=== PATIENT | male | born 1940 | race Caucasian/White ===

== ENCOUNTER 2017-04-12 18:39 | Inpatient (IN) | payer OTHER, MEDICARE ==
[~2017-04-12] VITALS: Ht 167.6 cm; Wt 117.0 kg
[~2017-04-12 18:39] MED LIST: ACETAMINOPHEN-H1 TA2 PO; ALBUTEROL 3 ML3 ML INH; ALDACTONE25 MG PO; ASPIRIN EC81 M1 PO; BACTRIM DS TAB1 EACH PO; BUPROPION HCL300 MG PO; CENTRUM SILVER1 EACH PO; COREG 25 MG TAB25 MG PO; COREG25 M1 PO; DIPHENHYDRAMINE25 M4 PO; ESCITALOPRAM OXA5 MG PO; FINASTERIDE5 M1 PO; FLOMAX(MONOGRA0.4 MG PO; FUROSEMIDE40 M1 PO; FUROSEMIDE40 MG PO; GABAPENTIN300 MG PO; GABAPENTIN400 M2 PO; HYDROCODON-ACE1 EAC2 PO; HYDROCODON-ACE1 EAC3 PO; IMDUR 60MG TAB60 MG PO; LEVEMIR 10100 UNITS/ SC; LEXAPRO5 M1 PO; LYRICA50 M1 PO; MYRBETRIQ50 M1 PO; NIACIN500 M6 PO; NOVOLOG100 U/ML SC; PLAVIX 75MG TAB75 MG PO; PRINIVIL 5MG5 MG PO; SACCHAROMYCES BOULARDII PO; SIMVASTATIN20 M2 PO; TRAZODONE HCL50 M1 PO; VICODIN 5-3001 EACH PO; VITAMIN D32000 UNI1 PO; WELLBUTRIN XL150 M2 PO; ZITHROMAX250 M2 PO; ZYLOPRIM 300MG300 MG PO; [UNRECOGNIZED DRUG - OTHER] PO
--- NOTE | 2017-04-12 19:28 | ED UPPER/LOWER EXTREMITY COMPL ---
History of Present Illness General Chief Complaint: Foot or Ankle Injury Stated Complaint: PT RT FOOT AND THE PINKIETOE IS SWOLLEN & red Source: patient, family Exam Limitations: no limitations Allergies Coded Allergies: Penicillins (Severe, HIVES 12/10/15) Reconcile Medications Allopurinol 300 MG TABLET 1 TAB PO QAM GOUT (Reported) Aspirin (Ecotrin*) 81 MG TABLET.DR 1 TAB PO QAM HEART/BLOOD (Reported) Atorvastatin Calcium 20 MG TABLET 1 TAB PO QAM CHOLESTEROL (Reported) Bupropion HCl (Wellbutrin XL) 150 MG TAB.ER.24H 1 TAB PO QAM DEPRESSION ( Reported) Carvedilol (Coreg) 25 MG TABLET 1 TAB PO QAM BP (Reported) Clopidogrel Bisulfate (Clopidogrel) 75 MG TABLET 1 TAB PO QAM BLOOD THINNER ( Reported) Diphenhydramine HCl 25 MG CAPSULE 2 CAP PO QPM SLEEP (Reported) Escitalopram Oxalate (Lexapro) 5 MG TABLET 1 TAB PO QPM MENTAL HEALTH ( Reported) Finasteride 5 MG TABLET 1 TAB PO QPM URINATION (Reported) Furosemide 40 MG TABLET 1 TAB PO QAM FLUID RETENTION (Reported) Hydrocodone/Acetaminophen (Hydrocodon-Acetaminoph 7.5-325) 7.5 MG-325 MG TABLET 1 TAB PO Q6-8H PAIN (Reported) Hydroxyzine HCl (Unknown Strength) TABLET (Unknown Dose) PO PRN ITCHING ( Reported) Insulin Lispro (Humalog) 100 UNIT/ML VIAL INSULIN PUMP (Reported) Isosorbide Mononitrate (Isosorbide Mononitrate ER) 60 MG TAB.ER.24H 2 TAB PO QAM HEART (Reported) Lisinopril (Prinivil) 5 MG TABLET 1 TAB PO QAM BP (Reported) Mirabegron (Myrbetriq) 50 MG TAB.ER.24H 1 TAB PO QPM BLADDER (Reported) Multivit-Min/Iron/Folic/Lutein (Centrum Silver Women Tablet) 8 MG IRON-400 MCG- 300 MCG TABLET 1 TAB PO DAILY SUPPLEMENT (Reported) Niacin (Niaspan) 500 MG TAB.ER.24H 1 TAB PO QPM CHOLESTEROL (Reported) Pregabalin (Lyrica) 50 MG CAPSULE 2 CAP PO QAM NEUROPATHY (Reported) Pregabalin (Lyrica) 50 MG CAPSULE 3 CAP PO QPM NEUROPATHY (Reported) Tamsulosin HCl (Flomax) 0.4 MG CAP.ER.24H 1 CAP PO DAILY (Reported) Trazodone HCl 50 MG TABLET 0.5 TAB PO QPM SLEEP HELP (Reported) Triage Note: PT WENT TO SEE DR. MATAMOROS ASSOCIATE LAST WEEK AND WAS TOLD HE NEEDS RIGHT FOOT PINKY TOE REMOVED. PT STATES HE DIDN'T FEEL IT DIDN'T NEED TO COME OFF. PT STATES TODAY HIS TOE TURNED RED AND HE CALLED DR. MATAMOROS AND WAS TOLD TO COME TO THE ED FOR X-RAYS. Triage Nurses Notes Reviewed? yes Onset: Gradual Duration: day(s): Timing: recent history Severity: moderate Pain/Injury Location: Right: 1st toe. Modifying Factors: Worsens With: movement. HPI: 76-year-old male presents to emergency department complaining of swelling and pain in his right pinky toe. He notes increased redness and swelling x one day. Patient has history of 2ND, 3RD, 4TH toe amputations by Dr. Matamoros on his right foot due to diabetes. 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 He notes a growing ulcer on his lateral fifth toe with pain and redness and swelling of his distal foot. Pain is worse with ambulation. He called Dr. Matamoros office who told him to report to the ER for x-rays and blood work. He states his blood sugars have been high in the 200s this past week. He states he has chronic lower extremity swelling. He denies fevers, chills, abdominal pain, change in bowel movements, abdominal swelling, increase in lower extremity swelling. (CARLOS WESTON,CROW) Vital Signs & Intake/Output Vital Signs & Intake/Output Vital Signs Date Time Temp Pulse Resp B/P B/P Pulse O2 O2 Flow FiO2 Mean Ox Delivery Rate 04/14 942 72 120/64 04/14 0942 72 120/64 04/14 0942 72 120/64 04/14 0942 72 120/64 04/14 0657 97.8 68 18 130/70 96 CPAP 04/13 2239 97.8 77 20 138/80 94 Room Air 04/13 1441 97.7 82 20 136/74 93 ED Intake and Output 04/14 0000 04/13 1200 Intake Total 1650 280 Output Total 640 350 Balance 1010 -70 Intake, IV 150 100 Intake, Oral 1500 180 Output, Urine 640 350 Patient 259 lb Weight Past History Travel History Traveled to [place] past 21 day No Medical History Any Pertinent Medical History? see below for history Neurological: NEUROPATHY EENT: allergies, cataracts, hearing loss Cardiovascular: CAD Respiratory: NONE Gastrointestinal: diverticulitis, GERD Hepatic: NONE Renal: CHRONIC KIDNEY DISEASE Musculoskeletal: gout Psychiatric: depression Endocrine: diabetes Blood Disorders: NONE Cancer(s): NONE NEEDLEWORKER/Reproductive: NONE History of MRSA: No History of VRE: No History of CDIFF: No Pneumonia Vaccine: 05/15/15 Influenza Vaccine: 07/15/16 Surgical History Surgical History: CABG (lower extremity angioplasty), colon resection, left leg angioplasty partial fifth ray resection, rt. 2nd toe anputation Psychosocial History Who do you live with Patient/Self Services at Home None What is your primary language [place] Tobacco Use: Quit >30 days ago ETOH Use: denies use Illicit Drug Use: denies illicit drug use Family History Family History, If Any: Relation not specified for: FH: diabetes mellitus Hx Contributory? No (CROW GONZALEZ PA-C) Review of Systems Review of Systems Constitutional: Reports: no symptoms. EENTM: Reports: no symptoms. Respiratory: Reports: no symptoms. Cardiovascular: Reports: no symptoms. Gastrointestinal/Abdominal: Reports: no symptoms. Genitourinary: Reports: no symptoms. Musculoskeletal: Reports: see HPI. Skin: Reports: see HPI. Neurological/Psychological: Reports: no symptoms. Hematologic/Endocrine: Reports: see HPI. Immunological: Reports: no symptoms. All Other Systems: Reviewed and Negative (CROW GONZALEZ PA-C) Physical Exam Physical Exam General Appearance: well developed/nourished, no apparent distress, alert, awake Head: atraumatic, normal appearance Eyes: Bilateral: normal appearance. Ears, Nose, Throat: hearing grossly normal Neck: normal inspection, supple, full range of motion Cardiovascular/Respiratory: normal breath sounds, regular rate/rhythm, no respiratory distress Gastrointestinal: tenderness and bruising over RLQ and LLQ at insulin pump sites Back: normal range of motion Foot Right: erythema, swelling, and tenderness over right 5th digit and right distal half of foot, 05.x0.5cm ulcer with tenderness over lateral 5th digit Neurologic/Tendon: normal sensation, normal motor functions, normal tendon functions Skin: erythema, warmth, swelling, and tenderness over right 5th digit and distal half of foot with 0.5cm ulcer on lateral fifth digit (CARLOS WESTON,CROW) Progress Differential Diagnosis: cellulitis, gout, septic arthritis, osteomyelitis Diagnostic Imaging: Viewed by Me: Radiology Read. Discussed w/RAD: Radiology Read. Radiology Impression: PATIENT: KELLY QUILES PRESENT AGE: 76 PATIENT ACCOUNT NO: [id number] : 39 LOCATION: [facility] ORDERING PHYSICIAN: CROW GONZALEZ PA-C SERVICE DATE: 04/12/17 EXAM TYPE: RAD - XRY-FOOT COMPLETE, R; XRY-TOES, RIGHT EXAMINATION: XR TOES AND FOOT RIGHT CLINICAL INFORMATION: Diabetic foot ulcer. COMPARISON: None. TECHNIQUE: 3 views of the foot, 2 views of the toes. FINDINGS: There is diffuse soft tissue prominence with previous amputations at the PIP joints in the second through fourth digits. The fifth toe remains in place. No cortical destruction is identified involving the proximal phalanx, however the distal phalanx is not well seen on the images provided however the visualized portions demonstrate no evidence of definitive cortical destruction. There are degenerative changes in the first toe and midfoot. There is a prominent plantar calcaneal spur. IMPRESSION: Soft tissue prominence, no definitive evidence of osteomyelitis. Distal fifth phalanx is not completely well seen. DICTATED BY: PAOLA BOLAÑOS MD DATE/TIME DICTATED:04/12/172037 BROADCAST MAINTENANCE TECHNICIAN:MANPREET DATE/TIME TRANSCRIBED:04/12/172037 CONFIDENTIAL, DO NOT COPY WITHOUT APPROPRIATE AUTHORIZATION. <Electronically signed in Other Vendor System> SIGNED BY: PAOLA BOLAÑOS MD 04/12/172134, PATIENT: KELLY QUILES PRESENT AGE: 76 PATIENT ACCOUNT NO: [id number] : 39 LOCATION: [facility] ORDERING PHYSICIAN: CROW GONZALEZ PA-C SERVICE DATE: 04/12/17 EXAM TYPE: RAD - XRY-FOOT COMPLETE, R; XRY-TOES, RIGHT EXAMINATION: XR TOES AND FOOT RIGHT CLINICAL INFORMATION: Diabetic foot ulcer. COMPARISON: None. TECHNIQUE: 3 views of the foot, 2 views of the toes. FINDINGS: There is diffuse soft tissue prominence with previous amputations at the PIP joints in the second through fourth digits. The fifth toe remains in place. No cortical destruction is identified involving the proximal phalanx, however the distal phalanx is not well seen on the images provided however the visualized portions demonstrate no evidence of definitive cortical destruction. There are degenerative changes in the first toe and midfoot. There is a prominent plantar calcaneal spur. IMPRESSION: Soft tissue prominence, no definitive evidence of osteomyelitis. Distal fifth phalanx is not completely well seen. DICTATED BY: PAOLA BOLAÑOS MD DATE/TIME DICTATED:04/12/172037 BROADCAST MAINTENANCE TECHNICIAN:MANPREET DATE/TIME TRANSCRIBED:04/12/172037 CONFIDENTIAL, DO NOT COPY WITHOUT APPROPRIATE AUTHORIZATION. <Electronically signed in Other Vendor System> SIGNED BY: PAOLA BOLAÑOS MD 04/12/17 2723 (CROW GONZALEZ PA-C) Plan of Care: Orders Procedure Date/time Status Lab Add-on Test 04/14 1311 Active Change service to 04/14 0823 Active PHOSPHORUS 04/14 0710 Active MAGNESIUM 04/14 07 Active Change service to 04/14 0633 Active CBC WITHOUT DIFFERENTIAL 04/14 06 Complete BASIC ELECTROLYTES PLUS BUN&CR 04/14 06 Active House Staff 04/14 UNK Active Nursing Misc 04/13 UNK Active Current Medications Sig/Chacha Start time Last Medication Dose Stop Time Status Admin Baclofen 10 MG ONCE ONE 04/14 1315 UNVr (Lioresal 10MG 04/14 131 Tablet) Melatonin 10 MG AT BEDTIME 04/13 2215 AC 04/14 (Melatonin) 0025 Escitalopram Oxalate 5 MG QPM 04/13 2200 AC 04/13 (Lexapro) 2159 Finasteride 5 MG QPM 04/13 2200 AC 04/13 (Proscar) 2159 Insulin Aspart 0 AT BEDTIME 04/13 2200 AC 04/13 (NovoLOG) 2200 Insulin Detemir 20 UNITS BID 04/13 2200 AC 04/14 (Levemir) 0938 Niacin 500 MG 2200 04/13 2200 AC 04/13 (Niacin 500 MG TR) 2159 Pregabalin 150 MG QPM 04/13 2200 AC 04/13 (Lyrica) 2207 Clindamycin 600 MG Q8H 04/13 1145 AC 04/14 (Cleocin) 1212 Dextrose/Water 50 ML (D5W) Allopurinol 300 MG QAM 04/13 1000 AC 04/14 (Zyloprim) 0939 Aspirin Buffered 81 MG QAM 04/13 1000 AC 04/14 (Ecotrin) 0939 Atorvastatin Calcium 20 MG QAM 04/13 1000 AC 04/14 (Lipitor) 0939 Bupropion HCl 150 MG DAILY 04/13 1000 AC 04/14 (Wellbutrin XL) 0939 Carvedilol 25 MG QAM 04/13 1000 AC 04/14 (Coreg) 0942 Clopidogrel Bisulfate 75 MG QAM 04/13 1000 AC 04/14 (Plavix) 0939 Furosemide 40 MG QAM 04/13 1000 AC 04/14 (Lasix) 0939 Isosorbide 120 MG QAM 04/13 1000 AC 04/14 Mononitrate 0942 (Imdur) Lisinopril 5 MG QAM 04/13 1000 AC 04/14 (Prinivil) 0942 Pregabalin 100 MG QAM 04/13 1000 AC 04/14 (Lyrica) 0939 Tamsulosin HCl 0.4 MG DAILY 04/13 1000 AC 04/14 (Flomax) 0942 Insulin Aspart 0 TIDAC 04/13 0800 AC 04/14 (NovoLOG) 1212 Heparin Sodium 5,000 UNIT Q8 04/13 0600 AC 04/14 (Porcine) 0629 Acetaminophen 650 MG Q6P PRN 04/12 2330 AC (Tylenol) Tramadol HCl 50 MG Q6P PRN 04/12 2330 AC 04/13 (Ultram) 0448 Oxycodone/ 2 TAB Q6P PRN 04/12 2315 AC 04/14 Acetaminophen 1259 (Percocet) Laboratory Tests 04/14/17 0710: Anion Gap 11, Estimated GFR 49 L, BUN/Creatinine Ratio 20.7, Phosphorus Pending , Magnesium Pending, CBC w Diff NO MAN DIFF REQ, RBC 4.39 L, MCV 95.1 H, MCH 31.2 H, RDW 14.8 H, MPV 7.9, Gran % 65.5, Lymphocytes % 19.5 L, Monocytes % 8.4, Eosinophils % 6.0 H, Basophils % 0.6, Absolute Granulocytes 6.0, Absolute Lymphocytes 1.8, Absolute Monocytes 0.8 H, Absolute Eosinophils 0.5, Absolute Basophils 0.1, PUBS MCHC 32.8 L 2200 - Dr. Cote evaluated patient at bedside. X-rays do not show definitive osteomyelitis. Given rapid changes in skin with likely cellulitis patient will be admitted for IV antibiotics. Also has history of poorly controlled diabetes with prior toe amputations this year. Blood cultures drawn and IV antibiotics initiated in the emergency department. Dr. Cote spoke with Dr. Prince regarding admitting patient on the phone. Premature discharge would be medically harmful. (CROW GONZALEZ PA-C) Departure Departure Time of Disposition: 2157 Disposition: STILL A PATIENT Condition: Stable Clinical Impression Primary Impression: Diabetic foot Secondary Impressions: Cellulitis of foot, right Referrals: ANGEL BAILEY,NILTON Staton (PCP/Family) Departure Forms: Customer Survey General Discharge Information Admission Note Spoke With: CRHISTIANA PRINCE MD Documentation of Exam: Documentation of any treatments & extenuating circumstances including Concerns Regarding Discharge (functional status, medication knowledge or non-compliance, living conditions, etc.) that warrant an admission rather than observation: [ cellulitis with rapid progression, poorly controlled DM, hx of previous toe amputations, diabetic foot ulcer, requiring IV abx, glucose monitoring, ortho consult for possible amputation, PT evaluation if gait instability given foot pain, premature discharge would be medically harmful] (CROW GONZALEZ PA-C) PA/CLINICAL CYTOPATHOLOGIST Co-Sign Statement Statement: ED Attending supervision documentation- x I saw and evaluated the patient. I have also reviewed all the pertinent lab results and diagnostic results. I agree with the findings and the plan of care as documented in the PA's/CLINICAL CYTOPATHOLOGIST's documentation. [] I have reviewed the ED Record and agree with the PA's/CLINICAL CYTOPATHOLOGIST's documentation. [] Additions or exceptions (if any) to the PAs/CLINICAL CYTOPATHOLOGIST's note and plan are summarized below: [] (WING BAILEY,DANY)
[2017-04-12 19:51] LABS: ABSOLUTE BASOPHIL COUNT 0 /CUMM (0.0-0.2); ABSOLUTE EOSINOPHIL COUNT 0.3 /CUMM (0.0-0.7); ABSOLUTE GRANULOCYTE CT 11.4 /CUMM (1.4-6.5); ABSOLUTE LYMPH COUNT 1.4 /CUMM (1.2-3.4); BASOPHIL % 0.3 % (0.0-2.0); EOSINOPHIL % 1.9 % (0-5); GRANULOCYTE % 80.9 % (42.2-75.2); HEMATOCRIT 41.5 % (42-52); MEAN CORPUSCULAR HGB 31.2 PG (27.0-31.0); MEAN CORPUSCULAR HGB CONC 32.8 G/DL (33.0-37.0); MEAN CORPUSCULAR VOLUME 95.1 FL (80.0-94.0); MEAN PLATELET VOLUME 8.1 FL (7.4-10.4); PLATELET COUNT 207 /CUMM (130-400); RBC DISTRIBUTION WIDTH 14.7 % (11.5-14.5); RED BLOOD CELL CT 4.36 /CUMM (4.70-6.10)
[2017-04-12 20:02] LABS: PT 12.4 SEC (9.4-12.5); PTT 35 SEC (25-37)
[2017-04-12] MEDS ORDERED: ALLOPURINOL300 M1 PO (20:03)
[2017-04-12] MEDS ORDERED: ATORVASTATIN CA20 M1 PO (20:03)
[2017-04-12] MEDS ORDERED: CLOPIDOGREL75 M1 PO (20:04)
[2017-04-12] MEDS ORDERED: ISOSORBIDE MONO60 M1 PO (20:07)
[2017-04-12] MEDS ORDERED: PRINIVIL5 M1 PO (20:08)
[2017-04-12] MEDS ORDERED: NIASPAN500 M1 PO (20:08)
[2017-04-12] MEDS ORDERED: FLOMAX0.4 M1 PO (20:09)
[2017-04-12] MEDS ORDERED: HUMALOG100 UNIT/2 (20:11)
[2017-04-12] MEDS ORDERED: HYDROXYZINE HCL25 M2 PO (20:12)
--- NOTE | 2017-04-12 21:35 | RADIOLOGY REPORT ---
EXAMINATION: XR TOES AND FOOT RIGHT CLINICAL INFORMATION: Diabetic foot ulcer. COMPARISON: None. TECHNIQUE: 3 views of the foot, 2 views of the toes. FINDINGS: There is diffuse soft tissue prominence with previous amputations at the PIP joints in the second through fourth digits. The fifth toe remains in place. No cortical destruction is identified involving the proximal phalanx, however the distal phalanx is not well seen on the images provided however the visualized portions demonstrate no evidence of definitive cortical destruction. There are degenerative changes in the first toe and midfoot. There is a prominent plantar calcaneal spur. IMPRESSION: Soft tissue prominence, no definitive evidence of osteomyelitis. Distal fifth phalanx is not completely well seen.
--- NOTE | 2017-04-12 22:55 | History & Physical ---
LAYA BAILEY,[facility] 04/12/17 9664: General Information and HPI MD Statement: I have seen and personally examined KELLY GUERRA and documented this H&P. The patient is a 76 year old M who presented with a patient stated chief complaint of [right fifth toe redness, warmness and swelling]. Source of Information: patient, old records Exam Limitations: no limitations History of Present Illness: Mr. Guerra 76 year old male with chief complaint of right fifth toe erythema, swelling for 1 day. Patient has past medical history significant for diabetes mellitus on insulin pump, neuropathy status post right 2nd, 3rd and 4th toe amputation, severe peripheral vascular disease, coronary artery disease status post 2 AR 1998 status post CABG and 8 stent on Plavix and aspirin, left leg angioplasty, hypertension, gout, arthritis, BPH, diverticulitis status post colon dissection, GERD, depression. Patient was discharged in September 2016 after had right third toe amputation for cellulitis with suspicion of osteomyelitis however bone biopsy was negative for osteomyelitis and patient was discharged home after 2 doses of vancomycin of antibiotics. On culture positive for enterococcus sensitive to ampicillin but as patient is allergic to penicillin was treated with vancomycin. Patient reported being in regular state of health until this noon when he noticed redness, swelling of right fifth toe, patient contact Dr. Samaniego who directed him to come to ED for evaluation. Patient denied any fever, chills, history of trauma right foot, falls except for fall one month ago without significant injury. Patient reported new onset of ulcer on the lateral surface of right fifth toe 2 weeks ago, no discharge or bleeding, dry crust on top of the wound. Patient reported chronic dry cough, chronic watery diarrhea after colonic resection for diverticulitis, joint pain. Patient is an ex-smoker, quit 40 years ago, occasional alcohol use 1 bear per month, no illicit drugs. He used to have oxycodone at bedtime for the past 1 1/ 2 year for arthritis. Patient uses cane for ambulation, independent for ADLs, dependent for IADL. 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 2nd toe anputation Past Family/Social History Family History Relations & Conditions if any Relation not specified for: FH: diabetes mellitus Psychosocial History Services at Home: None Primary Language: Estonian ETOH Use: denies use Illicit Drug Use: denies illicit drug use Living Will? yes Functional Ability ADLs Independent: dressing, eating, toileting, bathing. Ambulation: walker IADLs Independent: shopping, housework, finances, food prep, telephone, transportation , medication admin. Review of Systems Review of Systems Constitutional: Denies: chills, fever, weakness. EENTM: Denies: blurred vision, visual changes, hearing changes, nasal pain. Cardiovascular: Denies: chest pain, orthopena, palpitations, peripheral edema, syncope. Respiratory: Denies: hemoptysis, orthopnea, short of breath. GI: Reports: diarrhea. Denies: abdominal pain, melena, nausea, bloody stool, changes in stool, vomiting. Genitourinary: Denies: discharge, dysuria, frequency, hesitation, nocturia. Musculoskeletal: Reports: gout, joint pain. Denies: joint swelling, muscle pain. Skin: Denies: change in skin color, change in hair/nails, dryness, erythema, jaundice, lesions. Neurological/Psychological: Denies: anxiety, confusion, depressed, dementia, tingling, tremors. Hematologic/Endocrine: Denies: bleeding, polyuria. Exam & Diagnostic Data Last 24 Hrs of Vital Signs/I&O Vital Signs Date Time Temp Pulse Resp B/P B/P Pulse O2 O2 Flow FiO2 Mean Ox Delivery Rate 04/13 0102 98.3 68 20 126/74 95 Room Air 04/13 0035 94 Room Air 04/13 0034 98.7 68 16 145/66 92 Room Air 04/12 2311 98.9 75 18 126/60 94 Room Air 04/12 1851 98.1 85 16 143/74 94 Room Air Intake & Output 04/13 0800 04/13 0000 04/12 1600 Intake Total 0 Output Total Balance 0 Intake, Oral 0 Patient 117.48 kg 111.13 kg Weight Weight Reported by Patient Measurement Method Physical Exam General Appearance Alert, Oriented X3, Cooperative, No Acute Distress Skin No Rashes Skin Temp/Moisture Exam: Warm/Dry HEENT Atraumatic, PERRLA, EOMI, Mucous Membr. moist/pink Neck Supple Lymphatic no cervical lymphadenopathy Cardiovascular Regular Rate, Normal S1, Normal S2, No Murmurs Lungs Clear to Auscultation, Normal Air Movement Abdomen Normal Bowel Sounds, Soft, No Tenderness, No Hepatospenomegaly, No Masses, distended, bruses from trauma Neurological Normal Speech, Strength at 5/5 X4 Ext, Normal Tone, Sensation Intact, Cranial Nerves 3-12 NL, Reflexes 2+ Extremities No Clubbing, No Cyanosis, No Tenderness/Swelling, Left pedal edema + 2 Right pedal edema +1 Right foor erythema, warm, 0.5x0.5 crasted wound on the lateral surface of 5th right toe, no bleeding or discharge, no flactuation or crepitation Bilateral thready pulses Assessment/Plan Assessment: Mr. Guerra 76 year old male with PMH significant for diabetes mellitus on insulin pump, neuropathy status post right 2nd, 3rd and 4th toe amputation, severe peripheral vascular disease, coronary artery disease status post 2 AR 1998 status post CABG and 8 stent on Plavix and aspirin, left leg angioplasty, hypertension, gout, arthritis, BPH, diverticulitis status post colon dissection, GERD, depression who presented to ED with chief complaint of chief complaint of right fifth toe erythema, swelling for 1 day. Patient had prior same right foot 2nd, 3rd and 4th toe amputation due to cellulitis, osteomyelitis was never detected. Previous tissue/bone culture from September 2016 positive for enterococcus sensitive to penicillin, patient was treated with vancomycin previously due to penicillin allergy. On examination, lateral aspect of right fifth toe has 2 weeks old wound covered with dry crust, no discharge or blood, crepitation or fluctuation. X-ray didn't reveal any gases, and no signs of osteomyelitis as well. Borderline leukocytosis of 14, H&H 13.6/41.5, BUN and creatinine 27/1.3 with GFR 54 at baseline, lactic acid 0.9<1.2. Patient received 1 dose of clindamycin IV in the ED. Patient will be admitted to general medical floor for wound care and close monitoring, podiatry evaluation in a.m. for possible debridement. Problem list #Right foot cellulitis #Diabetes on insulin pump #PVD #CAD status post CABG and stent placement #CKD Plan -Admit to general medical floor -Vitals every shift -Accu-Chek 3 times a day before meals and HC -Levemir 24 units twice a day -NovoLog sliding scale 3 times a day and HC -Switch off insulin pump -Follow off antibiotics for wound culture -Obtain MRI right foot/clarify with Dr. Raymundo if he wants to proceed with surgical intervention or to obtain MRI first -ID consultation to guide further antibiotic -Wound consultation -Leg elevation -Continue all home medication -Code DNR/DNI -Diet nothing by mouth for possible surgical procedure in a.m. -DVT prophylaxis heparin subcutaneous As Ranked By This Provider Problem List: 1. Cellulitis of foot, right Core Measures/Miscellaneous Acute Coronary Syndrome ACS Diagnosis: No Cerebrovascular Accident CVA/TIA Diagnosis: No Congestive Heart Failure CHF Diagnosis: No VTE (View Protocol) VTE Risk Factors: Age > 40 [address] [facility] VTE prophylaxis d/t: No contraindications No VTE Pharm Prophylaxis d/t: No contraindications VTE Diagnosis: No VTE Type: NONE VTE Confirmed by (Test): NONE Sepsis (View Protocol) Severe Sepsis Present: No Septic Shock Septic Shock Present: No Miscellaneous Documentation Attending Case Discussed With: CHRISTIANA IZAGUIRRE MD Primary Care Physician: NILTON ORTIZ MD Patient sees these Specialists cardi, rheumo, endo, GI, podiatery, nephro Level of Patient Care: General Medicine KIRA PERAZA MD 04/13/17 0014: General Information and HPI Allergies/Medications Home Med list Allopurinol 300 MG TABLET 1 TAB PO QAM GOUT (Reported) Aspirin (Ecotrin*) 81 MG TABLET.DR 1 TAB PO QAM HEART/BLOOD (Reported) Atorvastatin Calcium 20 MG TABLET 1 TAB PO QAM CHOLESTEROL (Reported) Bupropion HCl (Wellbutrin XL) 150 MG TAB.ER.24H 1 TAB PO QAM DEPRESSION ( Reported) Carvedilol (Coreg) 25 MG TABLET 1 TAB PO QAM BP (Reported) Clopidogrel Bisulfate (Clopidogrel) 75 MG TABLET 1 TAB PO QAM BLOOD THINNER ( Reported) Diphenhydramine HCl 25 MG CAPSULE 2 CAP PO QPM SLEEP (Reported) Escitalopram Oxalate (Lexapro) 5 MG TABLET 1 TAB PO QPM MENTAL HEALTH ( Reported) Finasteride 5 MG TABLET 1 TAB PO QPM URINATION (Reported) Furosemide 40 MG TABLET 1 TAB PO QAM FLUID RETENTION (Reported) Hydrocodone/Acetaminophen (Hydrocodon-Acetaminoph 7.5-325) 7.5 MG-325 MG TABLET 1 TAB PO Q6-8H PAIN (Reported) Hydroxyzine HCl (Unknown Strength) TABLET (Unknown Dose) PO PRN ITCHING ( Reported) Insulin Lispro (Humalog) 100 UNIT/ML VIAL INSULIN PUMP (Reported) Isosorbide Mononitrate (Isosorbide Mononitrate ER) 60 MG TAB.ER.24H 2 TAB PO QAM HEART (Reported) Lisinopril (Prinivil) 5 MG TABLET 1 TAB PO QAM BP (Reported) Mirabegron (Myrbetriq) 50 MG TAB.ER.24H 1 TAB PO QPM BLADDER (Reported) Multivit-Min/Iron/Folic/Lutein (Centrum Silver Women Tablet) 8 MG IRON-400 MCG- 300 MCG TABLET 1 TAB PO DAILY SUPPLEMENT (Reported) Niacin (Niaspan) 500 MG TAB.ER.24H 1 TAB PO QPM CHOLESTEROL (Reported) Pregabalin (Lyrica) 50 MG CAPSULE 2 CAP PO QAM NEUROPATHY (Reported) Pregabalin (Lyrica) 50 MG CAPSULE 3 CAP PO QPM NEUROPATHY (Reported) Tamsulosin HCl (Flomax) 0.4 MG CAP.ER.24H 1 CAP PO DAILY (Reported) Trazodone HCl 50 MG TABLET 0.5 TAB PO QPM SLEEP HELP (Reported) Resident Review Statement Resident Statement: examined this patient, discussed with digital marketing intern, agreed with digital marketing intern Other Findings: 76 yo M with pmh of diabetes mellitus with neuropathy on insulin pump, s/p resection of his middle 3 toes, severe peripheral vascular disease, coronary artery disease status post CABG with 8 stents, left leg angioplasty, hypertension, CKD, gout, and BPH, diverticulitis s/p bowel resection, GERD, depression, was referred to the emergency department by Dr. Samaniego from Podiatry for right fifth toe and Rt foot infection. Patient has an ulcer on the Rt 5th toe that has been present for 2 weeks but he only developed pain in that toe earlier today with assocaiated swelling, soreness and redness that has been moving up his Rt foot. He saw his technical instructor course developer Dr. Jeter a few days ago who told him he needed to get that toe removed but he did not know why at the time because he was pain free. He was told to contact Dr. Paredes which he did not do at the time, however, after the pain started today, he called Dr. Paredes who told him to present to the ER for evaluation. His last admission was in Sep 2016 when he had his right fourth toe resected due to an infection. OR cultures were found to be positive for Enterococcus sensitive to Vancomycin and ampicillin and coag-negative Staph but pathology came back negative for acute and chronic osteomyelitis. He has 3-4 episodes of watery diarrhea daily due to a short bowel syndrome that started after his bowel was resected following an episode of severe diverticulitis. He uses an insulin pump and reports that his blood sugars have been well controlled and he had a BG of 147 this AM. He uses a 4 legged-cane for ambulation and is mostly independent of his ADLs. Exam and imaging as above Assessment 1. Right 5th toe ulcer and cellulitis of the Right foot 2. Diabetes with neuropathy 3. CKD Stage 2 4. HTN, CAD 5. Gout 6. BPH 7. Anxiety/depression Plan Podiatry consult Watch off antibiotics Obtain MRI in a.m. to rule out osteomyelitis ID consult Wound care consult Blood culture x 2 Keep legs elevated as much as possible Discontinue insulin pump for now Subcutaneous Levemir 25 mg twice a day Continue home dose of his important medications NovoLog sliding scale Fingerstick glucose 3 times a day before meals and at bedtime Check hemoglobin A1c Diabetic diet Pain pathway SC heparin DNR/DNI
[2017-04-13 01:02] VITALS: BP 126/74
--- NOTE | 2017-04-13 02:49 | PN- Att Addend ---
Attending Addendum Attending Brief Note CC: right 5th toe pain PMHx: DM on insulin pump, CAD s/p CABG, PVD s/p angioplasty, CRISTINE, obesity, GERD, CKD, depression, gout, amputation of 3 toes right side Patient visited his scruff worker yesterday who looked at his right little toe performed and suggested that it might need amputation and patient was suggested to call Dr. Samaniego for surgery planning. As patient was not having any pain, fever, redness, discharge he postponed the call. He has small ulcer on the lateral aspect of little toe since 2 weeks, But this morning patient noticed worsening pain swelling, redness around the that toe, foot ankle, he was worried about the infection so he called Dr. Samaniego office suggested him to come to ER. Patient denies fever, chills, night sweats, loss of appetite, trauma, bites to that area. Patient had been ambulating with a wheelchair mostly. Vitals: T max 98.9, pulse 80s, RR 16, blood pressure 143/74, saturating well on room air On exam: A O 3, cooperative, no acute distress, neck supple, JVD normal, no lymphadenopathy, mucosa moist, no focal neurological deficit, bilateral lower extremity edema left more than right, CVS: S1-S2, RRR. RS: Clear to auscultate bilaterally. Abdomen: Soft, NT, obese ND, bowel sounds present. Right foot mildly swollen, red, inflamed, tender to touch with dry necrotic looking scab on the lateral aspect of fifth toe on right side., No discharge, crepitus, fluctuation. Decreased sensations. Labs: WBC 14.0, hemoglobin 13.6, hematocrit 41.5, platelets 207, BMP and LFT unremarkable except CKD, creatinine baseline X-ray foot and 2 right-sided: Soft tissue prominence, no definitive evidence of osteomyelitis. Distal fifth phalanx is not completely well seen. Assessment and plan 76-year-old male with multiple comorbidities presented in ER with 2 week history of small non-healing ulcer on lateral aspect of little toe and acute worsening of pain, redness, swelling around toe and foot. Mild leukocytosis, no fever, x- ray does not show any evidence of osteomyelitis but still Suspected osteomyelitis, would need MRI and podiatry consult. Will hold off antibiotics for now, for expected cultures, resume antibiotics according to ID recommendations, according to plan of surgery. #1 Diabetic foot infection: right lower extremity cellulitis with suspected osteomyelitis of right little toe: Patient already received clindamycin in ER #2 DM on insulin pump #3 CKD stage III: Creatinine at baseline #4 CAD s/p CABG, PVD s/p angioplasty, CRISTINE, obesity, GERD, CKD, depression, gout, amputation of 3 toes right side - Admit to general medicine - hold antibiotics, - MRI right foot if okay with Dr. Samaniego - Consult Dr. Samaniego in morning - Nothing by mouth after midnight for possible surgery - ID consult - Wound consult - Adequate pain control - DC pump while in hospital, continue basal and sliding scale short-acting insulin, and previous hospitalization patient was Levemir 20 units twice a day, continue the same dose - Consult endocrinology - continue rest of his home medications for chronic stable conditions - RCR try risk is moderate to severe given his history of DM, CAD, cardiomyopathy. - DVT prophylaxis with heparin
--- NOTE | 2017-04-13 02:52 | Admission Certification ---
Admission Certification Certification Statement - As attending physician, I certify that at the time of - admission, based on clinical presentation, severity of - symptoms, need for further diagnostic testing and - therapeutic interventions, and risk of adverse outcomes - without in-hospital treatment, in my clinical assessment, - this patient requires an acute hospital stay for a minimum - of two nights or longer. I have also considered psychsocial - factors such as support system, advanced age, financial - issues, cognitive issues, and failed out-patient treatments, - past re-admission history, safety of patient, and lack of - compliance as applicable. Specific rationale supporting this admission is: Cellulitis with suspected osteomyelitis right little toe
[2017-04-13 07:07] VITALS: BP 112/56
--- NOTE | 2017-04-13 07:42 | PN- Housestaff ---
COLIN BAILEY,[facility] 04/13/17 0737: Subjective Follow-up For: Cellulitis vs Osteomylitis Diabetes Subjective: Mr. Guerra was seen and examined this morning. He is resting comfortably in bed. He reports no issues overnight except that he was unable to get much rest. He attributes this to coming upstairs very late. At the moment he seems to be responding well to pain medications. He still continues to endorse right sided toe pain. Pain is rated at a 5-6 out of 10. Described as sharp. He denies any fever, chills, nausea, vomiting. Review of Systems Constitutional: Denies: chills, diaphoresis, fever, malaise, weakness. Cardiovascular: Denies: chest pain, edema, orthopena, palpitations. Respiratory: Denies: cough, hemoptysis, orthopnea, short of breath. Gastrointestinal: Denies: abdominal pain, bloating, constipation, diarrhea, distention, bowel incontinence. Genitourinary: Denies: discharge, dysuria, frequency, hematuria, hesitation. Musculoskeletal: Reports: joint pain. Denies: back pain, muscle pain, muscle stiffness. Skin: Reports: change in hair/nails, erythema (Toe ). Objective Last 24 Hrs of Vital Signs/I&O Vital Signs Date Time Temp Pulse Resp B/P B/P Pulse O2 O2 Flow FiO2 Mean Ox Delivery Rate 04/13 0707 97.6 74 20 112/56 95 Room Air 04/13 0102 98.3 68 20 126/74 95 Room Air 04/13 0035 94 Room Air 04/13 0034 98.7 68 16 145/66 92 Room Air 04/12 2311 98.9 75 18 126/60 94 Room Air 04/12 1851 98.1 85 16 143/74 94 Room Air Intake & Output 04/13 0800 04/13 0000 04/12 1600 Intake Total 280 0 Output Total 350 Balance -70 0 Intake, IV 100 Intake, Oral 180 0 Output, Urine 350 Patient 117.48 kg 111.13 kg Weight Weight Reported by Patient Measurement Method Physical Exam General Appearance: Alert, Oriented X3, Cooperative Cardiovascular: Normal S1, Normal S2 Lungs: Clear to Auscultation, Increased Breath Sounds Abdomen: Normal Bowel Sounds, Soft, No Tenderness Neurological: Normal Speech, Strength at 5/5 X4 Ext Extremities: No Cyanosis, No Edema Vascular: Right lower extemity tenderness, at 5 toe. Decreased sensation. No Motor weakness. Ulcer present, .5 mm x .4mm. Weeping. Current Medications: Current Medications Sig/Chacha Start time Last Medication Dose Route Stop Time Status Admin Acetaminophen 650 MG Q6P PRN 04/12 2330 AC PO Acetaminophen 0 .STK-MED ONE 04/12 2245 DC IV Acetaminophen 1,000 MG ONCE ONE 04/12 2215 DC 04/12 N/A 1 UNIT IV 04/129 2249 Allopurinol 300 MG QAM 04/13 1000 AC PO Aspirin Buffered 81 MG QAM 04/13 1000 AC PO Atorvastatin Calcium 20 MG QAM 04/13 1000 AC PO Bupropion HCl 150 MG DAILY 04/13 1000 AC PO Carvedilol 25 MG QAM 04/13 1000 AC PO Clindamycin 600 MG ONCE ONE 04/125 DC 04/12 Dextrose/Water 50 ML IV 04/124 2311 Clopidogrel Bisulfate 75 MG QAM 04/13 1000 AC PO Dextrose/Sodium 1,000 ML Q20H 04/13 0430 AC 04/13 Chloride IV 04/14 0029 0449 Escitalopram Oxalate 5 MG QPM 04/13 2200 AC PO Finasteride 5 MG QPM 04/13 2200 AC PO Furosemide 40 MG QAM 04/13 1000 AC PO Heparin Sodium 5,000 UNIT Q8 04/13 0600 AC 04/13 (Porcine) SC 0607 Insulin Aspart 0 TIDAC 04/13 0800 AC SC Insulin Detemir 25 UNITS BID 04/12 2326 AC 04/13 SC 0155 Isosorbide 120 MG QAM 04/13 1000 AC Mononitrate PO Lisinopril 5 MG QAM 04/13 1000 AC PO Niacin 500 MG 2200 04/13 2200 AC PO Oxycodone/ 0 .STK-MED ONE 04/12 2346 DC Acetaminophen PO Oxycodone/ 2 TAB Q6P PRN 04/12 2315 AC 04/13 Acetaminophen PO 0610 Polyethylene Glycol 17 GM AT BEDTIME 04/13 2200 DC PO Pregabalin 150 MG QPM 04/13 2200 AC PO Pregabalin 100 MG QAM 04/13 1000 AC PO Senna/Docusate Sodium 2 TAB AT BEDTIME 04/13 2200 CAN PO Tamsulosin HCl 0.4 MG DAILY 04/13 1000 AC PO Tramadol HCl 50 MG Q6P PRN 04/12 2330 AC 04/13 PO 0448 Last 24 Hrs of Lab/Ryan Results Last 24 Hrs of Labs/Mics: Laboratory Tests 04/13/17627: CBC w Diff Pending, WBC Pending, RBC Pending, Hgb Pending, Hct Pending, MCV Pending, MCH Pending, RDW Pending, Plt Count Pending, MPV Pending, PUBS MCHC Pending 04/13/17 0122: Lactic Acid 0.9 04/12/172236: Lactic Acid 1.2 04/12/17 1934: Anion Gap 8, Estimated GFR 54 L, BUN/Creatinine Ratio 20.8, Glucose 204 H, Hemoglobin A1c Pending, Calcium 8.7, Total Bilirubin 0.5, AST 15 L, ALT 31, Alkaline Phosphatase 52, Total Protein 5.9 L, Albumin 3.6, Globulin 2.3, Albumin/Globulin Ratio 1.6, PT 12.4, INR 1.18 H, APTT 35, CBC w Diff NO MAN DIFF REQ, RBC 4.36 L, MCV 95.1 H, MCH 31.2 H, RDW 14.7 H, MPV 8.1, Gran % 80.9 H, Lymphocytes % 10.0 L, Monocytes % 6.9, Eosinophils % 1.9, Basophils % 0.3, Absolute Granulocytes 11.4 H, Absolute Lymphocytes 1.4, Absolute Monocytes 1.0 H, Absolute Eosinophils 0.3, Absolute Basophils 0, PUBS MCHC 32.8 L, ESR Westergren 40 H Microbiology 04/12 2242 BLOOD: Blood Culture - RECD 04/12 2237 BLOOD: Blood Culture - RECD Assessment/Plan Assessment: Mr. Guerra 76 year old male with PMH significant for diabetes mellitus on insulin pump, neuropathy status post right 2nd, 3rd and 4th toe amputation, severe peripheral vascular disease, coronary artery disease status post 2 CT 1998 status post CABG and 8 stent on Plavix and aspirin, left leg angioplasty, hypertension, gout, arthritis, BPH, diverticulitis status post colon dissection, GERD, depression who presented to ED with chief complaint of chief complaint of right fifth toe erythema, swelling for 1 day. Patient had prior same right foot 2nd, 3rd and 4th toe amputation due to cellulitis, osteomyelitis was never detected. Previous tissue/bone culture from September 2016 positive for enterococcus sensitive to penicillin, patient was treated with vancomycin previously due to penicillin allergy. At the time of admission: X-ray: and no signs of osteomyelitis as well. Labs: Borderline leukocytosis of 14, H&H 13.6/41.5, BUN and creatinine 27/1.3 with GFR 54 at baseline, lactic acid 0.9<1.2. Patient received 1 dose of clindamycin IV in the ED. Patient Currently Admitted on the general medical Service. #Right foot cellulitis Osteomylitis ruled out this am. No evidence of any abnormalities on MRI. No surgical intervention warranted at the moment. Will continued will continue IV clindamycin and should the patient remain afebrile over the next 24 hours and white blood cell trend lower may consider discharge. Infectious diseases consultation was held for now. Continue to elevate leg. #Diabetes on insulin pump as an outpatient. Received an endocrinology consultation this am. Patient has been started on Levemir 20 units. Sliding scale has been adjusted as per recommendations from endocrinology. Hemoglobin A1c was elevated at 8.6. Patient will likely need to have insulin pump dosing adjustment tailored as outpatient. To maintain hemoglobin A1c below 7.0. Maintain strict glycemic control while patient is admitted. FS, 186 #PVD Continue home medications. #CAD status post CABG and stent placement Continue home medications. #CKD Encourage by mouth hydration. Patient does generally have a high creatinine, At baseline. Monitor BEP in a.m. #Diet consistent carbohydrate. #DVT prophylaxis Heparin subcutaneous. #Code DNR/DNI. Problem List: 1. Cellulitis of foot, right 2. Diabetic foot 3. Cellulitis 4. HTN (hypertension) 5. LEHA (acute kidney injury) Pain Ratin Pain Location: Left Lower Extremity Pain Goal: Remain pain free Pain Plan: Percocet Tomorrow's Labs & Rationales: CBC: Monitor H/H, may warrant monitoring off ABx. BEP: Monitro Renal Function BILLY OSORIO MD 04/13/17 1051: Attending MD Review Statement Attending Statement Attending MD Statement: examined this patient, discuss w/resident/PA/CABLE ASSEMBLER, agreed w/resident/PA/CABLE ASSEMBLER, reviewed EMR data (avail) Attending Assessment/Plan: 76M PMH diabetes mellitus on insulin pump, neuropathy status post right 2nd, 3rd and 4th toe amputation, severe peripheral vascular disease, coronary artery disease status post 2 CT 1998 status post CABG and 8 stent on Plavix and aspirin , left leg angioplasty, hypertension, gout, arthritis, BPH, diverticulitis status post colon dissection, GERD, depression presenting with right fifth toe redness and pain for 1 day suspicious for acute osteomyelitis of the toe. No fever or chills, feels well, pain controlled. ESR 40. WBC 14 down to 11 today. 1. Right fifth toe cellulitis 2. Severe PVD 3. T2DM with diabetic polyneuropathy Plan - Continue on general medicine - Continue Clindamycin - Follow cultures - Follow up MRI results - Follow podiatry recommendations - Continue home medications - Endocrine consult for insulin pump management while inpatient - Current pain regimen is controlling pain well (patient is happy with pain score 4-5) - DVT PPx
[2017-04-13 08:38] LABS: ABSOLUTE BASOPHIL COUNT 0 /CUMM (0.0-0.2); ABSOLUTE EOSINOPHIL COUNT 0.3 /CUMM (0.0-0.7); ABSOLUTE GRANULOCYTE CT 8.5 /CUMM (1.4-6.5); ABSOLUTE LYMPH COUNT 1.8 /CUMM (1.2-3.4); ABSOLUTE MONOCYTE COUNT 0.9 /CUMM (0.10-0.60); BASOPHIL % 0.3 % (0.0-2.0); HEMATOCRIT 39.3 % (42-52); MEAN CORPUSCULAR HGB 31.3 PG (27.0-31.0); MEAN CORPUSCULAR VOLUME 94.7 FL (80.0-94.0); MEAN PLATELET VOLUME 8.3 FL (7.4-10.4); PLATELET COUNT 182 /CUMM (130-400); RBC DISTRIBUTION WIDTH 14.6 % (11.5-14.5); RED BLOOD CELL CT 4.15 /CUMM (4.70-6.10); WHITE BLOOD CELL COUNT 11.7 /CUMM (4.8-10.8)
--- NOTE | 2017-04-13 09:17 | Cons- Endocrinology ---
General Information and HPI Consulting Request Date of Consult: 04/13/17 Requested By: medical team Reason for Consult: uncontrolled diabetes Source of Information: patient, old records Exam Limitations: no limitations History of Present Illness: 76-year-old white male has a known history of type 2 diabetes associated with obesity. He came in because of a problem with his right foot. He noticed swelling and redness all in the right fifth toe the dorsum of his foot. He is already had her second third and fourth toe amputation. He has known coronary artery disease and peripheral vascular disease. The patient is on an insulin pump. He is on one unit per 10 g of carbohydrate and 1 unit per 50 points of glucose above 100 as his pre-meal bolus. His basal rates vary from 1.5-2.5 and 2.3. He states he used to be on U5 100 insulin but went to the pump and got better control of his blood sugar. Patient has known chronic kidney disease and peripheral neuropathy. Allergies/Medications Allergies: Coded Allergies: Penicillins (Severe, HIVES 12/10/15) Home Med List: Allopurinol 300 MG TABLET 1 TAB PO QAM GOUT (Reported) Aspirin (Ecotrin*) 81 MG TABLET.DR 1 TAB PO QAM HEART/BLOOD (Reported) Atorvastatin Calcium 20 MG TABLET 1 TAB PO QAM CHOLESTEROL (Reported) Bupropion HCl (Wellbutrin XL) 150 MG TAB.ER.24H 1 TAB PO QAM DEPRESSION ( Reported) Carvedilol (Coreg) 25 MG TABLET 1 TAB PO QAM BP (Reported) Clindamycin HCl 300 MG CAPSULE 2 CAP PO TID infection Clopidogrel Bisulfate (Clopidogrel) 75 MG TABLET 1 TAB PO QAM BLOOD THINNER ( Reported) Diphenhydramine HCl 25 MG CAPSULE 2 CAP PO QPM SLEEP (Reported) Escitalopram Oxalate (Lexapro) 5 MG TABLET 1 TAB PO QPM MENTAL HEALTH ( Reported) Finasteride 5 MG TABLET 1 TAB PO QPM URINATION (Reported) Furosemide 40 MG TABLET 1 TAB PO QAM FLUID RETENTION (Reported) Hydrocodone/Acetaminophen (Hydrocodon-Acetaminoph 7.5-325) 7.5 MG-325 MG TABLET 1 TAB PO Q6-8H PAIN (Reported) Hydroxyzine HCl (Unknown Strength) TABLET (Unknown Dose) PO PRN ITCHING ( Reported) Insulin Lispro (Humalog) 100 UNIT/ML VIAL INSULIN PUMP (Reported) Isosorbide Mononitrate (Isosorbide Mononitrate ER) 60 MG TAB.ER.24H 2 TAB PO QAM HEART (Reported) Lisinopril (Prinivil) 5 MG TABLET 1 TAB PO QAM BP (Reported) Mirabegron (Myrbetriq) 50 MG TAB.ER.24H 1 TAB PO QPM BLADDER (Reported) Multivit-Min/Iron/Folic/Lutein (Centrum Silver Women Tablet) 8 MG IRON-400 MCG- 300 MCG TABLET 1 TAB PO DAILY SUPPLEMENT (Reported) Niacin (Niaspan) 500 MG TAB.ER.24H 1 TAB PO QPM CHOLESTEROL (Reported) Pregabalin (Lyrica) 50 MG CAPSULE 2 CAP PO QAM NEUROPATHY (Reported) Pregabalin (Lyrica) 50 MG CAPSULE 3 CAP PO QPM NEUROPATHY (Reported) Tamsulosin HCl (Flomax) 0.4 MG CAP.ER.24H 1 CAP PO DAILY (Reported) Trazodone HCl 50 MG TABLET 0.5 TAB PO QPM SLEEP HELP (Reported) Review of Systems Review of Systems Constitutional: Denies: chills, fever. Cardiovascular: Denies: chest pain. Respiratory: Denies: short of breath. GI: Reports: diarrhea. Skin: Reports: rash (numbness and swelling of foot). 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 2nd toe anputation Family History Relations & Conditions If Any: Relation not specified for: FH: diabetes mellitus Psychosocial History Where Do You Live? Home Services at Home: None Primary Language: Yakut Smoking Status: Never Smoked ETOH Use: denies use Illicit Drug Use: denies illicit drug use Living Will? yes Functional Ability ADLs Independent: dressing, eating, toileting, bathing. Ambulation: walker IADLs Independent: shopping, housework, finances, food prep, telephone, transportation , medication admin. Exam & Diagnostic Data Last 24 Hrs of Vital Signs/I&O Vital Signs Date Time Temp Pulse Resp B/P B/P Pulse O2 O2 Flow FiO2 Mean Ox Delivery Rate 04/13 0907 140/82 04/13 0907 140/82 04/13 0906 140/82 04/13 0906 140/82 04/13 0707 97.6 74 20 112/56 95 Room Air 06 0102 98.3 68 20 126/74 95 Room Air 04/13 0035 94 Room Air 04/13 0034 98.7 68 16 145/66 92 Room Air 04/12 2311 98.9 75 18 126/60 94 Room Air 04/12 1851 98.1 85 16 143/74 94 Room Air Intake & Output 04/13 1600 04/13 0800 04/13 0000 Intake Total 280 0 Output Total 350 Balance -70 0 Intake, IV 100 Intake, Oral 180 0 Output, Urine 350 Patient 259 lb 245 lb Weight Weight Reported by Patient Measurement Method Vital Signs Date Time Temp Pulse Resp B/P B/P Pulse O2 O2 Flow FiO2 Mean Ox Delivery Rate 04/13 0907 140/82 04/13 0907 140/82 04/13 0906 140/82 04/13 0906 140/82 04/13 0707 97.6 74 20 112/56 95 Room Air 04/13 0102 98.3 68 20 126/74 95 Room Air 04/13 0035 94 Room Air 04/13 0034 98.7 68 16 145/66 92 Room Air 04/12 2311 98.9 75 18 126/60 94 Room Air 04/12 1851 98.1 85 16 143/74 94 Room Air Intake & Output 04/13 1600 04/13 0800 04/13 0000 Intake Total 280 0 Output Total 350 Balance -70 0 Intake, IV 100 Intake, Oral 180 0 Output, Urine 350 Patient 259 lb 245 lb Weight Weight Reported by Patient Measurement Method Physical Exam General Appearance: alert, awake, anxious Head: normal appearance Eyes: Bilateral: normal appearance. Neck: normal inspection Respiratory: normal breath sounds Cardiovascular: regular rate/rhythm Gastrointestinal: normal bowel sounds, soft Extremities: right foot bandaged Labs/Ryan Results: Laboratory Tests 04/13 04/13 04/12 0628 0122 2237 Chemistry Lactic Acid (0.7 - 2.1 mmol/L) 0.9 1.2 Hematology CBC w Diff NO MAN DIFF REQ WBC (4.8 - 10.8 /CUMM) 11.7 H RBC (4.70 - 6.10 /CUMM) 4.15 L Hgb (14.0 - 18.0 G/DL) 13.0 L Hct (42 - 52 %) 39.3 L MCV (80.0 - 94.0 FL) 94.7 H MCH (27.0 - 31.0 PG) 31.3 H RDW (11.5 - 14.5 %) 14.6 H Plt Count (130 - 400 /CUMM) 182 MPV (7.4 - 10.4 FL) 8.3 Gran % (42.2 - 75.2 %) 73.0 Lymphocytes % (20.5 - 51.1 %) 15.8 L Monocytes % (1.7 - 9.3 %) 7.9 Eosinophils % (0 - 5 %) 3.0 Basophils % (0.0 - 2.0 %) 0.3 Absolute Granulocytes (1.4 - 6.5 /CUMM) 8.5 H Absolute Lymphocytes (1.2 - 3.4 /CUMM) 1.8 Absolute Monocytes (0.10 - 0.60 /CUMM) 0.9 H Absolute Eosinophils (0.0 - 0.7 /CUMM) 0.3 Absolute Basophils (0.0 - 0.2 /CUMM) 0 PUBS MCHC (33.0 - 37.0 G/DL) 33.0 04/12 1934 Chemistry Sodium (137 - 145 mmol/L) 136 L Potassium (3.5 - 5.1 mmol/L) 4.5 Chloride (98 - 107 mmol/L) 101 Carbon Dioxide (22 - 30 mmol/L) 28 Anion Gap (5 - 16) 8 BUN (9 - 20 mg/dL) 27 H Creatinine (0.7 - 1.2 mg/dL) 1.3 H Estimated GFR (>60 ml/min) 54 L BUN/Creatinine Ratio (7 - 25 %) 20.8 Glucose (65 - 99 mg/dL) 204 H Hemoglobin A1c (4.2 - 5.8 %) 8.6 H Calcium (8.4 - 10.2 mg/dL) 8.7 Total Bilirubin (0.2 - 1.3 mg/dL) 0.5 AST (17 - 59 U/L) 15 L ALT (21 - 72 U/L) 31 Alkaline Phosphatase (< 127 U/L) 52 Total Protein (6.3 - 8.2 g/dL) 5.9 L Albumin (3.5 - 5.0 g/dL) 3.6 Globulin (1.9 - 4.2 gm/dL) 2.3 Albumin/Globulin Ratio (1.1 - 2.2 %) 1.6 Coagulation PT (9.4 - 12.5 SEC) 12.4 INR (0.90 - 1.17) 1.18 H APTT (25 - 37 SEC) 35 Hematology CBC w Diff NO MAN DIFF REQ WBC (4.8 - 10.8 /CUMM) 14.0 H RBC (4.70 - 6.10 /CUMM) 4.36 L Hgb (14.0 - 18.0 G/DL) 13.6 L Hct (42 - 52 %) 41.5 L MCV (80.0 - 94.0 FL) 95.1 H MCH (27.0 - 31.0 PG) 31.2 H RDW (11.5 - 14.5 %) 14.7 H Plt Count (130 - 400 /CUMM) 207 MPV (7.4 - 10.4 FL) 8.1 Gran % (42.2 - 75.2 %) 80.9 H Lymphocytes % (20.5 - 51.1 %) 10.0 L Monocytes % (1.7 - 9.3 %) 6.9 Eosinophils % (0 - 5 %) 1.9 Basophils % (0.0 - 2.0 %) 0.3 Absolute Granulocytes (1.4 - 6.5 /CUMM) 11.4 H Absolute Lymphocytes (1.2 - 3.4 /CUMM) 1.4 Absolute Monocytes (0.10 - 0.60 /CUMM) 1.0 H Absolute Eosinophils (0.0 - 0.7 /CUMM) 0.3 Absolute Basophils (0.0 - 0.2 /CUMM) 0 PUBS MCHC (33.0 - 37.0 G/DL) 32.8 L ESR Westergren (0 - 10 MM) 40 H Assessment/Plan Assessment/Plan This patient has type 2 diabetes associated with obesity. Now presents with a cellulitis involving the fifth toe of his right foot. As a known history of peripheral vascular disease and coronary artery disease as well as diabetic neuropathy. He used to be on U500 insulin. He is now on an insulin pump. His basal rates vary from 1.5-2.5 and 2.3. His insulin sensitivity is 1 unit per the points of glucose and 1 unit per 10 g of carbohydrate. Since the patient has to discontinue the insulin pump as per [facility] policy I suggest that we give Levemir 20 units twice a day. In addition we should place on sliding scale NovoLog. Sliding-scale NovoLog before meals should be 80-150 give 4 units NovoLog, 151-200 give 6 units NovoLog, 201-250 give 8 units NovoLog, 251-300 give 10 units NovoLog, 301-350 give 12 units NovoLog, 351-400 give 14 units NovoLog. A separate bedtime sliding-scale NovoLog should be written. Sliding-scale NovoLog at bedtime should be less than 250 give no insulin, 251-300 give 2 units NovoLog, 301-350 give 3 units NovoLog, 351-400 give 4 units NovoLog. Consult Acknowledgment - Thank you for your consult request.
--- NOTE | 2017-04-13 09:35 | Cons- Podiatry ---
General Information and HPI Consulting Request Date of Consult: 04/13/17 Requested By: CHRISTIANA IZAGUIRRE MD History of Present Illness: 76 y/o male with recent onset (one day) complaint of redness and swelling to right 5th toe. Denies systemic signs of infection. Denies nausea, vomiting, fever or chills. Allergies/Medications Allergies: Coded Allergies: Penicillins (Severe, HIVES 12/10/15) Home Med List: Allopurinol 300 MG TABLET 1 TAB PO QAM GOUT (Reported) Aspirin (Ecotrin*) 81 MG TABLET.DR 1 TAB PO QAM HEART/BLOOD (Reported) Atorvastatin Calcium 20 MG TABLET 1 TAB PO QAM CHOLESTEROL (Reported) Bupropion HCl (Wellbutrin XL) 150 MG TAB.ER.24H 1 TAB PO QAM DEPRESSION ( Reported) Carvedilol (Coreg) 25 MG TABLET 1 TAB PO QAM BP (Reported) Clopidogrel Bisulfate (Clopidogrel) 75 MG TABLET 1 TAB PO QAM BLOOD THINNER ( Reported) Diphenhydramine HCl 25 MG CAPSULE 2 CAP PO QPM SLEEP (Reported) Escitalopram Oxalate (Lexapro) 5 MG TABLET 1 TAB PO QPM MENTAL HEALTH ( Reported) Finasteride 5 MG TABLET 1 TAB PO QPM URINATION (Reported) Furosemide 40 MG TABLET 1 TAB PO QAM FLUID RETENTION (Reported) Hydrocodone/Acetaminophen (Hydrocodon-Acetaminoph 7.5-325) 7.5 MG-325 MG TABLET 1 TAB PO Q6-8H PAIN (Reported) Hydroxyzine HCl (Unknown Strength) TABLET (Unknown Dose) PO PRN ITCHING ( Reported) Insulin Lispro (Humalog) 100 UNIT/ML VIAL INSULIN PUMP (Reported) Isosorbide Mononitrate (Isosorbide Mononitrate ER) 60 MG TAB.ER.24H 2 TAB PO QAM HEART (Reported) Lisinopril (Prinivil) 5 MG TABLET 1 TAB PO QAM BP (Reported) Mirabegron (Myrbetriq) 50 MG TAB.ER.24H 1 TAB PO QPM BLADDER (Reported) Multivit-Min/Iron/Folic/Lutein (Centrum Silver Women Tablet) 8 MG IRON-400 MCG- 300 MCG TABLET 1 TAB PO DAILY SUPPLEMENT (Reported) Niacin (Niaspan) 500 MG TAB.ER.24H 1 TAB PO QPM CHOLESTEROL (Reported) Pregabalin (Lyrica) 50 MG CAPSULE 2 CAP PO QAM NEUROPATHY (Reported) Pregabalin (Lyrica) 50 MG CAPSULE 3 CAP PO QPM NEUROPATHY (Reported) Tamsulosin HCl (Flomax) 0.4 MG CAP.ER.24H 1 CAP PO DAILY (Reported) Trazodone HCl 50 MG TABLET 0.5 TAB PO QPM SLEEP HELP (Reported) Past History Medical History Blood Transfusion Hx: Yes Neurological: NEUROPATHY EENT: allergies, cataracts, hearing loss Cardiovascular: CAD Respiratory: NONE Gastrointestinal: diverticulitis, GERD Hepatic: NONE Renal: CHRONIC KIDNEY DISEASE Musculoskeletal: gout Psychiatric: depression Endocrine: diabetes Blood Disorders: NONE Cancer(s): NONE 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 2nd toe anputation Family History Relations & Conditions If Any: Relation not specified for: FH: diabetes mellitus Psychosocial History Where Do You Live? Home Services at Home: None Primary Language: Irish Smoking Status: Never Smoked ETOH Use: denies use Illicit Drug Use: denies illicit drug use Living Will? yes Functional Ability ADLs Independent: dressing, eating, toileting, bathing. Ambulation: walker IADLs Independent: shopping, housework, finances, food prep, telephone, transportation , medication admin. Review of Systems Review of Systems: Unremarkable Exam & Diagnostic Data Vital Signs and I&O Vital Signs Date Time Temp Pulse Resp B/P B/P Pulse O2 O2 Flow FiO2 Mean Ox Delivery Rate 04/13 0907 140/82 04/13 0907 140/82 04/13 0906 140/82 04/13 0906 140/82 04/13 0707 97.6 74 20 112/56 95 Room Air 04/13 0102 98.3 68 20 126/74 95 Room Air 04/13 0035 94 Room Air 04/13 0034 98.7 68 16 145/66 92 Room Air 04/12 2311 98.9 75 18 126/60 94 Room Air 04/12 1851 98.1 85 16 143/74 94 Room Air Intake & Output 04/13 1600 04/13 0800 04/13 0000 04/12 1600 04/12 0800 04/12 0000 Intake Total 280 0 Output Total 350 Balance -70 0 Intake, IV 100 Intake, Oral 180 0 Output, Urine 350 Patient 259 lb 245 lb Weight Weight Reported by Patient Measurement Method Physical Exam: Ulcer note to dorsal aspect of pipj of right 5th toe. Edema and cellulitis noted extending to dorsal foot. Slough overlying mixed wound bed. No probing. No undermining. Minimal serous drainage noted. No fluctuance or crepitus noted. Assessment/Plan Assessment/Plan Non-healing ulcer with associated cellulitis. Would start broad-spectrum antibiotic coverage. Follow up MRI. If osteo, will book patient for toe amp. No need to keep over the weekend, if WBC improves with abx. Consult Acknowledgment - Thank you for your consult request. Attending MD Review Statement Attending Statement Attending MD Statement: examined this patient
--- NOTE | 2017-04-13 10:10 | MRI REPORT ---
EXAMINATION: MR FOOT WITHOUT CONTRAST, RIGHT CLINICAL INFORMATION: Right 5th toe cellulitis. Evaluate for osteomyelitis. COMPARISON: X-rays of the right foot/toes 04/12/2017. TECHNIQUE: MRI of the foot without contrast was obtained using routine sequences. There is motion artifact on multiple sequences, including repeat sequences. FINDINGS: MUSCLES/TENDONS: There is diffuse fatty atrophy and edema of the foot muscles, often seen in diabetic patients (correlate clinically). The tendons appear intact. LIGAMENTS: Intact. ARTICULAR CARTILAGE/BONE: There has been amputation of the 2nd, 3rd and 4th toes. Motion artifact allows for somewhat difficult evaluation of the 5th toe, particularly on the STIR sequences. On the sagittal T1 sequence, the 5th toe is fairly well evaluated and there is no evidence of bony destruction or bone marrow edema. There are mild degenerative changes of the first MTP joint. JOINT FLUID/BURSA/SOFT TISSUES: There is moderate diffuse subcutaneous edema, particularly along the dorsum of the foot. There are no localized fluid collections. IMPRESSION: 1. Diffuse moderate subcutaneous edema, particularly along the dorsum of the foot. No evidence of local abscess. 2. Suboptimal imaging of the 5th toe on the STIR sequences. No evidence of bone marrow edema on the sagittal T1 sequence and, therefore, no definite evidence of osteomyelitis.
[2017-04-13] MEDS ORDERED: CLINDAMYCIN HC300 M1 PO (12:27)
[2017-04-13] MEDS ORDERED: DAILY MULTIPLE1 EACH PO (12:31)
--- NOTE | 2017-04-13 12:45 | Patient Discharge Instructions ---
Discharge Instructions General Discharge Information You were seen/treated for: Skin Infection (Cellulitis) Watch for these problems: If you feel weak, experience chest pain, shortness breath, worsening cough or increased weakness please come back to the emergency department. Other signs to watch out for include: fever, chills, nausea, vomiting and diarrhea. Should your pain continued to worsen in your right lower extremity discomfort to the emergency department. Special Instructions: Please follow-up with your primary care physician within 7 days of discharge. Please inform your primary care physician of this admission to the hospital. Take your Antbiotic as directed, do not miss a dose. Be sure to finish this medication. Call 911 or return to the ED should your condition worsen. Please contact Dr. Samaniego for further outpatient follow-up. Please take medication as prescribed. Continue to elevate leg. Diet Recommended Diet: Diabetic Activity Activity Self Limited: Yes Acute Coronary Syndrome Inclusion Criteria At DC or during hospital stay patient has or had the following: ACS DIAGNOSIS No Discharge Core Measures Meds if any: Prescribed or Continued at Discharge Meds if any: NOT Prescribed or Continued at Discharge Congestive Heart Failure Inclusion Criteria At DC or during hospital stay patient has or had the following: CHF DIAGNOSIS No Discharge Core Measures Meds if any: Prescribed or Continued at Discharge Meds if any: NOT Prescribed or Continued at Discharge Cerebrovascular accident Inclusion Criteria At DC or during hospital stay patient has or had the following: CVA/TIA Diagnosis No Discharge Core Measures Meds if any: Prescribed or Continued at Discharge Meds if any: NOT Prescribed or Continued at Discharge Venous thromboembolism Inclusion Criteria VTE Diagnosis No VTE Type NONE VTE Confirmed by (Test) NONE Discharge Core Measures - Per Current guidelines, there needs to be overlap - treatment for the first 5 days of Warfarin therapy. - If discharged on Warfarin prior to 5 days of - overlap therapy, the patient will need to be - assessed for post discharge needs including - *Post discharge parental anticoagulation - *Warfarin and/or parental anticoagulation education - *Follow up date to check INR post discharge At least 5 days overlap therapy as Inpatient No Meds if any: Prescribed or Continued at Discharge Note: Overlap Therapy is Warfarin and Anticoagulant Meds if any: NOT Prescribed or Continued at Discharge
[2017-04-13 14:41] VITALS: BP 136/74
[2017-04-13 22:39] VITALS: BP 138/80
[2017-04-14 06:57] VITALS: BP 130/70
[2017-04-14 08:36] LABS: ABSOLUTE BASOPHIL COUNT 0.1 /CUMM (0.0-0.2); ABSOLUTE EOSINOPHIL COUNT 0.5 /CUMM (0.0-0.7); ABSOLUTE LYMPH COUNT 1.8 /CUMM (1.2-3.4); ABSOLUTE MONOCYTE COUNT 0.8 /CUMM (0.10-0.60); BASOPHIL % 0.6 % (0.0-2.0); GRANULOCYTE % 65.5 % (42.2-75.2); HEMATOCRIT 41.8 % (42-52); MEAN CORPUSCULAR HGB 31.2 PG (27.0-31.0); MEAN CORPUSCULAR HGB CONC 32.8 G/DL (33.0-37.0); MEAN CORPUSCULAR VOLUME 95.1 FL (80.0-94.0); MEAN PLATELET VOLUME 7.9 FL (7.4-10.4); PLATELET COUNT 215 /CUMM (130-400); RBC DISTRIBUTION WIDTH 14.8 % (11.5-14.5); RED BLOOD CELL CT 4.39 /CUMM (4.70-6.10); WHITE BLOOD CELL COUNT 9.2 /CUMM (4.8-10.8)
--- NOTE | 2017-04-14 09:48 | PN- Att Addend ---
Attending Addendum Attending Brief Note Patient seen and examined. He feels okay and comfortable with the current pain regimen. On exam he is afebrile, pressure is 130/70, breathing at 16-18 and sat is 96% on 2 L. He is awake alert oriented, lungs are clear to auscultation, heart is S1-S2 regular, abdomen is soft nontender and his right lower extremity is dressed. This is a 76-year-old male with a past medical history of insulin-requiring diabetes, he manages with an insulin pump on the outside but right now as per [facility] policy he is on Levemir and NovoLog with endocrinology's recommendations. He also has microvascular disease with CKD, neuropathy and has significant vascular disease. He has coronary artery disease and suspected peripheral arterial disease and is on aspirin and Plavix. He status post amputation of his right second third and fourth toe and he is here with redness and swelling and an ulcer on the right fifth toe. He is allergic to penicillin and he is on IV clindamycin empirically. There was significant cellulitis around the site with an initial white count of 14,000 and he appears to be responding to IV clindamycin in terms of the white count having come down nicely to 9000. The MRI done yesterday is a suboptimal study with motion artifact but doesn't show any evidence of osteo-in the right fifth toe. Will confer with podiatry just to make sure that the images were of good quality. Will continue his IV clindamycin his insulin coverage his other medications and follow closely.
--- NOTE | 2017-04-14 09:57 | PN- Housestaff ---
See Addendum Subjective Follow-up For: Right 5th toe cellulitis Subjective: Mr. Guerra is feeling well this morning. He slept well. He is complaining of left elbow nerve pain, described as itchiness more than pain. This started 2 weeks ago. Otherwise, his toe is feeling slightly better, pain 4/10 this morning which is well-controlled for him. No CP, SOB, abdominal pain, headache. Review of Systems Constitutional: Denies: chills, diaphoresis, fever. Cardiovascular: Denies: chest pain, orthopena. Respiratory: Denies: cough, hemoptysis, short of breath. Gastrointestinal: Denies: abdominal pain, diarrhea. Musculoskeletal: Reports: joint pain (Left elbow pain/itchiness). Objective Last 24 Hrs of Vital Signs/I&O Vital Signs Date Time Temp Pulse Resp B/P B/P Pulse O2 O2 Flow FiO2 Mean Ox Delivery Rate 04/14 0657 97.8 68 18 130/70 96 CPAP 04/13 2239 97.8 77 20 138/80 94 Room Air 04/13 1441 97.7 82 20 136/74 93 Intake & Output 04/14 1600 04/14 0800 04/14 0000 Intake Total 150 150 Output Total Balance 150 150 Intake, IV 150 150 Physical Exam General Appearance: Alert, Oriented X3, Cooperative, No Acute Distress Cardiovascular: Regular Rate, Normal S1, Normal S2 Lungs: Clear to Auscultation Abdomen: Normal Bowel Sounds, Soft, No Tenderness Neurological: Normal Speech Extremities: Left 5th toe has 3-4mm ulcer with some yellow discharge and surrounding erythema. It is warm., Left elbow has good range of motion. Some tenderness to palpation over medial aspect. Current Medications: Current Medications Sig/Chacha Start time Last Medication Dose Route Stop Time Status Admin Acetaminophen 650 MG Q6P PRN 04/12 2330 AC PO Allopurinol 300 MG QAM 04/13 1000 AC 04/13 PO 09 Aspirin Buffered 81 MG QAM 04/13 1000 AC 04/13 PO 09 Atorvastatin Calcium 20 MG QAM 04/13 1000 AC 04/13 PO 0907 Bupropion HCl 150 MG DAILY 04/13 1000 AC 04/13 PO 09 Carvedilol 25 MG QAM 04/13 1000 AC 04/13 PO 09 Cefazolin Sodium 2 GM IQ8 04/13 1600 CAN N/A 1 UNIT IV Clindamycin 600 MG IQ8 04/13 1600 DC Dextrose/Water 50 ML IV Clindamycin 600 MG Q8H 04/13 1145 AC 04/14 Dextrose/Water 50 ML IV 0408 Clopidogrel Bisulfate 75 MG QAM 04/13 1000 AC 04/13 PO 0907 Dextrose/Sodium 1,000 ML Q20H 04/13 0430 DC 04/13 Chloride IV 04/14 0029 0449 Escitalopram Oxalate 5 MG QPM 04/13 2200 AC 04/13 PO 2159 Finasteride 5 MG QPM 04/13 2200 AC 04/13 PO 2159 Furosemide 40 MG QAM 04/13 1000 AC 04/13 PO 0905 Heparin Sodium 5,000 UNIT Q8 04/13 0600 AC 04/14 (Porcine) SC 0629 Insulin Aspart 0 AT BEDTIME 04/13 2200 AC 04/13 SC 2200 Insulin Aspart 0 TIDAC 04/13 0800 AC 04/14 SC 0813 Insulin Detemir 20 UNITS BID 04/13 2200 AC 04/13 SC 215 Insulin Detemir 25 UNITS BID 04/12 2326 DC 04/13 SC 0904 Isosorbide 120 MG QAM 04/13 1000 AC 04/13 Mononitrate PO 0906 Lisinopril 5 MG QAM 04/13 1000 AC 04/13 PO 0907 Melatonin 10 MG AT BEDTIME 04/13 2215 AC 04/14 PO 0025 Niacin 500 MG 2200 04/13 2200 AC 04/13 PO 2159 Oxycodone/ 2 TAB Q6P PRN 04/12 2315 AC 04/14 Acetaminophen PO 0025 Patient Medication 1 ED .STK-MED ONE 04/13 1413 MO Teaching ED 04/13 1414 Polyethylene Glycol 17 GM AT BEDTIME 04/13 2200 DC PO Pregabalin 150 MG QPM 04/13 2200 AC 04/13 PO 2207 Pregabalin 100 MG QAM 04/13 1000 AC 04/13 PO 0909 Tamsulosin HCl 0.4 MG DAILY 04/13 1000 AC 04/13 PO 0907 Tramadol HCl 50 MG Q6P PRN 04/12 2330 AC 04/13 PO 0448 Last 24 Hrs of Lab/Ryan Results Last 24 Hrs of Labs/Mics: Laboratory Tests 04/14/17 0710: Anion Gap 11, Estimated GFR 49 L, BUN/Creatinine Ratio 20.7, CBC w Diff NO MAN DIFF REQ, RBC 4.39 L, MCV 95.1 H, MCH 31.2 H, RDW 14.8 H, MPV 7.9, Gran % 65.5, Lymphocytes % 19.5 L, Monocytes % 8.4, Eosinophils % 6.0 H, Basophils % 0.6, Absolute Granulocytes 6.0, Absolute Lymphocytes 1.8, Absolute Monocytes 0.8 H, Absolute Eosinophils 0.5, Absolute Basophils 0.1, PUBS MCHC 32.8 L Assessment/Plan Assessment: Mr. Guerra 76 year old male with PMH significant for diabetes mellitus on insulin pump, neuropathy status post right 2nd, 3rd and 4th toe amputation, severe peripheral vascular disease, coronary artery disease status post 2 [place] 1998 status post CABG and 8 stent on Plavix and aspirin, left leg angioplasty, hypertension, gout, arthritis, BPH, diverticulitis status post colon dissection, GERD, depression who presented to ED with chief complaint of chief complaint of right fifth toe erythema, swelling for 1 day. Patient had prior same right foot 2nd, 3rd and 4th toe amputation due to cellulitis, osteomyelitis was never detected. Previous tissue/bone culture from September 2016 positive for enterococcus sensitive to penicillin, patient was treated with vancomycin previously due to penicillin allergy. At the time of admission: X-ray: and no signs of osteomyelitis as well. Labs: Borderline leukocytosis of 14, H&H 13.6/41.5, BUN and creatinine 27/1.3 with GFR 54 at baseline, lactic acid 0.9<1.2. Patient received 1 dose of clindamycin IV in the ED. Patient Currently Admitted on the general medical Service. #Right foot cellulitis No evidence of any abnormalities on MRI besides some edema. No surgical intervention warranted at the moment. Will contact Dr. Paredes and see if MRI quality is good enough to rule out oseteomyelitis. If so, we can discharge tomorrow on PO clindamycin. -Continue clindamycin #Diabetes on insulin pump as an outpatient. Received an endocrinology consultation. Patient has been started on Levemir 20 units. Sliding scale has been adjusted as per recommendations from endocrinology. Hemoglobin A1c was elevated at 8.6. Patient will likely need to have insulin pump dosing adjustment tailored as outpatient. To maintain hemoglobin A1c below 7.0. Maintain strict glycemic control while patient is admitted. #PVD Continue home medications. #CAD status post CABG and stent placement Continue home medications. #CKD Encourage by mouth hydration. Patient does generally have a high creatinine, At baseline. Monitor BEP. #Diet consistent carbohydrate. #DVT prophylaxis Heparin subcutaneous. #Code DNR/DNI. Problem List: 1. Cellulitis of left lower extremity 2. Diabetes Pain Ratin Pain Location: Right 5th toe Pain Goal: Remain pain free Pain Plan: Percoset. Tomorrow's Labs & Rationales: BMP, CBC DVT/Prophylaxis: pharmacological (heparin) Discharge Plan Anticipated Discharge (Day): tomorrow
[2017-04-14 14:21] VITALS: BP 132/64
--- NOTE | 2017-04-14 14:44 | PN- Diabetes ---
Assessment/Plan Assessment: 76-year-old white male has a known history of type 2 diabetes associated with obesity. He came in because of a problem with his right foot. He noticed swelling and redness all in the right fifth toe and the dorsum of his foot. He has already had second third and fourth toe amputation done in the past. He was on a medtronic insulin pump at home. His insulin pump settings: Basal insulin ---47.05/24 hours midnight 1.5 units per hour 3 am 1.8 units per hour 7 am 2.35 units per hour 9 am 2.3 units per hour 1 pm 1.45 units per hour IC ratio midnight 10 grams 8 am 8 grams 11 am 10 grams Insulin sensitivity 50 mg/dl active insulin time 4 hours glucose target 120-150 mg/dl He was put on Levemir 20 units twice a day, Novolog coverage before meals and Novolog coverage at bedtime. His FSGs were 236, 186, 278, 294, 169 and 258. Plan: 1. increase Levemir to 22 units twice a day; 2. adjuast Novolog coverage before meals-- detail see the inpatient DM order; 3. if patient will be discharged to home tomorrow, I will recommend that levemir in the morning should be held so that patient can be reconnected to his pump right before he leaves hospital. I have asked patient to let his family bring in his insulin pump supplies today. 4. monitor his FSGs. will follow. Inpatient Diabetes Orders Before Each Meal: Bolus Insulin: Novolog < 80 mg/dl: No coverage 80-100 mg/dl: 7 units 101-120 mg/dl: 7 units 121-150 mg/dl: 7 units 151-200 mg/dl: 9 units 201-250 mg/dl: 11 units 251-300 mg/dl: 13 units 301-350 mg/dl: 15 units 351-400 mg/dl: 17 units > 400 mg/dl: 18 units Subjective Subjective: He feels okay at this point. Objective Last 24 Hrs of Vital Signs/I&O Vital Signs Date Time Temp Pulse Resp B/P B/P Pulse O2 O2 Flow FiO2 Mean Ox Delivery Rate 04/14 1421 97.9 69 20 132/64 94 04/14 0942 72 120/64 04/14 0942 72 120/64 04/14 0942 72 120/64 07/01 0942 72 120/64 04/14 0657 97.8 68 18 130/70 96 CPAP 04/13 2239 97.8 77 20 138/80 94 Room Air 04/13 1441 97.7 82 20 136/74 93 Intake & Output 04/14 1600 04/14 0800 04/14 0000 Intake Total 150 150 Output Total Balance 150 150 Intake, IV 150 150 Patient 258 lb Weight Findings Pertinent Lab/Ryan Results: Laboratory Tests 04/14 0710 Chemistry Sodium (137 - 145 mmol/L) 139 Potassium (3.5 - 5.1 mmol/L) 4.3 Chloride (98 - 107 mmol/L) 104 Carbon Dioxide (22 - 30 mmol/L) 25 Anion Gap (5 - 16) 11 BUN (9 - 20 mg/dL) 29 H Creatinine (0.7 - 1.2 mg/dL) 1.4 H Estimated GFR (>60 ml/min) 49 L BUN/Creatinine Ratio (7 - 25 %) 20.7 Phosphorus (2.5 - 4.5 mg/dL) 4.0 Magnesium (1.6 - 2.3 mg/dL) 2.2 Hematology CBC w Diff NO MAN DIFF REQ WBC (4.8 - 10.8 /CUMM) 9.2 RBC (4.70 - 6.10 /CUMM) 4.39 L Hgb (14.0 - 18.0 G/DL) 13.7 L Hct (42 - 52 %) 41.8 L MCV (80.0 - 94.0 FL) 95.1 H MCH (27.0 - 31.0 PG) 31.2 H RDW (11.5 - 14.5 %) 14.8 H Plt Count (130 - 400 /CUMM) 215 MPV (7.4 - 10.4 FL) 7.9 Gran % (42.2 - 75.2 %) 65.5 Lymphocytes % (20.5 - 51.1 %) 19.5 L Monocytes % (1.7 - 9.3 %) 8.4 Eosinophils % (0 - 5 %) 6.0 H Basophils % (0.0 - 2.0 %) 0.6 Absolute Granulocytes (1.4 - 6.5 /CUMM) 6.0 Absolute Lymphocytes (1.2 - 3.4 /CUMM) 1.8 Absolute Monocytes (0.10 - 0.60 /CUMM) 0.8 H Absolute Eosinophils (0.0 - 0.7 /CUMM) 0.5 Absolute Basophils (0.0 - 0.2 /CUMM) 0.1 PUBS MCHC (33.0 - 37.0 G/DL) 32.8 L
[2017-04-14 22:00] VITALS: BP 128/60
[2017-04-15 06:57] VITALS: BP 134/72
--- NOTE | 2017-04-15 09:07 | PN- Att Addend ---
Attending Addendum Attending Brief Note Overall patient feels better today. He did have this episode yesterday where he had some left elbow tingling going down to his fingers. He's had says that these episodes to come on and off and have this electric shock sensation kind of feeling but the warm compresses help a lot. On exam he is afebrile, blood pressures 134/72, pulse is 70. RR16-18 Awake alert oriented, lungs are clear to auscultation, heart is S1-S2 regular, abdomen is obese nontender and his right foot is dressed. He is a 76-year-old with insulin-requiring diabetes on an insulin pump as an outpatient, microvascular complications of diabetes including neuropathy and CKD , coronary artery disease, peripheral arterial disease on aspirin and Plavix and previous amputations of his right second third and fourth toe was here with a cellulitis of the right fifth toe and base of the fifth toe. He is pen allergic treated with Clinda with good response in terms of redness swelling and white count. MRI was reviewed with Dr. Samaniego by the resident and even though there is motion artifact there is no evidence of osteomyelitis. The patient really wants his to see his foot before discharge. He says his takes very good care of him has been taking pictures of the foot so he wants to confirm that the foot is actually better and then if she feels the same than the plan will be discharge on by mouth clindamycin with outpatient follow- up with Dr. Samaniego and his other providers.
--- NOTE | 2017-04-15 09:27 | PN- Housestaff ---
See Addendum Subjective Follow-up For: R 5th toe cellulitis Subjective: Mr. Guerra is feeling well this morning. He slept well. His pain is 6/10, but he didn't receive his percoset yet today. His elbow pain is much improved. He has no other complaints. He feels ready for discharge as long as his toe is improving. Review of Systems Constitutional: Denies: chills, diaphoresis, fever, malaise. Cardiovascular: Denies: chest pain, palpitations. Respiratory: Denies: cough, hemoptysis, short of breath. Gastrointestinal: Denies: abdominal pain, constipation, diarrhea, nausea. Genitourinary: Denies: dysuria. Musculoskeletal: Denies: joint pain, muscle pain. Skin: Reports: see HPI, erythema. Objective Last 24 Hrs of Vital Signs/I&O Vital Signs Date Time Temp Pulse Resp B/P B/P Pulse O2 O2 Flow FiO2 Mean Ox Delivery Rate 04/15 0909 162/84 04/15 0909 162/84 04/15 0909 162/84 04/15 0909 162/84 04/15 0657 97.9 68 18 134/72 94 CPAP 04/14 2200 98.9 69 20 128/60 96 CPAP 07/ 1421 97.9 69 20 132/64 94 07/01 0942 72 120/64 07/01 0942 72 120/64 07/ 0942 72 120/64 07/01 0942 72 120/64 Intake & Output 04/15 1600 / 0800 04/15 0000 Intake Total 240 580 Output Total Balance 240 580 Intake, IV 100 Intake, Oral 240 480 Physical Exam General Appearance: Alert, Oriented X3, Cooperative, No Acute Distress HEENT: Atraumatic Cardiovascular: Regular Rate, Normal S1, Normal S2, No Murmurs Lungs: Clear to Auscultation Abdomen: Normal Bowel Sounds, No Tenderness, No Masses Neurological: Normal Speech Extremities: 5th toe has 3-4mm ulcer with yellow discharge and surrounding erythema. It is not warm. Seems like it is improving from yesterday. Current Medications: Current Medications Sig/Chacha Start time Last Medication Dose Route Stop Time Status Admin Acetaminophen 650 MG Q6P PRN 04/12 2330 AC PO Allopurinol 300 MG QAM 04/13 1000 AC 04/15 PO 0909 Aspirin Buffered 81 MG QAM 04/13 1000 AC 04/15 PO 0909 Atorvastatin Calcium 20 MG QAM 04/13 1000 AC 04/15 PO 0909 Baclofen 10 MG ONCE ONE 04/14 1315 DC 04/14 PO 04/14 1316 1334 Bupropion HCl 150 MG DAILY 04/13 1000 AC 04/15 PO 0908 Carvedilol 25 MG QAM 04/13 1000 AC 04/15 PO 0909 Clindamycin 600 MG Q8H 04/13 1145 AC 04/15 Dextrose/Water 50 ML IV 0402 Clopidogrel Bisulfate 75 MG QAM 04/13 1000 AC 04/15 PO 0909 Escitalopram Oxalate 5 MG QPM 04/13 2200 AC 04/14 PO 2127 Finasteride 5 MG QPM 04/13 2200 AC 04/14 PO 2127 Furosemide 40 MG QAM 04/13 1000 AC 04/15 PO 0909 Heparin Sodium 5,000 UNIT Q8 04/13 0600 AC 04/15 (Porcine) SC 0647 Insulin Aspart 0 AT BEDTIME 04/13 2200 AC 04/14 SC 2128 Insulin Aspart 0 TIDAC 04/13 0800 AC 04/15 SC 0903 Insulin Detemir 22 UNITS BID 04/14 2200 DC 04/14 SC 2128 Insulin Detemir 20 UNITS BID 04/13 2200 DC 04/14 SC 0938 Isosorbide 120 MG QAM 04/13 1000 AC 04/15 Mononitrate PO 0909 Lisinopril 5 MG QAM 04/13 1000 AC 04/15 PO 0909 Melatonin 10 MG AT BEDTIME 04/13 2215 AC 04/15 PO 0053 Niacin 500 MG 22004/13 2200 AC 04/14 PO 2127 Oxycodone/ 2 TAB Q6P PRN 04/12 2315 AC 04/15 Acetaminophen PO 0054 Pregabalin 150 MG QPM 04/13 2200 AC 04/14 PO 2127 Pregabalin 100 MG QAM 04/13 1000 AC 04/15 PO 0905 Tamsulosin HCl 0.4 MG DAILY 04/13 1000 AC 04/15 PO 0909 Tramadol HCl 50 MG Q6P PRN 04/12 2330 AC 04/13 PO 0448 Last 24 Hrs of Lab/Ryan Results Last 24 Hrs of Labs/Mics: Laboratory Tests 04/15/17 0815: Sodium Pending, Potassium Pending, Chloride Pending, Carbon Dioxide Pending, Anion Gap Pending, BUN Pending, Creatinine Pending, BUN/Creatinine Ratio Pending Assessment/Plan Assessment: Mr. Guerra 76 year old male with PMH significant for diabetes mellitus on insulin pump, neuropathy status post right 2nd, 3rd and 4th toe amputation, severe peripheral vascular disease, coronary artery disease status post 2 [place] 1998 status post CABG and 8 stent on Plavix and aspirin, left leg angioplasty, hypertension, gout, arthritis, BPH, diverticulitis status post colon dissection, GERD, depression who presented to ED with chief complaint of chief complaint of right fifth toe erythema, swelling for 1 day. Patient had prior same right foot 2nd, 3rd and 4th toe amputation due to cellulitis, osteomyelitis was never detected. Previous tissue/bone culture from September 2016 positive for enterococcus sensitive to penicillin, patient was treated with vancomycin previously due to penicillin allergy. At the time of admission: X-ray: and no signs of osteomyelitis as well. Labs: Borderline leukocytosis of 14, H&H 13.6/41.5, BUN and creatinine 27/1.3 with GFR 54 at baseline, lactic acid 0.9<1.2. Patient received 1 dose of clindamycin IV in the ED. Patient's expresses some concerns about Mr. Guerra being discharged today. She wants to make sure he is improving, and she does not feel like she can take care of him at home because she is working tomorrow. She would prefer he is discharged tomorrow, so we will plan for that. #Right foot cellulitis No evidence of any abnormalities on MRI besides some edema. No surgical intervention warranted at the moment. Dr. Paredes said the MRI quality is good enough to rule out oseteomyelitis. Therefore, we anticipate discharge tomorrow. Talked to pharmacy: dosing for clindamycin for cellulitis should be 300mg 4x/day for 7-14 days. -Continue clindamycin #Diabetes on insulin pump as an outpatient. Received an endocrinology consultation. Patient has been started on Levemir 20 units. Sliding scale has been adjusted as per recommendations from endocrinology. Hemoglobin A1c was elevated at 8.6. We held insulin this morning in anticipation of discharge and reattached the home insulin pump. He can continue to use this. #PVD Continue home medications. #CAD status post CABG and stent placement Continue home medications. #CKD Encourage by mouth hydration. Patient does generally have a high creatinine, At baseline. Monitor BEP. #Diet consistent carbohydrate. #DVT prophylaxis Heparin subcutaneous. #Code DNR/DNI. Problem List: 1. Cellulitis of left lower extremity 2. Diabetes Pain Ratin Pain Location: Right 5th toe. Pain Goal: Remain pain free Pain Plan: Percoset. Tomorrow's Labs & Rationales: None. Discharge Plan Anticipated Discharge (Day): tomorrow
--- NOTE | 2017-04-15 12:52 | Event Note ---
Event Note Event Note: We had anticipated discharge today and therefore held the levemir this morning. However, because the wants him to stay until tomorrow, we will continue the levemir 22U BID for today and stop it tomorrow morning. His will bring the insulin pump and a new vial, and we will connect it before he leaves.
--- NOTE | 2017-04-15 13:21 | PN- Diabetes ---
Assessment/Plan Assessment: 76-year-old white male has a known history of type 2 diabetes associated with obesity. He came in because of a problem with his right foot. He noticed swelling and redness all in the right fifth toe and the dorsum of his foot. He has already had second third and fourth toe amputation done in the past. He was on a medtronic insulin pump at home. His insulin pump settings: Basal insulin ---47.05/24 hours midnight 1.5 units per hour 3 am 1.8 units per hour 7 am 2.35 units per hour 9 am 2.3 units per hour 1 pm 1.45 units per hour IC ratio midnight 10 grams 8 am 8 grams 11 am 10 grams Insulin sensitivity 50 mg/dl active insulin time 4 hours glucose target 120-150 mg/dl Levemir was increased to 22 units twice a day, Novolog coverage before meals was adjusted on 04/14/2017. His FSGs were 273, 183 and 235. Plan: 1. continue Levemir 22 units twice a day; 2. continue Novolog coverage before meals-- detail see the inpatient DM order; 3. if patient will be discharged to home tomorrow, I will recommend that levemir in the morning should be held so that patient can be reconnected to his pump right before he leaves hospital. I have asked his family bring in his insulin pump supplies including insulin. 4. monitor his FSGs. will follow. Subjective Subjective: He feels well. Most likely he is going home tomorrow. Objective Last 24 Hrs of Vital Signs/I&O Vital Signs Date Time Temp Pulse Resp B/P B/P Pulse O2 O2 Flow FiO2 Mean Ox Delivery Rate 04/15 909 162/84 04/15 0909 162/84 04/15 0909 162/84 04/15 0909 162/84 04/15 0657 97.9 68 18 134/72 94 CPAP 04/14 2200 98.9 69 20 128/60 96 CPAP 04/14 1421 97.9 69 20 132/64 94 Intake & Output 04/15 1600 04/15 0800 04/15 0000 Intake Total 240 580 Output Total Balance 240 580 Intake, IV 100 Intake, Oral 240 480 Findings Pertinent Lab/Ryan Results: Laboratory Tests 04/15 815 Chemistry Sodium (137 - 145 mmol/L) 137 Potassium (3.5 - 5.1 mmol/L) 4.6 Chloride (98 - 107 mmol/L) 102 Carbon Dioxide (22 - 30 mmol/L) 24 Anion Gap (5 - 16) 11 BUN (9 - 20 mg/dL) 35 H Creatinine (0.7 - 1.2 mg/dL) 1.5 H Estimated GFR (>60 ml/min) 45 L BUN/Creatinine Ratio (7 - 25 %) 23.3
[2017-04-15 14:23] VITALS: BP 100/60
[2017-04-15 22:50] VITALS: BP 122/60
[2017-04-16 06:40] VITALS: BP 126/68
--- NOTE | 2017-04-16 07:03 | PN- Housestaff ---
LUCY BAILEY,DAE 04/16/17 0702: Subjective Follow-up For: 5th toe cellulitis. Subjective: Mr. Guerra is feeling well this morning. His toe is sore, pain 5-6/10 but well controlled he says. Otherwise, he feels ready to go home today. His elbow pain is gone. His gets out of work at noon so discharge after noon is good for him. Review of Systems Constitutional: Denies: chills, diaphoresis, fever, malaise. Cardiovascular: Denies: chest pain, palpitations. Respiratory: Denies: cough, short of breath. Gastrointestinal: Denies: abdominal pain, constipation, nausea, vomiting. Genitourinary: Denies: dysuria. Musculoskeletal: Reports: see HPI, joint pain. Objective Last 24 Hrs of Vital Signs/I&O Vital Signs Date Time Temp Pulse Resp B/P B/P Pulse O2 O2 Flow FiO2 Mean Ox Delivery Rate 04/16 0640 99.1 73 20 126/68 95 Room Air 04/15 2250 98.3 78 20 122/60 91 Room Air 04/15 1423 97.5 71 20 100/60 95 /02 0909 162/84 / 0909 162/84 04/15 0909 162/84 04/15 0909 162/84 Intake & Output 04/16 1600 04/16 0800 04/16 0000 Intake Total 300 300 Output Total Balance 300 300 Intake, IV 100 100 Intake, Oral 200 200 Physical Exam General Appearance: Alert, Oriented X3, Cooperative, No Acute Distress Cardiovascular: Regular Rate, Normal S1, Normal S2, No Murmurs Lungs: Clear to Auscultation Abdomen: Normal Bowel Sounds, Soft, No Tenderness Neurological: Normal Speech Extremities: 3-4mm ulcer on R fifth toe, with less discharge today compared to yesterday, and less surrounding erythema. Assessment/Plan Assessment: Mr. Guerra 76 year old male with PMH significant for diabetes mellitus on insulin pump, neuropathy status post right 2nd, 3rd and 4th toe amputation, severe peripheral vascular disease, coronary artery disease status post 2 HI 1998 status post CABG and 8 stent on Plavix and aspirin, left leg angioplasty, hypertension, gout, arthritis, BPH, diverticulitis status post colon dissection, GERD, depression who presented to ED with chief complaint of chief complaint of right fifth toe erythema, swelling for 1 day. Patient had prior same right foot 2nd, 3rd and 4th toe amputation due to cellulitis, osteomyelitis was never detected. Previous tissue/bone culture from September 2016 positive for enterococcus sensitive to penicillin, patient was treated with vancomycin previously due to penicillin allergy. At the time of admission: X-ray: and no signs of osteomyelitis as well. Labs: Borderline leukocytosis of 14, H&H 13.6/41.5, BUN and creatinine 27/1.3 with GFR 54 at baseline, lactic acid 0.9<1.2. Patient received 1 dose of clindamycin IV in the ED. #Right foot cellulitis No evidence of any abnormalities on MRI besides some edema. No surgical intervention warranted at the moment. Dr. Paredes said the MRI quality is good enough to rule out oseteomyelitis. Therefore, we anticipate discharge today. Talked to pharmacy: dosing for PO clindamycin for cellulitis should be 450mg 4x/ day for 7-14 days. We will dose 600mg TID because the pills do not come in 450mg increments. We will dose him for 7 days to give him adequate coverage without increasing risk of C diff too much. -Continue clindamycin #Diabetes on insulin pump as an outpatient. Received an endocrinology consultation. Patient has been started on Levemir 20 units. Sliding scale has been adjusted as per recommendations from endocrinology. Hemoglobin A1c was elevated at 8.6. We held insulin this morning in anticipation of discharge and reattached the home insulin pump. He can continue to use this. He will follow upwith endo as outpatient after discharge. #PVD Continue home medications. #CAD status post CABG and stent placement Continue home medications. #CKD Encourage by mouth hydration. Patient does generally have a high creatinine, At baseline. #Diet consistent carbohydrate. #DVT prophylaxis Heparin subcutaneous. #Code DNR/DNI. Problem List: 1. Diabetes 2. Cellulitis of foot, right 3. Diabetic foot 4. Cellulitis Pain Ratin Pain Location: Right 5th toe. Pain Goal: Remain pain free Pain Plan: Percoset. Tomorrow's Labs & Rationales: Anticipate discharge today. ROSALINA PHILLIPS MD 04/16/17 1018: Attending Review Statement Attending Statement Attending Statement: examined this patient, discuss w/resident/PA/SECTION CREWS ACTIVITIES CLERK, agreed w/resident/PA/SECTION CREWS ACTIVITIES CLERK, reviewed EMR data (avail), discussed with nursing, discussed with case mgmt Attending Assessment/Plan: Patient feels well. He feels much more comfortable after getting 1 more day of IV antibiotics. The plan is that he'll be discharged today on by mouth antibiotics. We chose [facility] because he's pen allergic and he has responded in terms of the redness, swelling and white count. It is cellulitis at the? Base of the foot and surrounding the right 5th toe. MRI negative for osteo. He does have diabetes on an insulin pump and both peripheral arterial disease and coronary artery disease with diabetic neuropathy and he understands the need for close follow-up with Dr. Samaniego, his PCP and his smart grid engineer. I also talked to him at length about symptoms of C. difficile and what to watch out for and to complete the antibiotic course.
[2017-04-16 09:20] VITALS: BP 140/82
[2017-04-16] MEDS ORDERED: CLINDAMYCIN HC300 M1 PO ×2 (11:31→11:49)
[2017-04-16] MEDS ORDERED: PERCOCET 5-3251 EACH PO (11:31)
--- NOTE | 2017-04-16 13:36 | PN- Diabetes ---
Assessment/Plan Assessment: 76-year-old white male has a known history of type 2 diabetes associated with obesity. He came in because of a problem with his right foot. He noticed swelling and redness all in the right fifth toe and the dorsum of his foot. He has already had second third and fourth toe amputation done in the past. He was on a medtronic insulin pump at home. His insulin pump settings: Basal insulin ---47.05/24 hours midnight 1.5 units per hour 3 am 1.8 units per hour 7 am 2.35 units per hour 9 am 2.3 units per hour 1 pm 1.45 units per hour IC ratio midnight 10 grams 8 am 8 grams 11 am 10 grams Insulin sensitivity 50 mg/dl active insulin time 4 hours glucose target 120-150 mg/dl Levemir was increased to 22 units twice a day, Novolog coverage before meals was adjusted on 04/14/2017. His FSGs were 183, 235, 294, 152 and 188. He is going home this afternoon and levemir in the morning was held. Plan: patient can be reconnected to his pump right before he leaves hospital. He will see his retail coverage merchandiser lead for f/u after he is discharged from hospital. Subjective Subjective: He feels well this morning. Objective Last 24 Hrs of Vital Signs/I&O Vital Signs Date Time Temp Pulse Resp B/P B/P Pulse O2 O2 Flow FiO2 Mean Ox Delivery Rate 04/16 0920 78 140/82 07/03 0920 78 140/82 07/ 0920 78 140/82 07/ 0920 78 140/82 07/03 0640 99.1 73 20 126/68 95 Room Air 07/02 2250 98.3 78 20 122/60 91 Room Air 07/02 1423 97.5 71 20 100/60 95 Intake & Output 07/ 1600 07/03 0800 07/03 0000 Intake Total 300 300 Output Total Balance 300 300 Intake, IV 100 100 Intake, Oral 200 200
--- NOTE | 2017-04-16 14:57 | Discharge Summary ---
Visit Information Visit Dates Admission Date: 04/12/17 Discharge Date: 04/16/17 Hospital Course Course Attending Physician: BILLY OSORIO MD Primary Care Physician: ANGEL BAILEY,NILTON Staton Consulting Request: 1 Consulting Specialty: Endocrinology Consulting Physician: Dr. Rivero Reason for Consult: Diabetes management scientist Request: 2 Consulting Specialty: Podiatry Consulting Physician: Dr. Paredes. Reason for Consult: Diabetic foot infection. Hospital Course: Mr. Guerra 76 year old male with PMH significant for diabetes mellitus on insulin pump, neuropathy status post right 2nd, 3rd and 4th toe amputation, severe peripheral vascular disease, coronary artery disease status post 2 DC 1998 status post CABG and 8 stent on Plavix and aspirin, left leg angioplasty, hypertension, gout, arthritis, BPH, diverticulitis status post colon dissection, GERD, depression who presented to ED with chief complaint of right fifth toe erythema, swelling for 1 day. Patient had prior same right foot 2nd, 3rd and 4th toe amputation due to cellulitis, osteomyelitis was never detected. Previous tissue/bone culture from September 2016 positive for enterococcus sensitive to penicillin, patient was treated with vancomycin previously due to penicillin allergy. At the time of admission: X-ray: and no signs of osteomyelitis as well. Labs: Borderline leukocytosis of 14, H&H 13.6/41.5, BUN and creatinine 27/1.3 with GFR 54 at baseline, lactic acid 0.9<1.2. Patient received 1 dose of clindamycin IV in the ED. #Right foot cellulitis No evidence of osteomyelitis on MRI. No surgical intervention was warranted. Clindamycin was chosen as antibiotic because the patient has a penicillin allergy. He was given 600mg IV TID and will continue with 600mg PO TID for a total course of 7 days. The infection has improved over his hospital course and is not producing as much discharge and is less erythematous. #Diabetes on insulin pump as an outpatient. Received an endocrinology consultation. Patient was taken off home diabetes insulin pump. Patient was started on Levemir 20 units. Sliding scale was adjusted as per recommendations from endocrinology. Hemoglobin A1c was elevated at 8.6. We held insulin morning of discharge and reattached the home insulin pump. He can continue to use this. He will follow up with endo as outpatient after discharge. #PVD Home medications were continued. #CAD status post CABG and stent placement Home medications were continued. #CKD Encouraged by mouth hydration. #DVT prophylaxis Heparin subcutaneous. #Code DNR/DNI. Allergies: Coded Allergies: Penicillins (Severe, HIVES 12/10/15) Disposition Summary Disposition Principal Diagnosis: Cellulitis on right 5th toe. Additional Diagnosis: Diabetes, CKD, CAD, PVD, CRISTINE, gout Discharge Disposition: home or self care Discharge Instructions General Discharge Information Code Status: Do Not Resucitate/Intubat Patient's Diet: Diabetic diet. Patient's Activity: As tolerated. Follow-Up Instructions/Appts: Mr. Guerra should follow up with his PCP (Dr. Snow), Dr. Paredes (for diabetic foot infection), and his grinder set up operator universal (for diabetes management). Medications at Discharge Discharge Medications: Continue taking these medications: Aspirin (Ecotrin*) 81 MG TABLET. 1 Tablet ORAL Every Morning Comments: Last Taken: 04/16/17 Time: 0900 AM Carvedilol (Coreg) 25 MG TABLET 1 Tablet ORAL Every Morning Comments: Last Taken: 04/16/17 Time: 0900 AM Furosemide (Furosemide) 40 MG TABLET 1 Tablet ORAL Every Morning Comments: Last Taken: 04/16/17 Time: 0900 AM Bupropion HCl (Wellbutrin XL) 150 MG TAB.ER.24H 1 Tablet ORAL Every Morning Comments: Last Taken: 04/16/17 Time: 0900 AM Escitalopram Oxalate (Lexapro) 5 MG TABLET 1 Tablet ORAL Every night Comments: Last Taken: 04/15/17 Time: 1000 PM Finasteride (Finasteride) 5 MG TABLET 1 Tablet ORAL Every night Comments: NOT GIVEN Pregabalin (Lyrica) 50 MG CAPSULE 2 Capsule ORAL Every Morning Comments: Last Taken: 04/16/17 Time: 0900 AM Pregabalin (Lyrica) 50 MG CAPSULE 3 Capsule ORAL Every night Comments: Last Taken: 04/15/17 Time: 1000 PM Trazodone HCl (Trazodone HCl) 50 MG TABLET 0.5 Tablet ORAL Every night Comments: NOT GIVEN Mirabegron (Myrbetriq) 50 MG TAB.ER.24H 1 Tablet ORAL Every night Comments: NOT GIVEN Multivit-Min/Iron/Folic/Lutein (Centrum Silver Women Tablet) 8 MG IRON-400 MCG- 300 MCG TABLET 1 Tablet ORAL DAILY Comments: NOT GIVEN Diphenhydramine HCl (Diphenhydramine HCl) 25 MG CAPSULE 2 Capsule ORAL Every night Comments: NOT GIVEN Hydrocodone/Acetaminophen (Hydrocodon-Acetaminoph 7.5-325) 7.5 MG-325 MG TABLET 1 Tablet ORAL Q6-8H Comments: NOT GIVEN Atorvastatin Calcium (Atorvastatin Calcium) 20 MG TABLET 1 Tablet ORAL Every Morning Qty = 30 Comments: Last Taken: 04/16/17 Time: 0900 AM Allopurinol (Allopurinol) 300 MG TABLET 1 Tablet ORAL Every Morning Comments: Last Taken: 04/16/17 Time: 0900 AM Clopidogrel Bisulfate (Clopidogrel) 75 MG TABLET 1 Tablet ORAL Every Morning Comments: Last Taken: 04/16/17 Time: 0900 AM Isosorbide Mononitrate (Isosorbide Mononitrate ER) 60 MG TAB.ER.24H 2 Tablet ORAL Every Morning Qty = 180 Comments: Last Taken: 04/16/17 Time: 0900 AM Lisinopril (Prinivil) 5 MG TABLET 1 Tablet ORAL Every Morning Comments: Last Taken: 04/16/17 Time: 0900 AM Niacin (Niaspan) 500 MG TAB.ER.24H 1 Tablet ORAL Every night Qty = 90 Comments: Last Taken: 04/15/17 Time: 1000 PM Tamsulosin HCl (Flomax) 0.4 MG CAP.ER.24H 1 Capsule ORAL DAILY Comments: Last Taken: 04/16/17 Time: 0900 AM Insulin Lispro (Humalog) 100 UNIT/ML VIAL Comments: NOT GIVEN Hydroxyzine HCl (Hydroxyzine HCl) (Unknown Strength) TABLET Unknown Dose ORAL as needed for ITCHING Comments: NOT GIVEN Start taking the following new medications: Clindamycin HCl (Clindamycin HCl) 300 MG CAPSULE 2 Capsule ORAL THREE TIMES DAILY Qty = 24 No Refills Comments: NOT GIVEN Oxycodone HCl/Acetaminophen (Percocet 5-325 MG Tablet) 5 MG-325 MG TABLET 2 Tablet ORAL TWICE DAILY as needed for Pain Qty = 10 No Refills Comments: Last Taken: 04/15/17 Time: 1000 PM Copies To: VENU MATAMOROS DPM; ANGEL BAILEY,NILTON Staton; REBEKA BAILEY,ROSEANNA Attending MD Review Statement Documenting Attending: ROSALINA PHILLIPS MD
== END 2017-04-16 13:59 | DRG 603 ==
LOC: ERH 18:39 → ERHI 21:45 → 2NA 21:45 → ENRESERV 23:27 → 2NA 04-13 00:53 → ENPENDDIS 04-16 12:35 → 2NA 04-16 13:59
PROVIDERS: Physician Assistant; Student in an Organized Health Care Education/Training Program; ADMIT Internal Medicine
DX: L03.115 Cellulitis of right lower limb (principal); E11.22 Type 2 diabetes mellitus with diabetic chronic kidney disease; E11.40 Type 2 diabetes mellitus with diabetic neuropathy, unspecified; Z68.41 Body mass index [BMI] 40.0-44.9, adult; E11.51 Type 2 diabetes mellitus with diabetic peripheral angiopathy without gangrene; Z79.4 Long term (current) use of insulin; Z96.41 Presence of insulin pump (external) (internal); Z66 Do not resuscitate; I25.10 Atherosclerotic heart disease of native coronary artery without angina pectoris; M10.9 Gout, unspecified; I25.2 Old myocardial infarction; Z95.1 Presence of aortocoronary bypass graft; Z79.02 Long term (current) use of antithrombotics/antiplatelets; Z79.82 Long term (current) use of aspirin; I12.9 Hypertensive chronic kidney disease with stage 1 through stage 4 chronic kidney disease, or unspecified chronic kidney disease; M19.90 Unspecified osteoarthritis, unspecified site; N40.0 Benign prostatic hyperplasia without lower urinary tract symptoms; K21.9 Gastro-esophageal reflux disease without esophagitis; F32.9 Major depressive disorder, single episode, unspecified; Z87.891 Personal history of nicotine dependence; H91.90 Unspecified hearing loss, unspecified ear; Z90.49 Acquired absence of other specified parts of digestive tract; Z89.421 Acquired absence of other right toe(s); E11.621 Type 2 diabetes mellitus with foot ulcer; L97.511 Non-pressure chronic ulcer of other part of right foot limited to breakdown of skin; E66.9 Obesity, unspecified; G47.33 Obstructive sleep apnea (adult) (pediatric); N18.3 Chronic kidney disease, stage 3 (moderate)
CPT/HCPCS: 2NASP; 75657; ERO; 36415; 73630-RT; 73660-RT; 82436; 87040; J0131; J1644; J7042

== ENCOUNTER 2017-05-02 19:55 | Inpatient (IN) | payer OTHER, MEDICARE ==
[~2017-05-02] VITALS: Ht 167.6 cm; Wt 117.9 kg
[~2017-05-02 19:55] MED LIST changes: +ALLOPURINOL300 M1 PO; +ATORVASTATIN CA20 M1 PO; +CLINDAMYCIN HC300 M1 PO; +CLOPIDOGREL75 M1 PO; +DAILY MULTIPLE1 EACH PO; +FLOMAX0.4 M1 PO; +HUMALOG100 UNIT/2; +HYDROXYZINE HCL25 M2 PO; +ISOSORBIDE MONO60 M1 PO; +NIASPAN500 M1 PO; +PERCOCET 5-3251 EACH PO; +PRINIVIL5 M1 PO
--- NOTE | 2017-05-02 20:00 | NUR ---
PT INFORMED OF WAIT TIME.
--- NOTE | 2017-05-02 20:46 | NUR ---
PER PT HERE THIS AM AT [facility] THIS AM AND SENT BY DR. MATAMOROS, MY RT GREAT TOE IS INFECTED AND NEEDS TO BE REMOVED, HERE FOR ADMIT
--- NOTE | 2017-05-02 22:17 | ED UPPER/LOWER EXTREMITY COMPL ---
See Addendum History of Present Illness General Chief Complaint: Lower Extremity Problems Stated Complaint: RIGHT FOOT INFECTION Source: patient, family, old records Exam Limitations: no limitations Vital Signs & Intake/Output Vital Signs & Intake/Output Vital Signs Date Time Temp Pulse Resp B/P B/P Pulse O2 O2 Flow FiO2 Mean Ox Delivery Rate 05/04 1435 97.8 70 18 138/82 94 Room Air 05/04 0829 66 128/76 05/04 0828 66 128/76 05/04 0828 66 128/76 05/04 0718 98.4 66 18 128/76 94 Room Air 05/03 2219 98.3 66 16 114/32 93 Room Air ED Intake and Output 05/04 0000 05/03 1200 Intake Total 510 350 Output Total 300 300 Balance 210 50 Intake, IV 10 0 Intake, Oral 500 350 Number 3 0 Bowel Movements Output, Urine 300 300 Patient 260 lb Weight Weight Reported by Patient Measurement Method Allergies Coded Allergies: Penicillins (Severe, HIVES 12/10/15) Triage Note: PER PT HERE THIS AM AT [facility] THIS AM AND SENT BY DR. MATAMOROS, MY RT GREAT TOE IS INFECTED AND NEEDS TO BE REMOVED, HERE FOR ADMIT Triage Nurses Notes Reviewed? 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 Patient was evaluated by Dr. Matamoros today and was concerned of cellulitis and osteomyelitis to the left fifth digit of his toe where he has been complaining of an open wound for approximately one week. Patient has positive for chills. Denies any fever. (ISRAEL VELIZ) Reconcile Medications Allopurinol 300 MG TABLET 1 TAB PO QAM GOUT (Reported) Aspirin (Ecotrin*) 81 MG TABLET.DR 1 TAB PO QAM HEART/BLOOD (Reported) Atorvastatin Calcium 20 MG TABLET 1 TAB PO QAM CHOLESTEROL (Reported) Bupropion HCl (Wellbutrin XL) 150 MG TAB.ER.24H 1 TAB PO QAM DEPRESSION ( Reported) Carvedilol (Coreg) 25 MG TABLET 1 TAB PO QAM BP (Reported) Clopidogrel Bisulfate (Clopidogrel) 75 MG TABLET 1 TAB PO QAM BLOOD THINNER ( Reported) Diphenhydramine HCl 25 MG CAPSULE 2 CAP PO QPM SLEEP (Reported) Escitalopram Oxalate (Lexapro) 5 MG TABLET 1 TAB PO QPM MENTAL HEALTH ( Reported) Finasteride 5 MG TABLET 1 TAB PO QPM URINATION (Reported) Furosemide 40 MG TABLET 1 TAB PO QAM FLUID RETENTION (Reported) Hydrocodone/Acetaminophen (Hydrocodon-Acetaminoph 7.5-325) 7.5 MG-325 MG TABLET 1 TAB PO Q6-8H PAIN (Reported) Hydroxyzine HCl (Unknown Strength) TABLET (Unknown Dose) PO PRN ITCHING ( Reported) Insulin Lispro (Humalog) 100 UNIT/ML VIAL INSULIN PUMP (Reported) Isosorbide Mononitrate (Isosorbide Mononitrate ER) 60 MG TAB.ER.24H 2 TAB PO QAM HEART (Reported) Lisinopril (Prinivil) 5 MG TABLET 1 TAB PO QAM BP (Reported) Mirabegron (Myrbetriq) 50 MG TAB.ER.24H 1 TAB PO QPM BLADDER (Reported) Multivit-Min/Iron/Folic/Lutein (Centrum Silver Women Tablet) 8 MG IRON-400 MCG- 300 MCG TABLET 1 TAB PO DAILY SUPPLEMENT (Reported) Niacin (Niaspan) 500 MG TAB.ER.24H 1 TAB PO QPM CHOLESTEROL (Reported) Oxycodone HCl/Acetaminophen (Percocet 5-325 MG Tablet) 5 MG-325 MG TABLET 2 TAB PO BID PRN Pain Pregabalin (Lyrica) 50 MG CAPSULE 2 CAP PO QAM NEUROPATHY (Reported) Pregabalin (Lyrica) 50 MG CAPSULE 3 CAP PO QPM NEUROPATHY (Reported) Tamsulosin HCl (Flomax) 0.4 MG CAP.ER.24H 1 CAP PO DAILY (Reported) Trazodone HCl 50 MG TABLET 0.5 TAB PO QPM SLEEP HELP (Reported) (AGATHA BAILEY,BRANDYN Newberry) Past History Travel History Traveled to [place] past 21 day No Medical History Any Pertinent Medical History? 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 2nd toe anputation Psychosocial History Who do you live with Patient/Self Services at Home None What is your primary language Malay Tobacco Use: Never used Family History Family History, If Any: Relation not specified for: FH: diabetes mellitus Hx Contributory? No (ISRAEL VELIZ) Review of Systems Review of Systems Constitutional: Reports: see HPI, chills. EENTM: Reports: no symptoms. Respiratory: Reports: no symptoms. Cardiovascular: Reports: no symptoms. Gastrointestinal/Abdominal: Reports: no symptoms. Genitourinary: Reports: no symptoms. Musculoskeletal: Reports: see HPI, joint pain. Skin: Reports: see HPI. Neurological/Psychological: Reports: no symptoms. Hematologic/Endocrine: Reports: no symptoms. Immunological: Reports: no symptoms. All Other Systems: Reviewed and Negative (ISRAEL VELIZ) Physical Exam Physical Exam General Appearance: no apparent distress, alert, comfortable Neurologic/Tendon: normal sensation, normal tendon functions, responds to pain, no evidence tendon injury, no pulse deficit Skin: warm/dry Comments: Well-developed well-nourished person in no acute distress HEENT: Normal EENT exam, Neck: Supple, no lymphadenopathy, normal range of motion without pain or tenderness Back: Nontender, no CVA tenderness. Cardiovascular: Regular rate and rhythms no murmurs rubs or gallops, normal JVP Respiratory: Chest nontender. No respiratory distress.breath sounds clear to auscultation bilaterally Abdomen: Soft, nontender nondistended, no appreciable organomegaly. Normal bowel sounds. No ascites Neuro: Alert oriented x3, Psych: Mood and affect is normal, memory and judgment is normal. Diagram Feet Top 1) Noted 2 - 4 phalanges amputation 2) Noted 1 cm deep skin ulceration with purulent discharge exposed bone 3) Noted surrounding erythema warmth and tenderness (ISRAEL VELIZ) Progress Differential Diagnosis: arterial insufficiency, compartment syndrome, contusion, dislocation, DVT, fracture, gout, septic arthritis, sprain, tendon injury, OSTEOMYELITIS Plan of Care: Orders Procedure Date/time Status CBC WITHOUT DIFFERENTIAL 05/05 0600 Active BASIC ELECTROLYTES PLUS BUN&CR 05/05 0600 Active Consistent Carbohydrate 3 05/04 L Active NASAL SMEAR 05/04 1437 Active PATHOLOGY SPECIMEN 05/04 1303 Complete EXTREMETIES OR SPEC 05/04 1218 Active ECHOCARDIOGRAM 05/04 UNK Active Nursing Misc 05/03 UNK Active Current Medications Sig/Chacha Start time Last Medication Dose Stop Time Status Admin Aspirin Buffered 81 MG QAM 05/05 1000 AC (Ecotrin) Clopidogrel Bisulfate 75 MG QAM 05/05 1000 AC (Plavix) Furosemide 40 MG QAM 05/05 1000 AC (Lasix) Lisinopril 5 MG QAM 05/05 1000 AC (Prinivil) Insulin Aspart 0 TIDAC 05/04 1700 CAN (NovoLOG) Cefazolin Sodium 1,000 MG IQ8 05/04 1600 AC 05/04 (Kefzol-Ancef Inj) 05/05 1559 1632 Insulin Aspart 0 TIDAC/HS 05/04 1445 AC 05/04 (NovoLOG) 1453 Insulin Detemir 16 UNITS BID 05/04 1000 AC 05/04 (Levemir) 1448 Diphenhydramine HCl 50 MG QPM 05/03 2200 AC 05/03 (Benadryl) 210 Escitalopram Oxalate 5 MG QPM 05/03 2200 AC 05/03 (Lexapro) 2101 Finasteride 5 MG QPM 05/03 2200 AC 05/03 (Proscar) 210 Niacin 500 MG 2200 05/03 2200 AC 05/03 (Niacin 500 MG TR) 210 Polyethylene Glycol 17 GM AT BEDTIME 05/03 2200 AC (Miralax) Pregabalin 150 MG QPM 05/03 2200 AC 05/03 (Lyrica) 210 Senna/Docusate Sodium 1 TAB AT BEDTIME 05/03 2200 AC 05/03 (Senokot S) 210 Trazodone HCl 25 MG QPM 05/03 2200 AC 05/03 (Desyrel) 2101 Allopurinol 300 MG QAM 05/03 1000 AC 05/04 (Zyloprim) 0828 Atorvastatin Calcium 20 MG QAM 05/03 1000 AC 05/04 (Lipitor) 0828 Bupropion HCl 150 MG DAILY 05/03 1000 AC 05/04 (Wellbutrin XL) 0828 Carvedilol 25 MG QAM 05/03 1000 AC 05/04 (Coreg) 0828 Isosorbide 120 MG QAM 05/03 1000 AC 05/03 Mononitrate 1007 (Imdur) Mirabegron 50 MG DAILY 05/03 1000 AC 05/04 (Myrbetriq) 0830 Multivitamins 1 TAB DAILY 05/03 1000 AC 05/04 (Theragran Vitamins) 0828 Pregabalin 100 MG QAM 05/03 1000 AC 05/04 (Lyrica) 0856 Tamsulosin HCl 0.4 MG DAILY 05/03 1000 AC 05/04 (Flomax) 0828 Heparin Sodium 5,000 UNIT Q8 05/03 0600 AC 05/04 (Porcine) 1452 Hydroxyzine HCl 25 MG AT BEDTIME NEED.. 05/03 0345 AC (Atarax) Acetaminophen 650 MG Q6P PRN 05/03 0300 AC (Tylenol) Oxycodone/ 1 TAB Q6P PRN 05/03 0300 AC 05/03 Acetaminophen 2105 (Percocet) Oxycodone/ 2 TAB Q6P PRN 05/03 0300 AC 05/04 Acetaminophen 1400 (Percocet) Laboratory Tests 05/04/17 0626: Anion Gap 9, Estimated GFR 49 L, BUN/Creatinine Ratio 22.1, CBC w Diff NO MAN DIFF REQ, RBC 4.15 L, MCV 94.5 H, MCH 30.9, RDW 14.7 H, MPV 8.0, Gran % 60.8, Lymphocytes % 23.2, Monocytes % 7.9, Eosinophils % 7.4 H, Basophils % 0.7, Absolute Granulocytes 4.9, Absolute Lymphocytes 1.9, Absolute Monocytes 0.6, Absolute Eosinophils 0.6, Absolute Basophils 0.1, PUBS MCHC 32.7 L Microbiology 05/04 1218 EXTREMITIE: Gross Specimen Examination - RECD 05/04 1218 EXTREMITIE: Gram Stain - RECD Discussed patient with Dr. Matamoros who is concerned of osteomyelitis to the right fifth digit of his toe where he states that antibiotics should be withheld blood work will be obtained patient should receive an MRI tomorrow for concerns of MID FOOT infection in which most likely he will at least perform a right fifth digit toe amputation on Sunday. (ISRAEL VELIZ) Hand-Off Endorsed To: YUMIKO MANZANO MD Endorsed Time: 2309 Pending: labs (ISRAEL VELIZ) Departure Departure Disposition: STILL A PATIENT Condition: Stable Clinical Impression Primary Impression: Osteomyelitis of toe of right foot Secondary Impressions: Cellulitis of toe, right Referrals: ANGEL BAILEY,NILTON Staton (PCP/Family) Departure Forms: Customer Survey General Discharge Information Admission Note Spoke With: CHELSEA CRUZ MD Documentation of Exam: Documentation of any treatments & extenuating circumstances including Concerns Regarding Discharge (functional status, medication knowledge or non-compliance, living conditions, etc.) that warrant an admission rather than observation: [ Patient requires MRI, podiatry consultation, surgical intervention, and possible IV antibiotics.] (ISRAEL VELIZ) PA/PAYROLL ACCOUNTING MANAGER Co-Sign Statement Statement: ED Attending supervision documentation- [X] I saw and evaluated the patient. I have also reviewed all the pertinent lab results and diagnostic results. I agree with the findings and the plan of care as documented in the PA's/PAYROLL ACCOUNTING MANAGER's documentation. [X] I have reviewed the ED Record and agree with the PA's/PAYROLL ACCOUNTING MANAGER's documentation. [] Additions or exceptions (if any) to the PAs/PAYROLL ACCOUNTING MANAGER's note and plan are summarized below: [] (AGATHA BAILEY,BRANDYN Newberry) PA/PAYROLL ACCOUNTING MANAGER Co-Sign Statement Statement: ED Attending supervision documentation- [] I saw and evaluated the patient. I have also reviewed all the pertinent lab results and diagnostic results. I agree with the findings and the plan of care as documented in the PA's/PAYROLL ACCOUNTING MANAGER's documentation. [x] I have reviewed the ED Record and agree with the PA's/PAYROLL ACCOUNTING MANAGER's documentation. [] Additions or exceptions (if any) to the PAs/PAYROLL ACCOUNTING MANAGER's note and plan are summarized below: [] (YUMIKO MANZANO MD) Critical Care Note Critical Care Note Critical Care Time: 30-74 min (ISRAEL VELIZ)
--- NOTE | 2017-05-02 22:32 | NUR ---
PT TO ROOM 7 VIA WHEELCHAIR. NAOMI BARKER'Linda PT.
[2017-05-02 23:45] LABS: ABSOLUTE BASOPHIL COUNT 0.1 /CUMM (0.0-0.2); ABSOLUTE EOSINOPHIL COUNT 0.5 /CUMM (0.0-0.7); ABSOLUTE GRANULOCYTE CT 8.9 /CUMM (1.4-6.5); ABSOLUTE LYMPH COUNT 1.5 /CUMM (1.2-3.4); ABSOLUTE MONOCYTE COUNT 0.8 /CUMM (0.10-0.60); GRANULOCYTE % 75.8 % (42.2-75.2); HEMATOCRIT 39.4 % (42-52); MEAN CORPUSCULAR HGB 30.8 PG (27.0-31.0); MEAN CORPUSCULAR HGB CONC 33.2 G/DL (33.0-37.0); MEAN CORPUSCULAR VOLUME 92.8 FL (80.0-94.0); MEAN PLATELET VOLUME 7.9 FL (7.4-10.4); PLATELET COUNT 261 /CUMM (130-400); RBC DISTRIBUTION WIDTH 14.7 % (11.5-14.5); RED BLOOD CELL CT 4.25 /CUMM (4.70-6.10); WHITE BLOOD CELL COUNT 11.8 /CUMM (4.8-10.8)
[2017-05-02 23:53] LABS: PT 12.7 SEC (9.4-12.5); PTT 38 SEC (25-37)
--- NOTE | 2017-05-03 00:27 | NUR ---
CO PAIN 10/10 IV MORPHINE GIVEN
--- NOTE | 2017-05-03 01:36 | History & Physical ---
JUAN ALBERTO BAILEY,BRANDYN 05/03/17 0135: General Information and HPI History of Present Illness: pt is a 76 year old male with a hx of DM on insulin pump, diabetic neuropathy status post right 2nd, 3rd and 4th toe amputation, severe peripheral vascular disease, coronary artery disease status post 2 PA 1998 status post CABG and 8 stent on Plavix and aspirin, left leg angioplasty, hypertension, gout, arthritis , BPH, diverticulitis status post colon dissection, GERD, depression who presented to ED at the recommendation of Dr. Paredes, after seeing him for wound care, with chief complaint of R fifth toe pain ulcer, redness creeping up the dorsal foot, and swelling. Pt noticed drainage of blood and fluid from the ulcer 2 days ago. Pt reports chills, but denies nausea, vomiting, fever, chest pain, sob, headache. Pt was admitted to [facility] for cellulitis of the same toe from 04/12-. On that admission, an MRI showed no signs of osteomylitis. He was treated with Clindamycin 600mg IV TID and was discharged on 600mg PO TID for 10 days. Clindamycin was chosen due to PCN allergy. He completed his home abx course and claimed the rash was improving on discharge but never fully resolved. Allergies/Medications Allergies: Coded Allergies: Penicillins (Severe, HIVES 12/10/15) Past History Travel History Traveled to [place] past 21 day No Medical History Neurological: NEUROPATHY EENT: allergies, cataracts, hearing loss Cardiovascular: CAD Respiratory: NONE Gastrointestinal: diverticulitis, GERD Hepatic: NONE Renal: CHRONIC KIDNEY DISEASE Musculoskeletal: gout Psychiatric: depression Endocrine: diabetes Blood Disorders: NONE Cancer(s): NONE LEGAL ARCHIVIST/Reproductive: NONE History of MRSA: No History of VRE: No History of CDIFF: No Surgical History Surgical History: CABG (lower extremity angioplasty), colon resection, left leg angioplasty partial fifth ray resection, rt. 2nd toe anputation, R 3rd and 4th toe amputation Past Family/Social History Family History Relations & Conditions if any Relation not specified for: FH: diabetes mellitus Psychosocial History Services at Home: None Primary Language: Mongolian Living Will? yes Functional Ability ADLs Independent: dressing, eating, toileting, bathing. Ambulation: walker IADLs Independent: shopping, housework, finances, food prep, telephone, transportation , medication admin. Review of Systems Review of Systems Constitutional: Reports: see HPI, chills. EENTM: Reports: no symptoms. Cardiovascular: Reports: no symptoms. Respiratory: Reports: no symptoms. GI: Reports: no symptoms. Genitourinary: Reports: no symptoms. Musculoskeletal: Reports: no symptoms. Skin: Reports: erythema, lesions, rash. Neurological/Psychological: Reports: numbness. Hematologic/Endocrine: Reports: bruising. Exam & Diagnostic Data Last 24 Hrs of Vital Signs/I&O Vital Signs Date Time Temp Pulse Resp B/P B/P Pulse O2 O2 Flow FiO2 Mean Ox Delivery Rate 05/03 0801 97.8 70 18 102/58 94 CPAP 05/03 0418 93 CPAP Room Air 05/03 0315 CPAP 05/03 0309 98.4 64 18 140/72 94 Room Air 05/02 2259 98.2 75 20 122/63 96 Room Air Room Air 05/02 2048 97.5 67 22 116/69 97 Room Air Intake & Output 05/03 1600 05/03 0800 05/03 0000 Intake Total 350 Output Total 250 Balance 350 -250 Intake, IV 0 Intake, Oral 350 Number 0 Bowel Movements Output, Urine 250 Patient 260 lb 240 lb Weight Weight Reported by Patient Measurement Method Physical Exam General Appearance Alert, Oriented X3, Cooperative, No Acute Distress Skin R 5th toe has an ulcer, approximately 1x1 cm, currently draining puss, R dorsum of the foot is warm and erythematous Skin Temp/Moisture Exam: Warm/Dry Sepsis Skin Exam (color): Normal for Ethnicity HEENT Atraumatic, PERRLA, EOMI, Mucous Membr. moist/pink Neck Supple, No JVD, +2 Carotid Pulse wo Bruit Lymphatic Cervical nl Cardiovascular Regular Rate, Normal S1, Normal S2, No Murmurs Lungs Clear to Auscultation, Normal Air Movement Abdomen Normal Bowel Sounds, Soft, No Tenderness, No Hepatospenomegaly, No Masses, obese, several bruises secondary to a fall on 04/17 Neurological Normal Speech, Cranial Nerves 3-12 NL, decreased sensation on the R lower extremity Extremities No Clubbing, No Cyanosis, Normal Pulses Vascular Normal Pulses Sepsis Peripheral Pulse Location: Dorsalis Pedis Sepsis Peripheral Pulse Exam: Normal Sepsis Cap Refill Exam: <2 Sec Assessment/Plan Assessment: pt is a 76 year old male with a hx of DM on insulin pump, diabetic neuropathy status post right 2nd, 3rd and 4th toe amputation, severe peripheral vascular disease, coronary artery disease status post 2 PA 1998 status post CABG and 8 stent on Plavix and aspirin, left leg angioplasty, hypertension, gout, arthritis , BPH, diverticulitis status post colon dissection, GERD, depression who presented to ED at the recommendation of Dr. Paredes, after seeing him for wound care, with chief complaint of R fifth toe pain ulcer, redness creeping up the dorsal foot, and swelling. Pt noticed drainage of blood and fluid from the ulcer 2 days ago. pt was recently admitted to [facility] for cellulitis of same toe, discharged on 600mg PO TID for 10 days. #R 5th toe chronic ulcer, cellulitis, possible ostemylitis - admit to gen med - FU MRI of R foot - consult podiatry (Dr. Paredes) -FU wound cultures - off abx until potential surgery on sunday - doppler of lower extremities for DVT #DM - hold insulin pump - begin insulin sliding scale - daibetic diet - consult endocrine #DVT prophylaxis - heparin #code statu -DNR/DNI As Ranked By This Provider Problem List: 1. Diabetes 2. Cellulitis of left lower extremity 3. Diabetic foot Core Measures/Miscellaneous Acute Coronary Syndrome ACS Diagnosis: No Cerebrovascular Accident CVA/TIA Diagnosis: No Congestive Heart Failure CHF Diagnosis: No VTE (View Protocol) VTE Risk Factors: Age > 40, Obesity No [facility] VTE prophylaxis d/t: No contraindications No VTE Pharm Prophylaxis d/t: No contraindications VTE Diagnosis: No VTE Type: NONE VTE Confirmed by (Test): NONE Sepsis (View Protocol) Severe Sepsis Present: No Septic Shock Septic Shock Present: No Miscellaneous Documentation Attending Case Discussed With: CHELSEA CRUZ MD Primary Care Physician: NILTON ORTIZ MD Patient sees these Specialists Dr. Mat Oliveros Level of Patient Care: General Medicine RUTH CRZU MD 05/03/17 6581: General Information and HPI Allergies/Medications Home Med list Allopurinol 300 MG TABLET 1 TAB PO QAM GOUT (Reported) Aspirin (Ecotrin*) 81 MG TABLET.DR 1 TAB PO QAM HEART/BLOOD (Reported) Atorvastatin Calcium 20 MG TABLET 1 TAB PO QAM CHOLESTEROL (Reported) Bupropion HCl (Wellbutrin XL) 150 MG TAB.ER.24H 1 TAB PO QAM DEPRESSION ( Reported) Carvedilol (Coreg) 25 MG TABLET 1 TAB PO QAM BP (Reported) Clopidogrel Bisulfate (Clopidogrel) 75 MG TABLET 1 TAB PO QAM BLOOD THINNER ( Reported) Diphenhydramine HCl 25 MG CAPSULE 2 CAP PO QPM SLEEP (Reported) Escitalopram Oxalate (Lexapro) 5 MG TABLET 1 TAB PO QPM MENTAL HEALTH ( Reported) Finasteride 5 MG TABLET 1 TAB PO QPM URINATION (Reported) Furosemide 40 MG TABLET 1 TAB PO QAM FLUID RETENTION (Reported) Hydrocodone/Acetaminophen (Hydrocodon-Acetaminoph 7.5-325) 7.5 MG-325 MG TABLET 1 TAB PO Q6-8H PAIN (Reported) Hydroxyzine HCl (Unknown Strength) TABLET (Unknown Dose) PO PRN ITCHING ( Reported) Insulin Lispro (Humalog) 100 UNIT/ML VIAL INSULIN PUMP (Reported) Isosorbide Mononitrate (Isosorbide Mononitrate ER) 60 MG TAB.ER.24H 2 TAB PO QAM HEART (Reported) Lisinopril (Prinivil) 5 MG TABLET 1 TAB PO QAM BP (Reported) Mirabegron (Myrbetriq) 50 MG TAB.ER.24H 1 TAB PO QPM BLADDER (Reported) Multivit-Min/Iron/Folic/Lutein (Centrum Silver Women Tablet) 8 MG IRON-400 MCG- 300 MCG TABLET 1 TAB PO DAILY SUPPLEMENT (Reported) Niacin (Niaspan) 500 MG TAB.ER.24H 1 TAB PO QPM CHOLESTEROL (Reported) Oxycodone HCl/Acetaminophen (Percocet 5-325 MG Tablet) 5 MG-325 MG TABLET 2 TAB PO BID PRN Pain Pregabalin (Lyrica) 50 MG CAPSULE 2 CAP PO QAM NEUROPATHY (Reported) Pregabalin (Lyrica) 50 MG CAPSULE 3 CAP PO QPM NEUROPATHY (Reported) Tamsulosin HCl (Flomax) 0.4 MG CAP.ER.24H 1 CAP PO DAILY (Reported) Trazodone HCl 50 MG TABLET 0.5 TAB PO QPM SLEEP HELP (Reported) Attending MD Review Statement Attending Statement Attending MD Statement: examined this patient, discuss w/resident/PA/AUDIT CLERK, agreed w/resident/PA/AUDIT CLERK Attending Assessment/Plan: 76 yo obese M with h/o T2DM on insulin pump, peripheral neuropathy, CAD s/p CABG and stents, PVD s/p angioplasty, CRISTINE on CPAP, diverticulitis s/p colon resection , GERD, CKD stage 3B, depression, gout, 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 Samaniego for concerns of 5th toe osteomyelitis given nonhealing wound now with purulent discharge for the past 3 days. Chills+. He also reports that the erythema is tracking up the right foot. Please note, patient had vascular intervention of his ?right leg 2 months ago at [facility] and he had a cardiac arrest during the procedure requiring resuscitation, no revascularization procedure was done for the right leg. Patient feels this may preclude healing of his right foot if amputation is needed. VSS. AAO, in no acute distress, Chest clear, Heart S1S2 regular, LE: b/l LE edema R>L, right foot 5th toe lateral aspect small ovoid chronic ulcer with purulent discharge, erythema tracking to the foot. Labs: WBC 11.8, ESR 45, INR 1.21, BUN 30, creat 1.4 (baseline), glucose 168, lactic acid 1.0. Foot MRI (March 2017): diffuse moderate subcutaneous edema, no abscess, no definite osteomyelitis. 1. Right foot 5th toe chronic nonhealing ulcer, now with purulent discharge, associated cellulitis and concerns for developing osteomyelitis. GM admit, panculture, monitor off antibiotics. Dr. Samaniego plans to take him to OR on Sunday, but wishes to obtain MRI in AM. Please note, patient had an MRI about 3 weeks back. Please consult Podiatry and discuss this with Dr. Samaniego, consider ?bone scan. Will obtain LE dopplers to rule DVT. Patient would also benefit from Vascular consult and arterial doppler to assess extent of PVD. Obtain records from [facility]. Pain management. Wound consult. Hold aspirin and plavix in anticipation of debridement/ bone biopsy. 2. T2DM. Discontinue insulin pump, accucheks, Endo consult, initiate levemir and novolog SS. DVT ppx Hep SC. DNR/I. ALL BAILEY,BINU 05/03/17 0746: Resident Review Statement Resident Statement: examined this patient, discussed with applications intern, agreed with applications intern, reviewed EMR data (avail), discussed with nursing, reviewed images Other Findings: 76-year-old male with past medical history of type 2 diabetes on insulin pump, peripheral neuropathy on Lyrica, coronary artery disease status post CABG and stent, peripheral vascular disease status post angioplasty and stents, obstructive sleep apnea on CPAP, diverticulitis status post colon resection, GERD, CAD status IIIB, depression, gout, osteomyelitis of right foot requiring amputatation of second, third, fourth toes, who follows Dr Samaniego for Podiatry was refered from the wound care center by Dr Samaniego today for worsening right foot lesions, and to rule out osteomyelitis. The symptoms started abruptly two days ago, and he denies any fever, leg swelling more than usual, chest pain, shortness of breath, sick contacts, recent travel. He does admits to chills but no temperature recorded. He lives at home and uses cane to walk around. His PCP and chain pegger, are in [place], where he lives. On presentation, patient's vitals sings were stable, physical exam revealed right foot dorsum redness, warmth, tenderness, a chronic-appearing Rt 5th toe ulcer with pus oozing out, and missing right 2-4th toes. Abdomen was distended and had bruises that he mentioned was present everytime he gets anticoagulants for DVT prophylaxis. He is currently being managed in the general medical floor for the following issues: #Right toe chronic ulcer, possible osteomyelitis Patient's clinical condition is suspicious for osteomyelitis, given his past history and diabetes. * MRI has been ordered to rule out osteomyelitis of right foot/toes * Depending on MRI results, patient will possibly undergo surgery on Sunday. ? Toe amputation or ?TMA. * Currently off antibiotics, pending culture results. He did receive one dose of antibiotics in the ED. * Patient has been expainded about the condition and understands/agrees to the plan. * Consider vascular surgery/assessment with arterial study to reevaluate PVD, given his chronic non-healing wound. * Follow up on LE Doppler to rule out DVT * Holding ASA and Plavix, pending surgical decision. #Diabetes mellitus Currently holding insulin pump, changing to insulin sliding scale, Endocrine consult #Diet: CC3 #DVT ppx: SQ Heparin #Code status: DNR/DNI
--- NOTE | 2017-05-03 02:04 | NUR ---
PT GOING TO ROOM 185-2
--- NOTE | 2017-05-03 02:19 | NUR ---
REPORT CALLED TO DIKE RN BED IS NOT CLEANED AT THIS TIME.
[2017-05-03 03:09] VITALS: BP 140/72
--- NOTE | 2017-05-03 05:30 | Admission Certification ---
Admission Certification Certification Statement - As attending physician, I certify that at the time of - admission, based on clinical presentation, severity of - symptoms, need for further diagnostic testing and - therapeutic interventions, and risk of adverse outcomes - without in-hospital treatment, in my clinical assessment, - this patient requires an acute hospital stay for a minimum - of two nights or longer. I have also considered psychsocial - factors such as support system, advanced age, financial - issues, cognitive issues, and failed out-patient treatments, - past re-admission history, safety of patient, and lack of - compliance as applicable. Specific rationale supporting this admission is: Right fifth toe chronic nonhealing ulcer, concern for osteomyelitis.
[2017-05-03 08:01] VITALS: BP 102/58
[2017-05-03 08:11] LABS: ABSOLUTE BASOPHIL COUNT 0 /CUMM (0.0-0.2); ABSOLUTE EOSINOPHIL COUNT 0.5 /CUMM (0.0-0.7); ABSOLUTE GRANULOCYTE CT 6.4 /CUMM (1.4-6.5); ABSOLUTE LYMPH COUNT 1.8 /CUMM (1.2-3.4); ABSOLUTE MONOCYTE COUNT 0.8 /CUMM (0.10-0.60); BASOPHIL % 0.5 % (0.0-2.0); EOSINOPHIL % 4.8 % (0-5); GRANULOCYTE % 67.8 % (42.2-75.2); HEMATOCRIT 38.2 % (42-52); MEAN CORPUSCULAR HGB 30.9 PG (27.0-31.0); MEAN CORPUSCULAR HGB CONC 32.8 G/DL (33.0-37.0); MEAN CORPUSCULAR VOLUME 94.3 FL (80.0-94.0); MEAN PLATELET VOLUME 7.8 FL (7.4-10.4); PLATELET COUNT 219 /CUMM (130-400); RBC DISTRIBUTION WIDTH 15.1 % (11.5-14.5); RED BLOOD CELL CT 4.04 /CUMM (4.70-6.10); WHITE BLOOD CELL COUNT 9.5 /CUMM (4.8-10.8)
--- NOTE | 2017-05-03 10:56 | ULTRASOUND REPORT ---
EXAMINATION: US TRIPLEX OF LOWER EXTREMITIES, BILATERAL CLINICAL INFORMATION: 76-year-old male with bilateral lower extremity pain and redness. COMPARISON: None TECHNIQUE: Color-flow triplex imaging with spectral analysis and compression Doppler were performed on the lower extremities. FINDINGS: Respiratory variation, normal compression and augmented flow are noted throughout the lower extremities. The visualized common femoral vein, superficial femoral vein, profunda femoral vein, popliteal vein and midcalf peroneal and posterior tibial venous segments show no evidence of deep venous thrombosis. There is a small left-sided Muller's cyst measuring 4.7 x 1.1 x 1.4 cm. IMPRESSION: No evidence of deep venous thrombosis involving the lower extremities. Small left-sided Muller's cyst.
--- NOTE | 2017-05-03 12:08 | PN- Housestaff ---
HALINA BRAR 05/03/17 1207: Subjective Follow-up For: Right 5th toe chronic nonhealing ulcer/osteomyelitis 2 diabetes mellitus Peripheral arterial disease Complaints: pain scale (0-10) Tele-Events Since Last Visit: Not on telemetry monitoring Subjective: Patient was seen and examined this morning. He is alert awake and oriented to time place and person. No acute events noticed overnight. He does report 3 out of 10 pain right foot. Associated with erythema and chronic nonhealing ulcer. Denies any fever, chills. Denies any abdomen pain nausea vomiting. Vitals were stable Review of Systems Constitutional: Reports: see HPI. Objective Last 24 Hrs of Vital Signs/I&O Vital Signs Date Time Temp Pulse Resp B/P B/P Pulse O2 O2 Flow FiO2 Mean Ox Delivery Rate 05/03 1440 97.4 68 18 110/68 94 Room Air 05/03 1008 124/70 05/03 1007 70 124/70 05/03 1007 70 124/70 05/03 1007 70 124/70 05/03 0801 97.8 70 18 102/58 94 CPAP 05/03 0418 93 CPAP Room Air 05/03 0315 CPAP 05/03 0309 98.4 64 18 140/72 94 Room Air 05/02 2259 98.2 75 20 122/63 96 Room Air Room Air 05/02 2048 97.5 67 22 116/69 97 Room Air Intake & Output 05/03 1600 05/03 0800 05/03 0000 Intake Total 350 Output Total 300 300 250 Balance -300 50 -250 Intake, IV 0 Intake, Oral 350 Number 0 Bowel Movements Output, Urine 300 300 250 Patient 117.934 kg 108.862 kg Weight Weight Reported by Patient Measurement Method Physical Exam General Appearance: Alert, Oriented X3, Cooperative, No Acute Distress Skin: No Breakdown, right 5th toe non healing ulcer HEENT: Atraumatic, PERRLA, EOMI Neck: Supple, No JVD Lymphatic: Cervical nl Cardiovascular: Normal S1, Normal S2 Lungs: Normal Air Movement Abdomen: Normal Bowel Sounds, Soft, No Tenderness Extremities: No Clubbing, No Cyanosis, +2 edema Vascular: Normal Pulses, Pulses Symmetrical Current Medications: Current Medications Sig/Chacha Start time Last Medication Dose Route Stop Time Status Admin Acetaminophen 650 MG Q6P PRN 05/03 0300 AC PO Allopurinol 300 MG QAM 05/03 1000 AC 05/03 PO 1008 Atorvastatin Calcium 20 MG QAM 05/03 1000 AC 05/03 PO 1008 Bupropion HCl 150 MG DAILY 05/03 1000 AC 05/03 PO 1008 Carvedilol 25 MG QAM 05/03 1000 AC 05/03 PO 1007 Dextrose/Sodium 1,000 ML Q10H 05/04 0100 AC Chloride IV Diphenhydramine HCl 50 MG QPM 05/03 2200 AC PO Escitalopram Oxalate 5 MG QPM 05/03 220 AC PO Finasteride 5 MG QPM 05/03 2200 AC PO Furosemide 40 MG QAM 05/03 1000 AC 05/03 PO 1008 Heparin Sodium 5,000 UNIT Q8 05/03 0600 AC 05/03 (Porcine) SC 1344 Hydroxyzine HCl 25 MG AT BEDTIME NEED.. 05/03 0345 AC PO Insulin Aspart 0 Q4 05/04 0000 AC SC Insulin Aspart 0 TIDAC 05/03 0800 AC 05/03 SC 05/03 2300 1209 Insulin Detemir 20 UNITS BID 05/03 1212 AC 05/03 SC 1343 Isosorbide 120 MG QAM 05/03 1000 AC 05/03 Mononitrate PO 1007 Lisinopril 5 MG QAM 05/03 1000 AC 05/03 PO 1007 Mirabegron 50 MG DAILY 05/03 1000 AC 05/03 PO 1008 Morphine Sulfate 0 .STK-MED ONE 05/03 0028 DC .ROUTE Morphine Sulfate 4 MG ONCE ONE 05/02 2315 DC 05/03 IV 05/02 2316 0026 Multivitamins 1 TAB DAILY 05/03 1000 AC 05/03 PO 1013 Niacin 500 MG 05/03 AC PO Oxycodone/ 1 TAB Q6P PRN 05/03 0300 AC Acetaminophen PO Oxycodone/ 2 TAB Q6P PRN 05/03 0300 AC 05/03 Acetaminophen PO 1137 Patient Medication 1 ED .STK-MED ONE 05/03 1402 DC Teaching ED 05/03 1403 Polyethylene Glycol 17 GM AT BEDTIME 05/03 220 AC PO Pregabalin 150 MG QPM 05/03 2200 AC PO Pregabalin 100 MG QAM 05/03 1000 AC 05/03 PO 1013 Senna/Docusate Sodium 1 TAB AT BEDTIME 05/03 2200 AC PO Sodium Chloride 1,000 ML .[id number] 05/03 1000 DC IV 05/04 1239 Sodium Chloride 1,000 ML .[id number] 05/03 0300 CAN IV 05/04 0539 Tamsulosin HCl 0.4 MG DAILY 05/03 1000 AC 05/03 PO 1008 Trazodone HCl 25 MG QPM 05/03 2200 AC PO Last 24 Hrs of Lab/Ryan Results Last 24 Hrs of Labs/Mics: Laboratory Tests 05/03/17 0636: Anion Gap 9, Estimated GFR 45 L, BUN/Creatinine Ratio 20.0, CBC w Diff NO MAN DIFF REQ, RBC 4.04 L, MCV 94.3 H, MCH 30.9, RDW 15.1 H, MPV 7.8, Gran % 67.8, Lymphocytes % 18.9 L, Monocytes % 8.0, Eosinophils % 4.8, Basophils % 0.5, Absolute Granulocytes 6.4, Absolute Lymphocytes 1.8, Absolute Monocytes 0.8 H, Absolute Eosinophils 0.5, Absolute Basophils 0, PUBS MCHC 32.8 L 05/03/17 0109: Lactic Acid Cancelled 05/02/172329: Lactic Acid 1.0 05/02/172329: Anion Gap 10, Estimated GFR 49 L, BUN/Creatinine Ratio 21.4, Glucose 168 H, Calcium 8.9, Total Bilirubin 0.4, AST 19, ALT 24, Alkaline Phosphatase 57, Total Protein 6.1 L, Albumin 3.8, Globulin 2.3, Albumin/Globulin Ratio 1.7, PT 12.7 H, INR 1.21 H, APTT 38 H, CBC w Diff NO MAN DIFF REQ, RBC 4.25 L, MCV 92.8, MCH 30.8, RDW 14.7 H, MPV 7.9, Gran % 75.8 H, Lymphocytes % 12.8 L, Monocytes % 6.4, Eosinophils % 4.0, Basophils % 1.0, Absolute Granulocytes 8.9 H, Absolute Lymphocytes 1.5, Absolute Monocytes 0.8 H, Absolute Eosinophils 0.5, Absolute Basophils 0.1, PUBS MCHC 33.2, ESR Westergren 45 H Microbiology 05/02 2343 BLOOD: Blood Culture - RES 05/02 2330 BLOOD: Blood Culture - RES Assessment/Plan Assessment: 76 yo obese M with h/o T2DM on insulin pump, peripheral neuropathy, CAD s/p CABG and stents, PVD s/p angioplasty, CRISTINE on CPAP, diverticulitis s/p colon resection , GERD, CKD stage 3B, depression, gout, osteomyelitis of right foot requiring amputation of 2nd to 4th toes, recently admitted to [facility] (04/12 04/16) for right 5th toe cellulitis with chronic nonhealing ulcer (MRI negative for osteomyelitis) treated with antibiotics, is sent in from the Wound center by Dr. Samaniego for concerns of 5th toe osteomyelitis given nonhealing wound now with purulent discharge for the past 3 days. Vitals on admission stable. Pertinent labs on admission-WBC 11.8, hemoglobin 13 and hematocrit 40. BUN 30 and creatinine 1.5 ESR 45 INR 1.21 LACTIC Acid 1 arterial Doppler IMPRESSION: Abnormal waveforms throughout the lower extremities as described. With the exception of the right anterior tibial artery, the below-knee vessels were not visualized either secondary to occlusion or significantly slow flow. Findings are consistent with significant underlying peripheral arterial disease. There is also probable distal superficial femoral and popliteal disease bilaterally. Consider dedicated CTA for further anatomical detail, if clinically indicated. Venous Doppler IMPRESSION: No evidence of deep venous thrombosis involving the lower extremities. Small left-sided Muller's cyst. FOOT MRi IMPRESSION: There has been a change since the prior study, with new abnormal signal involving the fifth digit phalanges consistent with osteomyelitis. Edema throughout the soft tissues with no focal collection identified Right fifth toe osteomyelitis Patient is sent in from the Wound center by Dr. Samaniego for concerns of 5th toe osteomyelitis given nonhealing wound now with purulent discharge for the past 3 days. Patient has history of osteomyelitis of right foot requiring amputation of 2nd to 4th toes, recently admitted to [facility] (04/12 04/16) for right 5th toe cellulitis with chronic nonhealing ulcer (MRI negative for osteomyelitis) treated with antibiotics. Foot MRI (March 2017): diffuse moderate subcutaneous edema, no abscess, no definite osteomyelitis. * MRI suggestive of fifth digit osteomyelitis * Admitted to telemetry as general medicine hold * Monitor vitals closely every shift * Monitor for fever, chills, leukocytosis, worsening erythema and discharge * Closely monitor for distal pulses * Currently off antibiotics * We will follow blood cultures * Patient is nothing by mouth tonight * Going for debridement and bone biopsy tomorrow * Will follow-up or cultures * Pain management * Venous Doppler ruled out deep vein thrombosis Peripheral artery disease With the exception of the right anterior tibial artery, the below-knee vessels were not visualized either secondary to occlusion or significantly slow flow. Findings are consistent with significant underlying peripheral arterialdisease. There is also probable distal superficial femoral and popliteal disease bilaterally. Patient had vascular intervention of his right leg 2 months ago at [facility] and he had a cardiac arrest during the procedure requiring resuscitation, no revascularization procedure was done for the right leg. * Vascular surgeon on board * Cardiology consult and for Cardiac clearance gout Continue allopurinol 300 mg daily Coronary artery disease Status post CABG and stents Usually takes aspirin and Plavix at home Aspirin and Plavix on hold because of anticipated surgery Hyperlipidemia Lipitor 20 daily Depression Continue Lexapro and bupropion daily Hypertension Continue carvedilol and lisinopril Urine retention Continue finasteride, tamsulosin Fluid retention Continue home dose of Lasix 40 daily Peripheral neuropathy Continue pregabalin Insomnia Continue trazodone Type 2 diabetes mellitus He is on insulin pump at home. Insulin pump discontinued Endocrinology on board Accu-Cheks every 6 hours Levemir twice daily NovoLog sliding scale Obstructive sleep apnea On CPAP DVT prophylaxis subcutaneous heparin DNR/DNI Pain pathway Problem List: 1. Osteomyelitis Pain Ratin Pain Location: right fioot Pain Goal: Remain pain free Pain Plan: tylinol tramadol Tomorrow's Labs & Rationales: cbc bep WILEYMENDEZ MontesTHAD 05/03/17 1225: Attending MD Review Statement Attending Statement Attending MD Statement: examined this patient, discuss w/resident/PA/PROFESSOR [employer]IN[employer], agreed w/resident/PA/PROFESSOR [employer]IN[employer], discussed with family, reviewed EMR data (avail), discussed with nursing, discussed with case mgmt, reviewed images, amended to note Attending Assessment/Plan: "76 yo obese M with h/o T2DM on insulin pump, peripheral neuropathy, CAD s/p CABG and stents, PVD s/p angioplasty, CRISTINE on CPAP, diverticulitis s/p colon resection, GERD, CKD stage 3B, depression, gout, osteomyelitis of right foot requiring amputation of 2nd to 4th toes, recently admitted to [facility] (04/12 04/16) for right 5th toe cellulitis with chronic nonhealing ulcer (MRI negative for osteomyelitis) treated with antibiotics, is sent in from the Wound center by Dr. Samaniego for concerns of 5th toe osteomyelitis given nonhealing wound now with purulent discharge for the past 3 days. Chills+. He also reports that the erythema is tracking up the right foot. Please note, patient had vascular intervention of his ?right leg 2 months ago at [facility] and he had a cardiac arrest during the procedure requiring resuscitation, no revascularization procedure was done for the right leg. Patient feels this may preclude healing of his right foot if amputation is needed. " Patient seen/examined bedside, Podiatry consulted Osteomyelitis. Dr. Samaniego plans to take him to OR on Sunday, monitor off abx, obtain culture. Obtain previous medical records. CPAP as needed.
--- NOTE | 2017-05-03 12:15 | ULTRASOUND REPORT ---
EXAMINATION: US-BILAT LOW EXTR ARTERIAL DOP CLINICAL INFORMATION: History of PVD with lower extremity pain. COMPARISON: None TECHNIQUE: Real-time ultrasound and Doppler techniques (integrating B-mode 2-D vascular images, Doppler spectral analysis and color flow Doppler imaging) were utilized to interrogate the lower extremities. FINDINGS: Right lower extremity: Common femoral artery: 135 cm/sec; triphasic waveform Superficial femoral artery proximal: 88 cm/sec; triphasic waveform Superficial femoral artery mid portion: 69 cm/sec; biphasic waveform Superficial femoral artery distal: 70 cm/sec; monophasic waveform Profunda artery: 46 cm/sec; biphasic waveform Popliteal artery: 56 cm/sec; monophasic waveform Posterior tibial artery: Not visualized Peroneal artery: Not visualized Anterior tibial artery: 56 cm/sec; monophasic waveform Dorsalis pedis artery: 123 cm/sec; monophasic waveform Left lower extremity: Common femoral artery: 76 cm/sec; biphasic waveform Superficial femoral artery proximal: 47 cm/sec; biphasic waveform Superficial femoral artery mid portion: 35 cm/sec; biphasic waveform Superficial femoral artery distal: 83 cm/sec; biphasic waveform Profunda artery: 80 cm/sec; biphasic waveform Popliteal artery: 37 cm/sec; monophasic waveform Posterior tibial artery: Not visualized. Peroneal artery: Not visualized. Anterior tibial artery: Not visualized. Dorsalis pedis artery: Not visualized. ADDITIONAL FINDINGS: None. IMPRESSION: Abnormal waveforms throughout the lower extremities as described. With the exception of the right anterior tibial artery, the below-knee vessels were not visualized either secondary to occlusion or significantly slow flow. Findings are consistent with significant underlying peripheral arterial disease. There is also probable distal superficial femoral and popliteal disease bilaterally. Consider dedicated CTA for further anatomical detail, if clinically indicated.
--- NOTE | 2017-05-03 12:34 | Cons- Endocrinology ---
General Information and HPI Consulting Request Date of Consult: 05/03/17 Requested By: medical team Reason for Consult: Uncontrolled diabetes Source of Information: patient, old records Exam Limitations: no limitations History of Present Illness: This 76-year-old male was sent to the hospital by Dr. Samaniego because of an infection in his right toe. The patient is usually on an insulin pump at home. According to [facility] policy we have had to stop the pump. The patient was here 2 weeks ago and was managed on Levemir 20 units twice a day along with sliding scale NovoLog. He was discharged on antibiotics. Apparently the patient has peripheral vascular disease. His vascular doctor is Dr. Chakraborty. His been told of decreased blood supply to the right leg. When he was admitted to [facility] for the procedure to improve the blood supply to the right leg bradycardia anesthesia and the procedure had to be canceled. Patient has multiple medical problems including peripheral vascular disease as mentioned above, coronary artery disease status post 2 MIs CABG and a stent placements at attention obstructive sleep apnea. His diabetes has been complicated by neuropathy. He also has chronic kidney disease stage III. Allergies/Medications Allergies: Coded Allergies: Penicillins (Severe, HIVES 12/10/15) Home Med List: Allopurinol 300 MG TABLET 1 TAB PO QAM GOUT (Reported) Aspirin (Ecotrin*) 81 MG TABLET.DR 1 TAB PO QAM HEART/BLOOD (Reported) Atorvastatin Calcium 20 MG TABLET 1 TAB PO QAM CHOLESTEROL (Reported) Bupropion HCl (Wellbutrin XL) 150 MG TAB.ER.24H 1 TAB PO QAM DEPRESSION ( Reported) Carvedilol (Coreg) 25 MG TABLET 1 TAB PO QAM BP (Reported) Clopidogrel Bisulfate (Clopidogrel) 75 MG TABLET 1 TAB PO QAM BLOOD THINNER ( Reported) Diphenhydramine HCl 25 MG CAPSULE 2 CAP PO QPM SLEEP (Reported) Escitalopram Oxalate (Lexapro) 5 MG TABLET 1 TAB PO QPM MENTAL HEALTH ( Reported) Finasteride 5 MG TABLET 1 TAB PO QPM URINATION (Reported) Furosemide 40 MG TABLET 1 TAB PO QAM FLUID RETENTION (Reported) Hydroxyzine HCl (Unknown Strength) TABLET (Unknown Dose) PO PRN ITCHING ( Reported) Insulin Aspart (Novolog) 100 UNIT/ML VIAL 0 UNITS SC SEE ADMIN CRITERIA DIABETES LESS THAN 80 MG/DL--Initiate hypoglycemia 151-200-- 6 units 201-250--8 units 251-300--10 units 301-350--12 units 351-400--14 units more than 400--14 units and notify md Additional Bedtime coverage Below 251--no coverage 251-300--2 units 301-350--3 units 351-400--4 units more than 400--5 units Insulin Detemir (Levemir) 100 UNIT/ML VIAL 18 UNITS SC BID DIABETES Isosorbide Mononitrate (Isosorbide Mononitrate ER) 60 MG TAB.ER.24H 2 TAB PO QAM HEART (Reported) Lisinopril (Prinivil) 5 MG TABLET 1 TAB PO QAM BP (Reported) Metronidazole (Flagyl) 250 MG TABLET 500 MG PO Q8 infection last day will be 06/05. Mirabegron (Myrbetriq) 50 MG TAB.ER.24H 1 TAB PO QPM BLADDER (Reported) Multivit-Min/Iron/Folic/Lutein (Centrum Silver Women Tablet) 8 MG IRON-400 MCG- 300 MCG TABLET 1 TAB PO DAILY SUPPLEMENT (Reported) Niacin (Niaspan) 500 MG TAB.ER.24H 1 TAB PO QPM CHOLESTEROL (Reported) Oxycodone HCl 5 MG TABLET 1 TAB PO Q4-6 PRN moderate to severa pain Polyethylene Glycol 3350 (Miralax) 17 GRAM/DOSE POWDER 17 GM PO DAILY PRN constipation Pregabalin (Lyrica) 50 MG CAPSULE 3 CAP PO QPM NEUROPATHY (Reported) Pregabalin (Lyrica) 50 MG CAPSULE 2 CAP PO QAM NEUROPATHY (Reported) Sennosides/Docusate Sodium (Senna Plus Tablet) 8.6 MG-50 MG TABLET 1 TAB PO DAILY PRN constipation Tamsulosin HCl (Flomax) 0.4 MG CAP.ER.24H 1 CAP PO DAILY (Reported) Trazodone HCl 50 MG TABLET 0.5 TAB PO QPM SLEEP HELP (Reported) Vancomycin/0.9 % Sod Chloride (Vanco 1.5 Gm/250 Ml-0.9% NaCl) 1.5 GRAM/250 ML PLAST..BAG 1,500 MG IV DAILY infection last day 06/05 Past History Travel History Traveled to [place] past 21 day No Medical History Blood Transfusion Hx: No Neurological: NEUROPATHY EENT: allergies, cataracts, hearing loss Cardiovascular: CAD Respiratory: obstructive sleep apnea Gastrointestinal: diverticulitis, GERD Hepatic: NONE Renal: CHRONIC KIDNEY DISEASE Musculoskeletal: gout Psychiatric: depression Endocrine: diabetes Blood Disorders: NONE Cancer(s): NONE MENDER HAND/Reproductive: NONE Surgical History Surgical History: CABG (lower extremity angioplasty), colon resection, left leg angioplasty partial fifth ray resection, rt. 2nd toe anputation R 3rd and 4th toe amputation Family History Relations & Conditions If Any: Relation not specified for: FH: diabetes mellitus Psychosocial History Where Do You Live? Home Services at Home: None Primary Language: Kazakh Smoking Status: Former Smoker Living Will? yes Functional Ability ADLs Independent: dressing, eating, toileting, bathing. Ambulation: walker IADLs Independent: shopping, housework, finances, food prep, telephone, transportation , medication admin. Exam & Diagnostic Data Last 24 Hrs of Vital Signs/I&O Vital Signs Date Time Temp Pulse Resp B/P B/P Pulse O2 O2 Flow FiO2 Mean Ox Delivery Rate 05/03 1008 124/70 05/03 1007 70 124/70 05/03 1007 70 12470 05/03 1007 70 12470 05/03 0801 97.8 70 18 102/58 94 CPAP 05/03 0418 93 CPAP Room Air 05/03 0315 CPAP 05/03 0309 98.4 64 18 140/72 94 Room Air 05/029 98.2 75 20 122/63 96 Room Air Room Air 05/02 2048 97.5 67 22 116/69 97 Room Air Intake & Output 05/03 1600 05/03 0800 05/03 0000 Intake Total 350 Output Total 250 Balance 350 -250 Intake, IV 0 Intake, Oral 350 Number 0 Bowel Movements Output, Urine 250 Patient 260 lb 240 lb Weight Weight Reported by Patient Measurement Method Vital Signs Date Time Temp Pulse Resp B/P B/P Pulse O2 O2 Flow FiO2 Mean Ox Delivery Rate 05/03 1008 124/70 05/03 1007 70 124/70 05/03 1007 70 124/70 05/03 1007 70 124/70 05/03 0801 97.8 70 18 102/58 94 CPAP 05/03 0418 93 CPAP Room Air 05/03 0315 CPAP 05/03 0309 98.4 64 18 140/72 94 Room Air 05/02 2259 98.2 75 20 122/63 96 Room Air Room Air 05/028 97.5 67 22 116/69 97 Room Air Intake & Output 05/03 1600 05/03 0800 05/03 0000 Intake Total 350 Output Total 250 Balance 350 -250 Intake, IV 0 Intake, Oral 350 Number 0 Bowel Movements Output, Urine 250 Patient 260 lb 240 lb Weight Weight Reported by Patient Measurement Method Physical Exam General Appearance: alert, awake, obese Head: normal appearance Neck: normal inspection Respiratory: normal breath sounds Cardiovascular: regular rate/rhythm Gastrointestinal: normal bowel sounds, soft, obese Assessment/Plan Assessment/Plan This patient has type 2 diabetes associated with obesity and severe complications. He has known neuropathy and also has chronic kidney disease stage III. He has severe macrovascular complications including coronary artery disease and a peripheral disease. At one time in the past ,he was treated with U 500 insulin but then was switched to the insulin pump. He is sugars have done well on the insulin pump. In the hospital we have had to discontinue the insulin pump. 2 weeks ago he was managed on Levemir 20 units twice a day and sliding-scale NovoLog before meals.. Interestingly the patient has received no Levemir last night and no Levemir this morning. His fingerstick blood sugar before lunch is 138 after the coverage with sliding scale NovoLog this morning.. The patient is scheduled for an MRI this afternoon and may have a surgical procedure tomorrow. The patient has received 20 units of Levemir now. Suggest that the patient receive no further Levemir today if he is going to be nothing by mouth after midnight. If the patient has made nothing by mouth after midnight tonight, at midnight I would begin an IV with D5 half-normal saline at 100 mL per hour and place him on NovoLog coverage every 4 hours. NovoLog coverage every 4 hours should be less than 150 give no insulin, 151-200 give 2 units NovoLog, 201-250 give 3 units NovoLog, 251-300 give 4 units NovoLog, 301-350 give 5 units NovoLog, 351-400 give 6 units NovoLog. When the patient is eating again I would like to try to reduce his Levemir dose to 16 units twice a day and continue the present premeal sliding scale NovoLog as written. Consult Acknowledgment - Thank you for your consult request.
[2017-05-03 14:40] VITALS: BP 110/68
--- NOTE | 2017-05-03 16:36 | MRI REPORT ---
EXAMINATION: MRI FOOT, RIGHT NONCONTRAST CLINICAL INFORMATION: Right first toe redness and swelling. Fifth toe with chronic ulcer and pus. COMPARISON: MRI from 04/13/2017. TECHNIQUE: Multisequence multidimensional MR acquisition of the right foot was performed without IV contrast. FINDINGS: The patient is status post amputation of the second, third, and fourth digits at the metatarsophalangeal joints. Motion artifact somewhat limits the evaluation. Since the prior study, there is a new appearance of signal abnormality within the fifth digit phalanges. There is decreased signal on T1-weighted imaging with significantly increased signal on T2-weighted imaging. There is associated enhancement postcontrast. No additional bone marrow signal abnormality. Mild degenerative changes are again noted at the first metatarsophalangeal joint. Diffuse increased signal throughout the deep musculature of the foot is again noted, similar to prior. This is often seen in diabetic patients. Diffuse superficial soft tissue edema. No gross tendinous abnormality. No focal collection in the subcutaneous or deep soft tissue. No joint effusion seen. IMPRESSION: There has been a change since the prior study, with new abnormal signal involving the fifth digit phalanges consistent with osteomyelitis. Edema throughout the soft tissues with no focal collection identified.
--- NOTE | 2017-05-03 17:41 | Cons- Vascular Surgery ---
General Information and HPI Consulting Request Date of Consult: 05/03/17 Requested By: NANCY BAILEY,CHELSEA History of Present Illness: 76-year-old gentleman with multiple medical issues including coronary artery disease status post stenting in CABG, diabetes, neuropathy, PVD, hypertension, gout, arthritis, and diverticulitis presented to the hospital with right fifth toe infection. MRI is suggestive of us to minus of the right fifth toe. Patient underwent left leg angiogram via right femoral access [address] Mccollum at [facility]. This angiogram was unsuccessful according to the patient. The patient subsequently developed large right-sided hematoma. About 6 weeks later, he underwent evacuation of hematoma by Dr. Lin at [facility]. 2 months ago, the patient was scheduled for right leg angiogram by Dr. Lin at [facility] when he coded on the table. He was brought back and obviously the procedure was canceled. An arterial ultrasound performed yesterday showed diffuse disease mainly involving the tibial vessels in the right leg. I was asked to see the patient regarding adequacy of right leg perfusion. The patient will undergo right foot procedure by Dr. Samaniego tomorrow. Allergies/Medications Allergies: Coded Allergies: Penicillins (Severe, HIVES 12/10/15) Home Med List: Allopurinol 300 MG TABLET 1 TAB PO QAM GOUT (Reported) Aspirin (Ecotrin*) 81 MG TABLET.DR 1 TAB PO QAM HEART/BLOOD (Reported) Atorvastatin Calcium 20 MG TABLET 1 TAB PO QAM CHOLESTEROL (Reported) Bupropion HCl (Wellbutrin XL) 150 MG TAB.ER.24H 1 TAB PO QAM DEPRESSION ( Reported) Carvedilol (Coreg) 25 MG TABLET 1 TAB PO QAM BP (Reported) Clopidogrel Bisulfate (Clopidogrel) 75 MG TABLET 1 TAB PO QAM BLOOD THINNER ( Reported) Diphenhydramine HCl 25 MG CAPSULE 2 CAP PO QPM SLEEP (Reported) Escitalopram Oxalate (Lexapro) 5 MG TABLET 1 TAB PO QPM MENTAL HEALTH ( Reported) Finasteride 5 MG TABLET 1 TAB PO QPM URINATION (Reported) Furosemide 40 MG TABLET 1 TAB PO QAM FLUID RETENTION (Reported) Hydrocodone/Acetaminophen (Hydrocodon-Acetaminoph 7.5-325) 7.5 MG-325 MG TABLET 1 TAB PO Q6-8H PAIN (Reported) Hydroxyzine HCl (Unknown Strength) TABLET (Unknown Dose) PO PRN ITCHING ( Reported) Insulin Lispro (Humalog) 100 UNIT/ML VIAL INSULIN PUMP (Reported) Isosorbide Mononitrate (Isosorbide Mononitrate ER) 60 MG TAB.ER.24H 2 TAB PO QAM HEART (Reported) Lisinopril (Prinivil) 5 MG TABLET 1 TAB PO QAM BP (Reported) Mirabegron (Myrbetriq) 50 MG TAB.ER.24H 1 TAB PO QPM BLADDER (Reported) Multivit-Min/Iron/Folic/Lutein (Centrum Silver Women Tablet) 8 MG IRON-400 MCG- 300 MCG TABLET 1 TAB PO DAILY SUPPLEMENT (Reported) Niacin (Niaspan) 500 MG TAB.ER.24H 1 TAB PO QPM CHOLESTEROL (Reported) Oxycodone HCl/Acetaminophen (Percocet 5-325 MG Tablet) 5 MG-325 MG TABLET 2 TAB PO BID PRN Pain Pregabalin (Lyrica) 50 MG CAPSULE 2 CAP PO QAM NEUROPATHY (Reported) Pregabalin (Lyrica) 50 MG CAPSULE 3 CAP PO QPM NEUROPATHY (Reported) Tamsulosin HCl (Flomax) 0.4 MG CAP.ER.24H 1 CAP PO DAILY (Reported) Trazodone HCl 50 MG TABLET 0.5 TAB PO QPM SLEEP HELP (Reported) Past History Medical History Blood Transfusion Hx: No Neurological: NEUROPATHY EENT: allergies, cataracts, hearing loss Cardiovascular: CAD Respiratory: obstructive sleep apnea Gastrointestinal: diverticulitis, GERD Hepatic: NONE Renal: CHRONIC KIDNEY DISEASE Musculoskeletal: gout Psychiatric: depression Endocrine: diabetes Blood Disorders: NONE Cancer(s): NONE 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 2nd toe anputation R 3rd and 4th toe amputation Family History Relations & Conditions If Any: Relation not specified for: FH: diabetes mellitus Psychosocial History Where Do You Live? Home Services at Home: None Primary Language: Tunisian Smoking Status: Former Smoker Living Will? yes Functional Ability ADLs Independent: dressing, eating, toileting, bathing. Ambulation: walker IADLs Independent: shopping, housework, finances, food prep, telephone, transportation , medication admin. Review of Systems Review of Systems: Patient denies headache, dizziness, cough, palpitation, diarrhea or constipation Exam & Diagnostic Data Vital Signs and I&O Vital Signs Date Time Temp Pulse Resp B/P B/P Pulse O2 O2 Flow FiO2 Mean Ox Delivery Rate 05/03 1440 97.4 68 18 110/68 94 Room Air 05/03 1008 124/70 05/03 1007 70 124/70 05/03 1007 70 124/70 05/03 1007 70 124/70 05/03 0801 97.8 70 18 102/58 94 CPAP 05/03 0418 93 CPAP Room Air 05/03 0315 CPAP 05/03 0309 98.4 64 18 140/72 94 Room Air 05/02 2259 98.2 75 20 122/63 96 Room Air Room Air 05/02 2048 97.5 67 22 116/69 97 Room Air Intake & Output 05/03 1600 05/03 0800 05/03 0000 05/02 1600 05/02 0800 05/02 0000 Intake Total 350 Output Total 300 300 250 Balance -300 50 -250 Intake, IV 0 Intake, Oral 350 Number 0 Bowel Movements Output, Urine 300 300 250 Patient 260 lb 240 lb Weight Weight Reported by Patient Measurement Method Physical Exam: Patient is alert and oriented 3 Lungs: Clear to auscultation bilaterally CV: Regular rate and rhythm Abdomen: Obese, soft, nontender nondistended Extremities: There are palpable femoral pulses bilaterally. There is right dorsalis pedis and posterior tibial artery signals. The right fifth toe is erythematous which extends into the mid foot there is no active drainage at this time. There is no tenderness Assessment/Plan Assessment/Plan 76-year-old gentleman with extensive medical history and cardiac disease who 2 months ago coded on the operating table at [facility] presents with right fifth toe osteomyelitis. He will undergo right foot surgery by Dr. Samaniego tomorrow. He is going to need right leg angiogram when he is cleared from the medical and cardiac standpoint given his high risk history. I am hoping to perform the angiogram sometime next week if OR is available. Otherwise, the angiogram will be performed on an outpatient basis. Thank you for asking me to be involved in the care of this patient. Consult Acknowledgment - Thank you for your consult request. Attending MD Review Statement Attending Statement Attending MD Statement: examined this patient, discuss w/resident/PA/BOTANY TECHNICIAN
--- NOTE | 2017-05-03 19:16 | Cons- Cardiology ---
General Information and HPI Consulting Request Date of Consult: 05/03/17 Requested By: NANCY BAILEY,CHELSEA Reason for Consult: Coronary artery disease, preoperative evaluation History of Present Illness: The patient is a 76-year-old male with history of diabetes mellitus on insulin pump, diabetic neuropathy, CAD status post CABG, peripheral arterial disease who was sent to the hospital by Dr. Paredes because of right foot infection with possible osteomyelitis. 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 Pfeiffer in [place]. In January 2017 he underwent a diagnostic aortoiliac and right lower extremity angiogram, however the procedure was aborted because of prolonged hypotension with systolic blood pressure in the 50s. This was felt to be possibly secondary to volume depletion. His most recent nuclear stress test in January 2017 revealed no evidence of ischemia. He has had no recent chest pain. No palpitations. No nausea or vomiting. No diaphoresis. Allergies/Medications Allergies: Coded Allergies: Penicillins (Severe, HIVES 12/10/15) Home Med List: Allopurinol 300 MG TABLET 1 TAB PO QAM GOUT (Reported) Aspirin (Ecotrin*) 81 MG TABLET.DR 1 TAB PO QAM HEART/BLOOD (Reported) Atorvastatin Calcium 20 MG TABLET 1 TAB PO QAM CHOLESTEROL (Reported) Bupropion HCl (Wellbutrin XL) 150 MG TAB.ER.24H 1 TAB PO QAM DEPRESSION ( Reported) Carvedilol (Coreg) 25 MG TABLET 1 TAB PO QAM BP (Reported) Clopidogrel Bisulfate (Clopidogrel) 75 MG TABLET 1 TAB PO QAM BLOOD THINNER ( Reported) Diphenhydramine HCl 25 MG CAPSULE 2 CAP PO QPM SLEEP (Reported) Escitalopram Oxalate (Lexapro) 5 MG TABLET 1 TAB PO QPM MENTAL HEALTH ( Reported) Finasteride 5 MG TABLET 1 TAB PO QPM URINATION (Reported) Furosemide 40 MG TABLET 1 TAB PO QAM FLUID RETENTION (Reported) Hydrocodone/Acetaminophen (Hydrocodon-Acetaminoph 7.5-325) 7.5 MG-325 MG TABLET 1 TAB PO Q6-8H PAIN (Reported) Hydroxyzine HCl (Unknown Strength) TABLET (Unknown Dose) PO PRN ITCHING ( Reported) Insulin Lispro (Humalog) 100 UNIT/ML VIAL INSULIN PUMP (Reported) Isosorbide Mononitrate (Isosorbide Mononitrate ER) 60 MG TAB.ER.24H 2 TAB PO QAM HEART (Reported) Lisinopril (Prinivil) 5 MG TABLET 1 TAB PO QAM BP (Reported) Mirabegron (Myrbetriq) 50 MG TAB.ER.24H 1 TAB PO QPM BLADDER (Reported) Multivit-Min/Iron/Folic/Lutein (Centrum Silver Women Tablet) 8 MG IRON-400 MCG- 300 MCG TABLET 1 TAB PO DAILY SUPPLEMENT (Reported) Niacin (Niaspan) 500 MG TAB.ER.24H 1 TAB PO QPM CHOLESTEROL (Reported) Oxycodone HCl/Acetaminophen (Percocet 5-325 MG Tablet) 5 MG-325 MG TABLET 2 TAB PO BID PRN Pain Pregabalin (Lyrica) 50 MG CAPSULE 2 CAP PO QAM NEUROPATHY (Reported) Pregabalin (Lyrica) 50 MG CAPSULE 3 CAP PO QPM NEUROPATHY (Reported) Tamsulosin HCl (Flomax) 0.4 MG CAP.ER.24H 1 CAP PO DAILY (Reported) Trazodone HCl 50 MG TABLET 0.5 TAB PO QPM SLEEP HELP (Reported) Current Medications: Current Medications Sig/Chacha Start time Last Medication Dose Route Stop Time Status Admin Acetaminophen 650 MG Q6P PRN 05/03 0300 AC PO Allopurinol 300 MG QAM 05/03 1000 AC 05/03 PO 1008 Atorvastatin Calcium 20 MG QAM 05/03 1000 AC 05/03 PO 1008 Bupropion HCl 150 MG DAILY 05/03 1000 AC 05/03 PO 1008 Carvedilol 25 MG QAM 05/03 1000 AC 05/03 PO 1007 Dextrose/Sodium 1,000 ML Q10H 05/04 0100 AC Chloride IV Diphenhydramine HCl 50 MG QPM 05/03 2200 AC PO Escitalopram Oxalate 5 MG QPM 05/03 2200 AC PO Finasteride 5 MG QPM 05/03 2200 AC PO Furosemide 40 MG QAM 05/03 1000 AC 05/03 PO 1008 Heparin Sodium 5,000 UNIT Q8 05/03 0600 AC 05/03 (Porcine) SC 1344 Hydroxyzine HCl 25 MG AT BEDTIME NEED.. 05/03 0345 AC PO Insulin Aspart 0 Q4 05/04 0000 AC SC Insulin Aspart 0 TIDAC 05/03 0800 AC 05/03 SC 05/03 2300 1725 Insulin Detemir 20 UNITS BID 05/03 1212 AC 05/03 SC 1343 Isosorbide 120 MG QAM 05/03 1000 AC 05/03 Mononitrate PO 1007 Lisinopril 5 MG QAM 05/03 1000 AC 05/03 PO 1007 Mirabegron 50 MG DAILY 05/03 1000 AC 05/03 PO 1008 Morphine Sulfate 0 .STK-MED ONE 05/03 0028 DC .ROUTE Morphine Sulfate 4 MG ONCE ONE 05/02 2315 DC 05/03 IV 05/02 2316 0026 Multivitamins 1 TAB DAILY 05/03 1000 AC 05/03 PO 1013 Niacin 500 MG 2200 05/03 2200 AC PO Oxycodone/ 1 TAB Q6P PRN 05/03 0300 AC Acetaminophen PO Oxycodone/ 2 TAB Q6P PRN 05/03 0300 AC 05/03 Acetaminophen PO 1843 Patient Medication 1 ED .STK-MED ONE 05/03 1402 DC Teaching ED 05/03 1403 Polyethylene Glycol 17 GM AT BEDTIME 05/03 2200 AC PO Pregabalin 150 MG QPM 05/03 2200 AC PO Pregabalin 100 MG QAM 05/03 1000 AC 05/03 PO 1013 Senna/Docusate Sodium 1 TAB AT BEDTIME 05/03 2200 AC PO Sodium Chloride 1,000 ML .[id number] 05/03 1000 DC IV 05/04 1239 Sodium Chloride 1,000 ML .[id number] 05/03 0300 CAN IV 05/04 0539 Tamsulosin HCl 0.4 MG DAILY 05/03 1000 AC 05/03 PO 1008 Trazodone HCl 25 MG QPM 05/03 2200 AC PO Review of Systems Review of Systems: No rash. No tremor. No melena. No fever. All other systems were reviewed, and were noted to be negative. 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 2nd toe anputation R 3rd and 4th toe amputation Family History Relations & Conditions If Any: Relation not specified for: FH: diabetes mellitus Psychosocial History Where Do You Live? Home Services at Home: None Primary Language: Montenegrin Smoking Status: Former Smoker Living Will? yes Functional Ability ADLs Independent: dressing, eating, toileting, bathing. Ambulation: walker IADLs Independent: shopping, housework, finances, food prep, telephone, transportation , medication admin. Exam & Diagnostic Data Vital Signs and I&O Vital Signs Date Time Temp Pulse Resp B/P B/P Pulse O2 O2 Flow FiO2 Mean Ox Delivery Rate 05/03 1440 97.4 68 18 110/68 94 Room Air 05/03 1008 124/70 05/03 1007 70 124/70 05/03 1007 70 124/70 05/03 1007 70 124/70 05/03 0801 97.8 70 18 102/58 94 CPAP 05/03 0418 93 CPAP Room Air 05/03 0315 CPAP 05/03 0309 98.4 64 18 140/72 94 Room Air 05/02 2259 98.2 75 20 122/63 96 Room Air Room Air 05/02 2048 97.5 67 22 116/69 97 Room Air Intake & Output 05/03 1600 05/03 0800 05/03 0000 05/02 1600 05/02 0800 05/02 0000 Intake Total 350 Output Total 300 300 250 Balance -300 50 -250 Intake, IV 0 Intake, Oral 350 Number 0 Bowel Movements Output, Urine 300 300 250 Patient 260 lb 240 lb Weight Weight Reported by Patient Measurement Method Physical Exam: Gen: The patient is in no acute distress HEENT: Normal nose, ears, and oropharynx. Pupils equal bilaterally. Conjunctiva normal. Neck: Supple with no JVD, no masses, and no thyromegaly Lungs: Clear to auscultation with normal respiratory effort Heart: RRR, S1, S2, no murmurs. No peripheral edema, 2+ pulses in the lower extremities bilaterally Abdomen: Soft, nontender, no masses. No hepatomegaly. No splenomegaly Extremities: No clubbing or cyanosis. Normal muscle strength in the upper and lower extremities Skin: Normal skin turgor with right foot ulcer Neuro: Cranial nerves intact. Sensation intact Psych: Alert and oriented 3 with appropriate affect Labs/Ryan Results: Laboratory Tests 05/03 05/03 05/02 0636 0109 2330 Chemistry Sodium (137 - 145 mmol/L) 139 Potassium (3.5 - 5.1 mmol/L) 4.0 Chloride (98 - 107 mmol/L) 104 Carbon Dioxide (22 - 30 mmol/L) 26 Anion Gap (5 - 16) 9 BUN (9 - 20 mg/dL) 30 H Creatinine (0.7 - 1.2 mg/dL) 1.5 H Estimated GFR (>60 ml/min) 45 L BUN/Creatinine Ratio (7 - 25 %) 20.0 Lactic Acid (0.7 - 2.1 mmol/L) Cancelled 1.0 Hematology CBC w Diff NO MAN DIFF REQ WBC (4.8 - 10.8 /CUMM) 9.5 RBC (4.70 - 6.10 /CUMM) 4.04 L Hgb (14.0 - 18.0 G/DL) 12.5 L Hct (42 - 52 %) 38.2 L MCV (80.0 - 94.0 FL) 94.3 H MCH (27.0 - 31.0 PG) 30.9 RDW (11.5 - 14.5 %) 15.1 H Plt Count (130 - 400 /CUMM) 219 MPV (7.4 - 10.4 FL) 7.8 Gran % (42.2 - 75.2 %) 67.8 Lymphocytes % (20.5 - 51.1 %) 18.9 L Monocytes % (1.7 - 9.3 %) 8.0 Eosinophils % (0 - 5 %) 4.8 Basophils % (0.0 - 2.0 %) 0.5 Absolute Granulocytes (1.4 - 6.5 /CUMM) 6.4 Absolute Lymphocytes (1.2 - 3.4 /CUMM) 1.8 Absolute Monocytes (0.10 - 0.60 /CUMM) 0.8 H Absolute Eosinophils (0.0 - 0.7 /CUMM) 0.5 Absolute Basophils (0.0 - 0.2 /CUMM) 0 PUBS MCHC (33.0 - 37.0 G/DL) 32.8 L 05/02 2330 Chemistry Sodium (137 - 145 mmol/L) 140 Potassium (3.5 - 5.1 mmol/L) 4.1 Chloride (98 - 107 mmol/L) 104 Carbon Dioxide (22 - 30 mmol/L) 27 Anion Gap (5 - 16) 10 BUN (9 - 20 mg/dL) 30 H Creatinine (0.7 - 1.2 mg/dL) 1.4 H Estimated GFR (>60 ml/min) 49 L BUN/Creatinine Ratio (7 - 25 %) 21.4 Glucose (65 - 99 mg/dL) 168 H Calcium (8.4 - 10.2 mg/dL) 8.9 Total Bilirubin (0.2 - 1.3 mg/dL) 0.4 AST (17 - 59 U/L) 19 ALT (21 - 72 U/L) 24 Alkaline Phosphatase (< 127 U/L) 57 Total Protein (6.3 - 8.2 g/dL) 6.1 L Albumin (3.5 - 5.0 g/dL) 3.8 Globulin (1.9 - 4.2 gm/dL) 2.3 Albumin/Globulin Ratio (1.1 - 2.2 %) 1.7 Coagulation PT (9.4 - 12.5 SEC) 12.7 H INR (0.90 - 1.17) 1.21 H APTT (25 - 37 SEC) 38 H Hematology CBC w Diff NO MAN DIFF REQ WBC (4.8 - 10.8 /CUMM) 11.8 H RBC (4.70 - 6.10 /CUMM) 4.25 L Hgb (14.0 - 18.0 G/DL) 13.1 L Hct (42 - 52 %) 39.4 L MCV (80.0 - 94.0 FL) 92.8 MCH (27.0 - 31.0 PG) 30.8 RDW (11.5 - 14.5 %) 14.7 H Plt Count (130 - 400 /CUMM) 261 MPV (7.4 - 10.4 FL) 7.9 Gran % (42.2 - 75.2 %) 75.8 H Lymphocytes % (20.5 - 51.1 %) 12.8 L Monocytes % (1.7 - 9.3 %) 6.4 Eosinophils % (0 - 5 %) 4.0 Basophils % (0.0 - 2.0 %) 1.0 Absolute Granulocytes (1.4 - 6.5 /CUMM) 8.9 H Absolute Lymphocytes (1.2 - 3.4 /CUMM) 1.5 Absolute Monocytes (0.10 - 0.60 /CUMM) 0.8 H Absolute Eosinophils (0.0 - 0.7 /CUMM) 0.5 Absolute Basophils (0.0 - 0.2 /CUMM) 0.1 PUBS MCHC (33.0 - 37.0 G/DL) 33.2 ESR Westergren (0 - 10 MM) 45 H Diagnostic Data EKG Results EKG tracing is independently reviewed, and reveals normal sinus rhythm at 63, premature atrial complexes, inferior infarct age undetermined Other Results MRI of the right foot: There has been a change since the prior study, with new abnormal signal involving the fifth digit phalanges consistent with osteomyelitis. Edema throughout the soft tissues with no focal collection identified. Bilateral lower extremity arterial Doppler: Abnormal waveforms throughout the lower extremities as described. With the exception of the right anterior tibial artery, the below-knee vessels were not visualized either secondary to occlusion or significantly slow flow. Findings are consistent with significant underlying peripheral arterial disease. There is also probable distal superficial femoral and popliteal disease bilaterally. Consider dedicated CTA for further anatomical detail, if clinically indicated. Venous Doppler study of the lower extremities: No evidence of deep venous thrombosis involving the lower extremities. Small left-sided Muller's cyst. Assessment/Plan Assessment/Plan Assessment: 1. Diabetes mellitus 2. CAD, status post CABG 3. Peripheral child disease 4. Right foot infection with possible osteomyelitis 5. Recent episode of prolonged hypotension during vascular procedure 7. Recent normal nuclear stress test Plan: * Cleared from cardiac standpoint for planned right lower extremity debridement. Will need close attention to hemodynamics status given history of intraoperative hypotension * Echocardiogram * Would hold lisinopril and Lasix for now given recent hypotension Consult Acknowledgment - Thank you for your consult request.
--- NOTE | 2017-05-03 19:36 | Cons- Podiatry ---
General Information and HPI Consulting Request Date of Consult: 05/03/17 Requested By: NANCY BAILEY,CHELSEA History of Present Illness: 76 y/o male admitted for cellulitis and osteomyelitis right foot. History of chronic non-healing ulcer right foot. Eric has a lengthy past medical history, including peripheral arterial disease and CAD, with a recent cardiac arrest 2 months ago while at [facility]. Allergies/Medications Allergies: Coded Allergies: Penicillins (Severe, HIVES 12/10/15) Home Med List: Allopurinol 300 MG TABLET 1 TAB PO QAM GOUT (Reported) Aspirin (Ecotrin*) 81 MG TABLET.DR 1 TAB PO QAM HEART/BLOOD (Reported) Atorvastatin Calcium 20 MG TABLET 1 TAB PO QAM CHOLESTEROL (Reported) Bupropion HCl (Wellbutrin XL) 150 MG TAB.ER.24H 1 TAB PO QAM DEPRESSION ( Reported) Carvedilol (Coreg) 25 MG TABLET 1 TAB PO QAM BP (Reported) Clopidogrel Bisulfate (Clopidogrel) 75 MG TABLET 1 TAB PO QAM BLOOD THINNER ( Reported) Diphenhydramine HCl 25 MG CAPSULE 2 CAP PO QPM SLEEP (Reported) Escitalopram Oxalate (Lexapro) 5 MG TABLET 1 TAB PO QPM MENTAL HEALTH ( Reported) Finasteride 5 MG TABLET 1 TAB PO QPM URINATION (Reported) Furosemide 40 MG TABLET 1 TAB PO QAM FLUID RETENTION (Reported) Hydrocodone/Acetaminophen (Hydrocodon-Acetaminoph 7.5-325) 7.5 MG-325 MG TABLET 1 TAB PO Q6-8H PAIN (Reported) Hydroxyzine HCl (Unknown Strength) TABLET (Unknown Dose) PO PRN ITCHING ( Reported) Insulin Lispro (Humalog) 100 UNIT/ML VIAL INSULIN PUMP (Reported) Isosorbide Mononitrate (Isosorbide Mononitrate ER) 60 MG TAB.ER.24H 2 TAB PO QAM HEART (Reported) Lisinopril (Prinivil) 5 MG TABLET 1 TAB PO QAM BP (Reported) Mirabegron (Myrbetriq) 50 MG TAB.ER.24H 1 TAB PO QPM BLADDER (Reported) Multivit-Min/Iron/Folic/Lutein (Centrum Silver Women Tablet) 8 MG IRON-400 MCG- 300 MCG TABLET 1 TAB PO DAILY SUPPLEMENT (Reported) Niacin (Niaspan) 500 MG TAB.ER.24H 1 TAB PO QPM CHOLESTEROL (Reported) Oxycodone HCl/Acetaminophen (Percocet 5-325 MG Tablet) 5 MG-325 MG TABLET 2 TAB PO BID PRN Pain Pregabalin (Lyrica) 50 MG CAPSULE 2 CAP PO QAM NEUROPATHY (Reported) Pregabalin (Lyrica) 50 MG CAPSULE 3 CAP PO QPM NEUROPATHY (Reported) Tamsulosin HCl (Flomax) 0.4 MG CAP.ER.24H 1 CAP PO DAILY (Reported) Trazodone HCl 50 MG TABLET 0.5 TAB PO QPM SLEEP HELP (Reported) Past History Medical History Blood Transfusion Hx: No Neurological: NEUROPATHY EENT: allergies, cataracts, hearing loss Cardiovascular: CAD Respiratory: obstructive sleep apnea Gastrointestinal: diverticulitis, GERD Hepatic: NONE Renal: CHRONIC KIDNEY DISEASE Musculoskeletal: gout Psychiatric: depression Endocrine: diabetes Blood Disorders: NONE Cancer(s): NONE 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 2nd toe anputation R 3rd and 4th toe amputation Family History Relations & Conditions If Any: Relation not specified for: FH: diabetes mellitus Psychosocial History Where Do You Live? Home Services at Home: None Primary Language: Mauritian Smoking Status: Former Smoker Living Will? yes Functional Ability ADLs Independent: dressing, eating, toileting, bathing. Ambulation: walker IADLs Independent: shopping, housework, finances, food prep, telephone, transportation , medication admin. Review of Systems Review of Systems: Unremarkable except for that noted in history of present illness. Exam & Diagnostic Data Vital Signs and I&O Vital Signs Date Time Temp Pulse Resp B/P B/P Pulse O2 O2 Flow FiO2 Mean Ox Delivery Rate 05/03 1440 97.4 68 18 110/68 94 Room Air 05/03 1008 124/70 05/03 1007 70 124/70 05/03 1007 70 124/70 05/03 1007 70 124/70 05/03 0801 97.8 70 18 102/58 94 CPAP 05/03 0418 93 CPAP Room Air 05/03 0315 CPAP 05/03 0309 98.4 64 18 140/72 94 Room Air 05/02 2259 98.2 75 20 122/63 96 Room Air Room Air 05/02 2048 97.5 67 22 116/69 97 Room Air Intake & Output 05/03 1600 05/03 0800 05/03 0000 05/02 1600 05/02 0800 05/02 0000 Intake Total 350 Output Total 300 300 250 Balance -300 50 -250 Intake, IV 0 Intake, Oral 350 Number 0 Bowel Movements Output, Urine 300 300 250 Patient 260 lb 240 lb Weight Weight Reported by Patient Measurement Method Physical Exam: Necrotic ulcer right 5th toe with cellulitis extending for dorsal midfoot. MRI positive for osteomyelitis right 5th digit. Assessment/Plan Assessment/Plan Cellultis and osteomyelitis right foot. Recommend partial 5th ray resection right. Consider cariology evaluation prior to OR. F/u vascular eval. Consult Acknowledgment - Thank you for your consult request. Attending MD Review Statement Attending Statement Attending MD Statement: examined this patient
[2017-05-03 22:19] VITALS: BP 114/32
[2017-05-04 07:18] VITALS: BP 128/76
--- NOTE | 2017-05-04 07:18 | PN- Housestaff ---
HALINA BRAR 05/04/17 0717: Subjective Follow-up For: Right 5th toe chronic nonhealing ulcer/osteomyelitis 2 diabetes mellitus Peripheral arterial disease Complaints: pain scale (0-10) Tele-Events Since Last Visit: Not on telemetry monitoring Subjective: Patient was seen and examined this morning. He is alert awake and oriented to time place and person. No acute events noticed overnight. He does report 4 out of 10 pain right foot. Associated with erythema and chronic nonhealing ulcer. Denies any fever, chills. Denies any abdomen pain nausea vomiting. Vitals were stable Patient is nothing by mouth going for debridement today Review of Systems Constitutional: Reports: see HPI. Objective Last 24 Hrs of Vital Signs/I&O Vital Signs Date Time Temp Pulse Resp B/P B/P Pulse O2 O2 Flow FiO2 Mean Ox Delivery Rate 05/04 1435 97.8 70 18 138/82 94 Room Air 05/04 0829 66 128/76 05/04 0828 66 128/76 05/04 0828 66 128/76 05/04 0718 98.4 66 18 128/76 94 Room Air 05/03 2219 98.3 66 16 114/32 93 Room Air Intake & Output 05/04 1600 05/04 0800 05/04 0000 Intake Total 700 510 Output Total Balance 700 510 Intake, IV 600 10 Intake, Oral 100 500 Number 3 Bowel Movements Physical Exam General Appearance: Alert, Oriented X3, Cooperative, No Acute Distress Skin: No Rashes, No Breakdown, RIGHT FOOT ULCER HEENT: Atraumatic, PERRLA, EOMI Neck: Supple, No JVD Lymphatic: Cervical nl Cardiovascular: Normal S1, Normal S2 Lungs: Normal Air Movement Abdomen: Normal Bowel Sounds, Soft, No Tenderness Extremities: No Clubbing, No Cyanosis, Normal Pulses Vascular: Normal Pulses, Pulses Symmetrical Current Medications: Current Medications Sig/Chacha Start time Last Medication Dose Route Stop Time Status Admin Acetaminophen 650 MG Q6P PRN 05/03 0300 AC PO Allopurinol 300 MG QAM 05/03 1000 AC 05/04 PO 0828 Aspirin Buffered 81 MG QAM 05/05 1000 UNVr PO Atorvastatin Calcium 20 MG QAM 05/03 1000 AC 05/04 PO 0828 Bupropion HCl 150 MG DAILY 05/03 1000 AC 05/04 PO 0828 Carvedilol 25 MG QAM 05/03 1000 AC 05/04 PO 0828 Cefazolin Sodium 1,000 MG IQ8 05/04 1600 AC IV 05/05 1559 Clopidogrel Bisulfate 75 MG QAM 05/05 1000 UNVr PO Dextrose/Sodium 1,000 ML Q10H 05/04 0100 DC 05/04 Chloride IV 1119 Diphenhydramine HCl 50 MG QPM 05/03 2200 AC 05/03 PO 2101 Escitalopram Oxalate 5 MG QPM 05/03 2200 AC 05/03 PO 2101 Finasteride 5 MG QPM 05/03 2200 AC 05/03 PO 2101 Furosemide 40 MG QAM 05/05 1000 UNVr PO Furosemide 40 MG QAM 05/03 1000 DC 05/03 PO 1008 Heparin Sodium 5,000 UNIT Q8 05/03 0600 AC 05/04 (Porcine) SC 0613 Hydroxyzine HCl 25 MG AT BEDTIME NEED.. 05/03 0345 AC PO Insulin Aspart 0 TIDAC 05/04 1700 CANr SC Insulin Aspart 0 TIDAC/HS 05/04 1445 UNVr SC Insulin Aspart 0 Q4H 05/04 0400 DC 05/04 SC 0827 Insulin Aspart 0 Q4 05/04 0000 DC 05/04 SC 0050 Insulin Aspart 0 TIDAC 05/03 0800 DC 05/03 SC 05/03 2300 1725 Insulin Detemir 16 UNITS BID 05/04 1000 AC SC Insulin Detemir 20 UNITS BID 05/03 1212 DC 05/03 SC 1343 Isosorbide 120 MG QAM 05/03 1000 AC 05/03 Mononitrate PO 1007 Lisinopril 5 MG QAM 05/05 1000 UNVr PO Lisinopril 5 MG QAM 05/03 1000 DC 05/03 PO 1007 Mirabegron 50 MG DAILY 05/03 1000 AC 05/04 PO 0830 Multivitamins 1 TAB DAILY 05/03 1000 AC 05/04 PO 0828 Niacin 500 MG 2200 05/03 2200 AC 05/03 PO 2105 Oxycodone/ 1 TAB Q6P PRN 05/03 0300 AC 05/03 Acetaminophen PO 210 Oxycodone/ 2 TAB Q6P PRN 05/03 0300 AC 05/04 Acetaminophen PO 0743 Polyethylene Glycol 17 GM AT BEDTIME 05/03 2200 AC PO Pregabalin 150 MG QPM 05/03 2200 AC 05/03 PO 2101 Pregabalin 100 MG QAM 05/03 1000 AC 05/04 PO 0856 Senna/Docusate Sodium 1 TAB AT BEDTIME 05/03 2200 AC 05/03 PO 2100 Tamsulosin HCl 0.4 MG DAILY 05/03 1000 AC 05/04 PO 0828 Trazodone HCl 25 MG QPM 05/03 2200 AC 05/03 PO 2100 Last 24 Hrs of Lab/Ryan Results Last 24 Hrs of Labs/Mics: Laboratory Tests 05/04/17 0626: Anion Gap 9, Estimated GFR 49 L, BUN/Creatinine Ratio 22.1, CBC w Diff NO MAN DIFF REQ, RBC 4.15 L, MCV 94.5 H, MCH 30.9, RDW 14.7 H, MPV 8.0, Gran % 60.8, Lymphocytes % 23.2, Monocytes % 7.9, Eosinophils % 7.4 H, Basophils % 0.7, Absolute Granulocytes 4.9, Absolute Lymphocytes 1.9, Absolute Monocytes 0.6, Absolute Eosinophils 0.6, Absolute Basophils 0.1, PUBS MCHC 32.7 L Microbiology 05/04 1218 EXTREMITIE: Gross Specimen Examination - RECD 05/04 1218 EXTREMITIE: Gram Stain - RECD Assessment/Plan Assessment: 76 yo obese M with h/o T2DM on insulin pump, peripheral neuropathy, CAD s/p CABG and stents, PVD s/p angioplasty, CRISTINE on CPAP, diverticulitis s/p colon resection , GERD, CKD stage 3B, depression, gout, osteomyelitis of right foot requiring amputation of 2nd to 4th toes, recently admitted to [facility] (04/12 04/16) for right 5th toe cellulitis with chronic nonhealing ulcer (MRI negative for osteomyelitis) treated with antibiotics, is sent in from the Wound center by Dr. Samaniego for concerns of 5th toe osteomyelitis given nonhealing wound now with purulent discharge for the past 3 days. Vitals on admission stable. Pertinent labs on admission-WBC 11.8, hemoglobin 13 and hematocrit 40. BUN 30 and creatinine 1.5 ESR 45 INR 1.21 LACTIC Acid 1 arterial Doppler IMPRESSION: Abnormal waveforms throughout the lower extremities as described. With the exception of the right anterior tibial artery, the below-knee vessels were not visualized either secondary to occlusion or significantly slow flow. Findings are consistent with significant underlying peripheral arterial disease. There is also probable distal superficial femoral and popliteal disease bilaterally. Consider dedicated CTA for further anatomical detail, if clinically indicated. Venous Doppler IMPRESSION: No evidence of deep venous thrombosis involving the lower extremities. Small left-sided Muller's cyst. FOOT MRi IMPRESSION: There has been a change since the prior study, with new abnormal signal involving the fifth digit phalanges consistent with osteomyelitis. Edema throughout the soft tissues with no focal collection identified Right fifth toe osteomyelitis Patient is sent in from the Wound center by Dr. Samaniego for concerns of 5th toe osteomyelitis given nonhealing wound now with purulent discharge for the past 3 days. Patient has history of osteomyelitis of right foot requiring amputation of 2nd to 4th toes, recently admitted to [facility] (04/12 04/16) for right 5th toe cellulitis with chronic nonhealing ulcer (MRI negative for osteomyelitis) treated with antibiotics. Foot MRI (March 2017): diffuse moderate subcutaneous edema, no abscess, no definite osteomyelitis. * MRI suggestive of fifth digit osteomyelitis * Admitted to telemetry as general medicine hold * Monitor vitals closely every shift * Monitor for fever, chills, leukocytosis, worsening erythema and discharge * Closely monitor for distal pulses * We will follow blood cultures * Patient WENT FOR debridement and bone biopsy -05/04/2017 * Will follow-up or cultures * On cefazolin IV postop * Pain management * Venous Doppler ruled out deep vein thrombosis Peripheral artery disease With the exception of the right anterior tibial artery, the below-knee vessels were not visualized either secondary to occlusion or significantly slow flow. Findings are consistent with significant underlying peripheral arterialdisease. There is also probable distal superficial femoral and popliteal disease bilaterally. Patient had vascular intervention angiogram of his right leg 2 months ago at [facility] and he had a cardiac arrest during the procedure requiring resuscitation, no revascularization procedure was done for the right leg. * Vascular surgeon on board * Cardiology consulted for Cardiac clearance- Cleared from cardiac standpoint * He is going to need right leg angiogram soon- mostly outpatient basis gout Continue allopurinol 300 mg daily Coronary artery disease Status post CABG and stents Usually takes aspirin and Plavix at home Hyperlipidemia Lipitor 20 daily Depression Continue Lexapro and bupropion daily Hypertension Continue carvedilol and lisinopril Urine retention Continue finasteride, tamsulosin Fluid retention Continue home dose of Lasix 40 daily Peripheral neuropathy Continue pregabalin Insomnia Continue trazodone Type 2 diabetes mellitus He is on insulin pump at home. Insulin pump discontinued Endocrinology on board Accu-Cheks every 6 hours Levemir twice daily NovoLog sliding scale Obstructive sleep apnea On CPAP DVT prophylaxis subcutaneous heparin DNR/DNI Pain pathway Problem List: 1. Osteomyelitis Pain Ratin Pain Location: RIGHT FOOT Pain Goal: Remain pain free Pain Plan: TYLINOL Tomorrow's Labs & Rationales: CBC BEP JAYLEN JAMA 05/04/17 1302: Attending MD Review Statement Attending Statement Attending MD Statement: examined this patient, discuss w/resident/PA/TEST DEVELOPMENT ENGINEER, agreed w/resident/PA/TEST DEVELOPMENT ENGINEER, discussed with family, reviewed EMR data (avail), discussed with nursing, discussed with case mgmt, reviewed images, amended to note Attending Assessment/Plan: Patient here for right toe osteomyeliotis and chronic severe PVD. Cardiology, vascular surgery, podiatry and ID consulted as multidisciplanry approach. Podiatry recommend amputation of toe. USG of arterial lower extremity shows occlusion below knee with no acute leg ischemia. Vascular surgery planning angiogram i/p vs o/p. Cardiology risk startification done, recent nuclear stress test normal, cleared for planned lower extremity debridement. ECHO pending. Hold HUMA/diuretics to prevent contast induced nephropathy for angiogram and gentle hydration. Patient does have CKD and risk from study. Abx as per ID and podiatry. Patient is low to moderate risk for procedure. Patient is hemodynamically stable for OR. gi/dvt prophyalxis.
--- NOTE | 2017-05-04 08:29 | PN- Diabetes ---
Assessment/Plan Assessment: The patient states he is in a lot of pain from the infected toe. He had some bleeding last night. He is presently nothing by mouth for surgery around middle of the day today. He is on NovoLog coverage every 4 hours as his last dose of Levemir was yesterday afternoon. Plan: Suggest hold this morning's Levemir. Continue NovoLog coverage every 4 hours. His blood sugars are in a good range at 175 and 188 When the patient returns from surgery and is eating resume Levemir 16 units twice a day and his previous NovoLog sliding scale before meals. \A separate bedtime sliding-scale NovoLog should also be written. Sliding-scale NovoLog at bedtime should be less than 250 give no insulin, 251-300 give 2 units NovoLog, 301-350 give 3 units NovoLog, 351-400 give 4 units NovoLog. Subjective Subjective: In a lot of pain Review of Systems Constitutional: Denies: chills, fever. Cardiovascular: Denies: chest pain. Respiratory: Denies: cough, short of breath. Gastrointestinal: Denies: nausea, vomiting. Objective Last 24 Hrs of Vital Signs/I&O Vital Signs Date Time Temp Pulse Resp B/P B/P Pulse O2 O2 Flow FiO2 Mean Ox Delivery Rate 05/04 718 98.4 66 18 128/76 94 Room Air 05/03 2219 98.3 66 16 114/32 93 Room Air 05/03 1440 97.4 68 18 110/68 94 Room Air 05/03 1008 124/70 05/03 1007 70 124/70 05/03 1007 70 124/70 05/03 1007 70 124/70 Intake & Output 05/04 1600 05/04 0800 05/04 0000 Intake Total 700 510 Output Total Balance 700 510 Intake, IV 600 10 Intake, Oral 100 500 Number 3 Bowel Movements Vital Signs Date Time Temp Pulse Resp B/P B/P Pulse O2 O2 Flow FiO2 Mean Ox Delivery Rate 05/04 718 98.4 66 18 128/76 94 Room Air 05/039 98.3 66 16 114/32 93 Room Air 05/03 1440 97.4 68 18 110/68 94 Room Air 05/03 1008 124/70 05/03 1007 70 124/70 05/03 1007 70 124/70 05/03 1007 70 124/70 Intake & Output 05/04 1600 05/04 0800 05/04 0000 Intake Total 700 510 Output Total Balance 700 510 Intake, IV 600 10 Intake, Oral 100 500 Number 3 Bowel Movements Physical Exam General Appearance: alert, awake, anxious Head: normal appearance Neck: normal inspection Respiratory: normal breath sounds Cardiovascular: regular rate/rhythm Abdomen: normal bowel sounds, soft Current Medications: Current Medications Sig/Chacha Start time Last Medication Dose Route Stop Time Status Admin Acetaminophen 650 MG Q6P PRN 05/03 0300 AC PO Allopurinol 300 MG QAM 05/03 1000 AC 05/03 PO 1008 Atorvastatin Calcium 20 MG QAM 05/03 1000 AC 05/03 PO 1008 Bupropion HCl 150 MG DAILY 05/03 1000 AC 05/03 PO 1008 Carvedilol 25 MG QAM 05/03 1000 AC 05/03 PO 1007 Dextrose/Sodium 1,000 ML Q10H 05/04 0100 AC 05/04 Chloride IV 0046 Diphenhydramine HCl 50 MG QPM 05/03 2200 AC 05/03 PO 2101 Escitalopram Oxalate 5 MG QPM 05/03 2200 AC 05/03 PO 2101 Finasteride 5 MG QPM 05/03 2200 AC 05/03 PO 2101 Furosemide 40 MG QAM 05/03 1000 DC 05/03 PO 1008 Heparin Sodium 5,000 UNIT Q8 05/03 0600 AC 05/04 (Porcine) SC 0613 Hydroxyzine HCl 25 MG AT BEDTIME NEED.. 05/03 0345 AC PO Insulin Aspart 0 Q4H 05/04 0400 AC 05/04 NE 0425 Insulin Aspart 0 Q4 05/04 0000 DC 05/04 NE 0050 Insulin Aspart 0 TIDAC 05/03 0800 DC 05/03 NE 05/03 2300 1725 Insulin Detemir 20 UNITS BID 05/03 1212 AC 05/03 NE 1343 Isosorbide 120 MG QAM 05/03 1000 AC 05/03 Mononitrate PO 1007 Lisinopril 5 MG QAM 05/03 1000 DC 05/03 PO 1007 Mirabegron 50 MG DAILY 05/03 1000 AC 05/03 PO 1008 Multivitamins 1 TAB DAILY 05/03 1000 AC 05/03 PO 1013 Niacin 500 MG 2200 05/03 2200 AC 05/03 PO 2105 Oxycodone/ 1 TAB Q6P PRN 05/03 0300 AC 05/03 Acetaminophen PO 2105 Oxycodone/ 2 TAB Q6P PRN 05/03 0300 AC 05/04 Acetaminophen PO 0743 Patient Medication 1 ED .STK-MED ONE 05/03 1402 DC Teaching ED 05/03 1403 Polyethylene Glycol 17 GM AT BEDTIME 05/03 2200 AC PO Pregabalin 150 MG QPM 05/03 2200 AC 05/03 PO 210 Pregabalin 100 MG QAM 05/03 1000 AC 05/03 PO 1013 Senna/Docusate Sodium 1 TAB AT BEDTIME 05/03 2200 AC 05/03 PO 210 Sodium Chloride 1,000 ML .[id number] 05/03 1000 DC IV 05/04 1239 Tamsulosin HCl 0.4 MG DAILY 05/03 1000 AC 05/03 PO 1008 Trazodone HCl 25 MG QPM 05/03 2200 AC 05/03 PO 2100 Findings Pertinent Lab/Ryan Results: Laboratory Tests 05/04 0626 Chemistry Sodium (137 - 145 mmol/L) 139 Potassium (3.5 - 5.1 mmol/L) 4.1 Chloride (98 - 107 mmol/L) 103 Carbon Dioxide (22 - 30 mmol/L) 27 Anion Gap (5 - 16) 9 BUN (9 - 20 mg/dL) 31 H Creatinine (0.7 - 1.2 mg/dL) 1.4 H Estimated GFR (>60 ml/min) Pending BUN/Creatinine Ratio (7 - 25 %) 22.1 Hematology CBC w Diff Pending WBC Pending RBC Pending Hgb Pending Hct Pending MCV Pending MCH Pending RDW Pending Plt Count Pending MPV Pending PUBS MCHC Pending
[2017-05-04 08:30] LABS: ABSOLUTE BASOPHIL COUNT 0.1 /CUMM (0.0-0.2); ABSOLUTE EOSINOPHIL COUNT 0.6 /CUMM (0.0-0.7); ABSOLUTE GRANULOCYTE CT 4.9 /CUMM (1.4-6.5); ABSOLUTE LYMPH COUNT 1.9 /CUMM (1.2-3.4); ABSOLUTE MONOCYTE COUNT 0.6 /CUMM (0.10-0.60); BASOPHIL % 0.7 % (0.0-2.0); EOSINOPHIL % 7.4 % (0-5); GRANULOCYTE % 60.8 % (42.2-75.2); HEMATOCRIT 39.2 % (42-52); MEAN CORPUSCULAR HGB 30.9 PG (27.0-31.0); MEAN CORPUSCULAR HGB CONC 32.7 G/DL (33.0-37.0); MEAN CORPUSCULAR VOLUME 94.5 FL (80.0-94.0); PLATELET COUNT 226 /CUMM (130-400); RBC DISTRIBUTION WIDTH 14.7 % (11.5-14.5); RED BLOOD CELL CT 4.15 /CUMM (4.70-6.10)
--- NOTE | 2017-05-04 12:24 | Cons- Infect Disease ---
General Information and HPI Consulting Request Date of Consult: 05/04/17 Requested By: NANCY BAILEY,CHELSEA Reason for Consult: Abx advice Source of Information: patient, primary team Exam Limitations: clinical condition History of Present Illness: 76-year-old WM with multiple medical issues including coronary artery disease status post stenting in CABG, cardiac arrest 2 mos ago, diabetes, neuropathy, PVD, hypertension, gout, arthritis, and diverticulitis presented to the hospital with chronic non healing right fifth toe infection. MRI is suggestive of OM of the right fifth toe. Patient returned to the floor from OR; feeling sleepy. Patient underwent left leg angiogram at [facility]. This angiogram was unsuccessful according to the patient. The patient subsequently developed large right-sided hematoma at the access site. About 6 weeks later, he underwent evacuation of hematoma by Dr. Lin at [facility]. An arterial ultrasound performed yesterday showed diffuse disease mainly involving the tibial vessels in the right leg. Allergies/Medications Allergies: Coded Allergies: Penicillins (Severe, HIVES 12/10/15) Home Med List: Allopurinol 300 MG TABLET 1 TAB PO QAM GOUT (Reported) Aspirin (Ecotrin*) 81 MG TABLET.DR 1 TAB PO QAM HEART/BLOOD (Reported) Atorvastatin Calcium 20 MG TABLET 1 TAB PO QAM CHOLESTEROL (Reported) Bupropion HCl (Wellbutrin XL) 150 MG TAB.ER.24H 1 TAB PO QAM DEPRESSION ( Reported) Carvedilol (Coreg) 25 MG TABLET 1 TAB PO QAM BP (Reported) Clopidogrel Bisulfate (Clopidogrel) 75 MG TABLET 1 TAB PO QAM BLOOD THINNER ( Reported) Diphenhydramine HCl 25 MG CAPSULE 2 CAP PO QPM SLEEP (Reported) Escitalopram Oxalate (Lexapro) 5 MG TABLET 1 TAB PO QPM MENTAL HEALTH ( Reported) Finasteride 5 MG TABLET 1 TAB PO QPM URINATION (Reported) Furosemide 40 MG TABLET 1 TAB PO QAM FLUID RETENTION (Reported) Hydrocodone/Acetaminophen (Hydrocodon-Acetaminoph 7.5-325) 7.5 MG-325 MG TABLET 1 TAB PO Q6-8H PAIN (Reported) Hydroxyzine HCl (Unknown Strength) TABLET (Unknown Dose) PO PRN ITCHING ( Reported) Insulin Lispro (Humalog) 100 UNIT/ML VIAL INSULIN PUMP (Reported) Isosorbide Mononitrate (Isosorbide Mononitrate ER) 60 MG TAB.ER.24H 2 TAB PO QAM HEART (Reported) Lisinopril (Prinivil) 5 MG TABLET 1 TAB PO QAM BP (Reported) Mirabegron (Myrbetriq) 50 MG TAB.ER.24H 1 TAB PO QPM BLADDER (Reported) Multivit-Min/Iron/Folic/Lutein (Centrum Silver Women Tablet) 8 MG IRON-400 MCG- 300 MCG TABLET 1 TAB PO DAILY SUPPLEMENT (Reported) Niacin (Niaspan) 500 MG TAB.ER.24H 1 TAB PO QPM CHOLESTEROL (Reported) Oxycodone HCl/Acetaminophen (Percocet 5-325 MG Tablet) 5 MG-325 MG TABLET 2 TAB PO BID PRN Pain Pregabalin (Lyrica) 50 MG CAPSULE 2 CAP PO QAM NEUROPATHY (Reported) Pregabalin (Lyrica) 50 MG CAPSULE 3 CAP PO QPM NEUROPATHY (Reported) Tamsulosin HCl (Flomax) 0.4 MG CAP.ER.24H 1 CAP PO DAILY (Reported) Trazodone HCl 50 MG TABLET 0.5 TAB PO QPM SLEEP HELP (Reported) Current Medications: Current Medications Sig/Chacha Start time Last Medication Dose Route Stop Time Status Admin Acetaminophen 650 MG Q6P PRN 05/03 0300 AC PO Allopurinol 300 MG QAM 05/03 1000 AC 05/04 PO 0828 Atorvastatin Calcium 20 MG QAM 05/03 1000 AC 05/04 PO 0828 Bupropion HCl 150 MG DAILY 05/03 1000 AC 05/04 PO 0828 Carvedilol 25 MG QAM 05/03 1000 AC 05/04 PO 0828 Dextrose/Sodium 1,000 ML Q10H 05/04 0100 AC 05/04 Chloride IV 1119 Diphenhydramine HCl 50 MG QPM 05/03 2200 AC 05/03 PO 210 Escitalopram Oxalate 5 MG QPM 05/03 2200 AC 05/03 PO 2101 Finasteride 5 MG QPM 05/03 2200 AC 05/03 PO 210 Furosemide 40 MG QAM 05/03 1000 DC 05/03 PO 1008 Heparin Sodium 5,000 UNIT Q8 05/03 0600 AC 05/04 (Porcine) SC 0613 Hydroxyzine HCl 25 MG AT BEDTIME NEED.. 05/03 0345 AC PO Insulin Aspart 0 Q4H 05/04 0400 AC 05/04 VT 0827 Insulin Aspart 0 Q4 05/04 0000 DC 05[place] [address] Insulin Aspart 0 TIDAC 05/03 0800 DC 05/03 SC 05/03 2300 1725 Insulin Detemir 16 UNITS BID 05/04 1000 AC SC Insulin Detemir 20 UNITS BID 05/03 1212 DC 05/03 SC 1343 Isosorbide 120 MG QAM 05/03 1000 AC 05/03 Mononitrate PO 1007 Lisinopril 5 MG QAM 05/03 1000 DC 05/03 PO 1007 Mirabegron 50 MG DAILY 05/03 1000 AC 05/04 PO 0830 Multivitamins 1 TAB DAILY 05/03 1000 AC 05/04 PO 0828 Niacin 500 MG 2200 05/03 2200 AC 05/03 PO 2105 Oxycodone/ 1 TAB Q6P PRN 05/03 0300 AC 05/03 Acetaminophen PO 2105 Oxycodone/ 2 TAB Q6P PRN 05/03 0300 AC 05/04 Acetaminophen PO 0743 Patient Medication 1 ED .STK-MED ONE 05/03 1402 [place] Teaching ED 05/03 1403 Polyethylene Glycol 17 GM AT BEDTIME 05/03 2200 AC PO Pregabalin 150 MG QPM 05/03 2200 AC 05/03 PO 2101 Pregabalin 100 MG QAM 05/03 1000 AC 05/04 PO 0856 Senna/Docusate Sodium 1 TAB AT BEDTIME 05/03 2200 AC 05/03 PO 2101 Tamsulosin HCl 0.4 MG DAILY 05/03 1000 AC 05/04 PO 0828 Trazodone HCl 25 MG QPM 05/03 2200 AC 05/03 PO 2101 Past History Travel History Traveled to [place] past 21 day No Medical History Blood Transfusion Hx: No Neurological: NEUROPATHY EENT: allergies, cataracts, hearing loss Cardiovascular: CAD Respiratory: obstructive sleep apnea Gastrointestinal: diverticulitis, GERD Hepatic: NONE Renal: CHRONIC KIDNEY DISEASE Musculoskeletal: gout Psychiatric: depression Endocrine: diabetes Blood Disorders: NONE Cancer(s): NONE SLOPE TENDER/Reproductive: NONE History of MRSA: No History of VRE: No History of CDIFF: No Isolation History: Standard Surgical History Surgical History: CABG (lower extremity angioplasty), colon resection, left leg angioplasty partial fifth ray resection, rt. 2nd toe anputation R 3rd and 4th toe amputation Family History Relations & Conditions If Any: Relation not specified for: FH: diabetes mellitus Psychosocial History Where Do You Live? Home Services at Home: None Primary Language: Beninese Smoking Status: Former Smoker Living Will? yes Functional Ability ADLs Independent: dressing, eating, toileting, bathing. Ambulation: walker IADLs Independent: shopping, housework, finances, food prep, telephone, transportation , medication admin. Review of Systems Comments 12 points reviewed per HPI, otherwise negative. Exam & Diagnostic Data Last 24 Hrs of Vital Signs/I&O Vital Signs Date Time Temp Pulse Resp B/P B/P Pulse O2 O2 Flow FiO2 Mean Ox Delivery Rate 05/04 0829 66 128/76 05/04 0828 66 128/76 05/04 0828 66 128/76 05/04 0718 98.4 66 18 128/76 94 Room Air 05/03 2219 98.3 66 16 114/32 93 Room Air 05/03 1440 97.4 68 18 110/68 94 Room Air Intake & Output 05/04 1600 05/04 0800 05/04 0000 Intake Total 700 510 Output Total Balance 700 510 Intake, IV 600 10 Intake, Oral 100 500 Number 3 Bowel Movements Physical Exam Other Physical Findings: General Appearance Alert, Oriented X3, Cooperative, No Acute Distress Skin R foot dressing in place Skin Temp/Moisture Exam: Warm/Dry Sepsis Skin Exam (color): Normal for Ethnicity HEENT Atraumatic, PERRLA, EOMI, Mucous Membr. moist/pink Neck Supple, No JVD, +2 Carotid Pulse wo Bruit Lymphatic Cervical nl Cardiovascular Regular Rate, Normal S1, Normal S2, No Murmurs Lungs Clear to Auscultation, Normal Air Movement Abdomen Normal Bowel Sounds, Soft, No Tenderness Neurological Normal Speech, Cranial Nerves 3-12 NL, decreased sensation on the R lower extremity Extremities No Clubbing, No Cyanosis, Pulses Present Last 24 Hours of Lab Results: Laboratory Tests 05/04 0626 Chemistry Sodium (137 - 145 mmol/L) 139 Potassium (3.5 - 5.1 mmol/L) 4.1 Chloride (98 - 107 mmol/L) 103 Carbon Dioxide (22 - 30 mmol/L) 27 Anion Gap (5 - 16) 9 BUN (9 - 20 mg/dL) 31 H Creatinine (0.7 - 1.2 mg/dL) 1.4 H Estimated GFR (>60 ml/min) 49 L BUN/Creatinine Ratio (7 - 25 %) 22.1 Hematology CBC w Diff NO MAN DIFF REQ WBC (4.8 - 10.8 /CUMM) 8.0 RBC (4.70 - 6.10 /CUMM) 4.15 L Hgb (14.0 - 18.0 G/DL) 12.8 L Hct (42 - 52 %) 39.2 L MCV (80.0 - 94.0 FL) 94.5 H MCH (27.0 - 31.0 PG) 30.9 RDW (11.5 - 14.5 %) 14.7 H Plt Count (130 - 400 /CUMM) 226 MPV (7.4 - 10.4 FL) 8.0 Gran % (42.2 - 75.2 %) 60.8 Lymphocytes % (20.5 - 51.1 %) 23.2 Monocytes % (1.7 - 9.3 %) 7.9 Eosinophils % (0 - 5 %) 7.4 H Basophils % (0.0 - 2.0 %) 0.7 Absolute Granulocytes (1.4 - 6.5 /CUMM) 4.9 Absolute Lymphocytes (1.2 - 3.4 /CUMM) 1.9 Absolute Monocytes (0.10 - 0.60 /CUMM) 0.6 Absolute Eosinophils (0.0 - 0.7 /CUMM) 0.6 Absolute Basophils (0.0 - 0.2 /CUMM) 0.1 PUBS MCHC (33.0 - 37.0 G/DL) 32.7 L Last 24 Hours of Ryan Results: SPEC #: [id number] GARDEN[place]: 05/04/17 STATUS: RECD RECD: 05/04/[address]: VENU MATAMOROS DPM SOURCE: EXTREMITIE ENTR: 05/04/[address]: CHELSEA CRUZ MD SPDESC: TOE 5 R FT ANGEL BAILEY, NILTON Staton ORDERED: XTRMOR COMMENT: 2 PIECES OF BONE IN STERILE CUP Procedure Result XTRMOR PENDING Patient : KELLY QUILES Acct: [id number] DR: CHELSEA CRUZ MD Birthdate: [birth year] Age/Sex: 76/M Unit: [id number] Loc: 1NO 185- 02 Status : ADM IN SPEC #: [id number] G[place]: 05/02/17 STATUS: RES RECD: 05/02/[address]: ISRAEL VELIZ SOURCE: BLOOD ENTR: 05/02/[address]: ANGEL BAILEY, NILTON Staton SPDESC: 2ND/VENOUS ORDERED: BLOOD CULTURE Procedure Result > BLOOD CULTURE REPORT Preliminary 05/03/17 No growth after 1 day incubation. Specimen is examined continuously for 5 days before final report unless culture becomes positive. Diagnostic Data Recent Imaging Findings: SERVICE DATE: 05/03/17 EXAM TYPE: MRI - MRI-RT FOOT W/O STANLEY EXAMINATION: MRI FOOT, RIGHT NONCONTRAST CLINICAL INFORMATION: Right first toe redness and swelling. Fifth toe with chronic ulcer and pus. COMPARISON: MRI from 04/13/2017. TECHNIQUE: Multisequence multidimensional MR acquisition of the right foot was performed without IV contrast. FINDINGS: The patient is status post amputation of the second, third, and fourth digits at the metatarsophalangeal joints. Motion artifact somewhat limits the evaluation. Since the prior study, there is a new appearance of signal abnormality within the fifth digit phalanges. There is decreased signal on T1-weighted imaging with significantly increased signal on T2-weighted imaging. There is associated enhancement postcontrast. No additional bone marrow signal abnormality. Mild degenerative changes are again noted at the first metatarsophalangeal joint. Diffuse increased signal throughout the deep musculature of the foot is again noted, similar to prior. This is often seen in diabetic patients. Diffuse superficial soft tissue edema. No gross tendinous abnormality. No focal collection in the subcutaneous or deep soft tissue. No joint effusion seen. IMPRESSION: There has been a change since the prior study, with new abnormal signal involving the fifth digit phalanges consistent with osteomyelitis. Edema throughout the soft tissues with no focal collection identified. DICTATED BY: HERMINIA BAILEY,NELSON DATE/TIME DICTATED:05/03/171624 BEAUTY COUNSELOR:MANPREET DATE/TIME TRANSCRIBED:05/03/171624 Assessment/Plan Assessment/Plan Impression: 76-year-old WM with multiple medical issues including coronary artery disease status post stenting in CABG, cardiac arrest 2 mos ago, diabetes, neuropathy, PVD, hypertension, gout, arthritis, and diverticulitis admitted to the hospital on 05/02/17. He is s/p tatus post partial fifth ray of the left foot and right fourth toe amputation as well as right second toe amputation; had previous foot infection/OM (cultures positive within the past year for MSSA and strep gr. B) Fifth digit phalanges osteomyelitis Mild leukocytosis on admission Eleveated ESR (45) Suggestion: 1. Observed off antibiotics pending bone biopsy and OR cultures results; starting Cefazolin 1 gm q 8h. lengh of abx course depending on the clinical course and bone bx results. 2. Nasal MRSA surv cx. 3. Trend CBC, BMP. Consult Acknowledgment - Thank you for your consult request.
[2017-05-04 14:35] VITALS: BP 138/82
--- NOTE | 2017-05-04 16:09 | Operative Report ---
Operative/Inv Procedure Report Surgery Date: 05/04/17 Name of Procedure: 1 open incision and drainage deep to the deep fascia with exposure of the extensor and flexor tendon and tendon sheath multiple sites right foot 2 open partial fifth ray resection right foot 3 intraoperative administration of ankle block anesthesia 4 excisional debridement Pre-Operative Diagnosis: 1 open necrotic wound right foot 2 osteomyelitis right foot 3 diabetic peripheral neuropathy 4 peripheral arterial disease Post-Operative Diagnosis: The same Estimated Blood Loss: less than 50ml Surgeon/[employer] Professor: VENU MATAMOROS DPM Anesthesia: moderate sedation, block Operative/Procedure Note Note: After obtaining informed consent the patient was brought to the operating room and placed on the operating table in the supine position. The patient was then securely fastened to the operating table utilizing safety belt. After administration of IV sedation, 10 mL of 0.5% Marcaine plain was infiltrated about the patient's right ankle. The right foot and ankle within scrubbed prepped and draped in usual aseptic manner. Digitorectal right foot, where a large full-thickness chronic was identified. A 15 blade was utilized sharply revised skin margins. The dissection was then carried down deep to the deep fascia with exposure of the extensor and flexor tendon and tendon sheath multiple sites, both proximally and distally. All necrotic nonviable infected tissue sharply evacuated from the wound bed. The dissection was then carried down to the periosteum overlying the distal fifth metatarsal. This was incised reflected. Sagittal bone saw was utilized to perform a through and through osteotomy in the distal osseous segment was freed and passed from the operative field. Specimen was sent for both microbiologic and pathologic inspection. Nipple was then irrigated with 3 L of normal sterile saline fissure 50,000 units of bacitracin. Following this, the foot was redraped and the surgeon's top gloves were changed clean gloves. Any bleeding vessels identified were cauterized or ligated as encountered. Nipple was then packed with iodoform and 3-0 nylon retention sutures were placed. Foot was then dressed with 4 x 4's Kerlix and an Qamar wrap. The patient was noted to tolerate both procedure and anesthesia well and the patient was transported from the operating room to recovery with vital signs stable.
--- NOTE | 2017-05-04 18:35 | NUR ---
1400 - PATIENT ARRIVED TO THE FLOOR AT THIS TIME. POST OP I&D, A&OX3, VITAL SIGNS STABLE, HUMA WRAP DRESSING TO RIGHT FOOT. POSITIVE CMS. PATIENT HAS PAIN AT TO RIGHT FOOT AT THIS TIME 8/10 PERCOCET WAS GIVEN. THIS NURSE WILL CONT TO MONITOR PATIENT.
--- NOTE | 2017-05-04 19:39 | PN- Cardiology ---
Subjective Subjective: The patient complains of foot pain. He is otherwise feeling well. No chest pain. No palp. No n/v. No diaphoresis. Objective Vital Signs and I&Os Vital Signs Date Time Temp Pulse Resp B/P B/P Pulse O2 O2 Flow FiO2 Mean Ox Delivery Rate 05/05 0717 97.6 84 18 132/82 96 Room Air 05/04 2137 98.6 95 18 126/70 93 Room Air 05/04 2112 93 Room Air 05/04 1435 97.8 70 18 138/82 94 Room Air Intake & Output 05/05 1600 05/05 0800 05/05 0000 05/04 1600 05/04 0800 05/04 0000 Intake Total 100 700 510 Output Total 600 Balance 100 -600 700 510 Intake, IV 600 10 Intake, Oral 100 100 500 Number 3 Bowel Movements Output, Urine 600 Physical Exam: Gen: The patient is in no acute distress HEENT: Normal nose, ears, and oropharynx. Pupils equal bilaterally. Conjunctiva normal. Neck: Supple with no JVD, no masses, and no thyromegaly Lungs: Clear to auscultation with normal respiratory effort Heart: RRR, S1, S2, no murmurs. No peripheral edema, 2+ pulses in the lower extremities bilaterally Abdomen: Soft, nontender, no masses. No hepatomegaly. No splenomegaly Extremities: No clubbing or cyanosis. Normal muscle strength in the upper and lower extremities Skin: Normal skin turgor with right foot ulcer Neuro: Cranial nerves intact. Sensation intact Current Medications: Current Medications Sig/Chacha Start time Last Medication Dose Route Stop Time Status Admin Acetaminophen 1,000 MG .STK-MED ONE 05/04 1141 DC IV 05/04 1142 Acetaminophen 650 MG Q6P PRN 05/03 0300 AC PO Allopurinol 300 MG QAM 05/03 1000 AC 05/04 PO 0828 Aspirin Buffered 81 MG QAM 05/05 1000 AC PO Atorvastatin Calcium 20 MG QAM 05/03 1000 AC 05/04 PO 0828 Bupropion HCl 150 MG DAILY 05/03 1000 AC 05/04 PO 0828 Carvedilol 25 MG QAM 05/03 1000 AC 05/04 PO 0828 Cefazolin Sodium 1,000 MG IQ8 05/04 1600 AC 05/05 IV 05/05 1559 0111 Clopidogrel Bisulfate 75 MG QAM 05/05 1000 AC PO Dextrose/Sodium 1,000 ML Q10H 05/04 0100 DC 05/04 Chloride IV 1119 Diphenhydramine HCl 50 MG QPM 05/03 2200 AC 05/04 PO 2100 Docusate Sodium 100 MG DAILY NEEDED PRN 05/04 1900 AC PO Escitalopram Oxalate 5 MG QPM 05/03 2200 AC 05/04 PO 2100 Fentanyl Citrate 200 MCG .STK-MED ONE 05/04 1141 DC IM 05/04 1142 Finasteride 5 MG QPM 05/03 2200 AC 05/04 PO 2101 Furosemide 40 MG QAM 05/05 1000 AC PO Heparin Sodium 5,000 UNIT Q8 05/03 0600 AC 05/05 (Porcine) SC 0635 Hydromorphone HCl 0.4 MG ONCE ONE 05/04 1630 DC 05/04 IV 05/04 1631 1632 Hydroxyzine HCl 25 MG AT BEDTIME NEED.. 05/03 0345 AC PO Insulin Aspart 0 TIDAC 05/04 1700 CAN SC Insulin Aspart 0 TIDAC/HS 05/04 1445 AC 05/05 SC 0820 Insulin Aspart 0 Q4H 05/04 0400 DC 05/04 SC 0827 Insulin Detemir 16 UNITS BID 05/04 1000 AC 05/04 SC 2100 Insulin Detemir 20 UNITS BID 05/03 1212 DC 05/03 SC 1343 Isosorbide 120 MG QAM 05/03 1000 AC 05/03 Mononitrate PO 1007 Lisinopril 5 MG QAM 05/05 1000 AC PO Midazolam HCl 4 MG .STK-MED ONE 05/04 1142 DC IM 05/04 1143 Mirabegron 50 MG DAILY 05/03 1000 AC 05/04 PO 0830 Multivitamins 1 TAB DAILY 05/03 1000 AC 05/04 PO 0828 Niacin 500 MG 2200 05/03 2200 AC 05/04 PO 2101 Oxycodone/ 1 TAB Q6P PRN 05/03 0300 AC 05/03 Acetaminophen PO 210 Oxycodone/ 2 TAB Q6P PRN 05/03 0300 AC 05/05 Acetaminophen PO 0317 Polyethylene Glycol 17 GM DAILY PRN 05/04 1900 AC PO Polyethylene Glycol 17 GM AT BEDTIME 05/03 2200 AC PO Pregabalin 150 MG QPM 05/03 2200 AC 05/04 PO 2101 Pregabalin 100 MG QAM 05/03 1000 AC 05/04 PO 0856 Senna/Docusate Sodium 1 TAB AT BEDTIME 05/03 2200 AC 05/03 PO 2101 Tamsulosin HCl 0.4 MG DAILY 05/03 1000 AC 05/04 PO 0828 Trazodone HCl 25 MG QPM 05/03 2200 AC 05/04 PO 2100 Results Last 48 Hrs of Labs/Mics: Laboratory Tests 05/04/17 1701: Nasal Cellularity Cancelled 05/04/17 0626: Anion Gap 9, Estimated GFR 49 L, BUN/Creatinine Ratio 22.1, CBC w Diff NO MAN DIFF REQ, RBC 4.15 L, MCV 94.5 H, MCH 30.9, RDW 14.7 H, MPV 8.0, Gran % 60.8, Lymphocytes % 23.2, Monocytes % 7.9, Eosinophils % 7.4 H, Basophils % 0.7, Absolute Granulocytes 4.9, Absolute Lymphocytes 1.9, Absolute Monocytes 0.6, Absolute Eosinophils 0.6, Absolute Basophils 0.1, PUBS MCHC 32.7 L Recent Imaging Studies: Echo 05/04/17: Mild left ventricular dilatation. Mild concentric left ventricular hypertrophy. Normal left ventricular ejection fraction visually estimated at > 55%. Trace mitral regurgitation. Trace aortic regurgitation. Trace tricuspid regurgitation. Assessment/Plan Assessment/Plan Assessment: 1. Diabetes mellitus 2. CAD, status post CABG 3. Peripheral child disease 4. Right foot infection with possible osteomyelitis 5. Recent episode of prolonged hypotension during vascular procedure 7. Recent normal nuclear stress test Plan: * Cleared from cardiac standpoint for angiogram or surgery if needed. Will need close attention to hemodynamics status given history of intraoperative hypotension * Echocardiogram * Would hold lisinopril and Lasix for now given recent hypotension Continue telemetry? Not applicable
--- NOTE | 2017-05-04 21:06 | ECHOCARDIOGRAM REPORT ---
KELLY QUILES Age: 76 : 1940 Gender: M Exam Date: 05/04/2017 07:54 Exam Location: 1 [place] Ht (in): 66 Wt (lb): 259 BSA: 2.40 BP: 128 / 76 Ordering Physician: GARY KAMINSKI MD Referring Physician: GARY KAMINSKI MD Technologist: Bradley Palumbo [facility] Room Number: 185-2 Indications: Shortness of breath Rhythm: Sinus Technical Quality: Technically difficult study FINDINGS Left Ventricle Mild left ventricular dilatation. Mild concentric left ventricular hypertrophy. Normal left ventricular ejection fraction visually estimated at >55%. No obvious regional wall motion abnormalities. Right Ventricle Normal right ventricular size and function. Right Atrium Normal right atrial size. Left Atrium Normal left atrial size. Mitral Valve Mitral annular calcification. Trace mitral regurgitation. Aortic Valve Diffuse thickening (sclerosis) of the aortic valve cusps without reduced excursion. Trace aortic regurgitation. No aortic stenosis. Tricuspid Valve Tricuspid valve not well visualized, grossly normal. Trace tricuspid regurgitation. No evidence of pulmonary hypertension. Pulmonic Valve Pulmonic valve not well visualized, grossly normal. Pericardium No pericardial effusion. Great Vessels Normal size aortic root. CONCLUSIONS Mild left ventricular dilatation. Mild concentric left ventricular hypertrophy. Normal left ventricular ejection fraction visually estimated at > 55%. Trace mitral regurgitation. Trace aortic regurgitation. Trace tricuspid regurgitation. Prince Guadalupe M.D. (Electronically Signed) Final Date: 04 May 2017 21:05 MEASUREMENTS (Male / Female) Normal Values 2D ECHO LV Diastolic Diameter PLAX 6.4 cm 4.2 - 5.9 / 3.9 - 5.3 cm LV Systolic Diameter PLAX 4.5 cm 2.1 - 4.0 cm LV Fractional Shortening PLAX 29.7 % 25 - 46 % LV Ejection Fraction 2D Teich 55.7 % IVS Diastolic Thickness 1.2 cm LVPW Diastolic Thickness 1.3 cm LV Relative Wall Thickness 0.4 RV Internal Dim ED PLAX 2.8 cm 1.9 - 3.8 cm LVOT Diameter 2.3 cm Aortic Root Diameter 3.0 cm LA Systolic Diameter LX 3.4 cm 3.0 - 4.0 / 2.7 - 3.8 cm LA Volume 59.0 cm 18 - 58 / 22 - 52 cm Ascending Aorta Diameter 3.5 cm DOPPLER AV Peak Velocity 107.0 cm/s AV Peak Gradient 4.6 mmHg AV Mean Velocity 75.1 cm/s AV Mean Gradient 3.0 mmHg AV Velocity Time Integral 27.5 cm LVOT Peak Velocity 69.9 cm/s LVOT Peak Gradient 2.0 mmHg LVOT Mean Velocity 43.9 cm/s LVOT Mean Gradient 1.0 mmHg LVOT Velocity Time Integral 20.8 cm LVOT Stroke Volume 86.4 cm AV Area Cont Eq vti 3.1 cm AV Area Cont Eq pk 2.7 cm MV Peak Velocity 101.0 cm/s MV Peak Gradient 4.1 mmHg MV Mean Velocity 64.4 cm/s MV Mean Gradient 2.0 mmHg Mitral E Point Velocity 91.8 cm/s Mitral A Point Velocity 80.5 cm/s Mitral E to A Ratio 1.1 MV PHT Velocity 107.0 cm/s MV Deceleration Stearns 254.0 cm/s MV Pressure Half Time 126.4 ms MV Area PHT 1.7 cm MV Deceleration Time 327.0 ms TR Peak Velocity 271.0 cm/s TR Peak Gradient 29.4 mmHg Right Atrial Pressure 10.0 mmHg Pulmonary Artery Systolic Pressu 39.4 mmHg Right Ventricular Systolic Press 39.4 mmHg PV Peak Velocity 91.0 cm/s PV Peak Gradient 3.3 mmHg PV Mean Velocity 56.1 cm/s PV Mean Gradient 2.0 mmHg PV Velocity Time Integral 20.5 cm LV E' Lateral Velocity 7.5 cm/s Mitral E to LV E' Lateral Ratio 12.2 LV E' Septal Velocity 8.9 cm/s Mitral E to LV E' Septal Ratio 10.3
[2017-05-04 21:37] VITALS: BP 126/70
--- NOTE | 2017-05-05 06:42 | PN- Housestaff ---
See Addendum Subjective Follow-up For: Right 5th toe chronic nonhealing ulcer/osteomyelitis s/p open incision and drainage, open partial fifth ray resection right foot, excisional debridement diabetes mellitus Peripheral arterial disease Complaints: pain scale (0-10) Tele-Events Since Last Visit: Not on telemetry monitoring Subjective: Patient was seen and examined this morning. He is alert awake and oriented to time place and person. No acute events noticed overnight. He does report 4 out of 10 pain right foot. s/p excisional debridement- day1 Denies any fever, chills. Denies any abdomen pain nausea vomiting. Vitals were stable Review of Systems Constitutional: Reports: see HPI. Objective Last 24 Hrs of Vital Signs/I&O Vital Signs Date Time Temp Pulse Resp B/P B/P Pulse O2 O2 Flow FiO2 Mean Ox Delivery Rate 05/05 0717 97.6 84 18 132/82 96 Room Air 05/04 2137 98.6 95 18 126/70 93 Room Air 05/04 2112 93 Room Air 05/04 1435 97.8 70 18 138/82 94 Room Air 05/04 0829 66 128/76 05/04 0828 66 128/76 05/04 0828 66 128/76 Intake & Output 05/05 0800 05/05 0000 05/04 1600 Intake Total 100 Output Total 600 Balance 100 -600 Intake, Oral 100 Output, Urine 600 Physical Exam General Appearance: Alert, Oriented X3, Cooperative Skin: No Rashes, s/p 5th toe amputaion HEENT: Atraumatic, PERRLA, EOMI, Mucous Membr. moist/pink Neck: Supple, No JVD, No thryomegaly Lymphatic: Cervical nl Cardiovascular: Normal S1, Normal S2 Lungs: Normal Air Movement Abdomen: Normal Bowel Sounds, Soft, No Tenderness Neurological: Normal Gait, Normal Speech, Strength at 5/5 X4 Ext, Normal Tone, Sensation Intact, Cranial Nerves 3-12 NL, Reflexes 2+ Extremities: No Clubbing, No Cyanosis, No Edema Vascular: Pulses Symmetrical Current Medications: Current Medications Sig/Chacha Start time Last Medication Dose Route Stop Time Status Admin Acetaminophen 1,000 MG .STK-MED ONE 05/04 1141 DC IV 05/04 1142 Acetaminophen 650 MG Q6P PRN 05/03 0300 AC PO Allopurinol 300 MG QAM 07/20 1000 AC 05/04 PO 0828 Aspirin Buffered 81 MG QAM 05/05 1000 AC PO Atorvastatin Calcium 20 MG QAM 05/03 1000 AC 05/04 PO 0828 Bupropion HCl 150 MG DAILY 05/03 1000 AC 05/04 PO 0828 Carvedilol 25 MG QAM 05/03 1000 AC 05/04 PO 0828 Cefazolin Sodium 1,000 MG IQ8 05/04 1600 AC 05/05 IV 05/05 1559 0111 Clopidogrel Bisulfate 75 MG QAM 05/05 1000 AC PO Dextrose/Sodium 1,000 ML Q10H 05/04 0100 DC 05/04 Chloride IV 1119 Diphenhydramine HCl 50 MG QPM 05/03 2200 AC 05/04 PO 2100 Docusate Sodium 100 MG DAILY NEEDED PRN 05/04 1900 AC PO Escitalopram Oxalate 5 MG QPM 05/03 2200 AC 05/04 PO 2100 Fentanyl Citrate 200 MCG .STK-MED ONE 05/04 1141 DC IM 05/04 1142 Finasteride 5 MG QPM 05/03 2200 AC 05/04 PO 2101 Furosemide 40 MG QAM 05/05 1000 AC PO Heparin Sodium 5,000 UNIT Q8 05/03 0600 AC 05/05 (Porcine) SC 0635 Hydromorphone HCl 0.4 MG ONCE ONE 05/04 1630 DC 05/04 IV 05/04 1631 1632 Hydroxyzine HCl 25 MG AT BEDTIME NEED.. 05/03 0345 AC PO Insulin Aspart 0 TIDAC 05/04 1700 CAN SC Insulin Aspart 0 TIDAC/HS 05/04 1445 AC 05/05 SC 0820 Insulin Aspart 0 Q4H 05/04 0400 DC 05/04 SC 0827 Insulin Detemir 16 UNITS BID 05/04 1000 AC 05/04 SC 2100 Insulin Detemir 20 UNITS BID 05/03 1212 DC 05/03 SC 1343 Isosorbide 120 MG QAM 05/03 1000 AC 05/03 Mononitrate PO 1007 Lisinopril 5 MG QAM 05/05 1000 AC PO Midazolam HCl 4 MG .STK-MED ONE 05/04 1142 DC IM 05/04 1143 Mirabegron 50 MG DAILY 05/03 1000 AC 05/04 PO 0830 Multivitamins 1 TAB DAILY 05/03 1000 AC 05/04 PO 0828 Niacin 500 MG 2200 05/03 2200 AC 05/04 PO 210 Oxycodone/ 1 TAB Q6P PRN 05/03 0300 AC 05/03 Acetaminophen PO 210 Oxycodone/ 2 TAB Q6P PRN 05/03 0300 AC 05/05 Acetaminophen PO 031 Polyethylene Glycol 17 GM DAILY PRN 05/04 1900 AC PO Polyethylene Glycol 17 GM AT BEDTIME 05/03 2200 AC PO Pregabalin 150 MG QPM 05/03 2200 AC 05/04 PO 210 Pregabalin 100 MG QAM 05/03 1000 AC 05/04 PO 0856 Senna/Docusate Sodium 1 TAB AT BEDTIME 05/03 2200 AC 05/03 PO 210 Tamsulosin HCl 0.4 MG DAILY 05/03 1000 AC 05/04 PO 0828 Trazodone HCl 25 MG QPM 05/03 2200 AC 05/04 PO 2100 Last 24 Hrs of Lab/Ryan Results Last 24 Hrs of Labs/Mics: Laboratory Tests 05/04/17 1701: Nasal Cellularity Cancelled Microbiology 05/04 1701 UPPER RESP: Surveillance Culture - RECD 05/04 121 EXTREMITIE: Gross Specimen Examination - RECD 05/04 1218 EXTREMITIE: Gram Stain - RECD Assessment/Plan Assessment: 76 yo obese M with h/o T2DM on insulin pump, peripheral neuropathy, CAD s/p CABG and stents, PVD s/p angioplasty, CRISTINE on CPAP, diverticulitis s/p colon resection , GERD, CKD stage 3B, depression, gout, osteomyelitis of right foot requiring amputation of 2nd to 4th toes, recently admitted to [facility] (04/12 04/16) for right 5th toe cellulitis with chronic nonhealing ulcer (MRI negative for osteomyelitis) treated with antibiotics, is sent in from the Wound center by Dr. Samaniego for concerns of 5th toe osteomyelitis given nonhealing wound now with purulent discharge for the past 3 days. Vitals on admission stable. Pertinent labs on admission-WBC 11.8, hemoglobin 13 and hematocrit 40. BUN 30 and creatinine 1.5 ESR 45 INR 1.21 LACTIC Acid 1 arterial Doppler IMPRESSION: Abnormal waveforms throughout the lower extremities as described. With the exception of the right anterior tibial artery, the below-knee vessels were not visualized either secondary to occlusion or significantly slow flow. Findings are consistent with significant underlying peripheral arterial disease. There is also probable distal superficial femoral and popliteal disease bilaterally. Consider dedicated CTA for further anatomical detail, if clinically indicated. Venous Doppler IMPRESSION: No evidence of deep venous thrombosis involving the lower extremities. Small left-sided Muller's cyst. FOOT MRi IMPRESSION: There has been a change since the prior study, with new abnormal signal involving the fifth digit phalanges consistent with osteomyelitis. Edema throughout the soft tissues with no focal collection identified Right fifth toe osteomyelitis Patient is sent in from the Wound center by Dr. Samaniego for concerns of 5th toe osteomyelitis given nonhealing wound now with purulent discharge for the past 3 days. Patient has history of osteomyelitis of right foot requiring amputation of 2nd to 4th toes, recently admitted to [facility] (04/12 04/16) for right 5th toe cellulitis with chronic nonhealing ulcer (MRI negative for osteomyelitis) treated with antibiotics. Foot MRI (March 2017): diffuse moderate subcutaneous edema, no abscess, no definite osteomyelitis. * MRI suggestive of fifth digit osteomyelitis * Admitted to telemetry as general medicine hold * Monitor vitals closely every shift * Monitor for fever, chills, leukocytosis, worsening erythema and discharge * Closely monitor for distal pulses * Patient WENT FOR debridement and bone biopsy -05/04/2017-postop day 1 * He is status post open incision and drainage deep to the deep fascia with exposure of the extensor and flexor tendon and tendon sheath multiple sites right foot, open partial fifth ray resection right foot, excisional debridement * Will follow-up or cultures, blood cultures * On cefazolin IV day 2-pending OR cultures * Pain management * Venous Doppler ruled out deep vein thrombosis Peripheral artery disease With the exception of the right anterior tibial artery, the below-knee vessels were not visualized either secondary to occlusion or significantly slow flow. Findings are consistent with significant underlying peripheral arterialdisease. There is also probable distal superficial femoral and popliteal disease bilaterally. Patient had vascular intervention angiogram of his right leg 2 months ago at [facility] and he had a cardiac arrest during the procedure requiring resuscitation, no revascularization procedure was done for the right leg. * Vascular surgeon on board * Cardiology consulted for Cardiac clearance- Cleared from cardiac standpoint * He is going to need right leg angiogram soon- mostly outpatient basis gout Continue allopurinol 300 mg daily Coronary artery disease Status post CABG and stents Usually takes aspirin and Plavix at home Hyperlipidemia Lipitor 20 daily Depression Continue Lexapro and bupropion daily Hypertension Continue carvedilol and lisinopril Urine retention Continue finasteride, tamsulosin Fluid retention Continue home dose of Lasix 40 daily Peripheral neuropathy Continue pregabalin Insomnia Continue trazodone Type 2 diabetes mellitus He is on insulin pump at home. Insulin pump discontinued Endocrinology on board Accu-Cheks every 6 hours Levemir twice daily NovoLog sliding scale Obstructive sleep apnea On CPAP ckd [id number] baseline creatinine 1.3 DVT prophylaxis subcutaneous heparin DNR/DNI Pain pathway Problem List: 1. LEAH (acute kidney injury) 2. Osteomyelitis of toe of right foot Pain Ratin Pain Location: right foot Pain Goal: Remain pain free Pain Plan: tylinol Tomorrow's Labs & Rationales: cbc bep
[2017-05-05 07:17] VITALS: BP 132/82
--- NOTE | 2017-05-05 09:16 | NUR ---
Physical Therapy: After chart review - spoke with nursing and nursing reported patient was ambulating independently to the bathroom. Patient was also possible discharge for later today. No PT consultation 2/2 patient independent with mobility per NSG report.
[2017-05-05 09:49] LABS: ABSOLUTE BASOPHIL COUNT 0 /CUMM (0.0-0.2); ABSOLUTE EOSINOPHIL COUNT 0.5 /CUMM (0.0-0.7); ABSOLUTE GRANULOCYTE CT 9.2 /CUMM (1.4-6.5); ABSOLUTE LYMPH COUNT 1.2 /CUMM (1.2-3.4); ABSOLUTE MONOCYTE COUNT 0.7 /CUMM (0.10-0.60); BASOPHIL % 0.3 % (0.0-2.0); EOSINOPHIL % 4.6 % (0-5); GRANULOCYTE % 78.9 % (42.2-75.2); HEMATOCRIT 42.2 % (42-52); MEAN CORPUSCULAR HGB 30.8 PG (27.0-31.0); MEAN CORPUSCULAR HGB CONC 32.6 G/DL (33.0-37.0); MEAN CORPUSCULAR VOLUME 94.6 FL (80.0-94.0); MEAN PLATELET VOLUME 7.6 FL (7.4-10.4); PLATELET COUNT 229 /CUMM (130-400); RBC DISTRIBUTION WIDTH 14.6 % (11.5-14.5); RED BLOOD CELL CT 4.46 /CUMM (4.70-6.10); WHITE BLOOD CELL COUNT 11.6 /CUMM (4.8-10.8)
--- NOTE | 2017-05-05 12:39 | PN- Infect Dx ---
Subjective Subjective: No fever or chills. Fair appetite. POD #1 s/p Right 5th toe chronic nonhealing ulcer open incision and drainage/ s/p open partial fifth ray resection right foot Review of Systems Comments: 12 points reviewed as noted, otherwise negative. Objective Last 24 Hrs of Vital Signs/I&O Vital Signs Date Time Temp Pulse Resp B/P B/P Pulse O2 O2 Flow FiO2 Mean Ox Delivery Rate 05/05 929 84 134/80 05/05 0928 82 134/80 05/05 09 84 132/82 05/05 0927 84 132/84 05/05 0717 97.6 84 18 132/82 96 Room Air 05/04 2137 98.6 95 18 126/70 93 Room Air 05/04 2112 93 Room Air 05/04 1435 97.8 70 18 138/82 94 Room Air Intake & Output 05/05 1600 05/05 0800 05/05 0000 Intake Total 100 Output Total Balance 100 Intake, Oral 100 Physical Exam Other Physical Findings: General Appearance Alert, Oriented X3, Cooperative, No Acute Distress Skin R foot dressing in place Skin Temp/Moisture Exam: Warm/Dry Sepsis Skin Exam (color): Normal for Ethnicity HEENT Atraumatic, PERRLA, EOMI, Mucous Membr. moist/pink Neck Supple, No JVD, +2 Carotid Pulse wo Bruit Lymphatic Cervical nl Cardiovascular Regular Rate, Normal S1, Normal S2, No Murmurs Lungs Clear to Auscultation, Normal Air Movement Abdomen Normal Bowel Sounds, Soft, No Tenderness Neurological Normal Speech, Cranial Nerves 3-12 NL, decreased sensation on the R lower extremity Extremities No Clubbing, No Cyanosis, Pulses Present Results Last 24 Hours of Lab Results: Laboratory Tests 05/05 05/04 0909 1701 Chemistry Sodium (137 - 145 mmol/L) 139 Potassium (3.5 - 5.1 mmol/L) 4.4 Chloride (98 - 107 mmol/L) 103 Carbon Dioxide (22 - 30 mmol/L) 26 Anion Gap (5 - 16) 10 BUN (9 - 20 mg/dL) 21 H Creatinine (0.7 - 1.2 mg/dL) 1.2 Estimated GFR (>60 ml/min) 59 L BUN/Creatinine Ratio (7 - 25 %) 17.5 Hematology CBC w Diff NO MAN DIFF REQ WBC (4.8 - 10.8 /CUMM) 11.6 H RBC (4.70 - 6.10 /CUMM) 4.46 L Hgb (14.0 - 18.0 G/DL) 13.7 L Hct (42 - 52 %) 42.2 MCV (80.0 - 94.0 FL) 94.6 H MCH (27.0 - 31.0 PG) 30.8 RDW (11.5 - 14.5 %) 14.6 H Plt Count (130 - 400 /CUMM) 229 MPV (7.4 - 10.4 FL) 7.6 Gran % (42.2 - 75.2 %) 78.9 H Lymphocytes % (20.5 - 51.1 %) 10.5 L Monocytes % (1.7 - 9.3 %) 5.7 Eosinophils % (0 - 5 %) 4.6 Basophils % (0.0 - 2.0 %) 0.3 Absolute Granulocytes (1.4 - 6.5 /CUMM) 9.2 H Absolute Lymphocytes (1.2 - 3.4 /CUMM) 1.2 Absolute Monocytes (0.10 - 0.60 /CUMM) 0.7 H Absolute Eosinophils (0.0 - 0.7 /CUMM) 0.5 Absolute Basophils (0.0 - 0.2 /CUMM) 0 PUBS MCHC (33.0 - 37.0 G/DL) 32.6 L Other Body Source Nasal Cellularity Cancelled Last 24 Hours of Ryan Results: SPEC #: [id number] [place]ARDEN[place]: 05/04/17 STATUS: RES RECD: 05/04/[address] [facility] [address]: VENU MATAMOROS DPM SOURCE: EXTREMITIE ENTR: 05/04/[address] [facility] [address]: NANCY BAILEY, CHELSEA SPDESC: TOE 5 R FT ANGEL BAILEY, NILTON Staton ORDERED: XTRMOR COMMENT: 2 PIECES OF BONE IN STERILE CUP Procedure Result GRAM STAIN - PENDING > EXTREMITIES OR SPECIMEN Preliminary 05/05/17 Heavy growth of: ALPHA STREP GRAM POSITIVE COCCI Identification to follow Moderate growth of: STAPH AUREUS ISOLATED NOTE Recent Imaging Studies: SERVICE DATE: 05/03/17 EXAM TYPE: MRI - MRI-RT FOOT W/O STANLEY EXAMINATION: MRI FOOT, RIGHT NONCONTRAST CLINICAL INFORMATION: Right first toe redness and swelling. Fifth toe with chronic ulcer and pus. COMPARISON: MRI from 04/13/2017. TECHNIQUE: Multisequence multidimensional MR acquisition of the right foot was performed without IV contrast. FINDINGS: The patient is status post amputation of the second, third, and fourth digits at the metatarsophalangeal joints. Motion artifact somewhat limits the evaluation. Since the prior study, there is a new appearance of signal abnormality within the fifth digit phalanges. There is decreased signal on T1-weighted imaging with significantly increased signal on T2-weighted imaging. There is associated enhancement postcontrast. No additional bone marrow signal abnormality. Mild degenerative changes are again noted at the first metatarsophalangeal joint. Diffuse increased signal throughout the deep musculature of the foot is again noted, similar to prior. This is often seen in diabetic patients. Diffuse superficial soft tissue edema. No gross tendinous abnormality. No focal collection in the subcutaneous or deep soft tissue. No joint effusion seen. IMPRESSION: There has been a change since the prior study, with new abnormal signal involving the fifth digit phalanges consistent with osteomyelitis. Edema throughout the soft tissues with no focal collection identified. DICTATED BY: NELSON HOPE MD DATE/TIME DICTATED:05/03/171624 FASHION SUPERVISOR:MANPREET DATE/TIME TRANSCRIBED:05/03/171624 CONFIDENTIAL, DO NOT COPY WITHOUT APPROPRIATE AUTHORIZATION. <Electronically signed in Other Vendor System> SIGNED BY: HERMINIA BAILEY,NELSON 05/03 6028 Assessment/Plan Impression: 76-year-old WM with multiple medical issues including coronary artery disease status post stenting in CABG, cardiac arrest 2 mos ago, diabetes, neuropathy, PVD, hypertension, gout, arthritis, and diverticulitis admitted to the hospital on 05/02/17. He is s/p tatus post partial fifth ray of the left foot and right fourth toe amputation as well as right second toe amputation; had previous foot infection/OM (cultures positive within the past year for MSSA and strep gr. B) Fifth digit phalanges osteomyelitis (polymicrobial, including S. aureus) POD #1 s/p Right 5th toe chronic nonhealing ulcer open incision and drainage/ s/p open partial fifth ray resection right foot Mild leukocytosis Eleveated ESR (45) LEAH/CKD (kidney function improving) Suggestion: 1. Cont Cefazolin 1 gm q 8h D #2 and start Vancomycin 1 gm iv daily pending S. aureus sensitivity; random vanco level in am as kidney fct is improving. Lengh of abx course depending on the clinical course and bone bx results. 2. Local wound care per sx. 3. Trend CBC, BMP.
--- NOTE | 2017-05-05 13:18 | NUR ---
@1200-PT C/O ITCHING-NORMALLY TAKES ATARAX PRN AT HOME. OBTAINED 1 X ORDER AND ADMINISTERED AT THIS TIME. MEDICATED WITH PAIN MEDS NEEDED FOR R FOOT PAIN-S/P SURGERY TO SITE ON 05/04/17. DSG INTACT AND PER DR MATAMOROS TO REMAIN IN PLACE AND REINFORCE NEEDED. CONT TO MONITOR. CALL FRACISCO MIKE.
--- NOTE | 2017-05-05 13:23 | PN- Diabetes ---
Assessment/Plan Assessment: Currently he is on Levemir 16 units twice a day, Novolog coverage before meals and Novolog coverage at bedtime. His FSGs were 229, 219, 200, 167. Plan: 1. continue Levemir 16 units twice a day; 2. adjust Novolog coverage before meals-- detail see the inpatient DM order; 3. continue the current Novolog coverage at ebdtime; 4. monitor FSGs; will follow. Inpatient Diabetes Orders Before Each Meal: Bolus Insulin: Novolog < 80 mg/dl: no coverage 80-100 mg/dl: 3 units 101-120 mg/dl: 3 units 121-150 mg/dl: 3 units 151-200 mg/dl: 5 units 201-250 mg/dl: 7 units 251-300 mg/dl: 9 units 301-350 mg/dl: 11 units 351-400 mg/dl: 13 units > 400 mg/dl: 14 units Subjective Subjective: He has no special complaints this morning. Objective Last 24 Hrs of Vital Signs/I&O Vital Signs Date Time Temp Pulse Resp B/P B/P Pulse O2 O2 Flow FiO2 Mean Ox Delivery Rate 05/05 0929 84 134/80 05/05 0928 82 134/80 05/05 0927 84 132/82 05/05 0927 84 132/84 05/05 0717 97.6 84 18 132/82 96 Room Air 05/04 2137 98.6 95 18 126/70 93 Room Air 05/04 2112 93 Room Air 05/04 1435 97.8 70 18 138/82 94 Room Air Intake & Output 05/05 1600 05/05 0800 05/05 0000 Intake Total 100 Output Total Balance 100 Intake, Oral 100 Findings Pertinent Lab/Ryan Results: Laboratory Tests 05/05 05/04 0909 1701 Chemistry Sodium (137 - 145 mmol/L) 139 Potassium (3.5 - 5.1 mmol/L) 4.4 Chloride (98 - 107 mmol/L) 103 Carbon Dioxide (22 - 30 mmol/L) 26 Anion Gap (5 - 16) 10 BUN (9 - 20 mg/dL) 21 H Creatinine (0.7 - 1.2 mg/dL) 1.2 Estimated GFR (>60 ml/min) 59 L BUN/Creatinine Ratio (7 - 25 %) 17.5 Hematology CBC w Diff NO MAN DIFF REQ WBC (4.8 - 10.8 /CUMM) 11.6 H RBC (4.70 - 6.10 /CUMM) 4.46 L Hgb (14.0 - 18.0 G/DL) 13.7 L Hct (42 - 52 %) 42.2 MCV (80.0 - 94.0 FL) 94.6 H MCH (27.0 - 31.0 PG) 30.8 RDW (11.5 - 14.5 %) 14.6 H Plt Count (130 - 400 /CUMM) 229 MPV (7.4 - 10.4 FL) 7.6 Gran % (42.2 - 75.2 %) 78.9 H Lymphocytes % (20.5 - 51.1 %) 10.5 L Monocytes % (1.7 - 9.3 %) 5.7 Eosinophils % (0 - 5 %) 4.6 Basophils % (0.0 - 2.0 %) 0.3 Absolute Granulocytes (1.4 - 6.5 /CUMM) 9.2 H Absolute Lymphocytes (1.2 - 3.4 /CUMM) 1.2 Absolute Monocytes (0.10 - 0.60 /CUMM) 0.7 H Absolute Eosinophils (0.0 - 0.7 /CUMM) 0.5 Absolute Basophils (0.0 - 0.2 /CUMM) 0 PUBS MCHC (33.0 - 37.0 G/DL) 32.6 L Other Body Source Nasal Cellularity Cancelled
[2017-05-05 14:00] VITALS: BP 124/66
--- NOTE | 2017-05-05 17:03 | PN- Cardiology ---
Subjective Subjective: Mild discomfort right foot. Denies chest discomfort, palpitations, shortness of breath, etc. Objective Vital Signs and I&Os Vital Signs Date Time Temp Pulse Resp B/P B/P Pulse O2 O2 Flow FiO2 Mean Ox Delivery Rate 05/05 1400 97.9 93 18 124/66 93 Room Air 05/05 0929 84 134/80 05/05 0928 82 134/80 05/05 0927 84 132/82 05/05 0927 84 132/84 05/05 0717 97.6 84 18 132/82 96 Room Air 05/04 2137 98.6 95 18 126/70 93 Room Air 05/04 2112 93 Room Air Intake & Output 05/05 1600 05/05 0800 05/05 0000 05/04 1600 05/04 0800 05/04 0000 Intake Total 380 100 700 510 Output Total 600 Balance 380 100 -600 700 510 Intake, IV 30 600 10 Intake, Oral 350 100 100 500 Number 0 3 Bowel Movements Output, Urine 600 Physical Exam: Well-developed, overweight elderly male in no acute distress. Vital signs: See above. Neck: No JVD, Lungs: Clear to auscultation bilaterally. Heart: S1, S2. Abdomen: Soft, nontender, positive bowel sounds. Extremities: Bandaged right foot. Current Medications: Current Medications Sig/Chacha Start time Last Medication Dose Route Stop Time Status Admin Acetaminophen 650 MG Q6P PRN 05/03 0300 AC PO Allopurinol 300 MG QAM 05/03 1000 AC 05/05 PO 0929 Aspirin Buffered 81 MG QAM 05/05 1000 AC 05/05 PO 0927 Atorvastatin Calcium 20 MG QAM 05/03 1000 AC 05/05 PO 0928 Bupropion HCl 150 MG DAILY 05/03 1000 AC 05/05 PO 0929 Carvedilol 25 MG QAM 05/03 1000 AC 05/05 PO 0927 Cefazolin Sodium 1,000 MG IQ8 05/04 1600 DC 05/05 IV 05/05 1559 0927 Clopidogrel Bisulfate 75 MG QAM 05/05 1000 AC 05/05 PO 0928 Diphenhydramine HCl 50 MG QPM 05/03 2200 AC 05/04 PO 2100 Docusate Sodium 100 MG DAILY NEEDED PRN 05/04 1900 AC PO Escitalopram Oxalate 5 MG QPM 05/03 2200 AC 05/04 PO 2100 Finasteride 5 MG QPM 05/03 2200 AC 05/04 PO 2101 Furosemide 40 MG QAM 05/05 1000 AC 05/05 PO 0928 Heparin Sodium 5,000 UNIT Q8 05/03 0600 AC 05/05 (Porcine) SC 1339 Hydroxyzine HCl 25 MG ONCE ONE 05/05 1200 DC 05/05 PO 05/05 1201 1154 Hydroxyzine HCl 25 MG AT BEDTIME NEED.. 05/03 0345 AC PO Insulin Aspart 0 TIDAC/HS 05/04 1445 AC 05/05 SC 1225 Insulin Detemir 16 UNITS BID 05/04 1000 AC 05/05 SC 0928 Isosorbide 120 MG QAM 05/03 1000 AC 05/05 Mononitrate PO 0927 Lisinopril 5 MG QAM 05/05 1000 AC 05/05 PO 0929 Mirabegron 50 MG DAILY 05/03 1000 AC 05/05 PO 0928 Multivitamins 1 TAB DAILY 05/03 1000 AC 05/05 PO 0929 Niacin 500 MG 2200 05/03 2200 AC 05/04 PO 2101 Oxycodone/ 1 TAB Q6P PRN 05/03 0300 AC 05/03 Acetaminophen PO 210 Oxycodone/ 2 TAB Q6P PRN 05/03 0300 AC 05/05 Acetaminophen PO 1651 Polyethylene Glycol 17 GM DAILY PRN 05/04 1900 AC PO Polyethylene Glycol 17 GM AT BEDTIME 05/03 2200 AC PO Pregabalin 150 MG QPM 05/03 2200 AC 05/04 PO 2101 Pregabalin 100 MG QAM 05/03 1000 AC 05/05 PO 0928 Senna/Docusate Sodium 1 TAB AT BEDTIME 05/03 220 AC 05/03 PO 2101 Tamsulosin HCl 0.4 MG DAILY 05/03 1000 AC 05/05 PO 0928 Trazodone HCl 25 MG QPM 05/03 2200 AC 05/04 PO 2100 Vancomycin HCl 1,500 MG DAILY@1400 05/05 1400 AC 05/05 Sodium Chloride 250 ML IV 1449 Results Last 48 Hrs of Labs/Mics: Laboratory Tests 05/05/17 09: Anion Gap 10, Estimated GFR 59 L, BUN/Creatinine Ratio 17.5, CBC w Diff NO MAN DIFF REQ, RBC 4.46 L, MCV 94.6 H, MCH 30.8, RDW 14.6 H, MPV 7.6, Gran % 78.9 H, Lymphocytes % 10.5 L, Monocytes % 5.7, Eosinophils % 4.6, Basophils % 0.3, Absolute Granulocytes 9.2 H, Absolute Lymphocytes 1.2, Absolute Monocytes 0.7 H, Absolute Eosinophils 0.5, Absolute Basophils 0, PUBS MCHC 32.6 L 05/04/17 1701: Nasal Cellularity Cancelled 05/04/17 0626: Anion Gap 9, Estimated GFR 49 L, BUN/Creatinine Ratio 22.1, CBC w Diff NO MAN DIFF REQ, RBC 4.15 L, MCV 94.5 H, MCH 30.9, RDW 14.7 H, MPV 8.0, Gran % 60.8, Lymphocytes % 23.2, Monocytes % 7.9, Eosinophils % 7.4 H, Basophils % 0.7, Absolute Granulocytes 4.9, Absolute Lymphocytes 1.9, Absolute Monocytes 0.6, Absolute Eosinophils 0.6, Absolute Basophils 0.1, PUBS MCHC 32.7 L Recent Imaging Studies: Echocardiogram (05/04/2017): Mild left ventricular dilatation. Mild concentric left ventricular hypertrophy. Normal left ventricular ejection fraction visually estimated at >55%. Trace mitral regurgitation. Trace aortic regurgitation. Trace tricuspid regurgitation. Assessment/Plan Assessment/Plan [id number] w/ hx HTN, HLD, gout, DM on insulin pump w/ neuropathy, CAD s/p PA, CABG, PCIs, & PAD who was sent for ED by Abdullahi Samaniego DPM due to right foot infection with osteomyelitis. He was cleared for surgery and underwent open I & D and drainage deep to the deep fascia w/ exposure of the extensor and flexor tendon and tendon sheath, multiple sites right foot, open partial fifth ray resection right foot, intraoperative administration of ankle block anesthesia, & excisional debridement for open necrotic wound of his right foot on 05/04/2017. Continue telemetry? Not applicable
[2017-05-05 23:47] VITALS: BP 140/82
[2017-05-06 06:00] VITALS: BP 134/72
[2017-05-06 08:25] LABS: ABSOLUTE BASOPHIL COUNT 0.1 /CUMM (0.0-0.2); ABSOLUTE EOSINOPHIL COUNT 0.6 /CUMM (0.0-0.7); ABSOLUTE GRANULOCYTE CT 7.3 /CUMM (1.4-6.5); ABSOLUTE LYMPH COUNT 1.3 /CUMM (1.2-3.4); ABSOLUTE MONOCYTE COUNT 0.8 /CUMM (0.10-0.60); BASOPHIL % 0.6 % (0.0-2.0); EOSINOPHIL % 6.1 % (0-5); GRANULOCYTE % 71.6 % (42.2-75.2); HEMATOCRIT 37.6 % (42-52); MEAN CORPUSCULAR HGB 30.8 PG (27.0-31.0); MEAN CORPUSCULAR HGB CONC 32.7 G/DL (33.0-37.0); MEAN CORPUSCULAR VOLUME 94.1 FL (80.0-94.0); MEAN PLATELET VOLUME 7.5 FL (7.4-10.4); PLATELET COUNT 204 /CUMM (130-400); RBC DISTRIBUTION WIDTH 14.8 % (11.5-14.5); RED BLOOD CELL CT 3.99 /CUMM (4.70-6.10); WHITE BLOOD CELL COUNT 10.1 /CUMM (4.8-10.8)
--- NOTE | 2017-05-06 08:47 | PN- Housestaff ---
UMA WONG MD,MIGDALIA 05/06/17 0846: Subjective Follow-up For: Right 5th toe chronic nonhealing ulcer/osteomyelitis s/p open incision and drainage, open partial fifth ray resection right foot, excisional debridement uncontolled diabetes mellitus h/o Peripheral arterial disease Complaints: no complaints Tele-Events Since Last Visit: No telemetry monitoring Subjective: Pain has been well controlled overnight. Patient remained afebrile overnight, no tachycardia or tachypnea. No acute complains overnight. Review of Systems Constitutional: Denies: chills, fever. EENTM: Denies: visual changes. Cardiovascular: Denies: chest pain. Respiratory: Denies: short of breath. Objective Last 24 Hrs of Vital Signs/I&O Vital Signs Date Time Temp Pulse Resp B/P B/P Pulse O2 O2 Flow FiO2 Mean Ox Delivery Rate 05/06 0600 98.4 98 18 134/72 97 Room Air 05/05 2347 98.0 82 24 140/82 96 05/05 1400 97.9 93 18 124/66 93 Room Air 05/05 0929 84 134/80 05/05 0928 82 134/80 05/05 0927 84 132/82 05/05 0927 84 132/84 Intake & Output 05/06 1600 05/06 0800 05/06 0000 Intake Total Output Total Balance Number 1 2 Bowel Movements Physical Exam General Appearance: Alert, Oriented X3, Cooperative Skin: No Rashes HEENT: Atraumatic Neck: No JVD Cardiovascular: Regular Rate, Normal S1, Normal S2 Lungs: Clear to Auscultation, Normal Air Movement Abdomen: Soft, No Tenderness Extremities: No Edema, right foot covered with surgical dressing Vascular: Normal Pulses Current Medications: Current Medications Sig/Chacha Start time Last Medication Dose Route Stop Time Status Admin Acetaminophen 650 MG Q6P PRN 05/03 0300 AC PO Allopurinol 300 MG QAM 05/03 1000 AC 05/05 PO 09 Aspirin Buffered 81 MG QAM 05/05 1000 AC 05/05 PO 09 Atorvastatin Calcium 20 MG QAM 05/03 1000 AC 05/05 PO 0928 Bupropion HCl 150 MG DAILY 05/03 1000 AC 05/05 PO 09 Carvedilol 25 MG QAM 05/03 1000 AC 05/05 PO 09 Cefazolin Sodium 1,000 MG IQ8 05/04 1600 DC 05/05 IV 05/05 1559 0927 Clopidogrel Bisulfate 75 MG QAM 05/05 1000 AC 05/05 PO 0928 Diphenhydramine HCl 50 MG QPM 05/03 2200 AC 05/05 PO 204 Docusate Sodium 100 MG DAILY NEEDED PRN 05/04 1900 AC PO Escitalopram Oxalate 5 MG QPM 05/03 2200 AC 05/05 PO 2043 Finasteride 5 MG QPM 05/03 2200 AC 05/05 PO 2043 Furosemide 40 MG QAM 05/05 1000 AC 05/05 PO 0928 Heparin Sodium 5,000 UNIT Q8 05/03 0600 AC 05/06 (Porcine) SC 0554 Hydroxyzine HCl 25 MG ONCE ONE 05/05 1200 DC 05/05 PO 05/05 1201 1154 Hydroxyzine HCl 25 MG AT BEDTIME NEED.. 05/03 0345 AC 05/05 PO 215 Insulin Aspart 0 TIDAC/HS 05/04 1445 AC 05/05 SC 191 Insulin Detemir 16 UNITS BID 05/04 1000 AC 05/05 SC 204 Isosorbide 120 MG QAM 05/03 1000 AC 05/05 Mononitrate PO 09 Lisinopril 5 MG QAM 05/05 1000 AC 05/05 PO 0929 Mirabegron 50 MG DAILY 05/03 1000 AC 05/05 PO 0928 Multivitamins 1 TAB DAILY 05/03 1000 AC 05/05 PO 0929 Niacin 500 MG 22005/03 2200 AC 05/05 PO 204 Oxycodone/ 1 TAB Q6P PRN 05/03 0300 AC 05/03 Acetaminophen PO 210 Oxycodone/ 2 TAB Q6P PRN 05/03 0300 AC 05/05 Acetaminophen PO 1651 Polyethylene Glycol 17 GM DAILY PRN 05/04 1900 AC PO Polyethylene Glycol 17 GM AT BEDTIME 05/03 2200 AC PO Pregabalin 150 MG QPM 05/03 2200 AC 05/05 PO 204 Pregabalin 100 MG QAM 05/03 1000 AC 05/05 PO 0928 Senna/Docusate Sodium 1 TAB AT BEDTIME 05/03 2200 AC 05/03 PO 210 Tamsulosin HCl 0.4 MG DAILY 05/03 1000 AC 05/05 PO 0928 Trazodone HCl 25 MG QPM 05/03 2200 AC 05/05 PO 2041 Vancomycin HCl 1,500 MG DAILY@1400 05/05 1400 AC 05/05 Sodium Chloride 250 ML IV 1449 Last 24 Hrs of Lab/Ryan Results Last 24 Hrs of Labs/Mics: Laboratory Tests 05/06/17 0715: Sodium Pending, Potassium Pending, Chloride Pending, Carbon Dioxide Pending, Anion Gap Pending, BUN Pending, Creatinine Pending, BUN/Creatinine Ratio Pending , CBC w Diff Pending, WBC Pending, RBC Pending, Hgb Pending, Hct Pending, MCV Pending, MCH Pending, RDW Pending, Plt Count Pending, MPV Pending, PUBS MCHC Pending, Vancomycin Trough Pending 05/05/17 0909: Anion Gap 10, Estimated GFR 59 L, BUN/Creatinine Ratio 17.5, CBC w Diff NO MAN DIFF REQ, RBC 4.46 L, MCV 94.6 H, MCH 30.8, RDW 14.6 H, MPV 7.6, Gran % 78.9 H, Lymphocytes % 10.5 L, Monocytes % 5.7, Eosinophils % 4.6, Basophils % 0.3, Absolute Granulocytes 9.2 H, Absolute Lymphocytes 1.2, Absolute Monocytes 0.7 H, Absolute Eosinophils 0.5, Absolute Basophils 0, PUBS MCHC 32.6 L Assessment/Plan Assessment: 76 yo obese M with h/o T2DM on insulin pump, peripheral neuropathy, CAD s/p CABG and stents, PVD s/p angioplasty, CRISTINE on CPAP, diverticulitis s/p colon resection , GERD, CKD stage 3B, depression, gout, osteomyelitis of right foot requiring amputation of 2nd to 4th toes, recently admitted to [facility] (04/12 04/16) for right 5th toe cellulitis with chronic nonhealing ulcer (MRI negative for osteomyelitis) treated with antibiotics, is sent in from the Wound center by Dr. Samaniego for concerns of 5th toe osteomyelitis given nonhealing wound now with purulent discharge for the past 3 days. Vitals on admission stable. Pertinent labs on admission-WBC 11.8, hemoglobin 13 and hematocrit 40. BUN 30 and creatinine 1.5 ESR 45 INR 1.21 LACTIC Acid 1 Arterial Doppler Abnormal waveforms throughout the lower extremities as described. With the exception of the right anterior tibial artery, the below-knee vessels were not visualized either secondary to occlusion or significantly slow flow. Findings are consistent with significant underlying peripheral arterial disease. There is also probable distal superficial femoral and popliteal disease bilaterally. Consider dedicated CTA for further anatomical detail, if clinically indicated. Venous Doppler No evidence of deep venous thrombosis involving the lower extremities. Small left-sided Muller's cyst. FOOT MRi There has been a change since the prior study, with new abnormal signal involving the fifth digit phalanges consistent with osteomyelitis. Edema throughout the soft tissues with no focal collection identified Current Management /Plan 1) Right fifth toe osteomyelitis Patient is sent in from the Wound center by Dr. Samaniego for concerns of 5th toe osteomyelitis given nonhealing wound now with purulent discharge for the past 3 days. Patient has history of osteomyelitis of right foot requiring amputation of 2nd to 4th toes, recently admitted to [facility] (04/12 04/16) for right 5th toe cellulitis with chronic nonhealing ulcer (MRI negative for osteomyelitis) treated with antibiotics. Foot MRI (March 2017): diffuse moderate subcutaneous edema, no abscess, no definite osteomyelitis. * MRI suggestive of fifth digit osteomyelitis * Patient WENT FOR debridement and bone biopsy -05/04/2017-postop day 2 * He is status post open incision and drainage deep to the deep fascia with exposure of the extensor and flexor tendon and tendon sheath multiple sites right foot, open partial fifth ray resection right foot, excisional debridement * Will follow-up or cultures, blood cultures * On cefazolin IV day 3 and was started on Vancomycin 1 gm iv daily pending S. aureus sensitivity * Vancomycin trough pending * Pain management 2) H/O Peripheral artery disease With the exception of the right anterior tibial artery, the below-knee vessels were not visualized either secondary to occlusion or significantly slow flow. Findings are consistent with significant underlying peripheral arterial disease. There is also probable distal superficial femoral and popliteal disease bilaterally. Patient had vascular intervention angiogram of his right leg 2 months ago at [facility] and he had a cardiac arrest during the procedure requiring resuscitation, no revascularization procedure was done for the right leg. * Vascular surgeon on board * Cardiology consulted for Cardiac clearance- Cleared from cardiac standpoint * He is going to need right leg angiogram soon- mostly outpatient basis Chronic kidney disease Patient has past medical history of chronic kidney disease, [id number] baseline creatinine 1.3 Current creatinine 1.4 H/O gout Continue allopurinol 300 mg daily H/O Coronary artery disease Status post CABG and stents Continue with aspirin and Plavix H/O Hyperlipidemia Lipitor 20 daily H/O Depression Continue Lexapro and bupropion daily H/O Hypertension Continue carvedilol and lisinopril H/O Urinary retention Continue finasteride, tamsulosin H/O Fluid retention Continue home dose of Lasix 40 daily H/O Peripheral neuropathy Continue pregabalin H/O Insomnia Continue trazodone H/O Type 2 diabetes mellitus He is on insulin pump at home. Insulin pump discontinued Accu-Cheks every 6 hours, 218, 222, 159 Continue management with long-acting insulin and insulin sliding scale as per endocrinology recommendations H/O Obstructive sleep apnea On CPAP DVT prophylaxis subcutaneous heparin DNR/DNI Pain pathway Problem List: 1. Osteomyelitis of toe of right foot 2. LEAH (acute kidney injury) Pain Ratin Pain Location: Right foot Pain Goal: Pain 4 or less Pain Plan: Continue current pain management Tomorrow's Labs & Rationales: CBC for leukocytosis BEP for the kidney function DVT/Prophylaxis: pharmacological KARON BAILEY,AMIR 05/06/17 1123: Attending MD Review Statement Attending Statement Attending MD Statement: examined this patient, discuss w/resident/PA/[employer], agreed w/resident/PA/[employer], reviewed EMR data (avail), discussed with nursing Attending Assessment/Plan: Mr. Guerra was seen by me. Chart reviewed. No interval nusring issues. A/P: POD #2 s/p Right 5th toe chronic nonhealing ulcer open incision and drainage and s/p open partial fifth ray resection right foot -- appreciate ID/Endo/Cards input -- On Cefazolin/Vanco, awaiting bone biopsy results -- Cr sl elevated - encourage PO fluid intake -- Titrate insulin as per Endo recs -- rest of the plan as per resident's note
--- NOTE | 2017-05-06 11:54 | PN- Diabetes ---
Assessment/Plan Assessment: 76-year-old male was sent to the hospital by Dr. Samaniego because of an infection in his right toe. The patient was on an insulin pump at home. Currently he is on Levemir 16 units twice a day; Novolog coverage before meals was adjusted yesterday. In addition, he is on Novolog coverage at bedtime. His FSGs were 167, 233, 218, 222 and 157. Plan: continue the current insulin regimen for now; monitor FSGs. will follow. Subjective Subjective: He has no special complaints at this point. Objective Last 24 Hrs of Vital Signs/I&O Vital Signs Date Time Temp Pulse Resp B/P B/P Pulse O2 O2 Flow FiO2 Mean Ox Delivery Rate 05/06 0938 134/72 05/06 0938 134/72 05/06 0937 134/72 05/06 0936 98 134/72 05/06 0600 98.4 98 18 134/72 97 Room Air 05/05 2347 98.0 82 24 140/82 96 05/05 1400 97.9 93 18 124/66 93 Room Air Intake & Output 05/06 1600 05/06 0800 05/06 0000 Intake Total Output Total Balance Number 1 2 Bowel Movements Findings Pertinent Lab/Ryan Results: Laboratory Tests 05/06 0715 Chemistry Sodium (137 - 145 mmol/L) 138 Potassium (3.5 - 5.1 mmol/L) 4.3 Chloride (98 - 107 mmol/L) 106 Carbon Dioxide (22 - 30 mmol/L) 23 Anion Gap (5 - 16) 8 BUN (9 - 20 mg/dL) 23 H Creatinine (0.7 - 1.2 mg/dL) 1.4 H Estimated GFR (>60 ml/min) 49 L BUN/Creatinine Ratio (7 - 25 %) 16.4 Hematology CBC w Diff NO MAN DIFF REQ WBC (4.8 - 10.8 /CUMM) 10.1 RBC (4.70 - 6.10 /CUMM) 3.99 L Hgb (14.0 - 18.0 G/DL) 12.3 L Hct (42 - 52 %) 37.6 L MCV (80.0 - 94.0 FL) 94.1 H MCH (27.0 - 31.0 PG) 30.8 RDW (11.5 - 14.5 %) 14.8 H Plt Count (130 - 400 /CUMM) 204 MPV (7.4 - 10.4 FL) 7.5 Gran % (42.2 - 75.2 %) 71.6 Lymphocytes % (20.5 - 51.1 %) 13.3 L Monocytes % (1.7 - 9.3 %) 8.4 Eosinophils % (0 - 5 %) 6.1 H Basophils % (0.0 - 2.0 %) 0.6 Absolute Granulocytes (1.4 - 6.5 /CUMM) 7.3 H Absolute Lymphocytes (1.2 - 3.4 /CUMM) 1.3 Absolute Monocytes (0.10 - 0.60 /CUMM) 0.8 H Absolute Eosinophils (0.0 - 0.7 /CUMM) 0.6 Absolute Basophils (0.0 - 0.2 /CUMM) 0.1 PUBS MCHC (33.0 - 37.0 G/DL) 32.7 L Toxicology Vancomycin Trough (10.0 - 20.0 ug/mL) 7.1 L
--- NOTE | 2017-05-06 12:08 | PN- Infect Dx ---
Subjective Subjective: No fever. Mild R foot discomfort. Fair appetite. Review of Systems Comments: 12 points reviewed as noted, otherwise negative. Objective Last 24 Hrs of Vital Signs/I&O Vital Signs Date Time Temp Pulse Resp B/P B/P Pulse O2 O2 Flow FiO2 Mean Ox Delivery Rate 05/06 0938 134/72 05/06 0938 134/72 05/06 0937 134/72 05/06 0936 98 134/72 05/06 0600 98.4 98 18 134/72 97 Room Air 05/05 2347 98.0 82 24 140/82 96 05/05 1400 97.9 93 18 124/66 93 Room Air Intake & Output 05/06 1600 05/06 0800 05/06 0000 Intake Total Output Total Balance Number 1 2 Bowel Movements Physical Exam Other Physical Findings: General Appearance Alert, Oriented X3, Cooperative, No Acute Distress Skin R foot dressing in place Skin Temp/Moisture Exam: Warm/Dry HEENT Atraumatic, Mucous Membr. moist/pink Neck Supple, No JVD, +2 Carotid Pulse wo Bruit Lymphatic Cervical nl Cardiovascular Regular Rate, Normal S1, Normal S2, No Murmurs Lungs Clear to Auscultation, Normal Air Movement Abdomen Normal Bowel Sounds, Soft, No Tenderness Neurological Normal Speech, Cranial Nerves 3-12 NL Extremities No Clubbing, No Cyanosis, Pulses Present Results Last 24 Hours of Lab Results: Laboratory Tests 05/06 715 Chemistry Sodium (137 - 145 mmol/L) 138 Potassium (3.5 - 5.1 mmol/L) 4.3 Chloride (98 - 107 mmol/L) 106 Carbon Dioxide (22 - 30 mmol/L) 23 Anion Gap (5 - 16) 8 BUN (9 - 20 mg/dL) 23 H Creatinine (0.7 - 1.2 mg/dL) 1.4 H Estimated GFR (>60 ml/min) 49 L BUN/Creatinine Ratio (7 - 25 %) 16.4 Hematology CBC w Diff NO MAN DIFF REQ WBC (4.8 - 10.8 /CUMM) 10.1 RBC (4.70 - 6.10 /CUMM) 3.99 L Hgb (14.0 - 18.0 G/DL) 12.3 L Hct (42 - 52 %) 37.6 L MCV (80.0 - 94.0 FL) 94.1 H MCH (27.0 - 31.0 PG) 30.8 RDW (11.5 - 14.5 %) 14.8 H Plt Count (130 - 400 /CUMM) 204 MPV (7.4 - 10.4 FL) 7.5 Gran % (42.2 - 75.2 %) 71.6 Lymphocytes % (20.5 - 51.1 %) 13.3 L Monocytes % (1.7 - 9.3 %) 8.4 Eosinophils % (0 - 5 %) 6.1 H Basophils % (0.0 - 2.0 %) 0.6 Absolute Granulocytes (1.4 - 6.5 /CUMM) 7.3 H Absolute Lymphocytes (1.2 - 3.4 /CUMM) 1.3 Absolute Monocytes (0.10 - 0.60 /CUMM) 0.8 H Absolute Eosinophils (0.0 - 0.7 /CUMM) 0.6 Absolute Basophils (0.0 - 0.2 /CUMM) 0.1 PUBS MCHC (33.0 - 37.0 G/DL) 32.7 L Toxicology Vancomycin Trough (10.0 - 20.0 ug/mL) 7.1 L Last 24 Hours of Ryan Results: SPEC #: [id number] GARDEN[place]: 05/04/17 STATUS: RES RECD: 05/04/[address]: VENU MATAMOROS DPM [facility] [facility] [facility] [address]: NANCY BAILEY, [place] SPDESC: TOE 5 R FT ANGEL BAILEY, NILTON [place] ORDERED: XTRMOR COMMENT: 2 PIECES OF BONE IN STERILE CUP Procedure Result > GRAM STAIN Final 05/05/17142 WHITE BLOOD CELLS FEW GRAM POSITIVE COCCI MANY GRAM NEGATIVE RODS MODERATE > EXTREMITIES OR SPECIMEN Preliminary 05/05/17 Heavy growth of: ALPHA STREP GRAM POSITIVE COCCI Identification to follow Moderate growth of: STAPH AUREUS ISOLATED NOTE THIS IS A PRELIMINARY REPORT: IF: patient has had significant exposure to a healthcare setting in the past three (3) months, THEN: suspect Methicillin Resistant Staph aureus and place patient on Contact precautions PENDING susceptibility results TO FOLLOW Called to/Readback by MALLY by DOLORES 05/05/17920 Recent Imaging Studies: Reviewed. Assessment/Plan Impression: 76-year-old WM with multiple medical issues including coronary artery disease status post stenting in CABG, cardiac arrest 2 mos ago, diabetes, neuropathy, PVD, hypertension, gout, arthritis, and diverticulitis admitted to the hospital on 05/02/17. He is s/p tatus post partial fifth ray of the left foot and right fourth toe amputation as well as right second toe amputation; had previous foot infection/OM (cultures positive within the past year for MSSA and strep gr. B) Fifth digit phalanges osteomyelitis (polymicrobial, including S. aureus) POD #2 s/p Right 5th toe chronic nonhealing ulcer open incision and drainage/ s/p open partial fifth ray resection right foot Mild leukocytosis; WBC trending down Eleveated ESR (45) LEAH/CKD Suggestion: 1. Cont Cefazolin 1 gm q 8h D #3 and Vancomycin 1 gm iv daily D #2 pending S. aureus sensitivity; obtain vanco trough 05/07 30 min before the due dose. Lengh of abx course depending on the clinical course and bone bx results. 2. Local wound care per sx. 3. Trend CBC, BMP; of note creatinine trending up.
[2017-05-06 14:58] VITALS: BP 104/70
[2017-05-06 23:14] VITALS: BP 124/72
[2017-05-07 06:58] VITALS: BP 120/80
--- NOTE | 2017-05-07 07:48 | PN- Diabetes ---
Assessment/Plan Assessment: 76-year-old male was sent to the hospital by Dr. Samaniego because of an infection in his right toe. The patient was on an insulin pump at home. Currently he is on Levemir 16 units twice a day; Novolog coverage before meals was adjusted yesterday. In addition, he is on Novolog coverage at bedtime. Since fasting fingerstick blood sugar this morning is 155. During the day yesterday his blood sugar before lunch was 253 before dinner 227 at bedtime to 42. Plan: The patient's fasting sugars are in a good range. His sugar later in the day he is somewhat high. Suggest increase his before meal NovoLog 3 times a day to 80-150 give 4 units NovoLog, 151-200 give 6 units NovoLog, 201-250 give 8 units NovoLog, 251 at 300 give 10 units NovoLog, 301-350 give 12 units NovoLog, 351-400 give 14 units NovoLog. The separate bedtime sliding-scale NovoLog should stay as written. Subjective Subjective: Feels improved Review of Systems Constitutional: Denies: chills, fever. Cardiovascular: Denies: chest pain, palpitations. Respiratory: Denies: cough, short of breath. Gastrointestinal: Denies: abdominal pain, nausea, vomiting. Skin: Reports: no symptoms. Objective Last 24 Hrs of Vital Signs/I&O Vital Signs Date Time Temp Pulse Resp B/P B/P Pulse O2 O2 Flow FiO2 Mean Ox Delivery Rate 05/07 0658 98.2 71 18 120/80 94 Room Air 05/06 2314 98.0 95 18 124 97 Room Air 05/06 1458 98.0 70 18 104/70 95 Room Air 05/06 0938 134/72 05/06 0938 134/72 05/06 0937 134/05/06 0936 98 134/72 Intake & Output 05/07 0800 05/07 0000 05/06 1600 Intake Total 200 480 Output Total 600 Balance 200 -120 Intake, Oral 200 480 Number 2 1 Bowel Movements Output, Urine 600 Vital Signs Date Time Temp Pulse Resp B/P B/P Pulse O2 O2 Flow FiO2 Mean Ox Delivery Rate 05/07 0658 98.2 71 18 120/80 94 Room Air 05/06 2314 98.0 95 18 124/72 97 Room Air 05/06 1458 98.0 70 18 104/70 95 Room Air 05/06 0938 134/72 05/06 0938 134/72 05/06 0937 134/72 05/06 0936 98 134/72 Intake & Output 05/07 0800 05/07 0000 05/06 1600 Intake Total 200 480 Output Total 600 Balance 200 -120 Intake, Oral 200 480 Number 2 1 Bowel Movements Output, Urine 600 Physical Exam General Appearance: alert, awake, comfortable Head: normal appearance Neck: normal inspection Respiratory: normal breath sounds Cardiovascular: regular rate/rhythm Abdomen: normal bowel sounds Current Medications: Current Medications Sig/Chacha Start time Last Medication Dose Route Stop Time Status Admin Acetaminophen 650 MG Q6P PRN 05/03 0300 AC PO Allopurinol 300 MG QAM 05/03 1000 AC 05/06 PO 0938 Aspirin Buffered 81 MG QAM 05/05 1000 AC 05/06 PO 0937 Atorvastatin Calcium 20 MG QAM 05/03 1000 AC 05/06 PO 0936 Bupropion HCl 150 MG DAILY 05/03 1000 AC 05/06 PO 0936 Carvedilol 25 MG QAM 05/03 1000 AC 05/06 PO 0936 Cefazolin Sodium 1,000 MG IQ8 05/06 1700 AC 05/07 IV 0100 Clopidogrel Bisulfate 75 MG QAM 05/05 1000 AC 05/06 PO 0937 Diphenhydramine HCl 50 MG QPM 05/03 2200 AC 05/06 PO 205 Docusate Sodium 100 MG DAILY NEEDED PRN 05/04 1900 AC PO Escitalopram Oxalate 5 MG QPM 05/03 2200 AC 05/06 PO 205 Finasteride 5 MG QPM 05/03 2200 AC 05/06 PO 205 Furosemide 40 MG QAM 05/05 1000 AC 05/06 PO 0937 Heparin Sodium 5,000 UNIT Q8 05/03 0600 AC 05/07 (Porcine) SC 0530 Hydroxyzine HCl 25 MG AT BEDTIME NEED.. 05/03 0345 AC 05/07 PO 0042 Insulin Aspart 0 TIDAC/HS 05/04 1445 AC 05/06 SC 170 Insulin Detemir 16 UNITS BID 05/04 1000 AC 05/06 SC 205 Isosorbide 120 MG QAM 05/03 1000 AC 05/06 Mononitrate PO 0938 Lisinopril 5 MG QAM 05/05 1000 AC 05/06 PO 0937 Mirabegron 50 MG DAILY 05/03 1000 AC 05/06 PO 0936 Multivitamins 1 TAB DAILY 05/03 1000 AC 05/06 PO 0937 Niacin 500 MG 2200 05/030 AC 05/06 PO 2052 Oxycodone/ 1 TAB Q6P PRN 05/03 0300 AC 05/06 Acetaminophen PO 09 Oxycodone/ 2 TAB Q6P PRN 05/03 0300 AC 05/06 Acetaminophen PO 225 Polyethylene Glycol 17 GM DAILY PRN 05/04 1900 AC PO Polyethylene Glycol 17 GM AT BEDTIME 05/03 2200 AC PO Pregabalin 150 MG QPM 05/03 2200 AC 05/06 PO 2054 Pregabalin 100 MG QAM 05/03 1000 AC 05/06 PO 0945 Senna/Docusate Sodium 1 TAB AT BEDTIME 05/030 AC 05/03 PO 210 Tamsulosin HCl 0.4 MG DAILY 05/03 1000 AC 05/06 PO 0938 Trazodone HCl 25 MG QPM 05/03 2200 AC 05/06 PO 2049 Vancomycin HCl 1,500 MG DAILY@1400 05/05 1400 AC 05/06 Sodium Chloride 250 ML IV 1738 Findings Pertinent Lab/Ryan Results: Laboratory Tests 05/07 628 Chemistry Sodium Pending Potassium Pending Chloride Pending Carbon Dioxide Pending Anion Gap Pending BUN Pending Creatinine Pending BUN/Creatinine Ratio Pending Hematology CBC w Diff Pending WBC Pending RBC Pending Hgb Pending Hct Pending MCV Pending MCH Pending RDW Pending Plt Count Pending MPV Pending PUBS MCHC Pending
[2017-05-07 08:19] LABS: ABSOLUTE BASOPHIL COUNT 0 /CUMM (0.0-0.2); ABSOLUTE EOSINOPHIL COUNT 0.7 /CUMM (0.0-0.7); ABSOLUTE LYMPH COUNT 1.6 /CUMM (1.2-3.4); MEAN CORPUSCULAR HGB 30.8 PG (27.0-31.0); PLATELET COUNT 201 /CUMM (130-400); RED BLOOD CELL CT 3.81 /CUMM (4.70-6.10)
[2017-05-07 08:24] LABS: ABSOLUTE GRANULOCYTE CT 5.2 /CUMM (1.4-6.5); ABSOLUTE MONOCYTE COUNT 0.6 /CUMM (0.10-0.60); BASOPHIL % 0.6 % (0.0-2.0); EOSINOPHIL % 9.1 % (0-5); GRANULOCYTE % 63.5 % (42.2-75.2); HEMATOCRIT 35.7 % (42-52); MEAN CORPUSCULAR HGB CONC 32.9 G/DL (33.0-37.0); MEAN CORPUSCULAR VOLUME 93.8 FL (80.0-94.0); MEAN PLATELET VOLUME 7.8 FL (7.4-10.4); RBC DISTRIBUTION WIDTH 14.5 % (11.5-14.5); WHITE BLOOD CELL COUNT 8.2 /CUMM (4.8-10.8)
--- NOTE | 2017-05-07 08:25 | PN- Housestaff ---
HALINA BRAR 05/07/17 0825: Subjective Follow-up For: Right 5th toe chronic nonhealing ulcer/osteomyelitis s/p open incision and drainage, open partial fifth ray resection right foot, excisional debridement diabetes mellitus Peripheral arterial disease Complaints: pain scale (0-10) Tele-Events Since Last Visit: Not on telemetry monitoring Subjective: Patient was seen and examined this morning. He is alert awake and oriented to time place and person. No acute events noticed overnight. He does report 4 out of 10 pain right foot. s/p excisional debridement- day3 Denies any fever, chills. Denies any abdomen pain nausea vomiting. Vitals were stable Review of Systems Constitutional: Reports: see HPI. Objective Last 24 Hrs of Vital Signs/I&O Vital Signs Date Time Temp Pulse Resp B/P B/P Pulse O2 O2 Flow FiO2 Mean Ox Delivery Rate 05/07 0806 98.2 71 18 120/80 05/07 0805 98.2 71 18 120/80 05/07 0805 98.2 71 18 120/80 05/07 0804 98.2 71 18 120/80 05/07 0658 98.2 71 18 120/80 94 Room Air 05/06 2314 98.0 95 18 124/72 97 Room Air 05/06 1458 98.0 70 18 104/70 95 Room Air Intake & Output 05/07 1600 05/07 0800 05/07 0000 Intake Total 800 200 480 Output Total 800 600 Balance 0 200 -120 Intake, Oral 800 200 480 Number 3 Bowel Movements Output, Urine 800 600 Patient 117.934 kg Weight Physical Exam General Appearance: Alert, Oriented X3, Cooperative, No Acute Distress Skin: RIGHT 5TH TOE REMOVAL, DRESSING INTACT HEENT: Atraumatic, PERRLA, EOMI Neck: Supple, No JVD Lymphatic: Cervical nl Cardiovascular: Normal S1, Normal S2, No Murmurs Lungs: Normal Air Movement Abdomen: Normal Bowel Sounds, Soft, No Tenderness Neurological: Strength at 5/5 X4 Ext, Normal Tone, Sensation Intact Extremities: No Clubbing, No Cyanosis, No Edema Vascular: Normal Pulses, Pulses Symmetrical Current Medications: Current Medications Sig/Chacha Start time Last Medication Dose Route Stop Time Status Admin Acetaminophen 650 MG Q6P PRN 05/03 0300 AC PO Allopurinol 300 MG QAM 05/03 1000 AC 05/07 PO 0806 Aspirin Buffered 81 MG QAM 05/05 1000 AC 05/07 PO 0805 Atorvastatin Calcium 20 MG QAM 05/03 1000 AC 05/07 PO 0805 Bupropion HCl 150 MG DAILY 05/03 1000 AC 05/07 PO 0806 Carvedilol 25 MG QAM 05/03 1000 AC 05/07 PO 0805 Cefazolin Sodium 1,000 MG IQ8 05/06 1700 DC 05/07 IV 0756 Clopidogrel Bisulfate 75 MG QAM 05/05 1000 AC 05/07 PO 0806 Diphenhydramine HCl 25 MG ONCE ONE 05/07 1045 DC IV 05/07 1046 Diphenhydramine HCl 50 MG QPM 05/03 2200 AC 05/06 PO 2049 Docusate Sodium 100 MG DAILY NEEDED PRN 05/04 190 AC PO Escitalopram Oxalate 5 MG QPM 05/03 2200 AC 05/06 PO 2051 Finasteride 5 MG QPM 05/03 2200 AC 05/06 PO 2051 Furosemide 40 MG QAM 05/05 1000 AC 05/07 PO 0805 Heparin Sodium 5,000 UNIT Q8 05/03 0600 AC 05/07 (Porcine) SC 0530 Hydroxyzine HCl 25 MG AT BEDTIME NEED.. 05/03 0345 AC 05/07 PO 0042 Insulin Aspart 0 TIDAC/HS 05/04 1445 AC 05/07 SC 1227 Insulin Detemir 16 UNITS BID 05/04 1000 AC 05/07 SC 0802 Isosorbide 120 MG QAM 05/03 1000 AC 05/07 Mononitrate PO 0804 Lisinopril 5 MG QAM 05/05 1000 AC 05/07 PO 0806 Mirabegron 50 MG DAILY 05/03 1000 AC 05/07 PO 0804 Multivitamins 1 TAB DAILY 05/03 1000 AC 05/07 PO 0806 Niacin 500 MG 22005/03 220 AC 05/06 PO 2052 Oxycodone/ 1 TAB Q6P PRN 05/03 0300 AC 05/06 Acetaminophen PO 09 Oxycodone/ 2 TAB Q6P PRN 05/03 0300 AC 05/06 Acetaminophen PO 225 Polyethylene Glycol 17 GM DAILY PRN 05/04 1900 AC PO Polyethylene Glycol 17 GM AT BEDTIME 05/03 2200 AC PO Pregabalin 150 MG QPM 05/03 2200 AC 05/06 PO 2054 Pregabalin 100 MG QAM 05/03 1000 AC 05/07 PO 08 Senna/Docusate Sodium 1 TAB AT BEDTIME 05/03 2200 AC 05/03 PO 2100 Tamsulosin HCl 0.4 MG DAILY 05/03 1000 AC 05/07 PO 08 Trazodone HCl 25 MG QPM 05/03 2200 AC 05/06 PO 2049 Vancomycin HCl 1,500 MG DAILY@1400 05/05 1400 AC 05/06 Sodium Chloride 250 ML IV 1738 Last 24 Hrs of Lab/Ryan Results Last 24 Hrs of Labs/Mics: Laboratory Tests 05/07/17 1325: Vancomycin Trough Pending 05/07/17627: Anion Gap 9, Estimated GFR 42 L, BUN/Creatinine Ratio 16.3, CBC w Diff NO MAN DIFF REQ, RBC 3.81 L, MCV 93.8, MCH 30.8, RDW 14.5, MPV 7.8, Gran % 63.5, Lymphocytes % 19.0 L, Monocytes % 7.8, Eosinophils % 9.1 H, Basophils % 0.6, Absolute Granulocytes 5.2, Absolute Lymphocytes 1.6, Absolute Monocytes 0.6, Absolute Eosinophils 0.7, Absolute Basophils 0, PUBS MCHC 32.9 L Assessment/Plan Assessment: 76 yo obese M with h/o T2DM on insulin pump, peripheral neuropathy, CAD s/p CABG and stents, PVD s/p angioplasty, CRISTINE on CPAP, diverticulitis s/p colon resection , GERD, CKD stage 3B, depression, gout, osteomyelitis of right foot requiring amputation of 2nd to 4th toes, recently admitted to [facility] (04/12 04/16) for right 5th toe cellulitis with chronic nonhealing ulcer (MRI negative for osteomyelitis) treated with antibiotics, is sent in from the Wound center by Dr. Samaniego for concerns of 5th toe osteomyelitis given nonhealing wound now with purulent discharge for the past 3 days. Vitals on admission stable. Pertinent labs on admission-WBC 11.8, hemoglobin 13 and hematocrit 40. BUN 30 and creatinine 1.5 ESR 45 INR 1.21 LACTIC Acid 1 arterial Doppler IMPRESSION: Abnormal waveforms throughout the lower extremities as described. With the exception of the right anterior tibial artery, the below-knee vessels were not visualized either secondary to occlusion or significantly slow flow. Findings are consistent with significant underlying peripheral arterial disease. There is also probable distal superficial femoral and popliteal disease bilaterally. Consider dedicated CTA for further anatomical detail, if clinically indicated. Venous Doppler IMPRESSION: No evidence of deep venous thrombosis involving the lower extremities. Small left-sided Muller's cyst. FOOT MRi IMPRESSION: There has been a change since the prior study, with new abnormal signal involving the fifth digit phalanges consistent with osteomyelitis. Edema throughout the soft tissues with no focal collection identified Right fifth toe osteomyelitis Patient is sent in from the Wound center by Dr. Samaniego for concerns of 5th toe osteomyelitis given nonhealing wound now with purulent discharge for the past 3 days. Patient has history of osteomyelitis of right foot requiring amputation of 2nd to 4th toes, recently admitted to [facility] (04/12 04/16) for right 5th toe cellulitis with chronic nonhealing ulcer (MRI negative for osteomyelitis) treated with antibiotics. Foot MRI (March 2017): diffuse moderate subcutaneous edema, no abscess, no definite osteomyelitis. * MRI FOOT suggestive of fifth digit osteomyelitis * Admitted to telemetry as general medicine hold * Monitor vitals closely every shift * Monitor for fever, chills, leukocytosis, worsening erythema and discharge * Closely monitor for distal pulses * Patient WENT FOR debridement and bone biopsy -05/04/2017-postop day3 * He is status post open incision and drainage deep to the deep fascia with exposure of the extensor and flexor tendon and tendon sheath multiple sites right foot, open partial fifth ray resection right foot, excisional debridement * Will follow-up or cultures-staph aureus, enterococcus, alpha strep * Blood cultures negative so far * Started IV vancomycin 1500 mg every day- day3 * Discontinued cefazolin * Pain management * Venous Doppler ruled out deep vein thrombosis Peripheral artery disease With the exception of the right anterior tibial artery, the below-knee vessels were not visualized either secondary to occlusion or significantly slow flow. Findings are consistent with significant underlying peripheral arterialdisease. There is also probable distal superficial femoral and popliteal disease bilaterally. Patient had vascular intervention angiogram of his right leg 2 months ago at [facility] and he had a cardiac arrest during the procedure requiring resuscitation, no revascularization procedure was done for the right leg. * Vascular surgeon on board * Cardiology consulted for Cardiac clearance- Cleared from cardiac standpoint * He is going to need right leg angiogram soon- mostly outpatient basis gout Continue allopurinol 300 mg daily Coronary artery disease Status post CABG and stents Usually takes aspirin and Plavix at home Hyperlipidemia Lipitor 20 daily Depression Continue Lexapro and bupropion daily Hypertension Continue carvedilol and lisinopril Urine retention Continue finasteride, tamsulosin Fluid retention Continue home dose of Lasix 40 daily Peripheral neuropathy Continue pregabalin Insomnia Continue trazodone Type 2 diabetes mellitus He is on insulin pump at home. Insulin pump discontinued Endocrinology on board Accu-Cheks every 6 hours Levemir twice daily NovoLog sliding scale Obstructive sleep apnea On CPAP [id number] baseline creatinine 1.3 cr- 1.6 now DVT prophylaxis subcutaneous heparin DNR/DNI Pain pathway Problem List: 1. Osteomyelitis Pain Ratin Pain Location: RIGHT FOOT Pain Goal: Remain pain free Pain Plan: TYLINOL Tomorrow's Labs & Rationales: CBC BEP JAYLEN JAMA 05/07/17 1204: Attending MD Review Statement Attending Statement Attending MD Statement: examined this patient, discuss w/resident/PA/SWITCHBOARD OPERATOR, agreed w/resident/PA/SWITCHBOARD OPERATOR, discussed with family, reviewed EMR data (avail), discussed with nursing, discussed with case mgmt, reviewed images, amended to note Attending Assessment/Plan: Patient here for right toe osteomyeliotis and chronic severe PVD. Cardiology, vascular surgery, podiatry and ID consulted as multidisciplanry approach. Podiatry recommend amputation of toe. USG of arterial lower extremity shows occlusion below knee with no acute leg ischemia. Vascular surgery planning angiogram i/p vs o/p. Cardiology risk startification done, recent nuclear stress test normal, s/p lower extremity debridement. ECHO pending. Held HUMA/diuretics to prevent contast induced nephropathy for angiogram and gentle hydration. Patient does have CKD and risk from study. Abx as per ID and podiatry. Patient is low to moderate risk for procedure. Patient is hemodynamically stable for OR. gi/dvt prophyalxis.
--- NOTE | 2017-05-07 12:11 | PN- Infect Dx ---
Subjective Subjective: Afebrile. He complains of pain in the right foot Objective Last 24 Hrs of Vital Signs/I&O Vital Signs Date Time Temp Pulse Resp B/P B/P Pulse O2 O2 Flow FiO2 Mean Ox Delivery Rate 05/07 0806 98.2 71 18 120/80 05/07 0805 98.2 71 18 120/80 05/07 0805 98.2 71 18 120/80 05/07 0804 98.2 71 18 120/80 05/07 0658 98.2 71 18 12080 94 Room Air 05/06 2314 98.0 95 18 124/72 97 Room Air 05/06 1458 98.0 70 18 104/70 95 Room Air Intake & Output 05/07 1600 05/07 0800 05/07 0000 Intake Total 200 480 Output Total 600 Balance 200 -120 Intake, Oral 200 480 Number 3 Bowel Movements Output, Urine 600 Physical Exam Other Physical Findings: He appears comfortable in no acute distress Lungs are clear Heart regular rhythm with no murmur Extremities right foot dressing intact Results Last 24 Hours of Lab Results: Laboratory Tests 05/07 628 Chemistry Sodium (137 - 145 mmol/L) 138 Potassium (3.5 - 5.1 mmol/L) 4.0 Chloride (98 - 107 mmol/L) 104 Carbon Dioxide (22 - 30 mmol/L) 25 Anion Gap (5 - 16) 9 BUN (9 - 20 mg/dL) 26 H Creatinine (0.7 - 1.2 mg/dL) 1.6 H Estimated GFR (>60 ml/min) 42 L BUN/Creatinine Ratio (7 - 25 %) 16.3 Hematology CBC w Diff NO MAN DIFF REQ WBC (4.8 - 10.8 /CUMM) 8.2 RBC (4.70 - 6.10 /CUMM) 3.81 L Hgb (14.0 - 18.0 G/DL) 11.7 L Hct (42 - 52 %) 35.7 L MCV (80.0 - 94.0 FL) 93.8 MCH (27.0 - 31.0 PG) 30.8 RDW (11.5 - 14.5 %) 14.5 Plt Count (130 - 400 /CUMM) 201 MPV (7.4 - 10.4 FL) 7.8 Gran % (42.2 - 75.2 %) 63.5 Lymphocytes % (20.5 - 51.1 %) 19.0 L Monocytes % (1.7 - 9.3 %) 7.8 Eosinophils % (0 - 5 %) 9.1 H Basophils % (0.0 - 2.0 %) 0.6 Absolute Granulocytes (1.4 - 6.5 /CUMM) 5.2 Absolute Lymphocytes (1.2 - 3.4 /CUMM) 1.6 Absolute Monocytes (0.10 - 0.60 /CUMM) 0.6 Absolute Eosinophils (0.0 - 0.7 /CUMM) 0.7 Absolute Basophils (0.0 - 0.2 /CUMM) 0 PUBS MCHC (33.0 - 37.0 G/DL) 32.9 L Last 24 Hours of Ryan Results: OR culture labeled right fifth toe positive for Enterococcus sensitive to Ampicillin, MSSA and alpha strep Assessment/Plan Impression: 76-year-old manwith multiple medical issues including coronary artery disease, status post stenting and CABG, cardiac arrest 2 mos ago, diabetes, neuropathy, PVD, hypertension, gout, arthritis, and diverticulitis admitted to the hospital on 05/02/17 with a nonhealing ulcer of the right foot, found on MRI to have osteomyelitis of the right fifth toe now status post open partial fifth ray resection of the right foot, with the OR culture positive for MSSA, Enterococcus and alpha strep. His temperature and white blood cell count are normal on Vancomycin and Cefazolin, but his antibiotic regimen can be adjusted based on his cultures. Note his creatinine has increased over the last 2 days and his Vancomycin dosing will need to be monitored closely. He is scheduled for a return to the OR in the a.m. for wound closure but have discussed with Podiatry, who feels that he should receive a prolonged course of IV antibiotics for residual osteomyelitis. He has been evaluated by Vascular surgery, but further evaluation, for example angiogram, is apparently to be deferred at this time. Suggestion: 1. Await return to the OR in the a.m. for wound closure 2. Follow up final OR culture 3. Continue close monitoring of his creatinine 4. Discontinue Cefazolin 5. Continue Vancomycin at the current dose pending above
[2017-05-07 16:00] VITALS: BP 132/70
--- NOTE | 2017-05-07 18:59 | PN- Cardiology ---
Subjective Subjective: T the patient complains of pain at his surgical site. No chest pain. No shortness of breath. No diaphoresis. No palpitations Objective Vital Signs and I&Os Vital Signs Date Time Temp Pulse Resp B/P B/P Pulse O2 O2 Flow FiO2 Mean Ox Delivery Rate 05/07 1600 98.3 72 16 132/70 97 Room Air 05/07 0806 98.2 71 18 120/80 05/07 0805 98.2 71 18 120/80 05/07 0805 98.2 71 18 120/80 05/07 0804 98.2 71 18 120/80 05/07 0658 98.2 71 18 120/80 94 Room Air 05/06 2314 98.0 95 18 124/72 97 Room Air Intake & Output 05/07 1600 05/07 0800 05/07 0000 05/06 1600 05/06 0800 05/06 0000 Intake Total 800 200 480 Output Total 800 600 Balance 0 200 -120 Intake, Oral 800 200 480 Number 2 1 1 2 Bowel Movements Output, Urine 800 600 Patient 260 lb Weight Physical Exam: Gen: The patient is in no acute distress HEENT: Normal nose, ears, and oropharynx. Pupils equal bilaterally. Conjunctiva normal. Neck: Supple with no JVD, no masses, and no thyromegaly Lungs: Clear to auscultation with normal respiratory effort Heart: RRR, S1, S2, no murmurs. No peripheral edema, 2+ pulses in the lower extremities bilaterally Abdomen: Soft, nontender, no masses. No hepatomegaly. No splenomegaly Extremities: No clubbing or cyanosis. Normal muscle strength in the upper and lower extremities Skin: Normal skin turgor with right foot ulcer Neuro: Cranial nerves intact. Sensation intact Current Medications: Current Medications Sig/Chacha Start time Last Medication Dose Route Stop Time Status Admin Acetaminophen 650 MG Q6P PRN 05/03 0300 AC PO Allopurinol 300 MG QAM 05/03 1000 AC 05/07 PO 08 Aspirin Buffered 81 MG QAM 05/05 1000 AC 05/07 PO 08 Atorvastatin Calcium 20 MG QAM 05/03 1000 AC 05/07 PO 0805 Bupropion HCl 150 MG DAILY 05/03 1000 AC 05/07 PO 0806 Carvedilol 25 MG QAM 05/03 1000 AC 05/07 PO 0805 Cefazolin Sodium 1,000 MG IQ8 05/06 1700 DC 05/07 IV 0756 Clopidogrel Bisulfate 75 MG QAM 05/05 1000 AC 05/07 PO 0806 Dextrose/Sodium 1,000 ML Q13H 05/08 0100 AC Chloride IV 05/08 1359 Diphenhydramine HCl 25 MG ONCE ONE 05/07 1045 DC IV 05/07 1046 Diphenhydramine HCl 50 MG QPM 05/03 2200 AC 05/06 PO 205 Docusate Sodium 100 MG DAILY NEEDED PRN 05/04 1900 AC PO Escitalopram Oxalate 5 MG QPM 05/03 2200 AC 05/06 PO 205 Finasteride 5 MG QPM 05/03 2200 AC 05/06 PO 205 Furosemide 40 MG QAM 05/05 1000 AC 05/07 PO 0805 Heparin Sodium 5,000 UNIT Q8 05/03 0600 AC 05/07 (Porcine) SC 1518 Hydroxyzine HCl 25 MG AT BEDTIME NEED.. 05/03 0345 AC 05/07 PO 0042 Insulin Aspart 0 TIDAC/HS 05/04 1445 AC 05/07 SC 1751 Insulin Detemir 16 UNITS BID 05/04 1000 AC 05/07 SC 0802 Isosorbide 120 MG QAM 05/03 1000 AC 05/07 Mononitrate PO 0804 Lisinopril 5 MG QAM 05/05 1000 AC 05/07 PO 0806 Mirabegron 50 MG DAILY 05/03 1000 AC 05/07 PO 0804 Multivitamins 1 TAB DAILY 05/03 1000 AC 05/07 PO 0806 Niacin 500 MG 05/03 AC 05/06 PO 205 Oxycodone/ 1 TAB Q6P PRN 05/03 0300 AC 05/06 Acetaminophen PO 0943 Oxycodone/ 2 TAB Q6P PRN 05/03 0300 AC 05/07 Acetaminophen PO 1514 Polyethylene Glycol 17 GM DAILY PRN 05/04 1900 AC PO Polyethylene Glycol 17 GM AT BEDTIME 05/03 2200 AC PO Pregabalin 150 MG QPM 05/03 220 AC 05/06 PO 205 Pregabalin 100 MG QAM 05/03 1000 AC 05/07 PO 0803 Senna/Docusate Sodium 1 TAB AT BEDTIME 05/03 2200 AC 05/03 PO 2101 Tamsulosin HCl 0.4 MG DAILY 05/03 1000 AC 05/07 PO 0805 Trazodone HCl 25 MG QPM 05/03 2200 AC 05/06 PO 2049 Vancomycin HCl 1,500 MG DAILY@1400 05/05 1400 AC 05/07 Sodium Chloride 250 ML IV 1636 Results Last 48 Hrs of Labs/Mics: Laboratory Tests 05/07/17 1325: Vancomycin Trough 9.3 L 05/07/17 0628: Anion Gap 9, Estimated GFR 42 L, BUN/Creatinine Ratio 16.3, CBC w Diff NO MAN DIFF REQ, RBC 3.81 L, MCV 93.8, MCH 30.8, RDW 14.5, MPV 7.8, Gran % 63.5, Lymphocytes % 19.0 L, Monocytes % 7.8, Eosinophils % 9.1 H, Basophils % 0.6, Absolute Granulocytes 5.2, Absolute Lymphocytes 1.6, Absolute Monocytes 0.6, Absolute Eosinophils 0.7, Absolute Basophils 0, PUBS MCHC 32.9 L 05/06/17 0715: Anion Gap 8, Estimated GFR 49 L, BUN/Creatinine Ratio 16.4, CBC w Diff NO MAN DIFF REQ, RBC 3.99 L, MCV 94.1 H, MCH 30.8, RDW 14.8 H, MPV 7.5, Gran % 71.6, Lymphocytes % 13.3 L, Monocytes % 8.4, Eosinophils % 6.1 H, Basophils % 0.6, Absolute Granulocytes 7.3 H, Absolute Lymphocytes 1.3, Absolute Monocytes 0.8 H, Absolute Eosinophils 0.6, Absolute Basophils 0.1, PUBS MCHC 32.7 L, Vancomycin Trough 7.1 L Assessment/Plan Assessment/Plan Assessment: 1. Diabetes mellitus 2. CAD, status post CABG 3. Peripheral child disease 4. Right foot infection with possible osteomyelitis 5. Recent episode of prolonged hypotension during vascular procedure 7. Recent normal nuclear stress test Plan: * Continue current cardiac medications. * Cleared for surgery from cardiac standpoint. Monitor for perioperative hypotension given recent history of severe hypotension during angiogram * Continue telemetry? Yes
[2017-05-07 23:29] VITALS: BP 122/78
--- NOTE | 2017-05-08 07:25 | PN- Diabetes ---
Assessment/Plan Assessment: 76-year-old male was sent to the hospital by Dr. Samaniego because of an infection in his right toe. The patient was on an insulin pump at home. She is currently nothing by mouth for surgery later today. He is on D5 half- normal saline at 75 mL/h. He received his last dose of Levemir at 10 PM last night. Plan: Suggest hold Levemir this morning. Would like to change to NovoLog every 4 hours for coverage while he is nothing by mouth. While the patient is nothing by mouth we can order NovoLog every 4 hours. Sliding-scale NovoLog should be less than 150 give no insulin, 151-200 give 2 units NovoLog, 201-250 give 3 units NovoLog, 251-300 give 4 units NovoLog, 301- 350 give 5 units NovoLog, 351-400 give 6 units NovoLog. Continue to keep glucose in the IV. When the patient resumes eating we'll place back on previous mealtime insulin regimen Subjective Subjective: Feels okay Review of Systems Constitutional: Denies: chills, fever. Cardiovascular: Denies: chest pain. Respiratory: Denies: cough, short of breath. Gastrointestinal: Denies: nausea, vomiting. Objective Last 24 Hrs of Vital Signs/I&O Vital Signs Date Time Temp Pulse Resp B/P B/P Pulse O2 O2 Flow FiO2 Mean Ox Delivery Rate 05/08 0000 96 CPAP 05/079 98.2 81 16 122/78 95 Room Air 05/07 1600 98.3 72 16 132/70 97 Room Air 05/07 0806 98.2 71 18 120/80 05/07 0805 98.2 71 18 120/80 05/07 0805 98.2 71 18 120/80 05/07 0804 98.2 71 18 120/80 Intake & Output 05/08 0800 05/08 0000 05/07 1600 Intake Total 600 800 Output Total 800 Balance 600 0 Intake, Oral 600 800 Output, Urine 800 Patient 260 lb Weight Vital Signs Date Time Temp Pulse Resp B/P B/P Pulse O2 O2 Flow FiO2 Mean Ox Delivery Rate 05/08 0000 96 CPAP 05/079 98.2 81 16 122/78 95 Room Air 05/07 1600 98.3 72 16 132/70 97 Room Air 05/07 0806 98.2 71 18 120/80 05/07 0805 98.2 71 18 120/80 05/07 0805 98.2 71 18 120/80 05/07 0804 98.2 71 18 120/80 Intake & Output 05/08 0800 05/08 0000 05/07 1600 Intake Total 600 800 Output Total 800 Balance 600 0 Intake, Oral 600 800 Output, Urine 800 Patient 260 lb Weight Physical Exam General Appearance: alert, awake, comfortable Head: normal appearance Neck: normal inspection Respiratory: normal breath sounds Cardiovascular: regular rate/rhythm Abdomen: normal bowel sounds
[2017-05-08 07:28] VITALS: BP 130/70
--- NOTE | 2017-05-08 08:09 | PN- Housestaff ---
HALINA BRAR 05/08/17 0809: Subjective Follow-up For: Right 5th toe chronic nonhealing ulcer/osteomyelitis s/p open incision and drainage, open partial fifth ray resection right foot, excisional debridement diabetes mellitus Peripheral arterial disease Complaints: pain scale (0-10) Tele-Events Since Last Visit: Not on telemetry monitoring Subjective: Patient was seen and examined this morning. He is alert awake and oriented to time place and person. No acute events noticed overnight. He does report very mild pain right foot. s/p excisional debridement- day4 Denies any fever, chills. Denies any abdomen pain nausea vomiting. Vitals were stable patient is npo - waiting for wound closure Review of Systems Constitutional: Reports: see HPI. Objective Last 24 Hrs of Vital Signs/I&O Vital Signs Date Time Temp Pulse Resp B/P B/P Pulse O2 O2 Flow FiO2 Mean Ox Delivery Rate 05/08 0728 98.3 73 16 130/70 93 Room Air 05/08 0000 96 CPAP 05/07 2329 98.2 81 16 122/78 95 Room Air 05/07 1600 98.3 72 16 132/70 97 Room Air Intake & Output 05/08 1600 05/08 0800 05/08 0000 Intake Total 600 Output Total Balance 600 Intake, Oral 600 Physical Exam General Appearance: Alert, Oriented X3, Cooperative, No Acute Distress Skin: right foot dressing intact HEENT: Atraumatic, PERRLA, EOMI, Mucous Membr. moist/pink Neck: Supple, No JVD Lymphatic: Cervical nl Cardiovascular: Normal S1, Normal S2, No Murmurs Lungs: Normal Air Movement Abdomen: Normal Bowel Sounds, Soft, No Tenderness, No Hepatospenomegaly Neurological: Strength at 5/5 X4 Ext, Normal Tone, Sensation Intact Extremities: No Clubbing, No Cyanosis, No Edema Vascular: Pulses Symmetrical Current Medications: Current Medications Sig/Chacha Start time Last Medication Dose Route Stop Time Status Admin Acetaminophen 650 MG Q6P PRN 05/03 0300 AC PO Allopurinol 300 MG QAM 05/03 1000 AC 05/07 PO 08 Aspirin Buffered 81 MG QAM 05/05 1000 AC 05/07 PO 08 Atorvastatin Calcium 20 MG QAM 05/03 1000 AC 05/07 PO 0805 Bupropion HCl 150 MG DAILY 05/03 1000 AC 05/07 PO 08 Carvedilol 25 MG QAM 05/03 1000 AC 05/07 PO 0805 Cefazolin Sodium 1,000 MG IQ8 05/06 1700 DC 05/07 IV 0756 Clopidogrel Bisulfate 75 MG QAM 05/05 1000 AC 05/07 PO 0806 Dextrose/Sodium 1,000 ML Q13H 05/08 0100 AC 05/08 Chloride IV 05/08 1359 0340 Diphenhydramine HCl 25 MG ONCE ONE 05/07 1045 DC IV 05/07 1046 Diphenhydramine HCl 50 MG QPM 05/03 2200 AC 05/07 PO 2147 Docusate Sodium 100 MG DAILY NEEDED PRN 05/04 1900 AC PO Escitalopram Oxalate 5 MG QPM 05/03 2200 AC 05/07 PO 2147 Finasteride 5 MG QPM 05/03 2200 AC 05/07 PO 2147 Furosemide 40 MG QAM 05/05 1000 AC 05/07 PO 0805 Heparin Sodium 5,000 UNIT Q8 05/03 0600 AC 05/08 (Porcine) SC 0512 Hydroxyzine HCl 25 MG AT BEDTIME NEED.. 05/03 0345 AC 05/07 PO 0042 Insulin Aspart 0 Q4 05/08 0815 DC SC Insulin Aspart 0 Q4H 05/08 0815 AC SC Insulin Aspart 0 TIDAC/HS 05/04 1445 DC 05/07 SC 2148 Insulin Detemir 16 UNITS BID 05/04 1000 AC 05/07 SC 2146 Insulin Human Regular 0 Q6 05/08 0600 DC SC Isosorbide 120 MG QAM 05/03 1000 AC 05/07 Mononitrate PO 0804 Lisinopril 5 MG QAM 05/05 1000 AC 05/07 PO 0806 Mirabegron 50 MG DAILY 05/03 1000 AC 05/07 PO 0804 Multivitamins 1 TAB DAILY 05/03 1000 AC 05/07 PO 0806 Niacin 500 MG 2200 05/03 2200 AC 05/07 PO 2147 Oxycodone/ 1 TAB .STK-MED ONE 05/07 2155 DC Acetaminophen PO 05/07 2156 Oxycodone/ 1 TAB Q6P PRN 05/03 0300 AC 05/06 Acetaminophen PO 0943 Oxycodone/ 2 TAB Q6P PRN 05/03 0300 AC 05/08 Acetaminophen PO 0512 Polyethylene Glycol 17 GM DAILY PRN 05/04 1900 AC PO Polyethylene Glycol 17 GM AT BEDTIME 05/03 2200 AC PO Pregabalin 150 MG QPM 05/03 2200 AC 05/07 PO 214 Pregabalin 100 MG QAM 05/03 1000 AC 05/07 PO 0803 Senna/Docusate Sodium 1 TAB AT BEDTIME 05/03 2200 AC 05/03 PO 2101 Tamsulosin HCl 0.4 MG DAILY 05/03 1000 AC 05/07 PO 0805 Trazodone HCl 25 MG QPM 05/03 2200 AC 05/07 PO 214 Vancomycin HCl 1,500 MG DAILY@1400 05/05 1400 AC 05/07 Sodium Chloride 250 ML IV 1636 Last 24 Hrs of Lab/Ryan Results Last 24 Hrs of Labs/Mics: Laboratory Tests 05/08/17 0639: Sodium Pending, Potassium Pending, Chloride Pending, Carbon Dioxide Pending, Anion Gap Pending, BUN Pending, Creatinine Pending, BUN/Creatinine Ratio Pending 05/07/17 1325: Vancomycin Trough 9.3 L Assessment/Plan Assessment: 76 yo obese M with h/o T2DM on insulin pump, peripheral neuropathy, CAD s/p CABG and stents, PVD s/p angioplasty, CRISTINE on CPAP, diverticulitis s/p colon resection , GERD, CKD stage 3B, depression, gout, osteomyelitis of right foot requiring amputation of 2nd to 4th toes, recently admitted to [place] (04/12 04/16) for right 5th toe cellulitis with chronic nonhealing ulcer (MRI negative for osteomyelitis) treated with antibiotics, is sent in from the Wound center by Dr. Samaniego for concerns of 5th toe osteomyelitis given nonhealing wound now with purulent discharge for the past 3 days. Vitals on admission stable. Pertinent labs on admission-WBC 11.8, hemoglobin 13 and hematocrit 40. BUN 30 and creatinine 1.5 ESR 45 INR 1.21 LACTIC Acid 1 arterial Doppler IMPRESSION: Abnormal waveforms throughout the lower extremities as described. With the exception of the right anterior tibial artery, the below-knee vessels were not visualized either secondary to occlusion or significantly slow flow. Findings are consistent with significant underlying peripheral arterial disease. There is also probable distal superficial femoral and popliteal disease bilaterally. Consider dedicated CTA for further anatomical detail, if clinically indicated. Venous Doppler IMPRESSION: No evidence of deep venous thrombosis involving the lower extremities. Small left-sided Muller's cyst. FOOT MRi IMPRESSION: There has been a change since the prior study, with new abnormal signal involving the fifth digit phalanges consistent with osteomyelitis. Edema throughout the soft tissues with no focal collection identified Right fifth toe osteomyelitis Patient is sent in from the Wound center by Dr. Samaniego for concerns of 5th toe osteomyelitis given nonhealing wound now with purulent discharge for the past 3 days. Patient has history of osteomyelitis of right foot requiring amputation of 2nd to 4th toes, recently admitted to [place] (04/12 04/16) for right 5th toe cellulitis with chronic nonhealing ulcer (MRI negative for osteomyelitis) treated with antibiotics. Foot MRI (March 2017): diffuse moderate subcutaneous edema, no abscess, no definite osteomyelitis. * MRI FOOT suggestive of fifth digit osteomyelitis * Admitted to telemetry as general medicine hold * Monitor vitals closely every shift * Monitor for fever, chills, leukocytosis, worsening erythema and discharge * Closely monitor for distal pulses * Patient WENT FOR debridement and bone biopsy -05/04/2017-postop day4 * He is status post open incision and drainage deep to the deep fascia with exposure of the extensor and flexor tendon and tendon sheath multiple sites right foot, open partial fifth ray resection right foot, excisional debridement * follow-up or cultures-staph aureus, enterococcus, alpha strep * Blood cultures negative so far * Started IV vancomycin 1500 mg every day- day4 * Discontinued cefazolin * Pain management * Venous Doppler ruled out deep vein thrombosis Peripheral artery disease With the exception of the right anterior tibial artery, the below-knee vessels were not visualized either secondary to occlusion or significantly slow flow. Findings are consistent with significant underlying peripheral arterialdisease. There is also probable distal superficial femoral and popliteal disease bilaterally. Patient had vascular intervention angiogram of his right leg 2 months ago at [facility] and he had a cardiac arrest during the procedure requiring resuscitation, no revascularization procedure was done for the right leg. * Vascular surgeon on board * Cardiology consulted for Cardiac clearance- Cleared from cardiac standpoint * He is going to need right leg angiogram soon- mostly outpatient basis gout Continue allopurinol 300 mg daily Coronary artery disease Status post CABG and stents Usually takes aspirin and Plavix at home Hyperlipidemia Lipitor 20 daily Depression Continue Lexapro and bupropion daily Hypertension Continue carvedilol and lisinopril Urine retention Continue finasteride, tamsulosin Fluid retention Continue home dose of Lasix 40 daily Peripheral neuropathy Continue pregabalin Insomnia Continue trazodone Type 2 diabetes mellitus He is on insulin pump at home. Insulin pump discontinued Endocrinology on board Accu-Cheks every 6 hours Levemir twice daily NovoLog sliding scale Obstructive sleep apnea On CPAP [id number] [id number] baseline creatinine 1.3 cr- 1.6 now DVT prophylaxis subcutaneous heparin DNR/DNI Pain pathway Problem List: 1. Osteomyelitis Pain Ratin Pain Location: right foot Pain Goal: Remain pain free Pain Plan: tylinol Tomorrow's Labs & Rationales: cbc bep JAYLEN JAMA 05/08/17 1019: Attending MD Review Statement Attending Statement Attending MD Statement: examined this patient, discuss w/resident/PA/WALL INSULATION SPRAYER, agreed w/resident/PA/WALL INSULATION SPRAYER, discussed with family, reviewed EMR data (avail), discussed with nursing, discussed with case mgmt, reviewed images, amended to note Attending Assessment/Plan: Patient here for right toe osteomyeliotis and chronic severe PVD. Cardiology, vascular surgery, podiatry and ID consulted as multidisciplanry approach. Podiatry recommend amputation of toe. USG of arterial lower extremity shows occlusion below knee with no acute leg ischemia. Vascular surgery planning angiogram as o/p due to OR schedule issues. Cardiology risk startification done, recent nuclear stress test normal. Held HUMA/diuretics to prevent contast induced nephropathy for angiogram, BP controlled. Patient does have CKD with stable creatinine, Abx as per ID and podiatry. PICC line placement today, on vancomycin as per ID, Patient is going for revison today as per Dr Paredes. Patient is low to moderate risk for procedure. Anticipate d/c planning next 24-48 hrs. PT EVAL. gi/dvt prophyalxis full code
--- NOTE | 2017-05-08 10:59 | RADIOLOGY REPORT ---
EXAMINATION: XR PORTABLE CHEST CLINICAL INFORMATION: Long-term antibiotics. PICC line placement. COMPARISON: 10/13/2015 TECHNIQUE: Portable frontal view of the chest was obtained. FINDINGS: Median sternotomy wires are noted with fracture of multiple wires. There is a right-sided PICC line which terminates over the mid SVC. Lungs are well expanded. No consolidation, edema, or effusion. Minimal basilar atelectasis. No pneumothorax. The cardiomediastinal silhouette is unchanged. IMPRESSION: Right-sided PICC line terminating over the mid SVC.
--- NOTE | 2017-05-08 13:59 | Patient Discharge Instructions ---
Discharge Instructions General Discharge Information You were seen/treated for: Right 5th toe chronic nonhealing ulcer/osteomyelitis s/p open incision and drainage, open partial fifth ray resection right foot, excisional debridement diabetes mellitus s/p revision surgery Peripheral arterial disease Watch for these problems: fever/chills increased worsening of foot pain, bleed or discharge Special Instructions: Follow-up with primary care physician within 1 week after discharge Follow up with vascular surgeon in one week after discharge. You will require an outpatient angiogram soon for peripheral artery disease. Please have weekly labwork done for CBC,ESR,BEP, and Vanc trough levels. Follow-up with Dr. Raymundo concert pianist in 1 week after discharge Follow-up with the Richar Wiggins MD picu nurse in 1-2 weeks after discharge Follow-up with infection disease specialist in 1-2 weeks after discharge Follow up with game farm supervisor in 1-2 weeks after discharge Diet Recommended Diet: Diabetic Activity Full Activity/No Limits: Yes Acute Coronary Syndrome Inclusion Criteria At DC or during hospital stay patient has or had the following: ACS DIAGNOSIS No Discharge Core Measures Meds if any: Prescribed or Continued at Discharge Meds if any: NOT Prescribed or Continued at Discharge Congestive Heart Failure Inclusion Criteria At DC or during hospital stay patient has or had the following: CHF DIAGNOSIS No Discharge Core Measures Meds if any: Prescribed or Continued at Discharge Meds if any: NOT Prescribed or Continued at Discharge Cerebrovascular accident Inclusion Criteria At DC or during hospital stay patient has or had the following: CVA/TIA Diagnosis No Discharge Core Measures Meds if any: Prescribed or Continued at Discharge Meds if any: NOT Prescribed or Continued at Discharge Venous thromboembolism Inclusion Criteria VTE Diagnosis No VTE Type NONE VTE Confirmed by (Test) UNILATERAL VENOUS DOPPLER Discharge Core Measures - Per Current guidelines, there needs to be overlap - treatment for the first 5 days of Warfarin therapy. - If discharged on Warfarin prior to 5 days of - overlap therapy, the patient will need to be - assessed for post discharge needs including - *Post discharge parental anticoagulation - *Warfarin and/or parental anticoagulation education - *Follow up date to check INR post discharge At least 5 days overlap therapy as Inpatient No Meds if any: Prescribed or Continued at Discharge Note: Overlap Therapy is Warfarin and Anticoagulant Meds if any: NOT Prescribed or Continued at Discharge
--- NOTE | 2017-05-08 14:56 | Operative Report ---
Operative/Inv Procedure Report Surgery Date: 05/08/17 Name of Procedure: 1 open incision and drainage deep to the deep fascia with exposure of the extensor and flexor tendon and tendon sheath multiple sites right foot 2 delayed primary closure of open surgical wound right foot 3 partial revisional fifth ray resection right foot 4 intraoperative administration of ankle block anesthesia 5 excisional debridement Pre-Operative Diagnosis: 1 open necrotic wound right foot 2 osteomyelitis right foot 3 peripheral arterial disease Post-Operative Diagnosis: The same Estimated Blood Loss: less than 50ml Surgeon/Apparel Trimmings Sales Representative: PETER ELIAS DPM Anesthesia: moderate sedation, block Operative/Procedure Note Note: After obtaining informed consent the patient was brought to the operating room and placed on the operating table in the supine position. The patient was then securely fastened to the operating table utilizing safety belt. After administration of IV sedation, 10 mL of 0.5% Marcaine plain was infiltrated about the patient's right ankle. The right foot and ankle within scrubbed prepped and draped in usual aseptic manner. Attention was directed the lateral right foot, where a large full-thickness necrotic was identified. A 15 blade visualized sharply revised skin margins. The dissection was then carried down deep to the deep fascia with exposure of the extensor and flexor tendon and tendon sheath multiple sites, both proximally and distally. All necrotic nonviable infected tissue sharply evacuated from the wound bed. The dissection then continued down to the periosteum overlying the stump the fifth metatarsal, which was incised reflected. Sagittal bone saw was utilized to resect the distal 2 cm of exposed bone. This was sent for pathologic inspection. The open wound was then irrigated with 3 L of normal sterile saline infusion 50,000 units of bacitracin. Following this, the foot was redraped and surgeon's top was changed clean gloves. Any bleeding vessels identified were cauterized or ligated as encountered. A dorsal plantar flap was then developed with undermining, mobilization and advancement of the tissue towards the open portion the wound. The deep sides of the flaps were held centrally with 2-0 Vicryl. Subtenons tissues reapproximated 3-0 Vicryl and the skin edges reapproximated with 2-0 nylon. Incision was then dressed with Xeroform 4 x 4's Kerlix and an Qamar wrap. The patient was noted to tolerate both procedure and anesthesia well and the patient was transported from the operating room to recovery by sent stable best assess intact to both the dorsal and plantar flaps.
--- NOTE | 2017-05-08 15:32 | PN- Infect Dx ---
Subjective Subjective: Afebrile. He notes some discomfort in the right foot. Objective Last 24 Hrs of Vital Signs/I&O Vital Signs Date Time Temp Pulse Resp B/P B/P Pulse O2 O2 Flow FiO2 Mean Ox Delivery Rate 05/08 08 98.3 73 16 130/70 05/08 0820 98.3 73 16 130/70 05/08 0820 98.3 73 16 130/70 05/08 0820 98.3 73 16 130/70 05/08 0728 98.3 73 16 130/70 93 Room Air 05/08 0000 96 CPAP 05/07 2329 98.2 81 16 122/78 95 Room Air 05/07 1600 98.3 72 16 132/70 97 Room Air Intake & Output 05/08 1600 05/08 0800 05/08 0000 Intake Total 750 300 600 Output Total 900 275 Balance -150 25 600 Intake, IV 700 300 Intake, Oral 50 600 Output, Urine 900 275 Physical Exam Other Physical Findings: He appears comfortable in no acute distress Extremities right foot dressing intact; PICC in the right upper extremity in place Results Last 24 Hours of Lab Results: Laboratory Tests 05/08 0639 Chemistry Sodium (137 - 145 mmol/L) 138 Potassium (3.5 - 5.1 mmol/L) 4.4 Chloride (98 - 107 mmol/L) 106 Carbon Dioxide (22 - 30 mmol/L) 24 Anion Gap (5 - 16) 7 BUN (9 - 20 mg/dL) 30 H Creatinine (0.7 - 1.2 mg/dL) 1.5 H Estimated GFR (>60 ml/min) 45 L BUN/Creatinine Ratio (7 - 25 %) 20.0 Last 24 Hours of Ryan Results: OR culture right fifth toe bone May 04 positive for alpha strep, Enterococcus, MSSA and probable Prevotella Assessment/Plan Impression: Stable with temperatures and white blood cell count remaining normal now 4 days status post open partial fifth ray resection of the right foot for polymicrobial osteomyelitis, with the OR culture positive for MSSA, Enterococcus, alpha strep and Prevotella. He is currently on Vancomycin alone but, with the isolation of Prevotella, anaerobic coverage will need to be added. He is scheduled for a return to the OR today for wound closure but have discussed with Podiatry, who feels that he should receive a prolonged course of IV antibiotics for residual osteomyelitis. He has been evaluated by Vascular surgery, but further evaluation, for example angiogram, is apparently to be deferred at this time. Suggestion: 1. Await return to the OR today 2. Would obtain a postoperative baseline ESR and x-ray of the right foot 3. Would clarify his Penicillin allergy 4. Add Flagyl 500 mg po every 8 hours 5. Continue Vancomycin
[2017-05-08 16:00] VITALS: BP 118/68
--- NOTE | 2017-05-08 20:29 | NUR ---
REPORT CALLED TO DOMONIQUE PONCE FOR PATIENT TO TRANSFER TO [facility]
[2017-05-08 21:11] VITALS: BP 148/90
--- NOTE | 2017-05-08 21:13 | RADIOLOGY REPORT ---
EXAMINATION: XR FOOT, RIGHT CLINICAL INFORMATION: Status post surgery. Right foot osteomyelitis. COMPARISON: Right foot 04/12/2017 TECHNIQUE: AP, lateral, and oblique views of the right foot. FINDINGS: Patient has had undergone amputation of the fifth toe. Resection at the mid shaft of fifth metatarsal. Surgical clips over the soft tissues at the lateral side of the foot. Patient has had prior old amputation of the second, third and fourth toe at the MTP joint. There is a plantar calcaneal spur. Degenerative spurs of the midtarsal bones. IMPRESSION: Status post amputation of fifth toe at the mid metatarsal.
--- NOTE | 2017-05-08 23:41 | NUR ---
PATIENT ARRIVED TO FLOOR AT 2054 FROM TELE A&O, HARD OF HEARING. NO AMBULATION STATUS S/P SURGERY TODAY. HUMA WRAP TO R FOOT. INFORMED PATIENT OF NEED TO USE URINAL FOR VOIDING, HE'S AGREEABLE, BUT NEEDS ASSISTANCE. REFUSING ALPS AND BED ALARM. WILL CALL APPROPRIATELY. VITALS ON ARRIVAL 97.9 80 20 148/90 95% ROOM AIR; CPAP AT NIGHT. PICC LINE PLACED TODAY, #18 SL TO HAKEEM, XRAY CONFIRMATION OF PLACEMENT IN CHART. PERIPH IV REMOVED AT 2125 (#22 RH) ORIENTED TO ROOM AND CALL YAP, SAFETY MAINTAINED, NEEDS WITHIN REACH.
[2017-05-09] MEDS ORDERED: FLAGYL250 M1 PO (00:05)
[2017-05-09] MEDS ORDERED: OXYCODONE HCL5 M1 PO (00:05)
[2017-05-09 06:18] VITALS: BP 142/74
--- NOTE | 2017-05-09 07:44 | PN- Housestaff ---
FADUMO BAILEY,TOOTIE 05/09/17 0743: Subjective Follow-up For: Right 5th toe chronic nonhealing ulcer/osteomyelitis s/p partial fifth ray resection right foot, excisional debridement and wound closure Subjective: Pt seen and examined while seated comfortably on the side of the bed having breakfast. He denies any acute complaint such as fever/chills,nausea/vomiting,cp /palpitation, or increased foot pain. No acute o/n event reported by nursing staff. Review of Systems Constitutional: Reports: see HPI. Objective Last 24 Hrs of Vital Signs/I&O Vital Signs Date Time Temp Pulse Resp B/P B/P Pulse O2 O2 Flow FiO2 Mean Ox Delivery Rate 05/09 0618 98.2 75 20 142/74 94 05/09 0044 94 Room Air 05/09 0000 94 CPAP 05/08 2111 97.9 80 20 148/90 95 Room Air 05/08 1600 97.9 65 16 118/68 97 Room Air Intake & Output 05/09 1600 05/09 0800 05/09 0000 Intake Total 280 600 Output Total 500 725 Balance -220 -125 Intake, IV 40 Intake, Oral 240 600 Number 0 Bowel Movements Output, Urine 500 725 Physical Exam General Appearance: Alert, Oriented X3, Cooperative Other Physical Findings: Skin: right foot dressing intact, no obvious signs of drainage or bleed. Neck: Supple, No JVD Lymphatic: Cervical nl Cardiovascular: Normal S1, Normal S2, No Murmurs Lungs: Normal Air Movement, CTA B/L Abdomen: Normal Bowel Sounds, Soft, No Tenderness, No Hepatospenomegaly Neurological: Normal Tone, Sensation Intact Extremities: No Clubbing, No Cyanosis, No Edema Current Medications: Current Medications Sig/Chacha Start time Last Medication Dose Route Stop Time Status Admin Acetaminophen 650 MG Q6P PRN 05/03 0300 AC PO Allopurinol 300 MG QAM 05/03 1000 AC 05/09 PO 1035 Aspirin Buffered 81 MG QAM 05/05 1000 AC 05/09 PO 1036 Atorvastatin Calcium 20 MG QAM 05/03 1000 AC 05/09 PO 1036 Bupropion HCl 150 MG DAILY 05/03 1000 AC 05/09 PO 1037 Carvedilol 25 MG QAM 05/03 1000 AC 05/09 PO 1036 Clopidogrel Bisulfate 75 MG QAM 05/05 1000 AC 05/09 PO 1036 Dextrose/Sodium 1,000 ML Q13H 05/08 0100 DC 05/08 Chloride IV 05/08 1359 0340 Diphenhydramine HCl 50 MG QPM 05/03 220 AC 05/08 PO 2137 Docusate Sodium 100 MG DAILY NEEDED PRN 05/04 190 AC PO Escitalopram Oxalate 5 MG QPM 05/03 2200 AC 05/08 PO 2137 Finasteride 5 MG QPM 05/03 2200 AC 05/08 PO 2137 Furosemide 40 MG QAM 05/05 1000 AC 05/09 PO 1036 Heparin Sodium 5,000 UNIT Q8 05/03 0600 AC 05/09 (Porcine) SC 0517 Hydroxyzine HCl 25 MG AT BEDTIME NEED.. 05/03 0345 AC 05/07 PO 0042 Insulin Aspart 0 TIDAC/HS 05/08 1700 AC 05/09 SC 0821 Insulin Aspart 0 Q4H 05/08 0815 DC 05/08 SC 1122 Insulin Detemir 16 UNITS BID 05/04 1000 AC 05/09 SC 1043 Isosorbide 120 MG QAM 05/03 1000 AC 05/09 Mononitrate PO 1037 Lisinopril 5 MG QAM 05/05 1000 AC 05/09 PO 1036 Metronidazole 500 MG Q8 05/08 1742 AC 05/09 PO 0517 Mirabegron 50 MG DAILY 05/03 1000 AC 05/09 PO 1036 Multivitamins 1 TAB DAILY 05/03 1000 AC 05/09 PO 1035 Niacin 500 MG 2200 05/03 2200 AC 05/08 PO 2137 Oxycodone/ 1 TAB Q6P PRN 05/03 0300 AC 05/06 Acetaminophen PO 0943 Oxycodone/ 2 TAB Q6P PRN 05/03 0300 AC 05/09 Acetaminophen PO 0516 Patient Medication 1 ED ONE ONE 05/08 1445 DC Teaching ED 05/08 1446 Polyethylene Glycol 17 GM DAILY PRN 05/04 190 AC PO Polyethylene Glycol 17 GM AT BEDTIME 05/03 2200 AC PO Pregabalin 150 MG QPM 05/03 220 AC 05/08 PO 2137 Pregabalin 100 MG QAM 05/03 1000 AC 05/09 PO 1034 Senna/Docusate Sodium 1 TAB AT BEDTIME 05/03 220 AC 05/08 PO 2137 Tamsulosin HCl 0.4 MG DAILY 05/03 1000 AC 05/09 PO 1036 Trazodone HCl 25 MG QPM 05/03 2200 AC 05/08 PO 2137 Vancomycin HCl 1,500 MG DAILY@1400 05/05 1400 AC 05/08 Sodium Chloride 250 ML IV 1321 Last 24 Hrs of Lab/Ryan Results Last 24 Hrs of Labs/Mics: Laboratory Tests 05/09/17 0530: Anion Gap 8, Estimated GFR 42 L, BUN/Creatinine Ratio 17.5, ESR Westergren 70 H Assessment/Plan Assessment: This is a 76 yo pleasent obese M with h/o T2DM on insulin pump, peripheral neuropathy, CAD s/p CABG and stents, PVD s/p angioplasty, CRISTINE on CPAP, diverticulitis s/p colon resection, GERD, CKD stage 3B, depression, gout, osteomyelitis of right foot requiring amputation of 2nd to 4th toes, recently admitted to [facility] (04/12 04/16) for right 5th toe cellulitis with chronic nonhealing ulcer (MRI negative for osteomyelitis) treated with antibiotics, is sent in from the Wound center by Dr. Samaniego for concerns of 5th toe osteomyelitis given nonhealing wound now with purulent discharge for the past 3 days. Vitals on admission stable. Pertinent labs on admission-WBC 11.8, hemoglobin 13 and hematocrit 40. BUN 30 and creatinine 1.5 ESR 45 INR 1.21 LACTIC Acid 1 Arterial Doppler IMPRESSION: Abnormal waveforms throughout the lower extremities as described. With the exception of the right anterior tibial artery, the below-knee vessels were not visualized either secondary to occlusion or significantly slow flow. Findings are consistent with significant underlying peripheral arterial disease. There is also probable distal superficial femoral and popliteal disease bilaterally. Consider dedicated CTA for further anatomical detail, if clinically indicated. Venous Doppler: No evidence of deep venous thrombosis involving the lower extremities. Small left-sided Muller's cyst. FOOT MRi IMPRESSION: There has been a change since the prior study, with new abnormal signal involving the fifth digit phalanges consistent with osteomyelitis. Edema throughout the soft tissues with no focal collection identified Impression and Plan #Right fifth toe osteomyelitis POD #5 debridement adn partial resection and POD#1 revision with wound closure. Currently on day 5 of vancomycin and day 2 flagyl for polymicrobial growth of OR specimen (Alpha strept, Enterococcus, and Provetella). Patient will need 4 weeks of ABX post debridement,PICC line in place (Last day of ABX June 05). ESR,BEP, weekly after discharge. Will continue to f/u with further ID reccs (appreciated) . Peripheral artery disease With the exception of the right anterior tibial artery, the below-knee vessels were not visualized either secondary to occlusion or significantly slow flow. Findings are consistent with significant underlying peripheral arterialdisease. There is also probable distal superficial femoral and popliteal disease bilaterally. Patient had vascular intervention angiogram of his right leg 2 months ago at [facility] and he had a cardiac arrest during the procedure requiring resuscitation, no revascularization procedure was done for the right leg. * Vascular on board * Will need right leg angiogram soon- on an outpatient basis per vascular reccomendation. Pt will be given instruction upon discharge to f/u with Dr Hurtado. Gout Continue allopurinol 300 mg daily Coronary artery disease Status post CABG and stents on DAPT. Hyperlipidemia Lipitor 20 daily Depression Continue Lexapro and bupropion daily Hypertension Continue carvedilol and lisinopril Urine retention Continue finasteride, tamsulosin Fluid retention Continue home dose of Lasix 40 daily Peripheral neuropathy Continue pregabalin Insomnia Continue trazodone Type 2 diabetes mellitus On insulin pump at home,discontinued during admission and endocrine consulted. Levemir twice daily and NovoLog sliding scale per endo. Obstructive sleep apnea On CPAP [id number] baseline creatinine 1.3 cr- 1.6 now DVT prophylaxis subcutaneous heparin DNR/DNI Pain pathway Problem List: 1. Osteomyelitis of foot, right, acute Pain Ratin Pain Location: LOWE EXTREMITY Pain Goal: Pain 4 or less Pain Plan: PER PATHWAY Tomorrow's Labs & Rationales: BEP CBC ROSALINA PHILLIPS MD 05/09/17 1305: Attending MD Review Statement Attending Statement Attending MD Statement: examined this patient, discuss w/resident/PA/GYN, agreed w/resident/PA/GYN, reviewed EMR data (avail), discussed with nursing, discussed with case mgmt Attending Assessment/Plan: Pt transferred to my service from telemetry. Known to me from previous admission. He is a 76-year-old with known coronary artery disease, peripheral arterial disease and diabetes with CKD who is here with osteomyelitis of his right fifth toe status post debridement and partial ray resection. He is growing enterococcus, staph and provetella so with polymicrobial osteo-and the plan is IV Vanco and by mouth Flagyl per ID. He got a PICC line placed and he' ll need to go to rehabilitation for long-term antibiotics with close outpatient follow-up and outpatient angiogram per vascular surgery.
--- NOTE | 2017-05-09 07:53 | PN- Diabetes ---
Assessment/Plan Assessment: 76-year-old male was sent to the hospital by Dr. Samaniego because of an infection in his right toe. The patient was on an insulin pump at home. The patient had further surgery on his foot by Dr. Samaniego yesterday. He states he feels improved and the pain is much less in the foot. He is eating okay. The patient is presently on 16 units of Levemir twice a day and sliding scale NovoLog starting with 4 units for sugar of 80-150 before meals. He has a separate bedtime sliding-scale NovoLog. Plan: Suggest continue the present insulin. His sugar is somewhat high this morning but yesterday his usual insulin regimen was interrupted because of his surgery. Continue to monitor his sugar 4 times a day. Subjective Subjective: Ales improved Review of Systems Constitutional: Denies: chills, fever. Cardiovascular: Denies: chest pain. Respiratory: Denies: cough, short of breath. Gastrointestinal: Denies: abdominal pain, nausea, vomiting. Objective Last 24 Hrs of Vital Signs/I&O Vital Signs Date Time Temp Pulse Resp B/P B/P Pulse O2 O2 Flow FiO2 Mean Ox Delivery Rate 05/09 618 98.2 75 20 142/74 94 05/09 0044 94 Room Air 05/09 0000 94 CPAP 05/08 2111 97.9 80 20 148/90 95 Room Air 05/08 1600 97.9 65 16 118/68 97 Room Air 05/08 0820 98.3 73 16 130/70 05/08 0820 98.3 73 16 130/70 05/08 0820 98.3 73 16 130/70 05/08 0820 98.3 73 16 130/70 Intake & Output 05/09 0800 05/09 0000 05/08 1600 Intake Total 280 600 750 Output Total 500 725 900 Balance -220 -125 -150 Intake, IV 40 700 Intake, Oral 240 600 50 Number 0 Bowel Movements Output, Urine 500 725 900 Vital Signs Date Time Temp Pulse Resp B/P B/P Pulse O2 O2 Flow FiO2 Mean Ox Delivery Rate 05/09 0618 98.2 75 20 142/74 94 05/09 0044 94 Room Air 05/09 0000 94 CPAP 05/081 97.9 80 20 148/90 95 Room Air 05/08 1600 97.9 65 16 118/68 97 Room Air 05/08 0820 98.3 73 16 130/70 05/08 0820 98.3 73 16 130/70 05/08 0820 98.3 73 16 130/70 05/08 0820 98.3 73 16 130/70 Intake & Output 05/09 0800 05/09 0000 05/08 1600 Intake Total 280 600 750 Output Total 500 725 900 Balance -220 -125 -150 Intake, IV 40 700 Intake, Oral 240 600 50 Number 0 Bowel Movements Output, Urine 500 725 900 Physical Exam General Appearance: alert, awake, comfortable Neck: normal inspection Respiratory: normal breath sounds Cardiovascular: regular rate/rhythm Abdomen: normal bowel sounds Current Medications: Current Medications Sig/Chacha Start time Last Medication Dose Route Stop Time Status Admin Acetaminophen 650 MG Q6P PRN 05/03 0300 AC PO Allopurinol 300 MG QAM 05/03 1000 AC 05/08 PO 0821 Aspirin Buffered 81 MG QAM 05/05 1000 AC 05/08 PO 0820 Atorvastatin Calcium 20 MG QAM 05/03 1000 AC 05/08 PO 0820 Bupropion HCl 150 MG DAILY 05/03 1000 AC 05/08 PO 0821 Carvedilol 25 MG QAM 05/03 1000 AC 05/08 PO 0820 Clopidogrel Bisulfate 75 MG QAM 05/05 1000 AC 05/08 PO 0820 Dextrose/Sodium 1,000 ML Q13H 05/08 0100 DC 05/08 Chloride IV 05/08 1359 0340 Diphenhydramine HCl 50 MG QPM 05/03 2200 AC 05/08 PO 2137 Docusate Sodium 100 MG DAILY NEEDED PRN 05/04 1900 AC PO Escitalopram Oxalate 5 MG QPM 05/03 2200 AC 05/08 PO 2137 Finasteride 5 MG QPM 05/03 2200 AC 05/08 PO 2137 Furosemide 40 MG QAM 05/05 1000 AC 05/08 PO 0820 Heparin Sodium 5,000 UNIT Q8 05/03 0600 AC 05/09 (Porcine) SC 0517 Hydroxyzine HCl 25 MG AT BEDTIME NEED.. 05/03 0345 AC 05/07 PO 0042 Insulin Aspart 0 TIDAC/HS 05/08 1700 AC 05/08 SC 1718 Insulin Aspart 0 Q4 05/08 0815 DC SC Insulin Aspart 0 Q4H 05/08 0815 DC 05/08 SC 1122 Insulin Detemir 16 UNITS BID 05/04 1000 AC 05/08 SC 2138 Insulin Human Regular 0 Q6 05/08 0600 DC SC Isosorbide 120 MG QAM 05/03 1000 AC 05/08 Mononitrate PO 0820 Lisinopril 5 MG QAM 05/05 1000 AC 05/08 PO 0820 Metronidazole 500 MG Q8 05/08 1742 AC 05/09 PO 0517 Mirabegron 50 MG DAILY 05/03 1000 AC 05/08 PO 0819 Multivitamins 1 TAB DAILY 05/03 1000 AC 05/08 PO 0820 Niacin 500 MG 2200 05/03 2200 AC 05/08 PO 2137 Oxycodone/ 1 TAB Q6P PRN 05/03 0300 AC 05/06 Acetaminophen PO 0943 Oxycodone/ 2 TAB Q6P PRN 05/03 0300 AC 05/09 Acetaminophen PO 0516 Patient Medication 1 ED ONE ONE 05/08 1445 DC Teaching ED 05/08 1446 Polyethylene Glycol 17 GM DAILY PRN 05/04 1900 AC PO Polyethylene Glycol 17 GM AT BEDTIME 05/03 2200 AC PO Pregabalin 150 MG QPM 05/03 2200 AC 05/08 PO 2137 Pregabalin 100 MG QAM 05/03 1000 AC 05/08 PO 0819 Senna/Docusate Sodium 1 TAB AT BEDTIME 05/03 2200 AC 05/08 PO 2137 Tamsulosin HCl 0.4 MG DAILY 05/03 1000 AC 05/08 PO 0820 Trazodone HCl 25 MG QPM 05/03 2200 AC 05/08 PO 2137 Vancomycin HCl 1,500 MG DAILY@1400 05/05 1400 AC 05/08 Sodium Chloride 250 ML IV 1321 Findings Pertinent Lab/Ryan Results: Laboratory Tests 05/09 0530 Chemistry Sodium Pending Potassium Pending Chloride Pending Carbon Dioxide Pending Anion Gap Pending BUN Pending Creatinine Pending BUN/Creatinine Ratio Pending Hematology ESR Westergren Pending
--- NOTE | 2017-05-09 08:15 | Discharge Summary ---
Visit Information Visit Dates Admission Date: 05/02/17 Discharge Date: 05/10/17 Hospital Course Course Attending Physician: CHELSEA CRUZ MD Primary Care Physician: ANGEL BAILEY,NILTON Staton Other Care Providers: dr. londono-endocrinology Ryan Sinha MD-infectious disease Dr. Raymundo- Podiatry dr. frank -vascular surgeon Dr. 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 Samaniego for concerns of 5th toe osteomyelitis given nonhealing wound with purulent discharge. Vitals on admission stable. Pertinent labs on admission-WBC 11.8, hemoglobin 13 and hematocrit 40. BUN 30 and creatinine 1.5 ESR 45 INR 1.21 LACTIC Acid 1 arterial Doppler IMPRESSION: Abnormal waveforms throughout the lower extremities as described. With the exception of the right anterior tibial artery, the below-knee vessels were not visualized either secondary to occlusion or significantly slow flow. Findings are consistent with significant underlying peripheral arterial disease. There is also probable distal superficial femoral and popliteal disease bilaterally. Consider dedicated CTA for further anatomical detail, if clinically indicated. Venous Doppler IMPRESSION: No evidence of deep venous thrombosis involving the lower extremities. Small left-sided Muller's cyst. FOOT MRi IMPRESSION: There has been a change since the prior study, with new abnormal signal involving the fifth digit phalanges consistent with osteomyelitis. Edema throughout the soft tissues with no focal collection identified Pt was then admitted for treatment and management of right foot osteomyelitis.The following issues were addressed during hospital stay: #Right fifth toe osteomyelitis Patient hadhistory of osteomyelitis of right foot requiring amputation of 2nd to 4th toes, recently admitted to [place] (04/12 04/16) for right 5th toe cellulitis with chronic nonhealing ulcer (MRI at that negative for osteomyelitis ) treated with antibiotics. Foot MRI (March 2017): diffuse moderate subcutaneous edema, no abscess, no definite osteomyelitis. MRI foot consistent with left 5th toe osteomyelitis. He underwent excisional debridement and drainage to the deep fascia with exposure of the extensor and flexor tendon/ sheath on multiple sites right foot with partial fifth ray resection right foot on 05/04/2017. He then underwent revision revision surgery with wound closure on 05/08/2017. He was started on Vancomycin on 05/05 with PICC line placed on 05/08/2017.Follow-up OR cultures were positive for MSSA, Enterococcus, alpha strep and Prevotela. Flagyl was then added for the anerobic coverage of Prevotela. Pt will require atleast 4 weeks of ABX of vancomycin and flagyl (06/05/2017 will be last day). Per ID reccomendation, patient will need weekly CBC, ESR, BUN/creatinine and Vancomycin trough level while on Vancomycin. #Peripheral artery disease With the exception of the right anterior tibial artery, the below-knee vessels were not visualized either secondary to occlusion or significantly slow flow. Findings were consistent with significant underlying peripheral arterial disease. There was also probable distal superficial femoral and popliteal disease bilaterally. Patient had vascular intervention angiogram of his right leg 2 months ago at [facility] which was complicated by cardiac arrest during the procedure requiring resuscitation, no revascularization procedure was done for the right leg so far. Vascular was consulted and reccomended that patient follow up with Vascular (Dr Mcdowell) within 1 week of discharge to plan for outpatient angiogram. Cardiology was also consulted for Cardiac clearance- he was Cleared from cardiac standpoint to go for angiogram. #Other chronic diseases Regarding his diabetes, his pump was discontinued on admission, endocrine was consulted and patient was managed on Levemir and Novolog SSC. Per endocrine, patient will use novolog ssc with additional betime coverage and Levemir 18 units bid while at the SNF, please see CMR for details (His insulin pump will not be used until he returns home). No changes on his home medications were made regarding his gout,hyperlipidimia,CAD,depression,insominia, peripheral neuropathy,fluid retention (see med list for details). Complications: none Allergies: Coded Allergies: Penicillins (Severe, HIVES 12/10/15) Significant Procedures: Surgery Date: 05/04/17 Name of Procedure: 1 open incision and drainage deep to the deep fascia with exposure of the extensor and flexor tendon and tendon sheath multiple sites right foot 2 open partial fifth ray resection right foot 3 intraoperative administration of ankle block anesthesia 4 excisional debridement Pre-Operative Diagnosis: 1 open necrotic wound right foot 2 osteomyelitis right foot 3 diabetic peripheral neuropathy 4 peripheral arterial disease Post-Operative Diagnosis: The same Estimated Blood Loss: less than 50ml Surgeon/Cable Braider: VENU SAMANIEGO DPM Anesthesia: moderate sedation, block Operative/Procedure Note Note: After obtaining informed consent the patient was brought to the operating room and placed on the operating table in the supine position. The patient was then securely fastened to the operating table utilizing safety belt. After administration of IV sedation, 10 mL of 0.5% Marcaine plain was infiltrated about the patient's right ankle. The right foot and ankle within scrubbed prepped and draped in usual aseptic manner. Digitorectal right foot, where a large full-thickness chronic was identified. A 15 blade was utilized sharply revised skin margins. The dissection was then carried down deep to the deep fascia with exposure of the extensor and flexor tendon and tendon sheath multiple sites, both proximally and distally. All necrotic nonviable infected tissue sharply evacuated from the wound bed. The dissection was then carried down to the periosteum overlying the distal fifth metatarsal. This was incised reflected. Sagittal bone saw was utilized to perform a through and through osteotomy in the distal osseous segment was freed and passed from the operative field. Specimen was sent for both microbiologic and pathologic inspection. Nipple was then irrigated with 3 L of normal sterile saline fissure 50,000 units of bacitracin. Following this, the foot was redraped and the surgeon's top gloves were changed clean gloves. Any bleeding vessels identified were cauterized or ligated as encountered. Nipple was then packed with iodoform and 3-0 nylon retention sutures were placed. Foot was then dressed with 4 x 4's Kerlix and an Qamar wrap. The patient was noted to tolerate both procedure and anesthesia well and the patient was transported from the operating room to recovery with vital signs stable. Surgery Date: 05/08/17 Name of Procedure: 1 open incision and drainage deep to the deep fascia with exposure of the extensor and flexor tendon and tendon sheath multiple sites right foot 2 delayed primary closure of open surgical wound right foot 3 partial revisional fifth ray resection right foot 4 intraoperative administration of ankle block anesthesia 5 excisional debridement Pre-Operative Diagnosis: 1 open necrotic wound right foot 2 osteomyelitis right foot 3 peripheral arterial disease Post-Operative Diagnosis: The same Estimated Blood Loss: less than 50ml Surgeon/Cable Braider: PETER ELIAS DPM Anesthesia: moderate sedation, block Operative/Procedure Note Note: After obtaining informed consent the patient was brought to the operating room and placed on the operating table in the supine position. The patient was then securely fastened to the operating table utilizing safety belt. After administration of IV sedation, 10 mL of 0.5% Marcaine plain was infiltrated about the patient's right ankle. The right foot and ankle within scrubbed prepped and draped in usual aseptic manner. Attention was directed the lateral right foot, where a large full-thickness necrotic was identified. A 15 blade visualized sharply revised skin margins. The dissection was then carried down deep to the deep fascia with exposure of the extensor and flexor tendon and tendon sheath multiple sites, both proximally and distally. All necrotic nonviable infected tissue sharply evacuated from the wound bed. The dissection then continued down to the periosteum overlying the stump the fifth metatarsal, which was incised reflected. Sagittal bone saw was utilized to resect the distal 2 cm of exposed bone. This was sent for pathologic inspection. The open wound was then irrigated with 3 L of normal sterile saline infusion 50,000 units of bacitracin. Following this, the foot was redraped and surgeon's top was changed clean gloves. Any bleeding vessels identified were cauterized or ligated as encountered. A dorsal plantar flap was then developed with undermining, mobilization and advancement of the tissue towards the open portion the wound. The deep sides of the flaps were held centrally with 2-0 Vicryl. Subtenons tissues reapproximated 3-0 Vicryl and the skin edges reapproximated with 2-0 nylon. Incision was then dressed with Xeroform 4 x 4's Kerlix and an Qamar wrap. The patient was noted to tolerate both procedure and anesthesia well and the patient was transported from the operating room to recovery by sent stable best assess intact to both the dorsal and plantar flaps. Pertinent Lab Results: le arterial doppler IMPRESSION: Abnormal waveforms throughout the lower extremities as described. With the exception of the right anterior tibial artery, the below-knee vessels were not visualized either secondary to occlusion or significantly slow flow. Findings are consistent with significant underlying peripheral arterial disease. There is also probable distal superficial femoral and popliteal disease bilaterally. Consider dedicated CTA for further anatomical detail, if clinically indicated. Venous Doppler IMPRESSION: No evidence of deep venous thrombosis involving the lower extremities. Small left-sided Muller's cyst. foot mri IMPRESSION: There has been a change since the prior study, with new abnormal signal involving the fifth digit phalanges consistent with osteomyelitis. Edema throughout the soft tissues with no focal collection identified. echo CONCLUSIONS Mild left ventricular dilatation. Mild concentric left ventricular hypertrophy. Normal left ventricular ejection fraction visually estimated at > 55%. Trace mitral regurgitation. Trace aortic regurgitation. Trace tricuspid regurgitation. foot xary IMPRESSION: Status post amputation of fifth toe at the mid metatarsal cxr IMPRESSION: Right-sided PICC line terminating over the mid SVC. Disposition Summary Disposition Principal Diagnosis: 1. Right 5th toe osteomyelitis requiring incision and drainage with partial fifth ray resection right diabetes mellitus Additional Diagnosis: Peripheral Arterial Disease Diabetes CKD CAD Discharge Disposition: SNF Discharge Instructions General Discharge Information Code Status: Do Not Resucitate/Intubat Patient's Diet: Consistent carbohydrate diet Patient's Activity: As tolerated Follow-Up Instructions/Appts: Follow-up with primary care physician in 1 to 2 weeks after discharge Follow up with vascular surgeon in one week after discharge. Needs outpatient angiogram soon for peripheral artery disease. Follow-up with Dr. Raymundo business process engineer in 1 week after discharge Follow-up with the Richar Londono MD nurse plastics in 1-2 weeks after discharge Follow-up with infection disease specialist in 1-2 weeks after discharge Follow up with glazier stained glass in 1-2 weeks after discharge Weekly CBC, BUN/Cre, ESR and Vanco trough while on IV Antibiotics Contiune antibitocs till 06/05/17 Medications at Discharge Discharge Medications: Stop taking the following medications: Hydrocodone/Acetaminophen (Hydrocodon-Acetaminoph 7.5-325) 7.5 MG-325 MG TABLET ORAL Q6-8H Insulin Lispro (Humalog) 100 UNIT/ML VIAL Oxycodone HCl/Acetaminophen (Percocet 5-325 MG Tablet) 5 MG-325 MG TABLET ORAL TWICE DAILY as needed for Pain Qty = 10 Clindamycin HCl (Clindamycin HCl) 300 MG CAPSULE ORAL THREE TIMES DAILY Qty = 24 Continue taking these medications: Aspirin (Ecotrin*) 81 MG TABLET.DR 1 Tablet ORAL Every Morning Comments: Last Taken: 05/10/17 Time: 0900 AM Carvedilol (Coreg) 25 MG TABLET 1 Tablet ORAL Every Morning Comments: Last Taken: 05/10/17 Time: 0900 AM Furosemide (Furosemide) 40 MG TABLET 1 Tablet ORAL Every Morning Comments: Last Taken: 05/10/17 Time: 0900 AM Bupropion HCl (Wellbutrin XL) 150 MG TAB.ER.24H 1 Tablet ORAL Every Morning Comments: Last Taken: 05/10/17 Time: 0900 AM Escitalopram Oxalate (Lexapro) 5 MG TABLET 1 Tablet ORAL Every night Comments: Last Taken: 05/09/17 Time: 1000 PM Finasteride (Finasteride) 5 MG TABLET 1 Tablet ORAL Every night Comments: NOT GIVEN Pregabalin (Lyrica) 50 MG CAPSULE 2 Capsule ORAL Every Morning Comments: Last Taken: 05/10/17 Time: 0900 AM Pregabalin (Lyrica) 50 MG CAPSULE 3 Capsule ORAL Every night Comments: Last Taken: 04/15/17 Time: 1000 PM Trazodone HCl (Trazodone HCl) 50 MG TABLET 0.5 Tablet ORAL Every night Comments: Last Taken: 05/09/17 Time: 1000 PM Mirabegron (Myrbetriq) 50 MG TAB.ER.24H 1 Tablet ORAL Every night Comments: Last Taken: 05/10/17 Time: 0900 AM Multivit-Min/Iron/Folic/Lutein (Centrum Silver Women Tablet) 8 MG IRON-400 MCG- 300 MCG TABLET 1 Tablet ORAL DAILY Comments: NOT GIVEN Diphenhydramine HCl (Diphenhydramine HCl) 25 MG CAPSULE 2 Capsule ORAL Every night Comments: Last Taken: 05/10/17 Time: 1000 PM Atorvastatin Calcium (Atorvastatin Calcium) 20 MG TABLET 1 Tablet ORAL Every Morning Qty = 30 Comments: Last Taken: 05/10/17 Time: 0900 AM Allopurinol (Allopurinol) 300 MG TABLET 1 Tablet ORAL Every Morning Comments: Last Taken: 05/10/17 Time: 0900 AM Clopidogrel Bisulfate (Clopidogrel) 75 MG TABLET 1 Tablet ORAL Every Morning Comments: Last Taken: 05/10/17 Time: 0900 AM Isosorbide Mononitrate (Isosorbide Mononitrate ER) 60 MG TAB.ER.24H 2 Tablet ORAL Every Morning Qty = 180 Comments: Last Taken: 05/10/17 Time: 0900 AM Lisinopril (Prinivil) 5 MG TABLET 1 Tablet ORAL Every Morning Comments: Last Taken: 05/10/17 Time: 0900 AM Niacin (Niaspan) 500 MG TAB.ER.24H 1 Tablet ORAL Every night Qty = 90 Comments: Last Taken: 05/09/17 Time: 1000 PM Tamsulosin HCl (Flomax) 0.4 MG CAP.ER.24H 1 Capsule ORAL DAILY Comments: Last Taken: 05/10/17 Time: 0900 AM Hydroxyzine HCl (Hydroxyzine HCl) (Unknown Strength) TABLET Unknown Dose ORAL as needed for ITCHING Comments: NOT GIVEN Start taking the following new medications: Insulin Detemir (Levemir) 100 UNIT/ML VIAL 18 Units Inject into fatty tissue TWICE DAILY Qty = 20 No Refills Comments: Last Taken: 05/10/17 Time: 0900 AM Metronidazole (Flagyl) 250 MG TABLET 500 Milligram ORAL EVERY 8 HOURS Qty = 77 No Refills Instructions: last day will be 06/05. Comments: Last Taken: 05/10/17 Time: 1400 PM Polyethylene Glycol 3350 (Miralax) 17 GRAM/DOSE POWDER 17 Gram ORAL DAILY as needed for constipation Qty = 1 No Refills Comments: NOT GIVEN IN HOSPITAL Sennosides/Docusate Sodium (Senna Plus Tablet) 8.6 MG-50 MG TABLET 1 Tablet ORAL DAILY as needed for constipation Qty = 30 No Refills Comments: NOT GIVEN IN HOSPITAL Insulin Aspart (Novolog) 100 UNIT/ML VIAL 0 Units Inject into fatty tissue SEE INSTRUCTIONS Qty = 30 No Refills Instructions: LESS THAN 80 MG/DL--Initiate hypoglycemia 151-200-- 6 units 201-250--8 units 251-300--10 units 301-350--12 units 351-400--14 units more than 400--14 units and notify md Additional Bedtime coverage Below 251--no coverage 251-300--2 units 301-350--3 units 351-400--4 units more than 400--5 units Comments: Last Taken: 05/10/17 Time: 1300 PM Oxycodone HCl (Oxycodone HCl) 5 MG TABLET 1 Tablet ORAL EVERY 4-6 HOURS as needed for moderate to severa pain Qty = 30 No Refills Comments: Last Taken: 05/10/17 Time: 0900 AM Vancomycin/0.9 % Sod Chloride (Vanco 1.5 Gm/250 Ml-0.9% NaCl) 1.5 GRAM/250 ML PLAST..BAG 1,500 Milligram INTRAVEN DAILY Qty = 26 No Refills Instructions: last day 06/05 Comments: Last Taken: 05/10/17 Time: 1400 PM Copies To: ANGEL BAILEY,NILTON Staton Attending MD Review Statement Documenting Attending: JACQUELINE BAILEY,ROSALINA Mukherjee
--- NOTE | 2017-05-09 12:30 | PN- Infect Dx ---
See Addendum Subjective Subjective: Afebrile without complaints Objective Last 24 Hrs of Vital Signs/I&O Vital Signs Date Time Temp Pulse Resp B/P B/P Pulse O2 O2 Flow FiO2 Mean Ox Delivery Rate 05/09 1037 142/74 05/09 1036 75 142/74 05/09 1036 75 142/74 05/09 1036 142/74 05/09 0618 98.2 75 20 142/74 94 05/09 0044 94 Room Air 05/09 0000 94 CPAP 05/08 2111 97.9 80 20 148/90 95 Room Air 05/08 1600 97.9 65 16 118/68 97 Room Air Intake & Output 05/09 1600 05/09 0800 05/09 0000 Intake Total 280 600 Output Total 500 725 Balance -220 -125 Intake, IV 40 Intake, Oral 240 600 Number 0 Bowel Movements Output, Urine 500 725 Physical Exam Other Physical Findings: He appears comfortable in no acute distress Extremities right foot dressing intact; PICC in the right upper extremity with no inflammation at the site Results Last 24 Hours of Lab Results: Laboratory Tests 05/09 0530 Chemistry Sodium (137 - 145 mmol/L) 140 Potassium (3.5 - 5.1 mmol/L) 4.5 Chloride (98 - 107 mmol/L) 104 Carbon Dioxide (22 - 30 mmol/L) 28 Anion Gap (5 - 16) 8 BUN (9 - 20 mg/dL) 28 H Creatinine (0.7 - 1.2 mg/dL) 1.6 H Estimated GFR (>60 ml/min) 42 L BUN/Creatinine Ratio (7 - 25 %) 17.5 Hematology ESR Westergren (0 - 10 MM) 70 H Last 24 Hours of Ryan Results: No recent cultures Assessment/Plan Impression: Stable status post partial revisional fifth ray resection of the right foot with delayed primary closure yesterday for a 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 He will need to receive a 4 week course of antibiotics from his most recent debridement. He states that his Penicillin allergy was over 40 years ago; therefore skin testing as an outpatient to confirm whether this is a true allergy would be appropriate. Suggestion: 1. Would refer him to an locker plant attendant as an outpatient to confirm his Penicillin allergy 2. Vancomycin trough level with his next dose 3. Continue Vancomycin and Rifampin to plan on a 4 week course from his most recent debridement (until June 05) 4. Will need a weekly CBC, ESR, BUN/creatinine and Vancomycin trough level while on Vancomycin
[2017-05-09 14:48] VITALS: BP 118/60
[2017-05-09 23:14] VITALS: BP 118/64
[2017-05-10] MEDS ORDERED: MIRALAX119 GM PO (00:14)
[2017-05-10] MEDS ORDERED: SENNA PLUS TAB1 EACH PO (00:14)
[2017-05-10] MEDS ORDERED: VANCO 1.51.5 GM/250 IV (00:14)
[2017-05-10 06:34] VITALS: BP 132/84
--- NOTE | 2017-05-10 07:58 | PN- Diabetes ---
Assessment/Plan Assessment: 76-year-old male was sent to the hospital by Dr. Samaniego because of an infection in his right toe. The patient was on an insulin pump at home. The patient had further surgery on his foot by Dr. Samaniego yesterday. He states he feels improved and the pain is much less in the foot. He is eating okay. The patient is presently on 16 units of Levemir twice a day and sliding scale NovoLog starting with 4 units for sugar of 80-150 before meals. He has a separate bedtime sliding-scale NovoLog. The patient is apparently going to rehabilitation today. Plan: Suggest increase the patient's Levemir to 18 units twice a day. If the patient is discharged today he can be discharged on Levemir 18 units twice a day in the present sliding-scale NovoLog before meals with a separate sliding-scale NovoLog at bedtime. Subjective Subjective: Feels improved Review of Systems Constitutional: Denies: chills, fever. Cardiovascular: Denies: chest pain. Respiratory: Denies: short of breath. Gastrointestinal: Denies: abdominal pain, nausea, vomiting. Objective Last 24 Hrs of Vital Signs/I&O Vital Signs Date Time Temp Pulse Resp B/P B/P Pulse O2 O2 Flow FiO2 Mean Ox Delivery Rate 05/10 0634 97.5 67 20 132/84 98 Room Air 05/09 2314 98.1 81 20 118/64 94 05/09 1453 Room Air Room Air 05/09 1448 98.1 74 20 118/60 96 Room Air 05/09 1037 142/74 05/09 1036 75 142/74 05/09 1036 75 142/74 05/09 1036 14274 Intake & Output 05/10 1600 05/10 0800 05/10 0000 Intake Total Output Total 350 Balance -350 Output, Urine 350 Vital Signs Date Time Temp Pulse Resp B/P B/P Pulse O2 O2 Flow FiO2 Mean Ox Delivery Rate 05/10 0634 97.5 67 20 132/84 98 Room Air 05/09 2314 98.1 81 20 118/64 94 05/09 1453 Room Air Room Air 05/09 1448 98.1 74 20 118/60 96 Room Air 05/09 1037 142/74 05/09 1036 75 142/74 05/09 1036 75 142/74 05/09 1036 142/74 Intake & Output 05/10 1600 05/10 0800 05/10 0000 Intake Total Output Total 350 Balance -350 Output, Urine 350 Physical Exam General Appearance: alert, awake, comfortable Head: normal appearance Neck: normal inspection Respiratory: normal breath sounds Cardiovascular: regular rate/rhythm Abdomen: normal bowel sounds, soft, non-tender Extremities: left foot bandaged Current Medications: Current Medications Sig/Chacha Start time Last Medication Dose Route Stop Time Status Admin Acetaminophen 650 MG Q6P PRN 05/03 0300 AC PO Allopurinol 300 MG QAM 05/03 1000 AC 05/09 PO 1035 Aspirin Buffered 81 MG QAM 05/05 1000 AC 05/09 PO 1036 Atorvastatin Calcium 20 MG QAM 05/03 1000 AC 05/09 PO 1036 Bupropion HCl 150 MG DAILY 05/03 1000 AC 05/09 PO 1037 Carvedilol 25 MG QAM 05/03 1000 AC 05/09 PO 1036 Clopidogrel Bisulfate 75 MG QAM 05/05 1000 AC 05/09 PO 1036 Diphenhydramine HCl 50 MG QPM 05/03 2200 AC 05/09 PO 2206 Docusate Sodium 100 MG DAILY NEEDED PRN 05/04 1900 AC PO Escitalopram Oxalate 5 MG QPM 05/03 2200 AC 05/09 PO 2206 Finasteride 5 MG QPM 05/03 2200 AC 05/09 PO 2206 Furosemide 40 MG QAM 05/05 1000 AC 05/09 PO 1036 Heparin Sodium 5,000 UNIT Q8 05/03 0600 AC 05/10 (Porcine) SC 0602 Hydroxyzine HCl 25 MG AT BEDTIME NEED.. 05/03 0345 AC 05/07 PO 0042 Insulin Aspart 0 TIDAC/HS 05/08 1700 AC 05/09 SC 2208 Insulin Detemir 16 UNITS BID 05/04 1000 AC 05/09 SC 2208 Isosorbide 120 MG QAM 05/03 1000 AC 05/09 Mononitrate PO 1037 Lisinopril 5 MG QAM 05/05 1000 AC 05/09 PO 1036 Metronidazole 500 MG Q8 05/08 1742 AC 05/10 PO 0602 Mirabegron 50 MG DAILY 05/03 1000 AC 05/09 PO 1036 Multivitamins 1 TAB DAILY 05/03 1000 AC 05/09 PO 1035 Niacin 500 MG 2200 05/03 2200 AC 05/09 PO 2206 Oxycodone/ 1 TAB Q6P PRN 05/03 030 AC 05/06 Acetaminophen PO 0943 Oxycodone/ 2 TAB Q6P PRN 05/03 030 AC 05/09 Acetaminophen PO 203 Polyethylene Glycol 17 GM DAILY PRN 05/04 190 AC PO Polyethylene Glycol 17 GM AT BEDTIME 05/03 2200 AC PO Pregabalin 150 MG QPM 05/03 2200 AC 05/09 PO 2205 Pregabalin 100 MG QAM 05/03 1000 AC 05/09 PO 1034 Senna/Docusate Sodium 1 TAB AT BEDTIME 05/03 2200 AC 05/08 PO 2137 Tamsulosin HCl 0.4 MG DAILY 05/03 1000 AC 05/09 PO 1036 Trazodone HCl 25 MG QPM 05/03 2200 AC 05/09 PO 220 Vancomycin HCl 1,500 MG DAILY@1400 05/05 1400 AC 05/09 Sodium Chloride 250 ML IV 1339
--- NOTE | 2017-05-10 08:02 | PN- Housestaff ---
FADUMO BAILEY,TOOTIE 05/10/17 0801: Subjective Follow-up For: osteomyelitis Subjective: Seen and examined at bedside. offer no new acute complaints. afebrile, vs stable , No acute o/n event. Review of Systems Constitutional: Reports: no symptoms. Objective Last 24 Hrs of Vital Signs/I&O Vital Signs Date Time Temp Pulse Resp B/P B/P Pulse O2 O2 Flow FiO2 Mean Ox Delivery Rate 05/10 1517 97.9 75 20 110/60 05/10 1507 97.9 75 20 110/60 96 Room Air Intake & Output 05/11 0800 05/11 0000 05/10 1600 Intake Total 900 Output Total Balance 900 Intake, Oral 900 Number 1 Bowel Movements Physical Exam General Appearance: Alert, Oriented X3, Cooperative Other Physical Findings: Skin: right foot dressing intact, no obvious signs of drainage or bleed. Neck: Supple, No JVD Lymphatic: Cervical nl Cardiovascular: Normal S1, Normal S2, No Murmurs Lungs: Normal Air Movement, CTA B/L Abdomen: Normal Bowel Sounds, Soft, No Tenderness, No Hepatospenomegaly Neurological: Normal Tone, Sensation Intact Extremities: No Clubbing, No Cyanosis, No Edema Current Medications: Current Medications Sig/Chacha Start time Last Medication Dose Route Stop Time Status Admin Acetaminophen 650 MG Q6P PRN 05/03 0300 DCD PO Allopurinol 300 MG QAM 05/03 1000 DCD 05/10 PO 0849 Aspirin Buffered 81 MG QAM 05/05 1000 DCD 05/10 PO 0850 Atorvastatin Calcium 20 MG QAM 05/03 1000 DCD 05/10 PO 0849 Bupropion HCl 150 MG DAILY 05/03 1000 DCD 05/10 PO 0849 Carvedilol 25 MG QAM 05/03 1000 DCD 05/10 PO 0850 Clopidogrel Bisulfate 75 MG QAM 05/05 1000 DCD 05/10 PO 0849 Diphenhydramine HCl 50 MG QPM 05/03 2200 DCD 05/09 PO 2206 Docusate Sodium 100 MG DAILY NEEDED PRN 05/04 1900 DCD PO Escitalopram Oxalate 5 MG QPM 05/03 2200 DCD 05/09 PO 2206 Finasteride 5 MG QPM 05/03 2200 DCD 05/09 PO 2206 Furosemide 40 MG QAM 05/05 1000 DCD 05/10 PO 0849 Heparin Sodium 5,000 UNIT Q8 05/03 0600 DCD 05/10 (Porcine) SC 1351 Hydroxyzine HCl 25 MG AT BEDTIME NEED.. 05/03 0345 DCD 05/07 PO 0042 Insulin Aspart 0 TIDAC/HS 05/08 1700 DCD 05/10 SC 1232 Insulin Detemir 16 UNITS BID 05/04 1000 DCD 05/10 SC 0851 Isosorbide 120 MG QAM 05/03 1000 DCD 05/10 Mononitrate PO 0850 Lisinopril 5 MG QAM 05/05 1000 DCD 05/10 PO 0849 Metronidazole 500 MG Q8 05/08 1742 DCD 05/10 PO 1351 Mirabegron 50 MG DAILY 05/03 1000 DCD 05/10 PO 0850 Multivitamins 1 TAB DAILY 05/03 1000 DCD 05/10 PO 0849 Niacin 500 MG 2200 05/03 2200 DCD 05/09 PO 2206 Oxycodone/ 1 TAB Q6P PRN 05/03 0300 DCD 05/06 Acetaminophen PO 0943 Oxycodone/ 2 TAB Q6P PRN 05/03 0300 DCD 05/10 Acetaminophen PO 0901 Polyethylene Glycol 17 GM DAILY PRN 05/04 1900 DCD PO Polyethylene Glycol 17 GM AT BEDTIME 05/03 220 DCD PO Pregabalin 150 MG QPM 05/03 2200 DCD 05/09 PO 2205 Pregabalin 100 MG QAM 05/03 1000 DC 05/10 PO 0850 Senna/Docusate Sodium 1 TAB AT BEDTIME 05/03 2200 DCD 05/08 PO 2137 Tamsulosin HCl 0.4 MG DAILY 05/03 1000 DCD 05/10 PO 0850 Trazodone HCl 25 MG QPM 05/03 2200 DCD 05/09 PO 2206 Vancomycin HCl 1,500 MG DAILY@1400 05/05 1400 DCD 05/10 Sodium Chloride 250 ML IV 1351 Last 24 Hrs of Lab/Ryan Results Last 24 Hrs of Labs/Mics: Laboratory Tests 05/10/17 1320: Vancomycin Trough 11.4 Assessment/Plan Assessment: This is a 76 yo pleasent obese M with h/o T2DM on insulin pump, peripheral neuropathy, CAD s/p CABG and stents, PVD s/p angioplasty, CRISTINE on CPAP, diverticulitis s/p colon resection, GERD, CKD stage 3B, depression, gout, osteomyelitis of right foot requiring amputation of 2nd to 4th toes, recently admitted to [facility] (04/12 04/16) for right 5th toe cellulitis with chronic nonhealing ulcer (MRI negative for osteomyelitis) treated with antibiotics, is sent in from the Wound center by Dr. Samaniego for concerns of 5th toe osteomyelitis given nonhealing wound now with purulent discharge for the past 3 days. Vitals on admission stable. Pertinent labs on admission-WBC 11.8, hemoglobin 13 and hematocrit 40. BUN 30 and creatinine 1.5 ESR 45 INR 1.21 LACTIC Acid 1 Arterial Doppler IMPRESSION: Abnormal waveforms throughout the lower extremities as described. With the exception of the right anterior tibial artery, the below-knee vessels were not visualized either secondary to occlusion or significantly slow flow. Findings are consistent with significant underlying peripheral arterial disease. There is also probable distal superficial femoral and popliteal disease bilaterally. Consider dedicated CTA for further anatomical detail, if clinically indicated. Venous Doppler: No evidence of deep venous thrombosis involving the lower extremities. Small left-sided Muller's cyst. FOOT MRi IMPRESSION: There has been a change since the prior study, with new abnormal signal involving the fifth digit phalanges consistent with osteomyelitis. Edema throughout the soft tissues with no focal collection identified Impression and Plan #Right fifth toe osteomyelitis POD #6 debridement adn partial resection and POD#2 revision with wound closure. Currently on day 6 of vancomycin and day 3 flagyl for polymicrobial growth of OR specimen (Alpha strept, Enterococcus, and Provetella). Patient will need 4 weeks of ABX post debridement,PICC line in place (Last day of ABX June 05). ESR,BEP, weekly after discharge. Will continue to f/u with further ID reccs (appreciated) . Peripheral artery disease With the exception of the right anterior tibial artery, the below-knee vessels were not visualized either secondary to occlusion or significantly slow flow. Findings are consistent with significant underlying peripheral arterialdisease. There is also probable distal superficial femoral and popliteal disease bilaterally. Patient had vascular intervention angiogram of his right leg 2 months ago at [facility] and he had a cardiac arrest during the procedure requiring resuscitation, no revascularization procedure was done for the right leg. * Vascular on board * Will need right leg angiogram soon- on an outpatient basis per vascular reccomendation. Pt will be given instruction upon discharge to f/u with Dr Hurtado. Gout Continue allopurinol 300 mg daily Coronary artery disease Status post CABG and stents on DAPT. Hyperlipidemia Lipitor 20 daily Depression Continue Lexapro and bupropion daily Hypertension Continue carvedilol and lisinopril Urine retention Continue finasteride, tamsulosin Fluid retention Continue home dose of Lasix 40 daily Peripheral neuropathy Continue pregabalin Insomnia Continue trazodone Type 2 diabetes mellitus On insulin pump at home,discontinued during admission and endocrine consulted. Levemir twice daily and NovoLog sliding scale per endo. Obstructive sleep apnea On CPAP [id number] baseline creatinine 1.3 cr- 1.6 now DVT prophylaxis subcutaneous heparin DNR/DNI Pain pathway Problem List: 1. Osteomyelitis of toe of right foot Pain Ratin Pain Location: lower extremities Pain Goal: Remain pain free Pain Plan: per pathway Tomorrow's Labs & Rationales: none-discharge Consulting Request: Consulting Specialty: Infectious Disease ROSALINA PHILLIPS MD 05/10/17 0953: Attending MD Review Statement Attending Statement Attending MD Statement: examined this patient, discuss w/resident/PA/BATCH UNIT TREATER, agreed w/resident/PA/BATCH UNIT TREATER, reviewed EMR data (avail), discussed with nursing, discussed with case mgmt Attending Assessment/Plan: Patient is doing okay. We've made the insulin changes per Dr. Wiggins. Per Dr. Wiggins he should continue with long-acting and short-acting insulin while he is at the rehabilitation facility and will restart his pump will be on discharge to home. The plan is for IV vancomycin and by mouth Flagyl for polymicrobial osteo -in a diabetic with CAD and CKD. Dr. Joaquín Brar mention that he needs the IV Vanco and by mouth Flagyl to a 22 with weekly blood draws and the plan is STR.
[2017-05-10] MEDS ORDERED: LEVEMIR100 UNIT/1 SC ×2 (09:31→09:46)
[2017-05-10] MEDS ORDERED: NOVOLOG100 UNIT/2 SC (09:31)
--- NOTE | 2017-05-10 09:47 | PN- Cardiology ---
Subjective Subjective: Patient continues complaining of right foot pain. No chest pain. No shortness of breath. No diaphoresis. No palpitations. Objective Vital Signs and I&Os Vital Signs Date Time Temp Pulse Resp B/P B/P Pulse O2 O2 Flow FiO2 Mean Ox Delivery Rate 05/10 0634 97.5 67 20 132/84 98 Room Air 05/10 0000 96 CPAP 05/09 2314 98.1 81 20 118/64 94 05/09 1453 Room Air Room Air 05/09 1448 98.1 74 20 118/60 96 Room Air 05/09 1037 142/74 05/09 1036 75 142/74 05/09 1036 75 142/74 05/09 1036 142/74 Intake & Output 05/10 1600 05/10 0800 05/10 0000 05/09 1600 05/09 0805/09 0000 Intake Total 732 844 2153 280 600 Output Total 350 500 725 Balance -50 200 1100 -220 -125 Intake, IV 300 40 Intake, Oral 300 200 800 240 600 Number 0 Bowel Movements Output, Urine 350 500 725 Physical Exam: Gen: The patient is in no acute distress HEENT: Normal nose, ears, and oropharynx. Pupils equal bilaterally. Conjunctiva normal. Neck: Supple with no JVD, no masses, and no thyromegaly Lungs: Clear to auscultation with normal respiratory effort Heart: RRR, S1, S2, no murmurs. No peripheral edema, 2+ pulses in the lower extremities bilaterally Abdomen: Soft, nontender, no masses. No hepatomegaly. No splenomegaly Extremities: No clubbing or cyanosis. Normal muscle strength in the upper and lower extremities Skin: Normal skin turgor with right foot ulcer Neuro: Cranial nerves intact. Sensation intact Current Medications: Current Medications Sig/Chacha Start time Last Medication Dose Route Stop Time Status Admin Acetaminophen 650 MG Q6P PRN 05/03 0300 AC PO Allopurinol 300 MG QAM 05/03 1000 AC 05/10 PO 0849 Aspirin Buffered 81 MG QAM 05/05 1000 AC 05/10 PO 0850 Atorvastatin Calcium 20 MG QAM 05/03 1000 AC 05/10 PO 0849 Bupropion HCl 150 MG DAILY 05/03 1000 AC 05/10 PO 0849 Carvedilol 25 MG QAM 05/03 1000 AC 05/10 PO 0850 Clopidogrel Bisulfate 75 MG QAM 05/05 1000 AC 05/10 PO 0849 Diphenhydramine HCl 50 MG QPM 05/03 2200 AC 05/09 PO 2206 Docusate Sodium 100 MG DAILY NEEDED PRN 05/04 190 AC PO Escitalopram Oxalate 5 MG QPM 05/03 2200 AC 05/09 PO 2206 Finasteride 5 MG QPM 05/03 2200 AC 05/09 PO 2206 Furosemide 40 MG QAM 05/05 1000 AC 05/10 PO 0849 Heparin Sodium 5,000 UNIT Q8 05/03 0600 AC 05/10 (Porcine) SC 0602 Hydroxyzine HCl 25 MG AT BEDTIME NEED.. 05/03 0345 AC 05/07 PO 0042 Insulin Aspart 0 TIDAC/HS 05/08 1700 AC 05/10 SC 0851 Insulin Detemir 16 UNITS BID 05/04 1000 AC 05/10 SC 0851 Isosorbide 120 MG QAM 05/03 1000 AC 05/10 Mononitrate PO 0850 Lisinopril 5 MG QAM 05/05 1000 AC 05/10 PO 0849 Metronidazole 500 MG Q8 05/08 1742 AC 05/10 PO 0602 Mirabegron 50 MG DAILY 05/03 1000 AC 05/10 PO 0850 Multivitamins 1 TAB DAILY 05/03 1000 AC 05/10 PO 0849 Niacin 500 MG 05/03 AC 05/09 PO 2206 Oxycodone/ 1 TAB Q6P PRN 05/03 0300 AC 05/06 Acetaminophen PO 0943 Oxycodone/ 2 TAB Q6P PRN 05/03 0300 AC 05/10 Acetaminophen PO 0901 Polyethylene Glycol 17 GM DAILY PRN 05/04 190 AC PO Polyethylene Glycol 17 GM AT BEDTIME 05/03 2200 AC PO Pregabalin 150 MG QPM 05/03 2200 AC 05/09 PO 2205 Pregabalin 100 MG QAM 05/03 1000 AC 05/10 PO 0850 Senna/Docusate Sodium 1 TAB AT BEDTIME 05/03 2200 AC 05/08 PO 2137 Tamsulosin HCl 0.4 MG DAILY 05/03 1000 AC 05/10 PO 0850 Trazodone HCl 25 MG QPM 05/03 2200 AC 05/09 PO 2206 Vancomycin HCl 1,500 MG DAILY@1400 05/05 1400 AC 05/09 Sodium Chloride 250 ML IV 1339 Results Last 48 Hrs of Labs/Mics: Laboratory Tests 05/10/17 0600: Sodium Pending, Potassium Pending, Chloride Pending, Carbon Dioxide Pending, Anion Gap Pending, BUN Pending, Creatinine Pending, BUN/Creatinine Ratio Pending 05/09/17 1330: Random Vancomycin Cancelled 05/09/17 0530: Anion Gap 8, Estimated GFR 42 L, BUN/Creatinine Ratio 17.5, ESR Westergren 70 H Assessment/Plan Assessment/Plan Assessment: 1. Diabetes mellitus 2. CAD, status post CABG 3. Peripheral child disease 4. Right foot infection with possible osteomyelitis 5. Recent episode of prolonged hypotension during vascular procedure 7. Recent normal nuclear stress test Plan: * Continue current cardiac medications. * The patient is planned for peripheral intravenous outpatient. Monitor for perioperative hypotension given recent history of severe hypotension during angiogram * Continue cardiac medications. * Follow up with cardiology within 2 weeks after discharge. Continue telemetry? Not applicable
[2017-05-10 15:07] VITALS: BP 110/60
[2017-05-10 15:17] VITALS: BP 110/60
--- NOTE | 2017-05-11 06:52 | PN- Housestaff ---
Assessment/Plan Assessment: This is a 76 yo pleasent obese M with h/o T2DM on insulin pump, peripheral neuropathy, CAD s/p CABG and stents, PVD s/p angioplasty, CRISTINE on CPAP, diverticulitis s/p colon resection, GERD, CKD stage 3B, depression, gout, osteomyelitis of right foot requiring amputation of 2nd to 4th toes, recently admitted to [facility] (04/12 04/16) for right 5th toe cellulitis with chronic nonhealing ulcer (MRI negative for osteomyelitis) treated with antibiotics, is sent in from the Wound center by Dr. Samaniego for concerns of 5th toe osteomyelitis given nonhealing wound now with purulent discharge for the past 3 days. Vitals on admission stable. Pertinent labs on admission-WBC 11.8, hemoglobin 13 and hematocrit 40. BUN 30 and creatinine 1.5 ESR 45 INR 1.21 LACTIC Acid 1 Arterial Doppler IMPRESSION: Abnormal waveforms throughout the lower extremities as described. With the exception of the right anterior tibial artery, the below-knee vessels were not visualized either secondary to occlusion or significantly slow flow. Findings are consistent with significant underlying peripheral arterial disease. There is also probable distal superficial femoral and popliteal disease bilaterally. Consider dedicated CTA for further anatomical detail, if clinically indicated. Venous Doppler: No evidence of deep venous thrombosis involving the lower extremities. Small left-sided Muller's cyst. FOOT MRi IMPRESSION: There has been a change since the prior study, with new abnormal signal involving the fifth digit phalanges consistent with osteomyelitis. Edema throughout the soft tissues with no focal collection identified Impression and Plan #Right fifth toe osteomyelitis POD #6 debridement adn partial resection and POD#2 revision with wound closure. Currently on day 6 of vancomycin and day 3 flagyl for polymicrobial growth of OR specimen (Alpha strept, Enterococcus, and Provetella). Patient will need 4 weeks of ABX post debridement,PICC line in place (Last day of ABX June 05). ESR,BEP, weekly after discharge. Will continue to f/u with further ID reccs (appreciated) . Peripheral artery disease With the exception of the right anterior tibial artery, the below-knee vessels were not visualized either secondary to occlusion or significantly slow flow. Findings are consistent with significant underlying peripheral arterialdisease. There is also probable distal superficial femoral and popliteal disease bilaterally. Patient had vascular intervention angiogram of his right leg [address] [facility] and he had a cardiac arrest during the procedure requiring resuscitation, no revascularization procedure was done for the right leg. * Vascular on board * Will need right leg angiogram soon- on an outpatient basis per vascular reccomendation. Pt will be given instruction upon discharge to f/u with Dr Hurtado. Gout Continue allopurinol 300 mg daily Coronary artery disease Status post CABG and stents on DAPT. Hyperlipidemia Lipitor 20 daily Depression Continue Lexapro and bupropion daily Hypertension Continue carvedilol and lisinopril Urine retention Continue finasteride, tamsulosin Fluid retention Continue home dose of Lasix 40 daily Peripheral neuropathy Continue pregabalin Insomnia Continue trazodone Type 2 diabetes mellitus On insulin pump at home,discontinued during admission and endocrine consulted. Levemir twice daily and NovoLog sliding scale per endo. Obstructive sleep apnea On CPAP ckd [id number] baseline creatinine 1.3 cr- 1.6 now DVT prophylaxis subcutaneous heparin DNR/DNI Pain pathway Consulting Request: Consulting Specialty: Infectious Disease
== END 2017-05-10 16:35 | DRG 617 ==
LOC: ERH 19:55 → ERHI 22:44 → 1NO 22:44 → ENRESERV 05-03 02:00 → 1NO 05-03 02:48 → ENTRNSPT 05-04 13:58 → EDTRNSPTSTS 05-04 14:13 → EDTRNSPT 05-04 14:13 → EDTRNSPTTM 05-04 14:13 → CMPTRNSPT 05-04 14:27 → ENTRNSPT 05-08 16:08 → EDTRNSPTSTS 05-08 16:13 → CMPTRNSPT 05-08 17:13 → 2NB 05-08 20:55
PROVIDERS: Emergency Medicine; Hospitalist; Student in an Organized Health Care Education/Training Program; ADMIT Student in an Organized Health Care Education/Training Program
PROC: 0Y6M0ZF Detachment at Right Foot, Partial 5th Ray, Open Approach (ICD-10-PCS; 2017-05-04)
PROC: 02HV33Z Insertion of Infusion Device into Superior Vena Cava, Percutaneous Approach (ICD-10-PCS; principal; 2017-05-08)
PROC: 0Y6M0ZF Detachment at Right Foot, Partial 5th Ray, Open Approach (ICD-10-PCS; 2017-05-08)
DX: E11.69 Type 2 diabetes mellitus with other specified complication (principal); M86.171 Other acute osteomyelitis, right ankle and foot; N17.9 Acute kidney failure, unspecified; E11.52 Type 2 diabetes mellitus with diabetic peripheral angiopathy with gangrene; E11.22 Type 2 diabetes mellitus with diabetic chronic kidney disease; L97.411 Non-pressure chronic ulcer of right heel and midfoot limited to breakdown of skin; L03.115 Cellulitis of right lower limb; Z68.41 Body mass index [BMI] 40.0-44.9, adult; E11.621 Type 2 diabetes mellitus with foot ulcer; E11.42 Type 2 diabetes mellitus with diabetic polyneuropathy; Z96.41 Presence of insulin pump (external) (internal); Z79.4 Long term (current) use of insulin; I73.9 Peripheral vascular disease, unspecified; E66.9 Obesity, unspecified; I25.10 Atherosclerotic heart disease of native coronary artery without angina pectoris; Z95.1 Presence of aortocoronary bypass graft; Z95.5 Presence of coronary angioplasty implant and graft; Z79.02 Long term (current) use of antithrombotics/antiplatelets; G47.33 Obstructive sleep apnea (adult) (pediatric); K21.9 Gastro-esophageal reflux disease without esophagitis; N18.3 Chronic kidney disease, stage 3 (moderate); F32.9 Major depressive disorder, single episode, unspecified; M10.9 Gout, unspecified; B95.61 Methicillin susceptible Staphylococcus aureus infection as the cause of diseases classified elsewhere; B95.2 Enterococcus as the cause of diseases classified elsewhere; E78.5 Hyperlipidemia, unspecified; G47.00 Insomnia, unspecified; Z88.0 Allergy status to penicillin; H91.90 Unspecified hearing loss, unspecified ear; E11.36 Type 2 diabetes mellitus with diabetic cataract; Z87.891 Personal history of nicotine dependence; Z86.74 Personal history of sudden cardiac arrest; L97.511 Non-pressure chronic ulcer of other part of right foot limited to breakdown of skin; M19.90 Unspecified osteoarthritis, unspecified site; E11.65 Type 2 diabetes mellitus with hyperglycemia; R33.9 Retention of urine, unspecified; Z66 Do not resuscitate; I12.9 Hypertensive chronic kidney disease with stage 1 through stage 4 chronic kidney disease, or unspecified chronic kidney disease; R60.9 Edema, unspecified
CPT/HCPCS: 1NSP; 2NBSP; 75657; 87070; 87075; ERO; 36415; 73630-RT; 82436; 87040; 87071; 87147; 88304; 88305; 93005; 93010; 93306; 93925; 93970; C1769; J0131; J0690; J1170; J1200; J1644; J1815; J2001; J3370; J7040; J7042

== ENCOUNTER 2018-04-04 22:19 | Inpatient (IN) | payer OTHER, MEDICARE ==
[~2018-04-04] VITALS: Ht 167.6 cm; Wt 120.4 kg
[~2018-04-04 22:19] MED LIST changes: +FLAGYL250 M1 PO; -HYDROXYZINE HCL25 M2 PO; +HYDROXYZINE HCL50 M1 PO; +LEVEMIR100 UNIT/1 SC; +LEXAPRO10 M1 PO; -LEXAPRO5 M1 PO; +MIRALAX119 GM PO; +MYRBETRIQ25 M1 PO; -MYRBETRIQ50 M1 PO; +NOVOLOG100 UNIT/2 SC; +OXYCODONE HCL5 M1 PO; +SENNA PLUS TAB1 EACH PO; +VANCO 1.51.5 GM/250 IV; -WELLBUTRIN XL150 M2 PO; +WELLBUTRIN XL300 M2 PO
--- NOTE | 2018-04-04 23:06 | ED GENERAL ADULT ---
History of Present Illness General Chief Complaint: Low Back Pain/Injury Stated Complaint: FALL POST 2 HOURS Source: patient, family Exam Limitations: no limitations Vital Signs & Intake/Output Vital Signs & Intake/Output Vital Signs Date Time Temp Pulse Resp B/P B/P Pulse O2 O2 Flow FiO2 Mean Ox Delivery Rate 04/05 0021 97.7 87 20 112/56 94 Room Air 04/04 2330 93 Room Air 04/04 2253 98.6 88 20 110/58 93 Room Air 04/04 2241 98.0 97 20 99/60 94 Room Air ED Intake and Output 04/05 0000 04/04 1200 Intake Total 0 Output Total 0 Balance 0 Intake, Oral 0 Output, Urine 0 Patient 260 lb Weight Weight Reported by Patient Measurement Method Allergies Coded Allergies: No Known Drug Allergies (NKDA, PT DENIES MEDICATION ALLERGIES 04/04/18) Reconcile Medications Allopurinol 300 MG TABLET 1 TAB PO QAM GOUT (Reported) Aspirin (Ecotrin*) 81 MG TABLET.DR 1 TAB PO QAM HEART/BLOOD (Reported) Atorvastatin Calcium 20 MG TABLET 1 TAB PO QAM CHOLESTEROL (Reported) Bupropion HCl (Wellbutrin XL) 150 MG TAB.ER.24H 1 TAB PO QAM DEPRESSION ( Reported) Carvedilol (Coreg) 25 MG TABLET 1 TAB PO QAM BP (Reported) Clopidogrel Bisulfate (Clopidogrel) 75 MG TABLET 1 TAB PO QAM BLOOD THINNER ( Reported) Diphenhydramine HCl 25 MG CAPSULE 2 CAP PO QPM SLEEP (Reported) Escitalopram Oxalate (Lexapro) 5 MG TABLET 1 TAB PO QPM MENTAL HEALTH ( Reported) Finasteride 5 MG TABLET 1 TAB PO QPM URINATION (Reported) Furosemide 40 MG TABLET 1 TAB PO QAM FLUID RETENTION (Reported) Hydroxyzine Hydrochloride (Atarax) (Unknown Strength) TABLET (Unknown Dose) PO PRN ITCHING (Reported) Insulin Aspart (Novolog) 100 UNIT/ML VIAL 0 UNITS SC SEE ADMIN CRITERIA DIABETES LESS THAN 80 MG/DL--Initiate hypoglycemia 151-200-- 6 units 201-250--8 units 251-300--10 units 301-350--12 units 351-400--14 units more than 400--14 units and notify md Additional Bedtime coverage Below 251--no coverage 251-300--2 units 301-350--3 units 351-400--4 units more than 400--5 units Insulin Detemir (Levemir) 100 UNIT/ML VIAL 18 UNITS SC BID DIABETES Isosorbide Mononitrate (Isosorbide Mononitrate ER) 60 MG TAB.ER.24H 2 TAB PO QAM HEART (Reported) Lisinopril (Prinivil) 5 MG TABLET 1 TAB PO QAM BP (Reported) Metronidazole (Flagyl) 250 MG TABLET 500 MG PO Q8 infection last day will be 06/05. Mirabegron (Myrbetriq) 50 MG TAB.ER.24H 1 TAB PO QPM BLADDER (Reported) Multivit-Min/Iron/Folic/Lutein (Centrum Silver Women Tablet) 8 MG IRON-400 MCG- 300 MCG TABLET 1 TAB PO DAILY SUPPLEMENT (Reported) Niacin (Niaspan) 500 MG TAB.ER.24H 1 TAB PO QPM CHOLESTEROL (Reported) Oxycodone HCl 5 MG TABLET 1 TAB PO Q4-6 PRN moderate to severa pain Polyethylene Glycol 3350 (Miralax) 17 GRAM/DOSE POWDER 17 GM PO DAILY PRN constipation Pregabalin (Lyrica) 50 MG CAPSULE 3 CAP PO QPM NEUROPATHY (Reported) Pregabalin (Lyrica) 50 MG CAPSULE 2 CAP PO QAM NEUROPATHY (Reported) Sennosides/Docusate Sodium (Senna Plus Tablet) 8.6 MG-50 MG TABLET 1 TAB PO DAILY PRN constipation Tamsulosin HCl (Flomax) 0.4 MG CAP.ER.24H 1 CAP PO DAILY (Reported) Trazodone HCl 50 MG TABLET 0.5 TAB PO QPM SLEEP HELP (Reported) Vancomycin/0.9 % Sod Chloride (Vanco 1.5 Gm/250 Ml-0.9% NaCl) 1.5 GRAM/250 ML PLAST..BAG 1,500 MG IV DAILY infection last day 06/05 Triage Note: PT BROUGHT TO ED BY FAMILY FOR FREQUENT FALLS. PT STATES HE FELL TWICE TODAY "THIS IS THE THIRD FALL THIS WEEK" "MY LEGS JUST GIVE OUT ON ME" PT MAX ASSIST OF 2 FROM WHEELCHAIR TO STRETCHER. HAS SVERAL BRUISES OF VARYING AGE TO BODY. HAS INSULIN PUMP. FINGERSTICK 383. STARTED MEDICAL MARIJUANA A MONTH AGO FOR PAIN IN FEET. PT STATES WHEN HE FELL "I SAT DOWN ON MY TAIL BONE AND IT REALLY HURTS" Triage Nurses Notes Reviewed? yes Onset: Abrupt Duration: day(s): Timing: recent history HPI: 04/04/18 77-year-old man presents to the emergency department status post fall. The patient has a history of Parkinson's disease and falls often. He is also an insulin-dependent diabetic. He has an insulin pump. According to his he had a mechanical slip and fall and now is complaining of tailbone pain. He was also recently put on Cipro for UTI and he subsequently developed a rash to his back. He denies chest pain, abdominal pain, or shortness of breath (James Hayward DO) Past History Travel History Traveled to [place] past 21 day No Medical History Any Pertinent Medical History? see below for history Neurological: NEUROPATHY EENT: allergies, cataracts, hearing loss Cardiovascular: CAD Respiratory: obstructive sleep apnea Gastrointestinal: diverticulitis, GERD Hepatic: NONE Renal: CHRONIC KIDNEY DISEASE Musculoskeletal: gout Psychiatric: depression Endocrine: diabetes Blood Disorders: NONE Cancer(s): NONE VISITING PROFESSOR/Reproductive: NONE History of MRSA: No History of VRE: No History of CDIFF: No Surgical History Surgical History: CABG (lower extremity angioplasty), colon resection, left leg angioplasty partial fifth ray resection, rt. 2nd toe anputation R 3rd and 4th toe amputation Psychosocial History Who do you live with Patient/Self Services at Home None What is your primary language Yoruba Tobacco Use: Quit >30 days ago ETOH Use: occasional use Illicit Drug Use: marijuana Family History Family History, If Any: Relation not specified for: FH: diabetes mellitus Hx Contributory? No (James Hayward DO) Review of Systems Review of Systems Constitutional: Denies: fever. EENTM: Reports: no symptoms. Respiratory: Denies: short of breath. Cardiovascular: Denies: chest pain. GI: Denies: abdominal pain. Genitourinary: Reports: no symptoms. Musculoskeletal: Reports: back pain. Skin: Reports: rash. Neurological/Psychological: Reports: see HPI. Hematologic/Endocrine: Reports: no symptoms. Immunologic/Allergic: Reports: no symptoms. (James Hayward DO) Physical Exam Physical Exam General Appearance: alert, awake, anxious, mild distress Head: atraumatic, normal appearance Eyes: Bilateral: normal appearance, PERRL, EOMI. Ears, Nose, Throat: normal pharynx, normal ENT inspection, hearing grossly normal Neck: normal inspection, supple, full range of motion Respiratory: no respiratory distress Cardiovascular: regular rate/rhythm Peripheral Pulses: 4+ radial (R), 4+ radial (L) Gastrointestinal: soft, non-tender Back: decreased range of motion Extremities: normal inspection, normal range of motion, pedal edema Neurologic/Psych: no motor/sensory deficits, awake, alert, oriented x 3 Skin: intact, normal color, rash Core Measures ACS in differential dx? No CVA/TIA Diagnosis: No Sepsis Present: No Sepsis Focused Exam Completed? No (James Hayward DO) Progress Differential Diagnoses I considered the following diagnoses in my evaluation of the patient: [Adverse drug reaction, fracture, gait instability, Parkinson's disease] Plan of Care: Orders Procedure Date/time Status Heart Healthy Diet 04/05 B Active Saline Lock 04/05 152 Active Misc Message 04/05 152 Active ED Holding Orders 04/05 152 Active Admit to inpatient 04/05 152 Active Vital Signs 04/05 152 Active Code Status 04/05 152 Active URINALYSIS 04/04 2326 Complete TROPONIN LEVEL 04/04 2326 Complete COMPREHENSIVE METABOLIC PANEL 04/04 2326 Complete CBC WITHOUT DIFFERENTIAL 04/04 2326 Complete EKG 04/04 2220 Active Laboratory Tests 04/05/18 0040: Urinalysis LIGHT H, Urine Color YEL, Urine Clarity CLEAR, Urine pH 6.0, Ur Specific [place] 1.020, Urine Protein NEG, Urine Ketones NEG, Urine Nitrite NEG, Urine Bilirubin NEG, Urine Urobilinogen 0.2, Ur Leukocyte Esterase SMALL H, Ur Microscopic SEDIMENT EXAMINED, Urine RBC 1-3, Urine WBC 15-25 H, Urine Bacteria RARE H, Urine Hemoglobin NEG, Urine Glucose 250 H 04/04/18 2345: Anion Gap 9, Estimated GFR 21 L, BUN/Creatinine Ratio 20.0, Glucose 381 H, Calcium 8.3 L, Total Bilirubin 0.4, AST 22, ALT 28, Alkaline Phosphatase 53, Troponin I < 0.01, Total Protein 5.2 L, Albumin 3.0 L, Globulin 2.2, Albumin/ Globulin Ratio 1.4, CBC w Diff NO MAN DIFF REQ, RBC 3.80 L, MCV 94.1 H, MCH 31.6 H, MCHC 33.6, RDW 14.4, MPV 7.5, Gran % 78.3 H, Lymphocytes % 11.7 L, Monocytes % 5.0, Eosinophils % 4.6, Basophils % 0.4, Absolute Granulocytes 8.4 H, Absolute Lymphocytes 1.3, Absolute Monocytes 0.5, Absolute Eosinophils 0.5, Absolute Basophils 0 Initial ED EKG: NSR, PAC Prior EKG: unchanged (James Hayward DO) Departure Departure Disposition: STILL A PATIENT Condition: Stable Referrals: Gwendolyn BAILEY,Yomi Staton (PCP/Family) Departure Forms: Customer Survey General Discharge Information Comments IMPRESSION: No acute fracture identified. Subtle acuity to the cortex of the junction between the sacrum and coccyx is likely chronic. Moderate to advanced degenerative change within the visualized lumbar spine. No pelvic free fluid. 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 <Electronically signed in Other Vendor System> SIGNED BY: Esvin Michele MD 04/05/18 0009 04/05/18 1 AM The patient was signed out to Dr. Goodman at 1 AM. He has evidence of acute kidney injury. Gait instability. Frequent falls. He is for admission. (James Hayward DO) Departure Clinical Impression Primary Impression: Fall Secondary Impressions: LEAH (acute kidney injury), Weakness acquired in ICU Admission Note Spoke With: Pricila BAILEY,mendoza Documentation of Exam: Documentation of any treatments & extenuating circumstances including Concerns Regarding Discharge (functional status, medication knowledge or non-compliance, living conditions, etc.) that warrant an admission rather than observation: PT WITH RECURRENT FALLS, WEAKNESS, AND EVIDENCE OF ACUTE KIDNEY INJURY FROM BASELINE.... PT MERITS IV FLUIDS, ELECTROLYTE MANAGEMENT, pt/OT CONSULT. (Rex BAILEY,César Wiley) Critical Care Note Critical Care Note Critical Care Time: non-applicable (James Hayward DO)
--- NOTE | 2018-04-05 00:09 | CT SCAN REPORT ---
EXAMINATION: CT PELVIS WITHOUT CONTRAST CLINICAL INFORMATION: Pain after fall. COMPARISON: None TECHNIQUE: Helical scanning was performed with submillimeter collimation through the pelvis. Sagittal and coronal multiplanar 2-D reconstructions were obtained. DLP: 1080 mGy-cm FINDINGS: PELVIS: There is no pelvic free fluid. The urinary bladder is partially filled and unremarkable. Visualized unopacified loops of small and large bowel are unremarkable. OSSEOUS STRUCTURES: There is moderate to advanced degenerative change within the visualized lumbar spine. There is near complete disc height loss at L4/L5 with ankylosis of the posterior elements. There is anterior osteophyte formation bridging between L3 and L4. Both femoral heads are seated within well-formed acetabula. The pubic symphysis is intact. On the sagittal reconstructions, there is cortical acuity to the junction of the sacrum with the coccyx. 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 There is no adjacent soft tissue swelling. No acute fractures are suspected. IMPRESSION: No acute fracture identified. Subtle acuity to the cortex of the junction between the sacrum and coccyx is likely chronic. Moderate to advanced degenerative change within the visualized lumbar spine. No pelvic free fluid.
[2018-04-05 00:10] LABS: ABSOLUTE BASOPHIL COUNT 0 /CUMM (0.0-0.2); ABSOLUTE EOSINOPHIL COUNT 0.5 /CUMM (0.0-0.7); ABSOLUTE GRANULOCYTE CT 8.4 /CUMM (1.4-6.5); ABSOLUTE LYMPH COUNT 1.3 /CUMM (1.2-3.4); ABSOLUTE MONOCYTE COUNT 0.5 /CUMM (0.10-0.60); BASOPHIL % 0.4 % (0.0-2.0); EOSINOPHIL % 4.6 % (0-5); GRANULOCYTE % 78.3 % (42.2-75.2); HEMATOCRIT 35.8 % (42-52); MEAN CORPUSCULAR HGB 31.6 PG (27.0-31.0); MEAN CORPUSCULAR HGB CONC 33.6 G/DL (33.0-37.0); MEAN CORPUSCULAR VOLUME 94.1 FL (80.0-94.0); MEAN PLATELET VOLUME 7.5 FL (7.4-10.4); PLATELET COUNT 235 /CUMM (130-400); RBC DISTRIBUTION WIDTH 14.4 % (11.5-14.5); WHITE BLOOD CELL COUNT 10.7 /CUMM (4.8-10.8)
--- NOTE | 2018-04-05 02:16 | History & Physical ---
Roxanne Bran MD 04/05/18 0216: General Information and HPI MD Statement: I have seen and personally examined KELLY QUILES and documented this H&P. The patient is a 77 year old M who presented with a patient stated chief complaint of repeated falls, recent UTI treatment, left lower leg erythema Source of Information: patient, old records Exam Limitations: no limitations History of Present Illness: This is a 77 year old male with a PMH significant for Parkinson's disease, diabetes, CAD status post CABG, obstructive sleep apnea on CPAP, stage IV CKD, neuropathy, CAD, gout, hypertension, colon resection, that comes to see us for complaints of recurrent falls, recent UTI, wounds. The patient states that he has been falling a lot recently. His most recent fall was on Sunday while making his way to the bathroom. This is the third fall he had this week. He states that his legs just gave out unexpectedly and he fell on his tailbone injuring it. He denies any loss of consciousness, head strike. He denies any seizure activity, loss of bowel or bladder function, tongue biting. While the patient has been falling a lot recently, he presented to us on this particular day because his grandson forced him to calm and get evaluated. The patient denies any dysuria but has admitted to increased urination for months stating that "I always have the urge to go. He states that he was given antibiotics, most recently ciprofloxacin which was started yesterday and reportedly gave him a rash at the time on his back. The patient admits to chills for the past 6 months but denies fever, diaphoresis, headache, chest pain , shortness of breath, abdominal pain. He does however state that he gets suprapubic pain if his bladder gets too full. The patient states that 2 days ago he developed a nonproductive cough. The patient ambulates with a cane/ walker/roller. In the emergency department he was a max assist of 2 from his wheelchair to the stretcher. The patient is usually independent in most of his activities of daily living but reports that he doesn't always feel safe at home when he feels unsteady on his feet and sick. The patient lives with his and children and grandchildren. The patient has an insulin pump and sees security incident response engineer Dr. Jeremiah Newberry. His last blood glucose readings were 146 and 172 according to the patient. Allergies/Medications Allergies: Coded Allergies: ciprofloxacin (RASH 04/05/18) Compliance With Home Meds: GOOD Past History Travel History Traveled to [place] past 21 day No Medical History Neurological: NEUROPATHY EENT: allergies, cataracts, hearing loss Cardiovascular: CAD Respiratory: obstructive sleep apnea Gastrointestinal: diverticulitis, GERD Hepatic: NONE Renal: CHRONIC KIDNEY DISEASE Musculoskeletal: gout Psychiatric: depression Endocrine: diabetes Blood Disorders: NONE Cancer(s): NONE RECEPTIONIST DOCTOR'S OFFICE/Reproductive: NONE History of MRSA: No History of VRE: No History of CDIFF: No Surgical History Surgical History: CABG (lower extremity angioplasty), colon resection, left leg angioplasty partial fifth ray resection, rt. 2nd toe anputation R 3rd and 4th toe amputation Past Family/Social History Family History Relations & Conditions if any Relation not specified for: FH: diabetes mellitus Psychosocial History Services at Home: None Primary Language: Icelandic ETOH Use: occasional use Illicit Drug Use: marijuana Living Will? yes Functional Ability ADLs Independent: dressing, eating, toileting, bathing. Ambulation: walker IADLs Independent: shopping, housework, finances, food prep, telephone, transportation , medication admin. Review of Systems Review of Systems Constitutional: Reports: see HPI, chills, weakness. EENTM: Reports: no symptoms. Cardiovascular: Reports: no symptoms. Respiratory: Reports: no symptoms. GI: Reports: no symptoms. Genitourinary: Reports: urgency. Musculoskeletal: Reports: back pain, joint pain, muscle pain. Skin: Reports: see HPI, lesions. Neurological/Psychological: Reports: no symptoms. Hematologic/Endocrine: Reports: bruising. Immunologic/Allergic: Reports: no symptoms. Exam & Diagnostic Data Last 24 Hrs of Vital Signs/I&O Vital Signs Date Time Temp Pulse Resp B/P B/P Pulse O2 O2 Flow FiO2 Mean Ox Delivery Rate 04/05 0502 98.5 80 20 130/68 94 Room Air 04/05 0230 98.1 86 18 121/55 96 Room Air 04/05 0021 97.7 87 20 112/56 94 Room Air 04/04 2330 93 Room Air 04/04 2253 98.6 88 20 110/58 93 Room Air 04/04 2241 98.0 97 20 99/60 94 Room Air Intake & Output 04/05 0800 04/05 0000 04/04 1600 Intake Total 0 Output Total 225 0 Balance -225 0 Intake, Oral 0 Output, Urine 225 0 Patient 265 lb 260 lb Weight Weight Bed scale Reported by Patient Measurement Method Physical Exam General Appearance Alert, Oriented X3, Cooperative, No Acute Distress Skin No Rashes, patient has scattered hematomas all over his body at different stages of healing. He also has a lower left extremity open wound with surrounding erythema that is warm to touch. Skin Temp/Moisture Exam: Warm/Dry Sepsis Skin Exam (color): Normal for Ethnicity HEENT Atraumatic, PERRLA, EOMI, Mucous Membr. moist/pink Neck Supple, No JVD Cardiovascular Regular Rate, Normal S1, Normal S2, No Murmurs Lungs Clear to Auscultation, Normal Air Movement Abdomen Normal Bowel Sounds, Soft, No Tenderness, No Hepatospenomegaly, No Masses Neurological Normal Speech Extremities No Clubbing, No Cyanosis, Normal Pulses Vascular Normal Pulses Last 24 Hrs of Labs/Ryan: Laboratory Tests 04/05/18 0040: Urinalysis LIGHT H, Urine Color YEL, Urine Clarity CLEAR, Urine pH 6.0, Ur Specific [place] 1.020, Urine Protein NEG, Urine Ketones NEG, Urine Nitrite NEG, Urine Bilirubin NEG, Urine Urobilinogen 0.2, Ur Leukocyte Esterase SMALL H, Ur Microscopic SEDIMENT EXAMINED, Urine RBC 1-3, Urine WBC 15-25 H, Urine Bacteria RARE H, Urine Hemoglobin NEG, Urine Glucose 250 H 04/04/18 2345: Anion Gap 9, Estimated GFR 21 L, BUN/Creatinine Ratio 20.0, Glucose 381 H, Hemoglobin A1c Pending, Calcium 8.3 L, Total Bilirubin 0.4, AST 22, ALT 28, Alkaline Phosphatase 53, Troponin I < 0.01, Ifh-O-Omtjizkamxm Pept 63.7, Total Protein 5.2 L, Albumin 3.0 L, Globulin 2.2, Albumin/Globulin Ratio 1.4, CBC w Diff NO MAN DIFF REQ, RBC 3.80 L, MCV 94.1 H, MCH 31.6 H, MCHC 33.6, RDW 14.4 , MPV 7.5, Gran % 78.3 H, Lymphocytes % 11.7 L, Monocytes % 5.0, Eosinophils % 4.6, Basophils % 0.4, Absolute Granulocytes 8.4 H, Absolute Lymphocytes 1.3, Absolute Monocytes 0.5, Absolute Eosinophils 0.5, Absolute Basophils 0 Microbiology 06/22 0406 BLOOD: Blood Culture - ORD 04/05 406 BLOOD: Blood Culture - ORD 04/05 0213 URINE ROUT: Urine Culture - CAN Cancelled: Cancelled via OE: DONE ADD ON 04/05 40 URINE ROUT: Urine Culture - RECD Assessment/Plan Assessment: This is a 77 year old male with a PMH significant for Parkinson's disease, diabetes, CAD status post CABG, STAGE IV CKD, obstructive sleep apnea on CPAP, neuropathy, CAD, gout, hypertension, colon resection, that comes to see us for complaints of recurrent falls, recent UTI, wounds. The patient has been falling a lot recently and on physical exam has bruises in varying stages of healing and open wounds. He also has left lower extremity open wound with surrounding erythema and swelling although has no evidence of infection otherwise. The patient has been finding it more and more difficult to ambulate and does not always feel safe at home. He denies any loss of consciousness or seizure activity. The patient has an insulin pump and notes only fair blood glucose control at home. Vital signs temperature 90.8, heart rate 97, respiratory rate 20, blood pressure 99/60, oxygen saturation 94% on room air Labs showed normal WBC, hemoglobin 12, platelets 235, sodium 135, potassium 5.6, BUN 58, creatinine 2.9 up from his baseline of 1.3-1.5, glucose 381, calcium normal, troponin negative, urinalysis evidence small leukocyte esterase Pelvic CT showed no acute fracture, moderate to advanced degenerative changes in the lumbar spine. Assessment -recurrent falls -recent UTI sp one dose cipro with resulting back rash -diabetes on insulin pump -evidence left lower leg cellulitis -acute on chronic kidney disease -History of hypertension, GERD, obstructive sleep apnea, CAD, Parkinson's Plan -Fall precautions -Physical therapy consult -Endocrinology consult for evaluation of patient's insulin pump regimen -pt/inr as patient has scattered bruises -Urine and blood cultures -consider antibiotics for cellultis/UTI - patient has no wbc or fever/tachy but does have diabetes and was just put on cipro -wound care -Pain control with Tylenol 650 mg every 8 -confirm medications Regular diet Patient is full code DT prophylaxis with Alps and heparin As Ranked By This Provider Problem List: 1. Fall Core Measures/Misc (07/01) Acute Coronary Syndrome ACS Diagnosis: No Congestive Heart Failure Congestive Heart Failure Diagnosis No Cerebrovascular Accident CVA/TIA Diagnosis: No VTE (View Protocol) VTE Risk Factors Acute Medical Illness No Mechanical VTE Prophylaxis d/t N/A MechProphylax Ordered No VTE Pharm Prophylaxis d/t NA PharmProphylax ordered Sepsis (View protocol) Sepsis Present: No If YES complete Sepsis Event Note If YES complete Sepsis Event Note Ángela Mcnulty MD 04/05/18 0253: Core Measures/Misc (07/01) Sepsis (View protocol) If YES complete Sepsis Event Note If YES complete Sepsis Event Note Attending MD Review Statement Attending Statement Attending MD Statement: examined this patient, discuss w/resident/PA/SPARE FIXER, agreed w/resident/PA/SPARE FIXER, reviewed EMR data (avail) Attending Assessment/Plan: 77M Parinson's, T2DM on insulin pump, peripheral neuropathy, CAD s/p CABG and stents on dual antiplatelets, PVD s/p angioplasty, CRISTINE on CPAP, diverticulitis s /p colon resection, GERD, CKD stage 3B, depression, gout, 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 Feels like he is losing his balance and falls over, today landed on coccyx with pain in that area. Denies any symptoms prior to fall including chest pain, SOB, palpitations, lightheadedness, and no loss of consciousness or head strike. CT pelvis negative for fracture. Labs significant for hyperglycemia and elevated creatinine. Appears clinically dehydrated. Being treated with Cipro for UTI. Plan: Admit to general medicine, IV hydration, monitor renal function, UA and urine culture, PT eval, continue home meds, DVT PPx Jinny Vigil 04/05/18 5823: General Information and HPI Allergies/Medications Home Med list Allopurinol 300 MG TABLET 1 TAB PO QAM GOUT (Reported) Aspirin (Ecotrin*) 81 MG TABLET.DR 1 TAB PO QAM HEART/BLOOD (Reported) Atorvastatin Calcium 20 MG TABLET 1 TAB PO QAM CHOLESTEROL (Reported) Bupropion HCl (Wellbutrin XL) 300 MG TAB.ER.24H 1 TAB PO DAILY Mental Health (Reported) Carbidopa/Levodopa (Carbidopa-Levodopa 25-100 Tab) 25 MG-100 MG TABLET 2 TAB PO DAILY Parkinson (Reported) Carvedilol (Coreg) 25 MG TABLET 1 TAB PO QAM BP (Reported) Cephalexin (Keflex) 250 MG CAPSULE 1 CAP PO Q8 UTI Clopidogrel Bisulfate (Clopidogrel) 75 MG TABLET 1 TAB PO QAM BLOOD THINNER ( Reported) Escitalopram Oxalate (Lexapro) 10 MG TABLET 1 TAB PO DAILY Mental Health ( Reported) Finasteride 5 MG TABLET 1 TAB PO QPM URINATION (Reported) Furosemide 40 MG TABLET 1 TAB PO QAM FLUID RETENTION (Reported) Hydroxyzine Hydrochloride (Atarax) 50 MG TAB 1 TAB PO DAILY PRN Itching ( Reported) Insulin Aspart (Novolog) 100 UNIT/ML VIAL 0 UNITS SC SEE ADMIN CRITERIA DIABETES LESS THAN 80 MG/DL--Initiate hypoglycemia 151-200-- 6 units 201-250--8 units 251-300--10 units 301-350--12 units 351-400--14 units more than 400--14 units and notify md Additional Bedtime coverage Below 251--no coverage 251-300--2 units 301-350--3 units 351-400--4 units more than 400--5 units Insulin Detemir (Levemir) 100 UNIT/ML VIAL 18 UNITS SC BID DIABETES Isosorbide Mononitrate (Isosorbide Mononitrate ER) 60 MG TAB.ER.24H 2 TAB PO QAM HEART (Reported) Lisinopril (Prinivil) 5 MG TABLET 1 TAB PO QAM BP (Reported) Mirabegron (Myrbetriq) 25 MG TAB.ER.24H 1 TAB PO DAILY BLADDER (Reported) Multivit-Min/Iron/Folic/Lutein (Centrum Silver Women Tablet) 8 MG IRON-400 MCG- 300 MCG TABLET 1 TAB PO DAILY SUPPLEMENT (Reported) Niacin (Niaspan) 500 MG TAB.ER.24H 1 TAB PO QPM CHOLESTEROL (Reported) Pregabalin (Lyrica) 50 MG CAPSULE 3 CAP PO QPM NEUROPATHY (Reported) Pregabalin (Lyrica) 50 MG CAPSULE 2 CAP PO QAM NEUROPATHY (Reported) Tamsulosin HCl (Flomax) 0.4 MG CAP.ER.24H 1 CAP PO DAILY (Reported) Trazodone HCl 50 MG TABLET 0.5 TAB PO QPM SLEEP HELP (Reported) Core Measures/Misc (07/01) Sepsis (View protocol) If YES complete Sepsis Event Note If YES complete Sepsis Event Note Resident Review Statement Resident Statement: discussed with architectural intern, agreed with architectural intern Other Findings: Patient is 77-year-old male with past medical history significant for coronary artery disease status post CABG, diabetes mellitus on insulin pump, hypertension , parkinsonism, obstructive sleep apnea and uses CPAP at night, came in with chief complaint of recurrent falls. Patient states that he fell on Sunday and since then has fallen 3 more times, and when he went to his grandson's graduation today, he felt so weak that his legs gave out and he couldn't stand. Patient also reports that he's been feeling chills since past 6 months. He follows up with Dr. BARON for urology, and was prescribed ciprofloxacin today. Patient states that he took only one dose and had breakouts on his back after which she described discontinued. Patient also reports of increased urgency and frequency in urination since past few months. He denies any headache, chest pain, dizziness, abdominal discomfort, burning micturition. Patient also reports of open wound on the anterior aspect of his left leg with erythema around it. Patient had multiple bruises on the body and states that these are due to his multiple falls. Patient lives at home with family and reports that he feels safe at home. Patient has insulin pump for his diabetes which was taken off in [place]. Labs and vitals as above Problem list Acute kidney injury on CKD Questionable UTI given positive leukocyte Estrace and WBC in UA, but no fever or WBC count Hyperkalemia Parkinsonism Left mcclure wound Obstructive sleep apnea Assessment and plan Will admit the patient on general medicine floor to monitor closely. His insulin pump was taken off, will start him on low-dose sliding scale insulin and consult endocrinology in a.m. For his rhianna, looks like his creatinine is around 1.5, today it is 2.9, gentle hydration. Patient currently does not have any white count or fever, can hold off antibiotics until urine culture is positive. Will recheck CBC and BP in a.m and follow-up blood culture X 2 and urine culture. Will monitor potassium in the morning. Patient was unable to provide us with his medication list, please confirm Cmr in morning. Given his multiple bruises on the body, will check PT/INR. PT consult in a.m. Wound care in a.m. for left mcclure wound. DVT prophylaxis subcutaneous heparin Patient is full code. DVT prophylaxis subcutaneous heparin Patient is full code.
--- NOTE | 2018-04-05 02:54 | Admission Certification ---
Admission Certification Certification Statement - As attending physician, I certify that at the time of - admission, based on clinical presentation, severity of - symptoms, need for further diagnostic testing and - therapeutic interventions, and risk of adverse outcomes - without in-hospital treatment, in my clinical assessment, - this patient requires an acute hospital stay for a minimum - of two nights or longer. I have also considered psychsocial - factors such as support system, advanced age, financial - issues, cognitive issues, and failed out-patient treatments, - past re-admission history, safety of patient, and lack of - compliance as applicable. Specific rationale supporting this admission is: multiple falls, diffuse ecchymoses, dehydration, LEAH
[2018-04-05 05:02] VITALS: BP 130/68
--- NOTE | 2018-04-05 07:21 | Cons- Endocrinology ---
General Information and HPI Consulting Request Date of Consult: 04/05/18 Requested By: medical team Reason for Consult: uncontrlled diabetes Source of Information: patient, old records Exam Limitations: no limitations History of Present Illness: This 77-year-old male has. Diabetes mellitus type 2 managed on an insulin pump on the outside. He also has Parkinson's disease, coronary artery disease, obstructive sleep apnea on CPAP, and chronic kidney disease. He came to the hospital because he was falling a lot at home. He states his legs were weak. He denies any nausea or vomiting. He has not lost consciousness. The patient is managed on an insulin pump at home. Allergies/Medications Allergies: Coded Allergies: ciprofloxacin (RASH 04/05/18) Home Med List: Allopurinol 300 MG TABLET 1 TAB PO QAM GOUT (Reported) Aspirin (Ecotrin*) 81 MG TABLET.DR 1 TAB PO QAM HEART/BLOOD (Reported) Atorvastatin Calcium 20 MG TABLET 1 TAB PO QAM CHOLESTEROL (Reported) Bupropion HCl (Wellbutrin XL) 300 MG TAB.ER.24H 1 TAB PO DAILY Mental Health (Reported) Carbidopa/Levodopa (Carbidopa-Levodopa 25-100 Tab) 25 MG-100 MG TABLET 2 TAB PO DAILY Parkinson (Reported) Carvedilol (Coreg) 25 MG TABLET 1 TAB PO QAM BP (Reported) Cephalexin (Keflex) 250 MG CAPSULE 1 CAP PO Q8 UTI Clopidogrel Bisulfate (Clopidogrel) 75 MG TABLET 1 TAB PO QAM BLOOD THINNER ( Reported) Escitalopram Oxalate (Lexapro) 10 MG TABLET 1 TAB PO DAILY Mental Health ( Reported) Finasteride 5 MG TABLET 1 TAB PO QPM URINATION (Reported) Furosemide 40 MG TABLET 1 TAB PO QAM FLUID RETENTION (Reported) Hydroxyzine Hydrochloride (Atarax) 50 MG TAB 1 TAB PO DAILY PRN Itching ( Reported) Insulin Aspart (Novolog) 100 UNIT/ML VIAL 0 UNITS SC SEE ADMIN CRITERIA DIABETES LESS THAN 80 MG/DL--Initiate hypoglycemia 151-200-- 6 units 201-250--8 units 251-300--10 units 301-350--12 units 351-400--14 units more than 400--14 units and notify md Additional Bedtime coverage Below 251--no coverage 251-300--2 units 301-350--3 units 351-400--4 units more than 400--5 units Insulin Detemir (Levemir) 100 UNIT/ML VIAL 18 UNITS SC BID DIABETES Isosorbide Mononitrate (Isosorbide Mononitrate ER) 60 MG TAB.ER.24H 2 TAB PO QAM HEART (Reported) Lisinopril (Prinivil) 5 MG TABLET 1 TAB PO QAM BP (Reported) Mirabegron (Myrbetriq) 25 MG TAB.ER.24H 1 TAB PO DAILY BLADDER (Reported) Multivit-Min/Iron/Folic/Lutein (Centrum Silver Women Tablet) 8 MG IRON-400 MCG- 300 MCG TABLET 1 TAB PO DAILY SUPPLEMENT (Reported) Niacin (Niaspan) 500 MG TAB.ER.24H 1 TAB PO QPM CHOLESTEROL (Reported) Pregabalin (Lyrica) 50 MG CAPSULE 3 CAP PO QPM NEUROPATHY (Reported) Pregabalin (Lyrica) 50 MG CAPSULE 2 CAP PO QAM NEUROPATHY (Reported) Tamsulosin HCl (Flomax) 0.4 MG CAP.ER.24H 1 CAP PO DAILY (Reported) Trazodone HCl 50 MG TABLET 0.5 TAB PO QPM SLEEP HELP (Reported) Review of Systems Review of Systems Constitutional: Denies: chills, fever. Cardiovascular: Denies: chest pain. Respiratory: Denies: short of breath. GI: Denies: nausea, vomiting. Skin: Reports: lesions (left lower leg). Past History Travel History Traveled to [place] past 21 day No Medical History Blood Transfusion Hx: Yes Neurological: NEUROPATHY EENT: allergies, cataracts, hearing loss Cardiovascular: CAD, hypertension, hyperlipidemia Respiratory: obstructive sleep apnea Gastrointestinal: diverticulitis, GERD Hepatic: NONE Renal: CHRONIC KIDNEY DISEASE Musculoskeletal: gout Psychiatric: depression Endocrine: diabetes Blood Disorders: NONE Cancer(s): NONE APPEALS REVIEWER VETERAN/Reproductive: NONE Surgical History Surgical History: CABG (lower extremity angioplasty), colon resection, left leg angioplasty partial fifth ray resection, R FOOT 4 TOES amputation (big toe left) R 3rd and 4th toe amputation 3 back surgeries L4 - L5 AND HERNIATED DISK Family History Relations & Conditions If Any: Relation not specified for: FH: diabetes mellitus Psychosocial History Where Do You Live? Home Services at Home: None Primary Language: Estonian Smoking Status: Former Smoker ETOH Use: occasional use Illicit Drug Use: marijuana Living Will? yes Functional Ability ADLs Independent: dressing, eating, toileting, bathing. Ambulation: walker IADLs Independent: shopping, housework, finances, food prep, telephone, transportation , medication admin. Exam & Diagnostic Data Last 24 Hrs of Vital Signs/I&O Vital Signs Date Time Temp Pulse Resp B/P B/P Pulse O2 O2 Flow FiO2 Mean Ox Delivery Rate 04/05 0502 98.5 80 20 130/68 94 Room Air 04/05 0230 98.1 86 18 121/55 96 Room Air 04/05 0021 97.7 87 20 112/56 94 Room Air 04/04 2330 93 Room Air 04/04 2253 98.6 88 20 110/58 93 Room Air 04/04 2241 98.0 97 20 99/60 94 Room Air Intake & Output 04/05 0800 04/05 0000 04/04 1600 Intake Total 0 Output Total 225 0 Balance -225 0 Intake, Oral 0 Output, Urine 225 0 Patient 265 lb 260 lb Weight Weight Bed scale Reported by Patient Measurement Method Vital Signs Date Time Temp Pulse Resp B/P B/P Pulse O2 O2 Flow FiO2 Mean Ox Delivery Rate 04/05 0502 98.5 80 20 130/68 94 Room Air 04/05 0230 98.1 86 18 121/55 96 Room Air 04/05 0021 97.7 87 20 112/56 94 Room Air 04/04 2330 93 Room Air 04/04 2253 98.6 88 20 110/58 93 Room Air 04/04 2241 98.0 97 20 99/60 94 Room Air Intake & Output 04/05 0800 04/05 0000 04/04 1600 Intake Total 0 Output Total 225 0 Balance -225 0 Intake, Oral 0 Output, Urine 225 0 Patient 265 lb 260 lb Weight Weight Bed scale Reported by Patient Measurement Method Physical Exam General Appearance: alert, awake, comfortable Head: normal appearance Eyes: Bilateral: normal appearance. Neck: normal inspection Cardiovascular: regular rate/rhythm Gastrointestinal: normal bowel sounds, soft, non-tender, echymosis right abdomen Extremities: wound left leg pretibial area Assessment/Plan Assessment/Plan This 77-year-old male has a known history of diabetes mellitus type 2 usually managed on a pump. According to hospital policy we need to take him off the insulin pump. He presents with weakness and falls at home. He has signs of acute superimposed on chronic renal insufficiency. He appears to be dehydrated. I would hydrate the patient carefully with normal saline and continue to follow his BUN/creatinine and electrolytes. With regard to his insulin I would begin Levemir 15 units twice a day. I would also begin sliding scale NovoLog before meals. Sliding scale NovoLog before meals should be 80-150 give 4 units NovoLog, 151-200 give 6 units NovoLog, 201- 250 give 8 units NovoLog, 251 and 300 give 10 units NovoLog, 301-350 give 12 units NovoLog, 3 5104 100 give 14 units NovoLog. A separate sliding scale NovoLog should be written at bedtime. Sliding scale NovoLog at bedtime should be less than 250 give no insulin, 251-300 give 2 units NovoLog, 301-350 give 3 units NovoLog, 351-400 give 4 units NovoLog. We need to monitor his sugars carefully while on this regimen. The patient states that he is hungry and will be eating breakfast. Consult Acknowledgment - Thank you for your consult request. We need to monitor his sugars carefully while on this regimen. The patient states that he is hungry and will be eating breakfast. Consult Acknowledgment - Thank you for your consult request.
[2018-04-05 08:28] LABS: ABSOLUTE BASOPHIL COUNT 0 /CUMM (0.0-0.2); ABSOLUTE EOSINOPHIL COUNT 0.5 /CUMM (0.0-0.7); ABSOLUTE LYMPH COUNT 1.7 /CUMM (1.2-3.4); ABSOLUTE MONOCYTE COUNT 0.8 /CUMM (0.10-0.60); BASOPHIL % 0.5 % (0.0-2.0); EOSINOPHIL % 4.9 % (0-5); GRANULOCYTE % 69.7 % (42.2-75.2); HEMATOCRIT 35.8 % (42-52); MEAN CORPUSCULAR HGB 31.4 PG (27.0-31.0); MEAN CORPUSCULAR HGB CONC 32.8 G/DL (33.0-37.0); MEAN CORPUSCULAR VOLUME 95.8 FL (80.0-94.0); MEAN PLATELET VOLUME 7.6 FL (7.4-10.4); PLATELET COUNT 214 /CUMM (130-400); RBC DISTRIBUTION WIDTH 14.6 % (11.5-14.5); RED BLOOD CELL CT 3.74 /CUMM (4.70-6.10)
[2018-04-05 08:38] LABS: PT 12.7 SEC (9.4-12.5)
--- NOTE | 2018-04-05 11:29 | PN- Att Addend ---
Attending Addendum Attending Brief Note Patient seen and examined, he is committing of pain in his lower back. Patient is admitted with recurrent falls acute on chronic kidney injury and a question of urinary tract infection. + burning on urination. Vital Signs Date Time Temp Pulse Resp B/P B/P Pulse O2 O2 Flow FiO2 Mean Ox Delivery Rate 04/05 0934 84 148/68 04/05 0932 84 148/68 04/05 0502 98.5 80 20 130/68 94 Room Air 04/05 0230 98.1 86 18 121/55 96 Room Air 04/05 0021 97.7 87 20 112/56 94 Room Air 04/04 2330 93 Room Air 04/04 2253 98.6 88 20 110/58 93 Room Air 04/04 2241 98.0 97 20 99/60 94 Room Air on exam; aox3, nad. cv; s1,s2 rrr resp; clear abd; soft, nt, bs+ ext; lle with anterior swelling with possible hematoma. + tenderness in lower back in coccyx region. Laboratory Tests 04/05 04/05 0657 0040 Chemistry Sodium (137 - 145 mmol/L) 137 Potassium (3.5 - 5.1 mmol/L) 5.1 Chloride (98 - 107 mmol/L) 107 Carbon Dioxide (22 - 30 mmol/L) 21 L Anion Gap (5 - 16) 9 BUN (9 - 20 mg/dL) 56 H Creatinine (0.7 - 1.2 mg/dL) 2.4 H Estimated GFR (>60 ml/min) 26 L BUN/Creatinine Ratio (7 - 25 %) 23.3 Creatine Kinase (55 - 170 U/L) 88 Coagulation PT (9.4 - 12.5 SEC) 12.7 H INR (0.90 - 1.17) 1.16 Hematology CBC w Diff NO MAN DIFF REQ WBC (4.8 - 10.8 /CUMM) 10.0 RBC (4.70 - 6.10 /CUMM) 3.74 L Hgb (14.0 - 18.0 G/DL) 11.8 L Hct (42 - 52 %) 35.8 L MCV (80.0 - 94.0 FL) 95.8 H MCH (27.0 - 31.0 PG) 31.4 H MCHC (33.0 - 37.0 G/DL) 32.8 L RDW (11.5 - 14.5 %) 14.6 H Plt Count (130 - 400 /CUMM) 214 MPV (7.4 - 10.4 FL) 7.6 Gran % (42.2 - 75.2 %) 69.7 Lymphocytes % (20.5 - 51.1 %) 17.3 L Monocytes % (1.7 - 9.3 %) 7.6 Eosinophils % (0 - 5 %) 4.9 Basophils % (0.0 - 2.0 %) 0.5 Absolute Granulocytes (1.4 - 6.5 /CUMM) 7.0 H Absolute Lymphocytes (1.2 - 3.4 /CUMM) 1.7 Absolute Monocytes (0.10 - 0.60 /CUMM) 0.8 H Absolute Eosinophils (0.0 - 0.7 /CUMM) 0.5 Absolute Basophils (0.0 - 0.2 /CUMM) 0 Urines Urinalysis LIGHT H Urine Color (YEL,AMB,STR) YEL Urine Clarity (CLEAR) CLEAR Urine pH (5.0 - 8.0) 6.0 Ur Specific [place] (1.001 - 1.035) 1.020 Urine Protein (NEG,<30 MG/DL) NEG Urine Ketones (NEG) NEG Urine Nitrite (NEG) NEG Urine Bilirubin (NEG) NEG Urine Urobilinogen (0.1 - 1.0 EU/dl) 0.2 Ur Leukocyte Esterase (NEG) SMALL H Ur Microscopic SEDIMENT EXAMINED Urine RBC (0 - 5 /HPF) 1-3 Urine WBC (0 - 2 /HPF) 15-25 H Urine Bacteria (NEG/NONE) RARE H Urine Hemoglobin (NEG) NEG Urine Glucose (N MG/DL) 250 H 06 2345 Chemistry Sodium (137 - 145 mmol/L) 135 L Potassium (3.5 - 5.1 mmol/L) 5.6 H Chloride (98 - 107 mmol/L) 104 Carbon Dioxide (22 - 30 mmol/L) 22 Anion Gap (5 - 16) 9 BUN (9 - 20 mg/dL) 58 H Creatinine (0.7 - 1.2 mg/dL) 2.9 H Estimated GFR (>60 ml/min) 21 L BUN/Creatinine Ratio (7 - 25 %) 20.0 Glucose (65 - 99 mg/dL) 381 H Hemoglobin A1c (4.2 - 5.8 %) 9.5 H Calcium (8.4 - 10.2 mg/dL) 8.3 L Total Bilirubin (0.2 - 1.3 mg/dL) 0.4 AST (17 - 59 U/L) 22 ALT (21 - 72 U/L) 28 Alkaline Phosphatase (< 127 U/L) 53 Troponin I (<0.11 ng/ml) < 0.01 [id number] Pept (<125 pg/mL) 63.7 Total Protein (6.3 - 8.2 g/dL) 5.2 L Albumin (3.5 - 5.0 g/dL) 3.0 L Globulin (1.9 - 4.2 gm/dL) 2.2 Albumin/Globulin Ratio (1.1 - 2.2 %) 1.4 Hematology CBC w Diff NO MAN DIFF REQ WBC (4.8 - 10.8 /CUMM) 10.7 RBC (4.70 - 6.10 /CUMM) 3.80 L Hgb (14.0 - 18.0 G/DL) 12.0 L Hct (42 - 52 %) 35.8 L MCV (80.0 - 94.0 FL) 94.1 H MCH (27.0 - 31.0 PG) 31.6 H MCHC (33.0 - 37.0 G/DL) 33.6 RDW (11.5 - 14.5 %) 14.4 Plt Count (130 - 400 /CUMM) 235 MPV (7.4 - 10.4 FL) 7.5 Gran % (42.2 - 75.2 %) 78.3 H Lymphocytes % (20.5 - 51.1 %) 11.7 L Monocytes % (1.7 - 9.3 %) 5.0 Eosinophils % (0 - 5 %) 4.6 Basophils % (0.0 - 2.0 %) 0.4 Absolute Granulocytes (1.4 - 6.5 /CUMM) 8.4 H Absolute Lymphocytes (1.2 - 3.4 /CUMM) 1.3 Absolute Monocytes (0.10 - 0.60 /CUMM) 0.5 Absolute Eosinophils (0.0 - 0.7 /CUMM) 0.5 Absolute Basophils (0.0 - 0.2 /CUMM) 0 A/P; 77 y/o M with pmh sig for Parkinson's disease, diabetes, CAD status post CABG, obstructive sleep apnea on CPAP, stage IV CKD, neuropathy, CAD, gout, hypertension, colon resection, admitted with recurrent falls, acute on chronic kidney injury and a question of urinary tract infection. Will continue IV hydration and continue to monitor creatinine. Start the patient on Keflex and follow-up on the urine culture. Patient has apparently developed rash with the ciprofloxacin. We'll obtain right lower extremities ultrasound to rule out DVT as well as to rule out trauma. We'll obtain CK levels. Pain control with Percocet and morphine as needed. Continue the rest of the medications. Insulin management per endocrinology. Patient on heparin subcutaneous for DVT prophylaxis but after follow-up on the lower extremity ultrasound to make sure there is no hematoma formation. In that case heparin will need to be stopped.
--- NOTE | 2018-04-05 14:44 | ULTRASOUND REPORT ---
EXAMINATION: US TRIPLEX LOWER EXTREMITY, LEFT CLINICAL INFORMATION: Hematoma on left leg. Left leg pain, edema and swelling COMPARISON: 05/03/2017 TECHNIQUE: Color-flow triplex imaging with spectral analysis and compression Doppler were performed on the lower extremity. FINDINGS: Respiratory variation, normal compression and augmented flow are noted throughout the lower extremity. The visualized common femoral vein, superficial femoral vein, profunda femoral vein, popliteal vein and midcalf peroneal and posterior tibial venous segments show no evidence of deep venous thrombosis. There is a Muller cyst seen measuring 4.3 x 2.5 x 2.0 cm, previously 4.7 x 1.1 x 1.4 cm. Dedicated sonographic interrogation in the area of interest involving the left calf demonstrates edema but no focal abnormality. IMPRESSION: 1. No evidence of deep venous thrombosis involving the lower extremity. 2. Interval increase in the size of a left Muller's cyst.
[2018-04-05 14:51] VITALS: BP 128/62
[2018-04-05] MEDS ORDERED: CARBIDOPA-LEVO1 EAC7 PO (16:25)
--- NOTE | 2018-04-05 20:10 | Patient Discharge Instructions ---
Discharge Instructions General Discharge Information You were seen/treated for: LEAH Falls Spinal Stenosis Special Instructions: Please follow up with your PCP within one week of discharge. Diet Continue normal diet: Yes Recommended Diet: Heart Healthy Activity Full Activity/No Limits: Yes Acute Coronary Syndrome Inclusion Criteria At DC or during hospital stay patient has or had the following: ACS DIAGNOSIS No Discharge Core Measures Meds if any: Prescribed or Continued at Discharge Meds if any: NOT Prescribed or Continued at Discharge Congestive Heart Failure Inclusion Criteria At DC or during hospital stay patient has or had the following: CHF DIAGNOSIS No Discharge Core Measures Meds if any: Prescribed or Continued at Discharge Meds if any: NOT Prescribed or Continued at Discharge Cerebrovascular accident Inclusion Criteria At DC or during hospital stay patient has or had the following: CVA/TIA Diagnosis No Discharge Core Measures Meds if any: Prescribed or Continued at Discharge Meds if any: NOT Prescribed or Continued at Discharge Venous thromboembolism Inclusion Criteria VTE Diagnosis No VTE Type NONE VTE Confirmed by (Test) NONE Discharge Core Measures - Per Current guidelines, there needs to be overlap - treatment for the first 5 days of Warfarin therapy. - If discharged on Warfarin prior to 5 days of - overlap therapy, the patient will need to be - assessed for post discharge needs including - *Post discharge parental anticoagulation - *Warfarin and/or parental anticoagulation education - *Follow up date to check INR post discharge At least 5 days overlap therapy as Inpatient No Meds if any: Prescribed or Continued at Discharge Note: Overlap Therapy is Warfarin and Anticoagulant Meds if any: NOT Prescribed or Continued at Discharge
[2018-04-05] MEDS ORDERED: KEFLEX250 M1 PO (20:12)
[2018-04-05 21:35] VITALS: BP 128/80
[2018-04-06 06:07] VITALS: BP 118/86
[2018-04-06 08:40] LABS: ABSOLUTE BASOPHIL COUNT 0 /CUMM (0.0-0.2); ABSOLUTE EOSINOPHIL COUNT 0.6 /CUMM (0.0-0.7); ABSOLUTE GRANULOCYTE CT 5.6 /CUMM (1.4-6.5); ABSOLUTE LYMPH COUNT 1.2 /CUMM (1.2-3.4); ABSOLUTE MONOCYTE COUNT 0.5 /CUMM (0.10-0.60); BASOPHIL % 0.6 % (0.0-2.0); EOSINOPHIL % 7.1 % (0-5); GRANULOCYTE % 70.5 % (42.2-75.2); HEMATOCRIT 38.3 % (42-52); MEAN CORPUSCULAR HGB 30.9 PG (27.0-31.0); MEAN CORPUSCULAR HGB CONC 32.5 G/DL (33.0-37.0); MEAN CORPUSCULAR VOLUME 95.2 FL (80.0-94.0); MEAN PLATELET VOLUME 7.4 FL (7.4-10.4); PLATELET COUNT 211 /CUMM (130-400); RBC DISTRIBUTION WIDTH 14.3 % (11.5-14.5); RED BLOOD CELL CT 4.02 /CUMM (4.70-6.10)
--- NOTE | 2018-04-06 09:14 | PN- Housestaff ---
Marilia Ho 04/06/18 0914: Subjective Follow-up For: LEAH on CKD fall and weakness Uncontrolled blood sugar Complaints: diarrhea Subjective: Patient was visited and examined this morning. He sitting comfortably in the chair eating his breakfast. The only complaint that he mentioned was imbalance and weakness in his right leg and frequent episodes of large volume watery diarrhea since yesterday without abdominal pain or tenesmus or urgency to go. He denies nausea vomiting or subjective fever. No reports from nursing staff overnight. Vital signs remained stable. Review of Systems Constitutional: Reports: no symptoms. Cardiovascular: Reports: no symptoms. Respiratory: Reports: no symptoms. Gastrointestinal: Reports: diarrhea. Denies: abdominal pain, bloating, constipation, distention, bowel incontinence, melena, nausea, bloody stool, changes in stool, vomiting, steatorrhea. Genitourinary: Reports: no symptoms. Denies: discharge, dysuria, frequency, hematuria, hesitation, nocturia, pain, urgency. Neurological/Psychological: Reports: see HPI. Objective Last 24 Hrs of Vital Signs/I&O Vital Signs Date Time Temp Pulse Resp B/P B/P Pulse O2 O2 Flow FiO2 Mean Ox Delivery Rate 04/06 1523 98.6 67 20 130/80 95 04/06 1007 78 130/60 04/06 1006 78 130/60 04/06 0607 98.2 74 22 118/86 98 Room Air 04/06 0000 CPAP 04/05 2135 99.0 68 18 128/80 96 Intake & Output 04/06 1600 04/06 0800 04/06 0000 Intake Total 800 720 400 Output Total 400 Balance 400 720 400 Intake, IV 600 300 Intake, Oral 800 120 100 Number 2 4 1 Bowel Movements Output, Urine 400 Physical Exam General Appearance: Alert, Oriented X3, Cooperative, No Acute Distress HEENT: Atraumatic, PERRLA, EOMI, Mucous Membr. moist/pink Neck: Supple, No JVD, No thryomegaly, +2 Carotid Pulse wo Bruit, No LAD Cardiovascular: Normal S1, Normal S2, No Murmurs Lungs: Clear to Auscultation, Normal Air Movement Abdomen: Soft, No Tenderness Neurological: Strength at 5/5 X4 Ext, Normal Tone Extremities: No Clubbing, No Cyanosis, Normal Pulses Current Medications: Current Medications Sig/Chacha Start time Last Medication Dose Route Stop Time Status Admin Acetaminophen 650 MG Q6P PRN 04/05 1800 AC PO Aspirin Buffered 81 MG QAM 04/05 0900 AC 04/06 PO 1005 Atorvastatin Calcium 20 MG 1700 04/05 1700 AC 04/05 PO 1750 Bupropion HCl 300 MG DAILY 04/06 0900 AC 04/06 PO 1006 Carbidopa/Levodopa 2 TAB DAILY 04/05 1625 AC 04/06 PO 1006 Carvedilol 25 MG QAM 04/05 0900 AC 04/06 PO 1006 Cephalexin 250 MG Q8 04/05 1015 AC 04/06 PO 1317 Clopidogrel Bisulfate 75 MG QAM 04/05 0900 AC 04/06 PO 1006 Escitalopram Oxalate 5 MG QPM 04/05 2100 DC PO Escitalopram Oxalate 10 MG QPM 04/05 2100 AC 04/05 PO 2212 Finasteride 5 MG QPM 04/05 2100 AC 04/05 PO 2212 Heparin Sodium 5,000 UNIT Q8 04/05 0600 AC 04/06 (Porcine) SC 1327 Hydroxyzine HCl 50 MG DAILY PRN 04/05 2015 DC PO Insulin Aspart 0 TIDAC/HS 04/06 1700 AC SC Insulin Aspart 0 TIDAC 04/05 0800 DC 04/06 SC 1316 Insulin Detemir 18 UNITS BID 04/06 2100 AC SC Insulin Detemir 15 UNITS BID 04/05 09 DC 04/06 SC 1000 Mirabegron 25 MG DAILY 04/06 0900 AC 04/06 PO 1007 Morphine Sulfate 2 MG Q6-PRN PRN 04/05 0945 AC IV Oxycodone/ 1 TAB Q6P PRN 04/06 1130 AC 04/06 Acetaminophen PO 1124 Sodium Chloride 1,000 ML Q13H 04/05 0400 AC 04/05 IV 1749 Tamsulosin HCl 0.4 MG DAILY 04/05 0900 AC 04/06 PO 1007 Trazodone HCl 25 MG QPM 04/05 2100 AC 04/05 PO 2212 Zolpidem Tartrate 5 MG AT BEDTIME 04/05 2230 DC 04/05 PO 2225 Last 24 Hrs of Lab/Ryan Results Last 24 Hrs of Labs/Mics: Laboratory Tests 04/06/18 1000: Anion Gap 7, Estimated GFR 39 L, BUN/Creatinine Ratio 24.7 04/06/18 0635: CBC w Diff NO MAN DIFF REQ, RBC 4.02 L, MCV 95.2 H, MCH 30.9, MCHC 32.5 L, RDW 14.3, MPV 7.4, Gran % 70.5, Lymphocytes % 15.1 L, Monocytes % 6.7, Eosinophils % 7.1 H, Basophils % 0.6, Absolute Granulocytes 5.6, Absolute Lymphocytes 1.2, Absolute Monocytes 0.5, Absolute Eosinophils 0.6, Absolute Basophils 0 Microbiology 04/06 1006 STOOL: Clostridium difficile Toxin A & B - COLB 04/06 0949 STOOL: Clostridium difficile Toxin A & B - COMP Lines/Diet/Fluids Fluids/Infusions: Ns 75 ml / hour Assessment/Plan Assessment: 77M Parinson's, T2DM on insulin pump, peripheral neuropathy, CAD s/p CABG and stents on dual antiplatelets, PVD s/p angioplasty, CRISTINE on CPAP, diverticulitis s /p colon resection, GERD, CKD stage 3B, depression, gout, 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 Assessment 77-year-old gentleman with complex medical history was admitted for recent frequent falls. He was also found to have Leah on Ckd and uncontrolled blood sugar. Plan Leah on Ckd : Kidney function is improving with gentle hydration today creatinine is 1.7. Plan is to continue gentle hydration and recheck BUN/creatinine in the a.m. Diabetes: His fingerstick sugar this a.m. was 257 and patient is eating regular diet. Per endotracheal recommendation Levemir was increased to 18 units twice a day and his NovoLog insulin was uptitrated as well. Recent frequent falls and right leg weakness: Obtain CT scan of the head and cervical thoracolumbar and lumbar and coccyx spine without contrast. Diarrhea: Vital signs remained stable, no leukocytosis and no abdominal pain is of differential diagnosis: Antibiotic induced diarrhea (patient is on Keflex) and C. difficile or viral gastroenteritis, or secretory diarrhea (he started using a lot of artificial sweetener in the hospital I advised him to avoid its see if can decrease his diarrhea). C. difficile screening test is pending. No further workup for now. Problem List: 1. Fall 2. Weakness acquired in ICU 3. UTI (urinary tract infection) Pain Ratin Pain Location: Right leg Pain Goal: Pain 4 or less Pain Plan: Her medication list Tomorrow's Labs & Rationales: Chemistry Cbc Kidney failure and infection Zachariah BAILEY,Megan 04/06/18 1246: Attending MD Review Statement Attending Statement Attending MD Statement: examined this patient, discuss w/resident/PA/TRAY DELIVERY AIDE, agreed w/resident/PA/TRAY DELIVERY AIDE, reviewed EMR data (avail), discussed with nursing, discussed with case mgmt, reviewed images, amended to note Attending Assessment/Plan: Patient seen and examined, continues to feel weak and complains that legs giving out. Still having low back pain. Doppler US neg for DVT or any other finding. Now having diarrhea. vss. on exam; aox3, nad. cv; s1,s2 rrr resp; clear abd; soft, nt, bs+ ext; lle with anterior swelling with possible hematoma. + tenderness in lower back in coccyx region. Laboratory Tests 04/06 04/06 UNK 0635 Chemistry Sodium (137 - 145 mmol/L) 137 Potassium (3.5 - 5.1 mmol/L) 5.1 Chloride (98 - 107 mmol/L) 108 H Carbon Dioxide (22 - 30 mmol/L) 22 Anion Gap (5 - 16) 7 BUN (9 - 20 mg/dL) 42 H Creatinine (0.7 - 1.2 mg/dL) 1.7 H Estimated GFR (>60 ml/min) 39 L BUN/Creatinine Ratio (7 - 25 %) 24.7 Hematology CBC w Diff NO MAN DIFF REQ WBC (4.8 - 10.8 /CUMM) 8.0 RBC (4.70 - 6.10 /CUMM) 4.02 L Hgb (14.0 - 18.0 G/DL) 12.4 L Hct (42 - 52 %) 38.3 L MCV (80.0 - 94.0 FL) 95.2 H MCH (27.0 - 31.0 PG) 30.9 MCHC (33.0 - 37.0 G/DL) 32.5 L RDW (11.5 - 14.5 %) 14.3 Plt Count (130 - 400 /CUMM) 211 MPV (7.4 - 10.4 FL) 7.4 Gran % (42.2 - 75.2 %) 70.5 Lymphocytes % (20.5 - 51.1 %) 15.1 L Monocytes % (1.7 - 9.3 %) 6.7 Eosinophils % (0 - 5 %) 7.1 H Basophils % (0.0 - 2.0 %) 0.6 Absolute Granulocytes (1.4 - 6.5 /CUMM) 5.6 Absolute Lymphocytes (1.2 - 3.4 /CUMM) 1.2 Absolute Monocytes (0.10 - 0.60 /CUMM) 0.5 Absolute Eosinophils (0.0 - 0.7 /CUMM) 0.6 Absolute Basophils (0.0 - 0.2 /CUMM) 0 A/P; 77 y/o M with pmh sig for Parkinson's disease, diabetes, CAD status post CABG, obstructive sleep apnea on CPAP, stage IV CKD, neuropathy, CAD, gout, hypertension, colon resection, admitted with recurrent falls, acute on chronic kidney injury and a question of urinary tract infection. Patient now having diarrhea and still feels weak in his lower extremities. Will check stool for C. difficile. Contingent IV hydration. Will obtain CT of the head and CT of the lumbar spine without contrast. Continue current pain management. Diabetes management per endocrinology. We'll follow-up on the urine culture and patient currently on Keflex for possible UTI. Patient on heparin subcutaneous for DVT prophylaxis. Patient working with physical therapy.
--- NOTE | 2018-04-06 10:48 | PN- Diabetes ---
Assessment/Plan Diabetes Assessment: The patient states he is in pain. He states that his pain is in the area of the coccyx. He states he fell on this area and injured himself about 5 days ago and it is extremely painful. In addition the patient complains of right leg weakness. The patient is eating okay. He is on Levemir 15 units twice a day as well as sliding scale NovoLog. His sugars are coming down gradually. His fingerstick sugar this morning is 257. The patient did have a CT scan of the pelvis which shows some acuity in the angle between the sacrum and the coccyx. Radiologist says this is most likely chronic but given the patient's symptoms it could be acute. The patient's renal function is improving with hydration. Plan: Suggest increase the patient's Levemir to 18 units twice a day. In addition we will increase his sliding scale NovoLog before meals. Sliding scale NovoLog before meals should be 80-150 give 6 units NovoLog, 151-200 give 8 units NovoLog, 201-250 give 10 units NovoLog, 251-300 give 12 units NovoLog, 301 -350 give 14 units NovoLog, 351-400 give 16 units NovoLog. The patient should be evaluated further because of right leg weakness. He may need a CT scan of his head and also further evaluation of his lumbosacral spine for spinal stenosis. Subjective Subjective: Pain in the area of the coccyx Review of Systems Constitutional: Denies: chills, fever. Cardiovascular: Denies: chest pain. Respiratory: Denies: cough, short of breath. Gastrointestinal: Denies: abdominal pain, nausea, vomiting. Skin: Reports: no symptoms. Objective Last 24 Hrs of Vital Signs/I&O Vital Signs Date Time Temp Pulse Resp B/P B/P Pulse O2 O2 Flow FiO2 Mean Ox Delivery Rate 04/06 1007 78 130/60 04/06 1006 78 130/60 04/06 0607 98.2 74 22 118/86 98 Room Air 04/06 0000 CPAP 04/05 2135 99.0 68 18 128/80 96 04/05 1600 Room Air 04/05 1451 97.8 61 20 128/62 96 Intake & Output 04/06 1600 04/06 0800 04/06 0000 Intake Total 720 400 Output Total Balance 720 400 Intake, IV 600 300 Intake, Oral 120 100 Number 4 1 Bowel Movements Vital Signs Date Time Temp Pulse Resp B/P B/P Pulse O2 O2 Flow FiO2 Mean Ox Delivery Rate 04/06 1007 78 130/60 04/06 1006 78 130/60 04/06 0607 98.2 74 22 118/86 98 Room Air 04/06 0000 CPAP 04/05 2135 99.0 68 18 128/80 96 04/05 1600 Room Air 04/05 1451 97.8 61 20 128/62 96 Intake & Output 04/06 1600 04/06 0800 04/06 0000 Intake Total 720 400 Output Total Balance 720 400 Intake, IV 600 300 Intake, Oral 120 100 Number 4 1 Bowel Movements Physical Exam General Appearance: alert, awake Head: normal appearance Respiratory: normal breath sounds Cardiovascular: regular rate/rhythm Abdomen: normal bowel sounds Extremities: normal inspection Current Medications: Current Medications Sig/Chacha Start time Last Medication Dose Route Stop Time Status Admin Acetaminophen 650 MG Q6P PRN 04/05 1800 AC PO Acetaminophen 650 MG .STK-MED ONE 04/05 1640 DC PO 04/05 1641 Acetaminophen 650 MG Q8 04/05 0600 DC 04/05 PO 1408 Aspirin Buffered 81 MG QAM 04/05 0900 AC 04/06 PO 1005 Atorvastatin Calcium 20 MG 1700 04/05 1700 AC 04/05 PO 1750 Bupropion HCl 300 MG DAILY 04/06 0900 AC 04/06 PO 1006 Carbidopa/Levodopa 2 TAB DAILY 04/05 1625 AC 04/06 PO 1006 Carvedilol 25 MG QAM 04/05 0900 AC 04/06 PO 1006 Cephalexin 250 MG Q8 04/05 1015 AC 04/06 PO 0632 Clopidogrel Bisulfate 75 MG QAM 04/05 0900 AC 04/06 PO 1006 Escitalopram Oxalate 5 MG QPM 04/05 2100 DC PO Escitalopram Oxalate 10 MG QPM 04/05 2100 AC 04/05 PO 2212 Finasteride 5 MG QPM 04/05 2100 AC 04/05 PO 2212 Heparin Sodium 5,000 UNIT Q8 04/05 0600 AC 04/06 (Porcine) SC 0632 Hydroxyzine HCl 50 MG DAILY PRN 04/05 2015 DC PO Insulin Aspart 0 TIDAC 04/05 0800 AC 04/06 SC 1000 Insulin Detemir 15 UNITS BID 04/05 0900 AC 04/06 SC 1000 Mirabegron 25 MG DAILY 04/06 0900 AC 04/06 PO 1007 Morphine Sulfate 2 MG Q6-PRN PRN 04/05 0945 AC IV Oxycodone/ 2 TAB Q4P PRN 04/05 0945 DC Acetaminophen PO Sodium Chloride 1,000 ML Q13H 04/05 0400 AC 04/05 IV 1749 Tamsulosin HCl 0.4 MG DAILY 04/05 0900 AC 04/06 PO 1007 Trazodone HCl 25 MG QPM 04/05 2100 AC 04/05 PO 2212 Zolpidem Tartrate 5 MG AT BEDTIME 04/05 2230 DC 04/05 PO 2225 Findings Pertinent Lab/Ryan Results: Laboratory Tests 04/06 04/06 UNK 0635 Chemistry Sodium (137 - 145 mmol/L) 137 Potassium (3.5 - 5.1 mmol/L) 5.1 Chloride (98 - 107 mmol/L) 108 H Carbon Dioxide (22 - 30 mmol/L) 22 Anion Gap (5 - 16) 7 BUN (9 - 20 mg/dL) 42 H Creatinine (0.7 - 1.2 mg/dL) 1.7 H Estimated GFR (>60 ml/min) 39 L BUN/Creatinine Ratio (7 - 25 %) 24.7 Hematology CBC w Diff NO MAN DIFF REQ WBC (4.8 - 10.8 /CUMM) 8.0 RBC (4.70 - 6.10 /CUMM) 4.02 L Hgb (14.0 - 18.0 G/DL) 12.4 L Hct (42 - 52 %) 38.3 L MCV (80.0 - 94.0 FL) 95.2 H MCH (27.0 - 31.0 PG) 30.9 MCHC (33.0 - 37.0 G/DL) 32.5 L RDW (11.5 - 14.5 %) 14.3 Plt Count (130 - 400 /CUMM) 211 MPV (7.4 - 10.4 FL) 7.4 Gran % (42.2 - 75.2 %) 70.5 Lymphocytes % (20.5 - 51.1 %) 15.1 L Monocytes % (1.7 - 9.3 %) 6.7 Eosinophils % (0 - 5 %) 7.1 H Basophils % (0.0 - 2.0 %) 0.6 Absolute Granulocytes (1.4 - 6.5 /CUMM) 5.6 Absolute Lymphocytes (1.2 - 3.4 /CUMM) 1.2 Absolute Monocytes (0.10 - 0.60 /CUMM) 0.5 Absolute Eosinophils (0.0 - 0.7 /CUMM) 0.6 Absolute Basophils (0.0 - 0.2 /CUMM) 0 04/05 04/05 0657 0040 Chemistry Sodium (137 - 145 mmol/L) 137 Potassium (3.5 - 5.1 mmol/L) 5.1 Chloride (98 - 107 mmol/L) 107 Carbon Dioxide (22 - 30 mmol/L) 21 L Anion Gap (5 - 16) 9 BUN (9 - 20 mg/dL) 56 H Creatinine (0.7 - 1.2 mg/dL) 2.4 H Estimated GFR (>60 ml/min) 26 L BUN/Creatinine Ratio (7 - 25 %) 23.3 Creatine Kinase (55 - 170 U/L) 88 Coagulation PT (9.4 - 12.5 SEC) 12.7 H INR (0.90 - 1.17) 1.16 Hematology CBC w Diff NO MAN DIFF REQ WBC (4.8 - 10.8 /CUMM) 10.0 RBC (4.70 - 6.10 /CUMM) 3.74 L Hgb (14.0 - 18.0 G/DL) 11.8 L Hct (42 - 52 %) 35.8 L MCV (80.0 - 94.0 FL) 95.8 H MCH (27.0 - 31.0 PG) 31.4 H MCHC (33.0 - 37.0 G/DL) 32.8 L RDW (11.5 - 14.5 %) 14.6 H Plt Count (130 - 400 /CUMM) 214 MPV (7.4 - 10.4 FL) 7.6 Gran % (42.2 - 75.2 %) 69.7 Lymphocytes % (20.5 - 51.1 %) 17.3 L Monocytes % (1.7 - 9.3 %) 7.6 Eosinophils % (0 - 5 %) 4.9 Basophils % (0.0 - 2.0 %) 0.5 Absolute Granulocytes (1.4 - 6.5 /CUMM) 7.0 H Absolute Lymphocytes (1.2 - 3.4 /CUMM) 1.7 Absolute Monocytes (0.10 - 0.60 /CUMM) 0.8 H Absolute Eosinophils (0.0 - 0.7 /CUMM) 0.5 Absolute Basophils (0.0 - 0.2 /CUMM) 0 Urines Urinalysis LIGHT H Urine Color (YEL,AMB,STR) YEL Urine Clarity (CLEAR) CLEAR Urine pH (5.0 - 8.0) 6.0 Ur Specific [place] (1.001 - 1.035) 1.020 Urine Protein (NEG,<30 MG/DL) NEG Urine Ketones (NEG) NEG Urine Nitrite (NEG) NEG Urine Bilirubin (NEG) NEG Urine Urobilinogen (0.1 - 1.0 EU/dl) 0.2 Ur Leukocyte Esterase (NEG) SMALL H Ur Microscopic SEDIMENT EXAMINED Urine RBC (0 - 5 /HPF) 1-3 Urine WBC (0 - 2 /HPF) 15-25 H Urine Bacteria (NEG/NONE) RARE H Urine Hemoglobin (NEG) NEG Urine Glucose (N MG/DL) 250 H 04/04 2345 Chemistry Sodium (137 - 145 mmol/L) 135 L Potassium (3.5 - 5.1 mmol/L) 5.6 H Chloride (98 - 107 mmol/L) 104 Carbon Dioxide (22 - 30 mmol/L) 22 Anion Gap (5 - 16) 9 BUN (9 - 20 mg/dL) 58 H Creatinine (0.7 - 1.2 mg/dL) 2.9 H Estimated GFR (>60 ml/min) 21 L BUN/Creatinine Ratio (7 - 25 %) 20.0 Glucose (65 - 99 mg/dL) 381 H Hemoglobin A1c (4.2 - 5.8 %) 9.5 H Calcium (8.4 - 10.2 mg/dL) 8.3 L Total Bilirubin (0.2 - 1.3 mg/dL) 0.4 AST (17 - 59 U/L) 22 ALT (21 - 72 U/L) 28 Alkaline Phosphatase (< 127 U/L) 53 Troponin I (<0.11 ng/ml) < 0.01 [id number] Pept (<125 pg/mL) 63.7 Total Protein (6.3 - 8.2 g/dL) 5.2 L Albumin (3.5 - 5.0 g/dL) 3.0 L Globulin (1.9 - 4.2 gm/dL) 2.2 Albumin/Globulin Ratio (1.1 - 2.2 %) 1.4 Hematology CBC w Diff NO MAN DIFF REQ WBC (4.8 - 10.8 /CUMM) 10.7 RBC (4.70 - 6.10 /CUMM) 3.80 L Hgb (14.0 - 18.0 G/DL) 12.0 L Hct (42 - 52 %) 35.8 L MCV (80.0 - 94.0 FL) 94.1 H MCH (27.0 - 31.0 PG) 31.6 H MCHC (33.0 - 37.0 G/DL) 33.6 RDW (11.5 - 14.5 %) 14.4 Plt Count (130 - 400 /CUMM) 235 MPV (7.4 - 10.4 FL) 7.5 Gran % (42.2 - 75.2 %) 78.3 H Lymphocytes % (20.5 - 51.1 %) 11.7 L Monocytes % (1.7 - 9.3 %) 5.0 Eosinophils % (0 - 5 %) 4.6 Basophils % (0.0 - 2.0 %) 0.4 Absolute Granulocytes (1.4 - 6.5 /CUMM) 8.4 H Absolute Lymphocytes (1.2 - 3.4 /CUMM) 1.3 Absolute Monocytes (0.10 - 0.60 /CUMM) 0.5 Absolute Eosinophils (0.0 - 0.7 /CUMM) 0.5 Absolute Basophils (0.0 - 0.2 /CUMM) 0
[2018-04-06 15:23] VITALS: BP 130/80
--- NOTE | 2018-04-06 15:47 | CT SCAN REPORT ---
EXAMINATION: CT HEAD AND CT CERVICAL SPINE. CLINICAL INFORMATION: Weakness. COMPARISON: None TECHNIQUE: 5 mm thin axial and 2.5 mm thin coronal images of brain were obtained. Subsequently 2.5 mm thin axial and reformatted 2 mm thin coronal and sagittal images of cervical spine were obtained. DLP 95. FINDINGS: Brain: There is no acute intra-axial, extra-axial bleed, masses or midline shift. There is no acute infarction in evolution. Both lateral ventricles are enlarged and so are the cortical sulci. The nguyen to white matter distinction is maintained. Bone windows reveal no calvarial abnormality. The scalp soft tissues are normal. Bilateral paranasal sinuses and mastoid air cells are well-aerated. Cervical spine: There is mild straightening of cervical lordosis. The vertebral heights and alignment is is normal. There is loss of C5-C6, C6-C7 C7-T1 disc heights with moderate bridging osteophytes and syndesmophytes from C2-C3 through C6-C7 disc levels. There is mild bilateral C4-C5, C5-C6 facet joint hypertrophy. No visible acute fracture or dislocation seen. There is no underlying spinal canal stenosis. Mild bilateral narrowing of C5-C6 and left C6-C7 neural foramina from uncovertebral hypertrophic changes and facet joint hypertrophy are noted. The prevertebral and paravertebral soft tissues are normal. The lung apices are clear. Central trachea and airway is widely patent. IMPRESSION: Slightly disproportionate dilation of lateral ventricles in relation to cortical sulci. Suspicion for NPH. There is no acute intracranial process seen. There is no visible acute fracture or dislocation is cervical spine. There are degenerative disc changes C5-C6 to C7-T1 disc level. Large bridging osteophytes are seen from C2-C3 through C6-C7 disc levels
--- NOTE | 2018-04-06 16:28 | CT SCAN REPORT ---
EXAMINATION: CT LUMBAR SPINE WITHOUT CONTRAST CLINICAL INFORMATION: Left leg weakness. COMPARISON: None TECHNIQUE: Helical non-contrast CT images were obtained through the lumbar spine and 1.25 and 2.5 mm axial reconstructions were reviewed along with sagittal and coronal MPRs. DLP: 2677 mGy-cm FINDINGS: On sagittal images there is maintained lumbar lordosis. Loss of L4-L5 disc height is noted. Rest the disc heights are normal. The vertebral heights and alignment is maintained. There is no visible fracture or dislocation. There are large ventral bridging osteophytes Q14-C1-G6-H9 disc level largest at the L3-L4 disc level. The L1-L2 disc level there is minimal bulge without spinal canal stenosis. At L2-L3 disc level there is moderate bilateral facet joint hypertrophy and mild bulge resulting in mild canal stenosis. At L2-L3 disc level there is a broad-based diffuse bulge with moderate facet joint hypertrophy resulting in mild canal stenosis. The neural foramina are bilaterally patent. The neural foramina bilaterally patent. At L3-L4 disc level there is left bilateral laminectomy changes with mild bulge and mild spinal canal stenosis. There is bilateral facet joint hypertrophy greater on the left resulting in moderate left and mild right neural foraminal narrowing. At L4-L5 disc level there is bilateral laminectomy with a capacious thecal sac. Also visualized is L4-L5 disc fusion. No spinal canal stenosis. The neural foramina are mildly narrowed bilaterally. At L5-S1 disc level there is no signal disc bulge, herniation or spinal stenosis. Bilateral mild narrowing of neural foramina noted. No lytic or sclerotic process seen. The paravertebral soft tissues are normal. IMPRESSION: Spinal stenosis at L1-L2, L2-L3 from underlying diffuse bulge and bilateral facet joint hypertrophy. There is L3, L4 laminectomy changes with capacious thecal sac at L4-L5 disc level. There is mild canal stenosis at L3-L4 disc level from underlying disc fuse bulge. Bilateral narrowing of neural foramina as discussed above. No visible acute fracture or dislocation seen.
--- NOTE | 2018-04-06 16:35 | CT SCAN REPORT ---
EXAMINATION: CT THORACIC SPINE WITHOUT CONTRAST CLINICAL INFORMATION: Left leg weakness. COMPARISON: None TECHNIQUE: Axial images through the thoracic spine without contrast. Sagittal and coronal reconstructions on the technologist workstation were performed. DLP: 1258 mGy-cm FINDINGS: There is curvature of mid thoracic spine to the right with apex at T5 and lower thoracic spine to the left with apex at T12-L1. No fracture, dislocation or bone lesion is seen. There is evidence of severe multilevel degenerative spondylosis and degenerative disc disease. This is most significant at the T9-T10 level. No disc herniation is appreciated. There is mild disc bulge and secondary spinal stenosis at T9-T10. There is left-sided lateral recess and neural foraminal narrowing from bony osteophyte at T7-T8. There is slight impingement of the spinal canal from facet osteophyte at T11-T12 on the left. No spinal cord lesion is appreciated. There are degenerative changes of the spinous processes. There is evidence of atherosclerotic disease and tortuosity of the thoracic aorta. Paraspinal soft tissues are otherwise unremarkable. IMPRESSION: Scoliosis. Severe multilevel degenerative spondylosis and degenerative disc disease of the mid and lower thoracic spine, most significant at T9-T10. Mild disc bulge and secondary spinal stenosis at T9-T10. Left-sided lateral recess and neural foraminal narrowing from bony osteophyte at T7-T8 and slight impingement of the left side of the spinal canal at T11-T12 from facet osteophyte.
[2018-04-06 22:13] VITALS: BP 124/68
[2018-04-07 05:55] VITALS: BP 124/67
--- NOTE | 2018-04-07 09:16 | PN- Diabetes ---
Assessment/Plan Diabetes Assessment: Patient states he had a bad night. He did not sleep. He underwent further CT scans of his lumbar spine and thoracic spine. They show some nerve root compression and some mild spinal stenosis. The patient states he did walk with the physical therapist yesterday. The patient sugars are beginning to come down. He is on 18 of Levemir twice a day as well as sliding scale NovoLog. Yesterday his fingerstick sugars were 257 before lunch 369 before dinner 321 before supper and 279 at bedtime. This morning his fingerstick sugar before breakfast is 199. Plan: Suggest continue the same insulin for now. His sliding scale however is not written properly and it should be 12 units for glucose of 251 -300. Patient appears very sluggish and we should check his thyroid function tests including a free T4 and TSH. Subjective Subjective: Had a bad night Review of Systems Constitutional: Denies: chills, fever. Cardiovascular: Denies: chest pain. Respiratory: Denies: short of breath. Gastrointestinal: Denies: abdominal pain. Skin: Reports: no symptoms. Objective Last 24 Hrs of Vital Signs/I&O Vital Signs Date Time Temp Pulse Resp B/P B/P Pulse O2 O2 Flow FiO2 Mean Ox Delivery Rate 04/07 0555 97.5 71 22 124/67 95 Room Air 04/063 97.5 63 20 124/68 95 04/06 1523 98.6 67 20 130/80 95 04/06 1007 78 130/60 04/06 1006 78 130/60 Intake & Output 04/07 1600 04/07 0800 04/07 0000 Intake Total 1080 1080 Output Total Balance 1080 1080 Intake, IV 600 600 Intake, Oral 480 480 Number 1 Bowel Movements Vital Signs Date Time Temp Pulse Resp B/P B/P Pulse O2 O2 Flow FiO2 Mean Ox Delivery Rate 04/07 0555 97.5 71 22 124/67 95 Room Air 04/063 97.5 63 20 124/68 95 04/06 1523 98.6 67 20 130/80 95 04/06 1007 78 130/60 04/06 1006 78 130/60 Intake & Output 04/07 1600 04/07 0800 04/07 0000 Intake Total 1080 1080 Output Total Balance 1080 1080 Intake, IV 600 600 Intake, Oral 480 480 Number 1 Bowel Movements Physical Exam General Appearance: awake, anxious, lethargic Head: normal appearance Neck: normal inspection Respiratory: normal breath sounds Abdomen: normal bowel sounds Extremities: normal inspection Current Medications: Current Medications Sig/Chacha Start time Last Medication Dose Route Stop Time Status Admin Acetaminophen 650 MG Q6P PRN 04/05 1800 AC PO Aspirin Buffered 81 MG QAM 04/05 0900 AC 04/06 PO 1005 Atorvastatin Calcium 20 MG 1700 04/05 1700 AC 04/06 PO 1655 Bupropion HCl 300 MG DAILY 04/06 0900 AC 04/06 PO 1006 Calcium Carbonate 500 MG DAILY PRN 04/06 1830 AC 04/06 PO 2041 Carbidopa/Levodopa 2 TAB DAILY 04/05 1625 AC 04/06 PO 1006 Carvedilol 25 MG QAM 04/05 0900 AC 04/06 PO 1006 Cephalexin 250 MG Q8 04/05 1015 AC 04/07 PO 0547 Clopidogrel Bisulfate 75 MG QAM 04/05 0900 AC 04/06 PO 1006 Escitalopram Oxalate 10 MG QPM 04/05 2100 AC 04/06 PO 2041 Finasteride 5 MG QPM 04/05 2100 AC 04/06 PO 2040 Heparin Sodium 5,000 UNIT Q8 04/05 0600 AC 04/07 (Porcine) SC 0547 Hydroxyzine HCl 50 MG DAILY PRN 04/05 2015 DC PO Insulin Aspart 0 TIDAC/HS 04/06 1700 r 04/06 SC 204 Insulin Aspart 0 TIDAC 04/05 0800 DC 04/06 SC 1316 Insulin Detemir 18 UNITS BID 04/06 2100 AC 04/06 SC 2042 Insulin Detemir 15 UNITS BID 04/05 0900 DC 04/06 SC 1000 Melatonin 5 MG AT BEDTIME 04/06 2100 AC 04/06 PO 2041 Mirabegron 25 MG DAILY 04/06 0900 AC 04/06 PO 1007 Morphine Sulfate 2 MG Q6-PRN PRN 04/05 0945 AC IV Oxycodone/ 1 TAB Q6P PRN 04/06 1130 AC 04/07 Acetaminophen PO 0549 Sodium Chloride 1,000 ML Q13H 04/05 0400 AC 04/07 IV 0547 Tamsulosin HCl 0.4 MG DAILY 04/05 0900 AC 04/06 PO 1007 Trazodone HCl 25 MG QPM 04/05 2100 AC 04/06 PO 2041 Zolpidem Tartrate 5 MG AT BEDTIME 04/05 2230 DC 04/05 PO 2225 Findings Pertinent Lab/Ryan Results: Laboratory Tests 04/07 04/06 04/06 0645 UNK 0635 Chemistry Sodium (137 - 145 mmol/L) Pending 137 Potassium (3.5 - 5.1 mmol/L) Pending 5.1 Chloride (98 - 107 mmol/L) Pending 108 H Carbon Dioxide (22 - 30 mmol/L) Pending 22 Anion Gap (5 - 16) Pending 7 BUN (9 - 20 mg/dL) Pending 42 H Creatinine (0.7 - 1.2 mg/dL) Pending 1.7 H Estimated GFR (>60 ml/min) 39 L BUN/Creatinine Ratio (7 - 25 %) Pending 24.7 Hematology CBC w Diff Pending NO MAN DIFF REQ WBC (4.8 - 10.8 /CUMM) Pending 8.0 RBC (4.70 - 6.10 /CUMM) Pending 4.02 L Hgb (14.0 - 18.0 G/DL) Pending 12.4 L Hct (42 - 52 %) Pending 38.3 L MCV (80.0 - 94.0 FL) Pending 95.2 H MCH (27.0 - 31.0 PG) Pending 30.9 MCHC (33.0 - 37.0 G/DL) Pending 32.5 L RDW (11.5 - 14.5 %) Pending 14.3 Plt Count (130 - 400 /CUMM) Pending 211 MPV (7.4 - 10.4 FL) Pending 7.4 Gran % (42.2 - 75.2 %) 70.5 Lymphocytes % (20.5 - 51.1 %) 15.1 L Monocytes % (1.7 - 9.3 %) 6.7 Eosinophils % (0 - 5 %) 7.1 H Basophils % (0.0 - 2.0 %) 0.6 Absolute Granulocytes (1.4 - 6.5 /CUMM) 5.6 Absolute Lymphocytes (1.2 - 3.4 /CUMM) 1.2 Absolute Monocytes (0.10 - 0.60 /CUMM) 0.5 Absolute Eosinophils (0.0 - 0.7 /CUMM) 0.6 Absolute Basophils (0.0 - 0.2 /CUMM) 0
[2018-04-07 09:40] LABS: ABSOLUTE BASOPHIL COUNT 0.1 /CUMM (0.0-0.2); ABSOLUTE EOSINOPHIL COUNT 0.6 /CUMM (0.0-0.7); ABSOLUTE GRANULOCYTE CT 6.9 /CUMM (1.4-6.5); ABSOLUTE LYMPH COUNT 1.7 /CUMM (1.2-3.4); ABSOLUTE MONOCYTE COUNT 0.7 /CUMM (0.10-0.60); BASOPHIL % 0.6 % (0.0-2.0); EOSINOPHIL % 5.9 % (0-5); GRANULOCYTE % 69.6 % (42.2-75.2); HEMATOCRIT 36.5 % (42-52); MEAN CORPUSCULAR HGB 31.7 PG (27.0-31.0); MEAN CORPUSCULAR HGB CONC 33.2 G/DL (33.0-37.0); MEAN CORPUSCULAR VOLUME 95.3 FL (80.0-94.0); MEAN PLATELET VOLUME 7.4 FL (7.4-10.4); PLATELET COUNT 215 /CUMM (130-400); RBC DISTRIBUTION WIDTH 14.4 % (11.5-14.5); RED BLOOD CELL CT 3.83 /CUMM (4.70-6.10)
--- NOTE | 2018-04-07 10:12 | PN- Housestaff ---
See Addendum Subjective Follow-up For: LEAH on CKD fall and weakness Uncontrolled blood sugar Subjective: Patient said she was not able to sleep at all last night because of back pain. Reports resolution of his diarrhea. Denies any fever/chills. Review of Systems Constitutional: Reports: no symptoms. EENTM: Reports: no symptoms. Cardiovascular: Reports: no symptoms. Respiratory: Reports: no symptoms. Gastrointestinal: Reports: no symptoms. Genitourinary: Reports: no symptoms. Musculoskeletal: Reports: back pain. Skin: Reports: no symptoms. Neurological/Psychological: Reports: no symptoms. Hematologic/Endocrine: Reports: no symptoms. Immunologic/Allergic: Reports: no symptoms. Objective Last 24 Hrs of Vital Signs/I&O Vital Signs Date Time Temp Pulse Resp B/P B/P Pulse O2 O2 Flow FiO2 Mean Ox Delivery Rate 04/07 1000 79 154/84 04/07 0959 79 154/84 04/07 0555 97.5 71 22 124/67 95 Room Air 04/06 2213 97.5 63 20 124/68 95 04/06 1523 98.6 67 20 130/80 95 Intake & Output 04/07 1600 04/07 0800 04/07 0000 Intake Total 1080 1080 Output Total Balance 1080 1080 Intake, IV 600 600 Intake, Oral 480 480 Number 1 Bowel Movements Physical Exam General Appearance: Alert, Oriented X3, Cooperative Skin: multiple bruises all over the body Cardiovascular: Regular Rate, Normal S1, Normal S2 Lungs: Clear to Auscultation, Normal Air Movement Abdomen: Normal Bowel Sounds, Soft, No Tenderness Extremities: No Clubbing, No Cyanosis, No Edema Current Medications: Current Medications Sig/Chacha Start time Last Medication Dose Route Stop Time Status Admin Acetaminophen 650 MG Q6P PRN 04/05 1800 AC PO Aspirin Buffered 81 MG QAM 04/05 0900 AC 04/07 PO 0958 Atorvastatin Calcium 20 MG 1700 04/05 1700 AC 04/06 PO 1655 Bupropion HCl 300 MG DAILY 04/06 0900 AC 04/07 PO 0959 Calcium Carbonate 500 MG DAILY PRN 04/06 1830 AC 04/06 PO 2041 Carbidopa/Levodopa 2 TAB DAILY 04/05 1625 AC 04/07 PO 0959 Carvedilol 25 MG QAM 04/05 0900 AC 04/07 PO 1000 Cephalexin 250 MG Q8 04/05 1015 AC 04/07 PO 0547 Clopidogrel Bisulfate 75 MG QAM 04/05 0900 AC 04/07 PO 0959 Escitalopram Oxalate 10 MG QPM 04/05 2100 AC 04/06 PO 2040 Finasteride 5 MG QPM 04/05 2100 AC 04/06 PO 2040 Heparin Sodium 5,000 UNIT Q8 04/05 0600 AC 04/07 (Porcine) SC 0547 Insulin Aspart 0 TIDAC/HS 04/06 1700 AC 04/07 SC 0957 Insulin Aspart 0 TIDAC 04/05 0800 DC 04/06 SC 1316 Insulin Detemir 18 UNITS BID 04/06 2100 AC 04/07 SC 0956 Insulin Detemir 15 UNITS BID 04/05 09 CO 04/06 SC 1000 Melatonin 5 MG AT BEDTIME 04/06 2100 AC 04/06 PO 2040 Mirabegron 25 MG DAILY 04/06 0900 AC 04/07 PO 1000 Morphine Sulfate 2 MG Q6-PRN PRN 04/05 0945 AC IV Oxycodone/ 1 TAB Q6P PRN 04/06 1130 AC 04/07 Acetaminophen PO 0955 Sodium Chloride 1,000 ML Q13H 04/05 0400 AC 04/07 IV 0547 Tamsulosin HCl 0.4 MG DAILY 04/05 09 AC 04/07 PO 0959 Trazodone HCl 25 MG QPM 04/05 2100 AC 04/06 PO 2040 Last 24 Hrs of Lab/Ryan Results Last 24 Hrs of Labs/Mics: Laboratory Tests 04/07/18 0645: Anion Gap 8, Estimated GFR 49 L, BUN/Creatinine Ratio 20.0, CBC w Diff NO MAN DIFF REQ, RBC 3.83 L, MCV 95.3 H, MCH 31.7 H, MCHC 33.2, RDW 14.4, MPV 7.4, Gran % 69.6, Lymphocytes % 16.8 L, Monocytes % 7.1, Eosinophils % 5.9 H, Basophils % 0.6, Absolute Granulocytes 6.9 H, Absolute Lymphocytes 1.7, Absolute Monocytes 0.7 H, Absolute Eosinophils 0.6, Absolute Basophils 0.1 Assessment/Plan Assessment: 77M Parinson's, T2DM on insulin pump, peripheral neuropathy, CAD s/p CABG and stents on dual antiplatelets, PVD s/p angioplasty, CRISTINE on CPAP, diverticulitis s /p colon resection, GERD, CKD stage 3B, depression, gout, 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 Assessment 77-year-old gentleman with complex medical history was admitted for recent frequent falls. He was also found to have Leah on Ckd and uncontrolled blood sugar. Plan Leah on Ckd : Kidney function is improving with gentle hydration today creatinine is 1.4. Plan is to continue gentle hydration and recheck BUN/creatinine in the a.m. Diabetes: His fingerstick sugar this a.m. was 199. Will continue current insulin dose. Recent frequent falls and right leg weakness: CT head shows suspicion of NPH. Will obtain neurology consult. CT spine suggestive of multiple level spinal stenosis. Spoke with Dr. Moreno over the phone, does not think spinal stenosis is responsible for his frequent falls as stenosis is chronic. Can start the patient on Medrol Dosepak if okay with neurology. He will see the patient tomorrow morning. Diarrhea: Resolved. C. difficile negative. Patient is full code DT prophylaxis with Alps and heparin Problem List: 1. Fall Pain Ratin Pain Location: Back Pain Goal: Remain pain free Pain Plan: Pain Pathway Tomorrow's Labs & Rationales: BEP(LEAH)
[2018-04-07 14:09] VITALS: BP 110/90
--- NOTE | 2018-04-07 16:27 | Cons- Neurology ---
General Information and HPI Consulting Request Date of Consult: 04/07/18 Requested By: Megan Soni MD Source of Information: patient, family History of Present Illness: 77-year-old male admitted to hospital with persistent falls History from patient and from patient's He usually walks with a cane although it sometimes with a walker He seems to fall relatively suddenly without warning No significant injuries Over past week he has had 3 such falls No warning of episode He states that legs tend to "give out" suddenly He is unable to break the fall When he is down on the ground he is unable to get up He denies dizziness prior to an event states that occasionally he seems to shuffle when walking He has periods of incontinence Allergies/Medications Allergies: Coded Allergies: ciprofloxacin (RASH 04/05/18) Home Med List: Allopurinol 300 MG TABLET 1 TAB PO QAM GOUT (Reported) Aspirin (Ecotrin*) 81 MG TABLET.DR 1 TAB PO QAM HEART/BLOOD (Reported) Atorvastatin Calcium 20 MG TABLET 1 TAB PO QAM CHOLESTEROL (Reported) Bupropion HCl (Wellbutrin XL) 300 MG TAB.ER.24H 1 TAB PO DAILY Mental Health (Reported) Carbidopa/Levodopa (Carbidopa-Levodopa 25-100 Tab) 25 MG-100 MG TABLET 2 TAB PO DAILY Parkinson (Reported) Carvedilol (Coreg) 25 MG TABLET 1 TAB PO QAM BP (Reported) Cephalexin (Keflex) 250 MG CAPSULE 1 CAP PO Q8 UTI Clopidogrel Bisulfate (Clopidogrel) 75 MG TABLET 1 TAB PO QAM BLOOD THINNER ( Reported) Escitalopram Oxalate (Lexapro) 10 MG TABLET 1 TAB PO DAILY Mental Health ( Reported) Finasteride 5 MG TABLET 1 TAB PO QPM URINATION (Reported) Furosemide 40 MG TABLET 1 TAB PO QAM FLUID RETENTION (Reported) Hydroxyzine Hydrochloride (Atarax) 50 MG TAB 1 TAB PO DAILY PRN Itching ( Reported) Insulin Aspart (Novolog) 100 UNIT/ML VIAL 0 UNITS SC SEE ADMIN CRITERIA DIABETES LESS THAN 80 MG/DL--Initiate hypoglycemia 151-200-- 6 units 201-250--8 units 251-300--10 units 301-350--12 units 351-400--14 units more than 400--14 units and notify Additional Bedtime coverage Below 251--no coverage 251-300--2 units 301-350--3 units 351-400--4 units more than 400--5 units Insulin Detemir (Levemir) 100 UNIT/ML VIAL 18 UNITS SC BID DIABETES Isosorbide Mononitrate (Isosorbide Mononitrate ER) 60 MG TAB.ER.24H 2 TAB PO QAM HEART (Reported) Lisinopril (Prinivil) 5 MG TABLET 1 TAB PO QAM BP (Reported) Mirabegron (Myrbetriq) 25 MG TAB.ER.24H 1 TAB PO DAILY BLADDER (Reported) Multivit-Min/Iron/Folic/Lutein (Centrum Silver Women Tablet) 8 MG IRON-400 MCG- 300 MCG TABLET 1 TAB PO DAILY SUPPLEMENT (Reported) Niacin (Niaspan) 500 MG TAB.ER.24H 1 TAB PO QPM CHOLESTEROL (Reported) Pregabalin (Lyrica) 50 MG CAPSULE 3 CAP PO QPM NEUROPATHY (Reported) Pregabalin (Lyrica) 50 MG CAPSULE 2 CAP PO QAM NEUROPATHY (Reported) Tamsulosin HCl (Flomax) 0.4 MG CAP.ER.24H 1 CAP PO DAILY (Reported) Trazodone HCl 50 MG TABLET 0.5 TAB PO QPM SLEEP HELP (Reported) Review of Systems Review of Systems: No significant headaches No vertigo Diminished hearing Mild visual difficulty secondary to cataracts Intermittent shortness of breath No chest pains No nausea or vomiting No focal weakness upper and lower extremities Overweight but weight is stable Recent rash secondary to allergic response to medication Walks with cane or walker Other systems reviewed are negative Past History Travel History Traveled to [place] past 21 day No Medical History Blood Transfusion Hx: Yes Neurological: NEUROPATHY EENT: allergies, cataracts, hearing loss Cardiovascular: CAD, hypertension, hyperlipidemia Respiratory: obstructive sleep apnea Gastrointestinal: diverticulitis, GERD Hepatic: NONE Renal: CHRONIC KIDNEY DISEASE Musculoskeletal: gout Psychiatric: depression Endocrine: diabetes Blood Disorders: NONE Cancer(s): NONE PVC LOADER/Reproductive: NONE Surgical History Surgical History: CABG (lower extremity angioplasty), colon resection, left leg angioplasty partial fifth ray resection, R FOOT 4 TOES amputation (big toe left) R 3rd and 4th toe amputation 3 back surgeries L4 - L5 AND HERNIATED DISK Family History Relations & Conditions If Any: Relation not specified for: FH: diabetes mellitus Psychosocial History Where Do You Live? Home Services at Home: None Primary Language: Maltese Smoking Status: Former Smoker ETOH Use: occasional use Illicit Drug Use: marijuana Living Will? yes Functional Ability ADLs Independent: dressing, eating, toileting, bathing. Ambulation: walker IADLs Independent: shopping, housework, finances, food prep, telephone, transportation , medication admin. Exam & Diagnostic Data Vital Signs and I&O Vital Signs Date Time Temp Pulse Resp B/P B/P Pulse O2 O2 Flow FiO2 Mean Ox Delivery Rate 04/07 1409 98.2 62 20 110/90 95 Room Air 04/07 1000 79 154/84 04/07 0959 79 154/84 04/07 0800 96 Room Air 04/07 0555 97.5 71 22 124/67 95 Room Air 04/06 2213 97.5 63 20 124/68 95 Intake & Output 04/07 1600 04/07 0800 04/07 0000 Intake Total 1080 1080 Output Total Balance 1080 1080 Intake, IV 600 600 Intake, Oral 480 480 Number 1 Bowel Movements Physical Exam: Alert In no distress Oriented to time and place Recall 1 out of 3 after 5 minutes Extraocular movements full Pupils equal reactive Fundi benign Visual baez intact No facial weakness or facial sensory loss Hearing impaired on right Palate tongue and shoulders intact Normal tone and strength upper and lower extremities No sensory loss to light touch Deep tendon reflexes hypoactive throughout Walks slowly with walker; no ataxia Last 48 Hours of Lab Results: Laboratory Tests 04/07 04/06 0645 UNK Chemistry Sodium (137 - 145 mmol/L) 139 137 Potassium (3.5 - 5.1 mmol/L) 4.9 5.1 Chloride (98 - 107 mmol/L) 110 H 108 H Carbon Dioxide (22 - 30 mmol/L) 21 L 22 Anion Gap (5 - 16) 8 7 BUN (9 - 20 mg/dL) 28 H 42 H Creatinine (0.7 - 1.2 mg/dL) 1.4 H 1.7 H Estimated GFR (>60 ml/min) 49 L 39 L BUN/Creatinine Ratio (7 - 25 %) 20.0 24.7 Hematology CBC w Diff NO MAN DIFF REQ WBC (4.8 - 10.8 /CUMM) 10.0 RBC (4.70 - 6.10 /CUMM) 3.83 L Hgb (14.0 - 18.0 G/DL) 12.1 L Hct (42 - 52 %) 36.5 L MCV (80.0 - 94.0 FL) 95.3 H MCH (27.0 - 31.0 PG) 31.7 H MCHC (33.0 - 37.0 G/DL) 33.2 RDW (11.5 - 14.5 %) 14.4 Plt Count (130 - 400 /CUMM) 215 MPV (7.4 - 10.4 FL) 7.4 Gran % (42.2 - 75.2 %) 69.6 Lymphocytes % (20.5 - 51.1 %) 16.8 L Monocytes % (1.7 - 9.3 %) 7.1 Eosinophils % (0 - 5 %) 5.9 H Basophils % (0.0 - 2.0 %) 0.6 Absolute Granulocytes (1.4 - 6.5 /CUMM) 6.9 H Absolute Lymphocytes (1.2 - 3.4 /CUMM) 1.7 Absolute Monocytes (0.10 - 0.60 /CUMM) 0.7 H Absolute Eosinophils (0.0 - 0.7 /CUMM) 0.6 Absolute Basophils (0.0 - 0.2 /CUMM) 0.1 04/06 0635 Hematology CBC w Diff NO MAN DIFF REQ WBC (4.8 - 10.8 /CUMM) 8.0 RBC (4.70 - 6.10 /CUMM) 4.02 L Hgb (14.0 - 18.0 G/DL) 12.4 L Hct (42 - 52 %) 38.3 L MCV (80.0 - 94.0 FL) 95.2 H MCH (27.0 - 31.0 PG) 30.9 MCHC (33.0 - 37.0 G/DL) 32.5 L RDW (11.5 - 14.5 %) 14.3 Plt Count (130 - 400 /CUMM) 211 MPV (7.4 - 10.4 FL) 7.4 Gran % (42.2 - 75.2 %) 70.5 Lymphocytes % (20.5 - 51.1 %) 15.1 L Monocytes % (1.7 - 9.3 %) 6.7 Eosinophils % (0 - 5 %) 7.1 H Basophils % (0.0 - 2.0 %) 0.6 Absolute Granulocytes (1.4 - 6.5 /CUMM) 5.6 Absolute Lymphocytes (1.2 - 3.4 /CUMM) 1.2 Absolute Monocytes (0.10 - 0.60 /CUMM) 0.5 Absolute Eosinophils (0.0 - 0.7 /CUMM) 0.6 Absolute Basophils (0.0 - 0.2 /CUMM) 0 Imaging/Other Studies: CT head IMPRESSION: Slightly disproportionate dilation of lateral ventricles in relation to cortical sulci. Suspicion for NPH. There is no acute intracranial process seen. There is no visible acute fracture or dislocation is cervical spine. There are degenerative disc changes C5-C6 to C7-T1 disc level. Large bridging osteophytes are seen from C2-C3 through C6-C7 disc levels Assessment/Plan Assessment: Paroxysmal falls without loss of or change of consciousness Recommendations: Drop attacks can be from various etiologies Given his history of diabetes and neuropathy, would check carefully for possible orthostasis; multiple measurements of supine blood pressure and standing blood pressure both immediately and after 2 minutes should be done Drop attacks can also be secondary to paroxysmal cardiac arrhythmia and nonconvulsive seizure, though less likely CAT scan is relatively nonspecific in terms of making a diagnosis of normal pressure hydrocephalus which in itself should not be a cause of drop attacks Patient should use walker and not cane and house should be checked for safety with adequate rails especially in bathroom to hold onto Consult Acknowledgment - Thank you for your consult request.
[2018-04-07 21:54] VITALS: BP 140/70
[2018-04-08 06:10] VITALS: BP 134/80
--- NOTE | 2018-04-08 07:05 | PN- Orthopedic ---
Surgical Brief Attending Note Brief Attending Note: Patient is a [age]-year-old male with multiple medical problems was admitted to the emergency room and then to the medical service for complaints of numerous falls. He complains of back pain. Denies fever or chills. Does complain of some weakness in both legs. On physical exam patient's awake and alert. Examination of her spine reveals no symmetric and paraspinal musculature spasm. Minimal tenderness to palpation about the midline cervical spine. Lower extremity exam reveals bilateral painless range of motion of the hips and knees. There is some mild erythema the left lower extremity. Bilateral lower extremity is are neurovascular intact with palpable pulses. Sensation light touch is grossly intact. Motor strength is grossly within normal limits in the bilateral lower extremities. CT scan lumbar spine shows significant degenerative disc disease at multiple levels with facet arthropathy and spinal stenosis 77-year-old male with multiple medical problems and spinal stenosis. Medical service may want to consider starting a course of anti-inflammatories or if those are contraindicated a Medrol Dosepak to see if this relieves some of his back pain and lower extremity symptoms.
--- NOTE | 2018-04-08 07:08 | PN- Housestaff ---
Figueroa BAILEY,[facility] 04/08/18 0708: Subjective Follow-up For: Falls Subjective: Patient seen and examined. States he feels lousy today but is unable to provide any specific complaints other than some abdominal pain Review of Systems Constitutional: Reports: no symptoms. Objective Last 24 Hrs of Vital Signs/I&O Vital Signs Date Time Temp Pulse Resp B/P B/P Pulse O2 O2 Flow FiO2 Mean Ox Delivery Rate 04/08 0610 97.9 74 20 134/80 94 Room Air 04/07 2154 98.0 71 20 140/70 95 Room Air 04/07 1600 Room Air 04/07 1409 98.2 62 20 110/90 95 Room Air 04/07 1000 79 154/84 04/07 0959 79 154/84 04/07 0800 96 Room Air Intake & Output 04/08 0800 04/08 0000 04/07 1600 Intake Total 200 1050 Output Total Balance 200 1050 Intake, IV 450 Intake, Oral 200 600 Number 1 3 Bowel Movements Physical Exam General Appearance: Alert, Oriented X3, Cooperative, Mild Distress Skin: No Rashes, No Breakdown Skin Temp/Moisture Exam: Warm/Dry Sepsis Skin Exam (color): Normal for Ethnicity HEENT: Atraumatic Cardiovascular: Normal S1, Normal S2, No Murmurs Lungs: Normal Air Movement Abdomen: Soft, No Tenderness Neurological: Normal Speech Extremities: No Edema, small wound on left lower extremity with mild drainage. Assessment/Plan Assessment: 77 year old male with a PMH significant for Parkinson's disease, diabetes, CAD status post CABG, obstructive sleep apnea on CPAP, stage IV CKD, neuropathy, CAD , gout, hypertension, colon resection, that comes to see us for complaints of recurrent falls, recent UTI, wounds. Assessment: 1. LEAH on CKD 2. Urinary Tract Infection 3. 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 Multiple Falls 5. History of Diabetes on Insulin Pump 6. History of CRISTINE on CPAP Plan: * His LEAH is improving. Significant improvement since admisison. * He has been evaluated by Neurology for his falls. His CT head showed findings for ? NPH however, this does not correlate clinically. * Ortho recommends a trial of Medrol dose pack for his spinal stenosis. * Abdominal xray - pending * Check lactic acid - pending. * Othostats * Continue Keflex for now. * TSH and T4 - wnl. * Continue nocturnal CPAP * Insulin SS (adjusted per Endo recs) and Accucheks * Levemir 18 units BID * Diet: Diabetic * DVT Prophylaxis: SC Heparin x 3 * Code: Full Code Problem List: 1. Fall Pain Ratin Pain Location: none Pain Goal: Remain pain free Pain Plan: none Tomorrow's Labs & Rationales: CBC, BEP Megan Soni MD 04/08/18 1032: Attending MD Review Statement Attending Statement Attending MD Statement: examined this patient, discuss w/resident/PA/JAWBONE PULLER, agreed w/resident/PA/JAWBONE PULLER, reviewed EMR data (avail), discussed with nursing, discussed with case mgmt, reviewed images, amended to note Attending Assessment/Plan: Patient seen and examined, was not feeling well this morning. He was c/o of lower abdominal pain this am. RN reports small BM this am. Pt still feels fatigued. He did complain of having urinary incontinence with accident this morning and he urinated on his bed. Vital Signs Date Time Temp Pulse Resp B/P B/P Pulse O2 O2 Flow FiO2 Mean Ox Delivery Rate 04/08 0610 97.9 74 20 134/80 94 Room Air 04/07 2154 98.0 71 20 140/70 95 Room Air 04/07 1600 Room Air 04/07 1409 98.2 62 20 110/90 95 Room Air on exam; aox3, nad. cv; s1, s2, rrr resp; clear abd; soft, mildly tender in lower abd, bs+ ext: + edema lle. Laboratory Tests 04/08 0815 Chemistry Sodium (137 - 145 mmol/L) 138 Potassium (3.5 - 5.1 mmol/L) 4.6 Chloride (98 - 107 mmol/L) 109 H Carbon Dioxide (22 - 30 mmol/L) 21 L Anion Gap (5 - 16) 7 BUN (9 - 20 mg/dL) 19 Creatinine (0.7 - 1.2 mg/dL) 1.2 Estimated GFR (>60 ml/min) 59 L BUN/Creatinine Ratio (7 - 25 %) 15.8 TSH (0.270 - 4.200 uIU/mL) 2.730 Thyroxine (T4) (4.5 - 10.9 ug/dL) 7.3 A/P; 77 y/o M with pmh sig for Parkinson's disease, diabetes, CAD status post CABG, obstructive sleep apnea on CPAP, stage IV CKD, neuropathy, CAD, gout, hypertension, colon resection, admitted with recurrent falls, acute on chronic kidney injury and a question of urinary tract infection. C. difficile was negative and diarrhea has resolved. CT spine shows significant Spinal stenosis at L1-L2, L2-L3 from underlying diffuse bulge and bilateral facet joint hypertrophy. CT of the head and cervical spine also showed the following. Slightly disproportionate dilation of lateral ventricles in relation to cortical sulci. Suspicion for NPH. There is no acute intracranial process seen. There is no visible acute fracture or dislocation is cervical spine. There are degenerative disc changes C5-C6 to C7-T1 disc level. Large bridging osteophytes are seen from C2-C3 through C6-C7 disc levels. Appreciate input from neurology and orthopedic. We'll check orthostatic vital signs. Patient will be started on Medrol Dosepak as recommended by orthopedic is comparing with his abdominal pain today. We'll check abdominal x-ray and check a lactate level. His creatinine is back to baseline. Patient will be encouraged to get out of bed to chair and ambulate. TFTs were done per endocrine recommendations and they're normal. Blood sugars are being managed per endocrinology. As for urinary issues, patient already on Flomax, finasteride, Myrbetriq. DVT px: hep sq. Pt to work with PT.
--- NOTE | 2018-04-08 07:33 | PN- Diabetes ---
Assessment/Plan Diabetes Assessment: The patient is on Levemir 18 units twice a day and sliding scale NovoLog before meals starting with 6 units for sugar of 80-150. He is also on a separate bedtime sliding scale NovoLog. His blood sugars are coming into better control. Yesterday his sugars were 199 before breakfast, 231 before lunch, 158 before dinner, and 127 at bedtime. #6 sugar this morning before breakfast is 198. Plan: Suggest continue the present insulin. The patient's blood sugars are under reasonable control. He still does not feel well. I would check the patient's thyroid function tests including free T4 and TSH which were supposed to be ordered yesterday. Subjective Subjective: Feels terrible Review of Systems Constitutional: Denies: chills, fever. Cardiovascular: Denies: chest pain. Respiratory: Denies: short of breath. Gastrointestinal: Denies: abdominal pain, nausea, vomiting. Objective Last 24 Hrs of Vital Signs/I&O Vital Signs Date Time Temp Pulse Resp B/P B/P Pulse O2 O2 Flow FiO2 Mean Ox Delivery Rate 04/08 0610 97.9 74 20 134/80 94 Room Air 04/07 2154 98.0 71 20 140/70 95 Room Air 04/07 1600 Room Air 04/07 1409 98.2 62 20 110/90 95 Room Air 04/07 1000 79 154/84 04/07 0959 79 154/84 04/07 0800 96 Room Air Intake & Output 04/08 0800 04/08 0000 04/07 1600 Intake Total 724 312 4726 Output Total Balance 726 616 2212 Intake, IV 450 Intake, Oral 100 200 600 Number 1 3 Bowel Movements Vital Signs Date Time Temp Pulse Resp B/P B/P Pulse O2 O2 Flow FiO2 Mean Ox Delivery Rate 04/08 0610 97.9 74 20 134/80 94 Room Air 04/07 2154 98.0 71 20 140/70 95 Room Air 04/07 1600 Room Air 04/07 1409 98.2 62 20 110/90 95 Room Air 04/07 1000 79 154/84 04/07 0959 79 154/84 04/07 0800 96 Room Air Intake & Output 04/08 0800 04/08 0000 04/07 1600 Intake Total 240 847 2447 Output Total Balance 694 907 7479 Intake, IV 450 Intake, Oral 100 200 600 Number 1 3 Bowel Movements Physical Exam General Appearance: alert, awake, comfortable Neck: normal inspection Respiratory: normal breath sounds Cardiovascular: regular rate/rhythm Extremities: normal inspection Current Medications: Current Medications Sig/Chacha Start time Last Medication Dose Route Stop Time Status Admin Acetaminophen 650 MG Q6P PRN 04/05 1800 AC PO Aspirin Buffered 81 MG QAM 04/05 0900 AC 04/07 PO 0958 Atorvastatin Calcium 20 MG 1700 04/05 1700 AC 04/07 PO 1729 Bupropion HCl 300 MG DAILY 04/06 0900 AC 04/07 PO 0959 Calcium Carbonate 500 MG DAILY PRN 04/06 1830 AC 04/06 PO 2041 Carbidopa/Levodopa 2 TAB DAILY 04/05 1625 AC 04/07 PO 0959 Carvedilol 25 MG QAM 04/05 0900 AC 04/07 PO 1000 Cephalexin 250 MG Q8 04/05 1015 AC 04/08 PO 0602 Clopidogrel Bisulfate 75 MG QAM 04/05 0900 AC 04/07 PO 0959 Escitalopram Oxalate 10 MG QPM 04/05 2100 AC 04/07 PO 2101 Finasteride 5 MG QPM 04/05 2100 AC 04/07 PO 2101 Heparin Sodium 5,000 UNIT Q8 04/05 0600 AC 04/08 (Porcine) SC 0602 Insulin Aspart 0 TIDAC/HS 04/06 1700 AC 04/07 SC 1252 Insulin Detemir 18 UNITS BID 04/06 2100 AC 04/07 SC 2104 Melatonin 5 MG AT BEDTIME 04/06 2100 AC 04/07 PO 2101 Mirabegron 25 MG DAILY 04/06 0900 AC 04/07 PO 1000 Morphine Sulfate 2 MG Q6-PRN PRN 04/05 0945 AC IV Oxycodone/ 1 TAB Q6P PRN 04/06 1130 AC 04/07 Acetaminophen PO 2106 Sodium Chloride 1,000 ML Q13H 04/05 0400 DC 04/07 IV 0547 Tamsulosin HCl 0.4 MG DAILY 04/05 09 AC 04/07 PO 0959 Trazodone HCl 25 MG QPM 04/05 2100 AC 04/07 PO 210 Findings Pertinent Lab/Ryan Results: Laboratory Tests 04/07 04/06 0645 UNK Chemistry Sodium (137 - 145 mmol/L) 139 137 Potassium (3.5 - 5.1 mmol/L) 4.9 5.1 Chloride (98 - 107 mmol/L) 110 H 108 H Carbon Dioxide (22 - 30 mmol/L) 21 L 22 Anion Gap (5 - 16) 8 7 BUN (9 - 20 mg/dL) 28 H 42 H Creatinine (0.7 - 1.2 mg/dL) 1.4 H 1.7 H Estimated GFR (>60 ml/min) 49 L 39 L BUN/Creatinine Ratio (7 - 25 %) 20.0 24.7 Hematology CBC w Diff NO MAN DIFF REQ WBC (4.8 - 10.8 /CUMM) 10.0 RBC (4.70 - 6.10 /CUMM) 3.83 L Hgb (14.0 - 18.0 G/DL) 12.1 L Hct (42 - 52 %) 36.5 L MCV (80.0 - 94.0 FL) 95.3 H MCH (27.0 - 31.0 PG) 31.7 H MCHC (33.0 - 37.0 G/DL) 33.2 RDW (11.5 - 14.5 %) 14.4 Plt Count (130 - 400 /CUMM) 215 MPV (7.4 - 10.4 FL) 7.4 Gran % (42.2 - 75.2 %) 69.6 Lymphocytes % (20.5 - 51.1 %) 16.8 L Monocytes % (1.7 - 9.3 %) 7.1 Eosinophils % (0 - 5 %) 5.9 H Basophils % (0.0 - 2.0 %) 0.6 Absolute Granulocytes (1.4 - 6.5 /CUMM) 6.9 H Absolute Lymphocytes (1.2 - 3.4 /CUMM) 1.7 Absolute Monocytes (0.10 - 0.60 /CUMM) 0.7 H Absolute Eosinophils (0.0 - 0.7 /CUMM) 0.6 Absolute Basophils (0.0 - 0.2 /CUMM) 0.1
--- NOTE | 2018-04-08 08:35 | Discharge Summary ---
Visit Information Visit Dates Admission Date: 04/05/18 Hospital Course Course Attending Physician: Megan Soni MD Primary Care Physician: Gwendolyn BAILEY,Yomi Staton Hospital Course: Mr Guerra is a 77 year old male with a PMH significant for Parkinson's disease, diabetes, CAD s/p CABG, obstructive sleep apnea on CPAP, CKD, neuropathy, gout, hypertension, colon resection, that comes to see us for complaints of recurrent falls, recent UTI, and wounds on his lower extremity. Below is a list of conditions he was seen and treated for: 1. LEAH on CKD 2. Urinary Tract Infection 3. 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 Multiple Falls 5. History of Diabetes on Insulin Pump 6. History of CRISTINE on CPAP Allergies: Coded Allergies: ciprofloxacin (RASH 04/05/18) Significant Procedures: SERVICE DATE: 04/06/18- EXAM TYPE: CAT - CT THOR SPINE WO IV CONTRAST FINDINGS: There is curvature of mid thoracic spine to the right with apex at T5 and lower thoracic spine to the left with apex at T12-L1. No fracture, dislocation or bone lesion is seen. There is evidence of severe multilevel degenerative spondylosis and degenerative disc disease. This is most significant at the T9-T10 level. No disc herniation is appreciated. There is mild disc bulge and secondary spinal stenosis at T9-T10. There is left-sided lateral recess and neural foraminal narrowing from bony osteophyte at T7-T8. There is slight impingement of the spinal canal from facet osteophyte at T11-T12 on the left. No spinal cord lesion is appreciated. There are degenerative changes of the spinous processes. There is evidence of atherosclerotic disease and tortuosity of the thoracic aorta. Paraspinal soft tissues are otherwise unremarkable. IMPRESSION: Scoliosis. Severe multilevel degenerative spondylosis and degenerative disc disease of the mid and lower thoracic spine, most significant at T9-T10. Mild disc bulge and secondary spinal stenosis at T9-T10. Left-sided lateral recess and neural foraminal narrowing from bony osteophyte at T7-T8 and slight impingement of the left side of the spinal canal at T11-T12 from facet osteophyte. SERVICE DATE: 04/06/18- EXAM TYPE: CAT - CT LUMB SPINE WO IV CONTRAST FINDINGS: On sagittal images there is maintained lumbar lordosis. Loss of L4-L5 disc height is noted. Rest the disc heights are normal. The vertebral heights and alignment is maintained. There is no visible fracture or dislocation. There are large ventral bridging osteophytes [id number]-[id number] disc level largest at the L3-L4 disc level. The L1-L2 disc level there is minimal bulge without spinal canal stenosis. At L2-L3 disc level there is moderate bilateral facet joint hypertrophy and mild bulge resulting in mild canal stenosis. At L2-L3 disc level there is a broad-based diffuse bulge with moderate facet joint hypertrophy resulting in mild canal stenosis. The neural foramina are bilaterally patent. The neural foramina bilaterally patent. At L3-L4 disc level there is left bilateral laminectomy changes with mild bulge and mild spinal canal stenosis. There is bilateral facet joint hypertrophy greater on the left resulting in moderate left and mild right neural foraminal narrowing. At L4-L5 disc level there is bilateral laminectomy with a capacious thecal sac. Also visualized is L4-L5 disc fusion. No spinal canal stenosis. The neural foramina are mildly narrowed bilaterally. At L5-S1 disc level there is no signal disc bulge, herniation or spinal stenosis. Bilateral mild narrowing of neural foramina noted. No lytic or sclerotic process seen. The paravertebral soft tissues are normal. IMPRESSION: Spinal stenosis at L1-L2, L2-L3 from underlying diffuse bulge and bilateral facet joint hypertrophy. There is L3, L4 laminectomy changes with capacious thecal sac at L4-L5 disc level. There is mild canal stenosis at L3-L4 disc level from underlying disc fuse bulge. Bilateral narrowing of neural foramina as discussed above. No visible acute fracture or dislocation seen. SERVICE DATE: 04/06/18- EXAM TYPE: CAT - CT CERV SPINE WO IV CONTRAST; CT HEAD WO IV CONTRAST FINDINGS: Brain: There is no acute intra-axial, extra-axial bleed, masses or midline shift. There is no acute infarction in evolution. Both lateral ventricles are enlarged and so are the cortical sulci. The nguyen to white matter distinction is maintained. Bone windows reveal no calvarial abnormality. The scalp soft tissues are normal. Bilateral paranasal sinuses and mastoid air cells are well-aerated. Cervical spine: There is mild straightening of cervical lordosis. The vertebral heights and alignment is is normal. There is loss of C5-C6, C6-C7 C7-T1 disc heights with moderate bridging osteophytes and syndesmophytes from C2-C3 through C6-C7 disc levels. There is mild bilateral C4-C5, C5-C6 facet joint hypertrophy. No visible acute fracture or dislocation seen. There is no underlying spinal canal stenosis. Mild bilateral narrowing of C5-C6 and left C6-C7 neural foramina from uncovertebral hypertrophic changes and facet joint hypertrophy are noted. The prevertebral and paravertebral soft tissues are normal. The lung apices are clear. Central trachea and airway is widely patent. IMPRESSION: Slightly disproportionate dilation of lateral ventricles in relation to cortical sulci. Suspicion for NPH. There is no acute intracranial process seen. There is no visible acute fracture or dislocation is cervical spine. There are degenerative disc changes C5-C6 to C7-T1 disc level. Large bridging osteophytes are seen from C2-C3 through C6-C7 disc levels SERVICE DATE: 04/05/18- EXAM TYPE: US - US-DUPLEX VENOUS EXTREM UNI FINDINGS: Respiratory variation, normal compression and augmented flow are noted throughout the lower extremity. The visualized common femoral vein, superficial femoral vein, profunda femoral vein, popliteal vein and midcalf peroneal and posterior tibial venous segments show no evidence of deep venous thrombosis. There is a Muller cyst seen measuring 4.3 x 2.5 x 2.0 cm, previously 4.7 x 1.1 x 1.4 cm. Dedicated sonographic interrogation in the area of interest involving the left calf demonstrates edema but no focal abnormality. IMPRESSION: 1. No evidence of deep venous thrombosis involving the lower extremity. 2. Interval increase in the size of a left Muller's cyst. SERVICE DATE: 04/04/18 EXAM TYPE: CAT - CT PELVIS WO IV CONTRAST FINDINGS: PELVIS: There is no pelvic free fluid. The urinary bladder is partially filled and unremarkable. Visualized unopacified loops of small and large bowel are unremarkable. OSSEOUS STRUCTURES: There is moderate to advanced degenerative change within the visualized lumbar spine. There is near complete disc height loss at L4/L5 with ankylosis of the posterior elements. There is anterior osteophyte formation bridging between L3 and L4. Both femoral heads are seated within well-formed acetabula. The pubic symphysis is intact. On the sagittal reconstructions, there is cortical acuity to the junction of the sacrum with the coccyx. This is likely renewals representative of a chronic appearance. There is no adjacent soft tissue swelling. No acute fractures are suspected. IMPRESSION: No acute fracture identified. Subtle acuity to the cortex of the junction between the sacrum and coccyx is likely chronic. Moderate to advanced degenerative change within the visualized lumbar spine. No pelvic free fluid. Disposition Summary Disposition Principal Diagnosis: LEAH on CKD UTI Severe multilevel degenerative spondylosis and degenerative disc disease of the mid and lower thoracic spine Falls Additional Diagnosis: History of Diabetes on Insulin Pump CRISTINE on CPAP Parkinson's disease CAD status post CABG stage IV CKD neuropathy gout hypertension, Discharge Disposition: home or self care Discharge Instructions General Discharge Information Code Status: Full Code Patient's Diet: Diabetic Patient's Activity: As tolerated Follow-Up Instructions/Appts: Please follow up with your PCP within one week of discharge. Medications at Discharge Discharge Medications: Continue taking these medications: Aspirin (Ecotrin*) 81 MG TABLET.DR 1 Tablet ORAL Every Morning Comments: Last Taken: 04/10/18 Time: 0820 AM Carvedilol (Coreg) 25 MG TABLET 1 Tablet ORAL Every Morning Comments: Last Taken: 04/10/18 Time: 0820 AM Furosemide (Furosemide) 40 MG TABLET 1 Tablet ORAL Every Morning Comments: NOT TAKEN IN HOSPITAL Bupropion HCl (Wellbutrin XL) 300 MG TAB.ER.24H 1 Tablet ORAL DAILY Qty = 30 Comments: Last Taken: 04/10/18 Time: 0820 AM Escitalopram Oxalate (Lexapro) 10 MG TABLET 1 Tablet ORAL DAILY Qty = 30 Comments: Last Taken: 04/09/18 Time: 2044 PM Finasteride (Finasteride) 5 MG TABLET 1 Tablet ORAL Every night Comments: Last Taken: 04/10/18 Time: 0820 AM Pregabalin (Lyrica) 50 MG CAPSULE 2 Capsule ORAL Every Morning Comments: NOT TAKEN IN HOSPITAL Pregabalin (Lyrica) 50 MG CAPSULE 3 Capsule ORAL Every night Comments: NOT TAKEN IN HOSPITAL Trazodone HCl (Trazodone HCl) 50 MG TABLET 0.5 Tablet ORAL Every night Comments: NOT TAKEN IN HOSPITAL Mirabegron (Myrbetriq) 25 MG TAB.ER.24H 1 Tablet ORAL DAILY Qty = 30 Comments: Last Taken: 06/10/18 Time: 0820 AM Multivit-Min/Iron/Folic/Lutein (Centrum Silver Women Tablet) 8 MG IRON-400 MCG- 300 MCG TABLET 1 Tablet ORAL DAILY Comments: NOT GIVEN Atorvastatin Calcium (Atorvastatin Calcium) 20 MG TABLET 1 Tablet ORAL Every Morning Qty = 30 Comments: Last Taken: 04/10/18 Time: 0820 AM Allopurinol (Allopurinol) 300 MG TABLET 1 Tablet ORAL Every Morning Comments: NOT TAKEN IN HOSPITAL Clopidogrel Bisulfate (Clopidogrel) 75 MG TABLET 1 Tablet ORAL Every Morning Comments: Last Taken: 04/10/17 Time: 0820 AM Isosorbide Mononitrate (Isosorbide Mononitrate ER) 60 MG TAB.ER.24H 2 Tablet ORAL Every Morning Qty = 180 Comments: NOT TAKEN IN HOSPITAL Lisinopril (Prinivil) 5 MG TABLET 1 Tablet ORAL Every Morning Comments: Last Taken: 04/10/18 Time: 0820 AM Niacin (Niaspan) 500 MG TAB.ER.24H 1 Tablet ORAL Every night Qty = 90 Comments: NOT TAKEN IN HOSPITAL Tamsulosin HCl (Flomax) 0.4 MG CAP.ER.24H 1 Capsule ORAL DAILY Comments: Last Taken: 04/10/18 Time: 0820 AM Hydroxyzine Hydrochloride (Atarax) 50 MG TAB 1 Tablet ORAL DAILY as needed for Itching Qty = 30 Comments: NOT GIVEN Carbidopa/Levodopa (Carbidopa-Levodopa 25-100 Tab) 25 MG-100 MG TABLET 2 Tablet ORAL DAILY Qty = 60 Comments: Last Taken: 04/10/18 Time: 0820 AM Start taking the following new medications: Cephalexin (Keflex) 250 MG CAPSULE 1 Capsule ORAL EVERY 8 HOURS Qty = 13 No Refills Comments: Last Taken: 04/10/18 Time: 0630 AM Methylprednisolone. (Medrol) 4 MG TAB.DS.PK 1 Dose Pack ORAL As Directed Qty = 6 No Refills Instructions: 3 tablets on 04/11 2 tablets on 04/12 1 tablet on 04/13 Comments: Last Taken: 04/10/18 Time: 0630 AM Insulin Detemir (Levemir) 100 UNIT/ML VIAL 18 Units Inject into fatty tissue TWICE DAILY Qty = 30 No Refills Comments: Last Taken: 04/10/18 Time: 0830 AM Insulin Aspart (Novolog) 100 UNIT/ML VIAL 0 Units Inject into fatty tissue BEFORE MEALS AND AT BEDTIME Qty = 30 No Refills Instructions: BEFORE MEALS Blood Insulin Sugar Units <80 0 81-100 6 101-150 6 151-200 8 201-250 10 251-301 12 301-350 14 351-400 16 >400 18 units and Call Doctor AT BEDTIME Blood Insulin Sugar Units <80 0 81-100 0 101-200 0 201-250 0 251-300 2 301-350 3 351-400 4 >400 Call Doctor Comments: Last Taken: 04/10/18 Time: 0800 AM Copies To: Gwendolyn BAILEY,Yomi Staton
--- NOTE | 2018-04-08 10:56 | RADIOLOGY REPORT ---
EXAMINATION: XR PORTABLE ABDOMEN CLINICAL INFORMATION: Unrelenting abdominal pain. Rule out intra-abdominal pathology. COMPARISON: CT of the spine performed 04/06/2018. TECHNIQUE: AP view of the abdomen. FINDINGS: Multiple fractured median sternotomy wires are noted. There is limited evaluation of the abdomen given the patient's body habitus. Nonobstructive bowel gas pattern. Scattered gas in the colon. No suspicious calcifications. Degenerative changes throughout the spine. The lung bases appear clear. IMPRESSION: Nonobstructive bowel gas pattern.
[2018-04-08 14:19] VITALS: BP 140/60
[2018-04-08 22:24] VITALS: BP 124/66
[2018-04-09 06:04] VITALS: BP 148/62
--- NOTE | 2018-04-09 07:14 | PN- Housestaff ---
Subjective Follow-up For: Falls UTI LEAH on CKD Spinal Stenosis Subjective: Patient seen and examined. Reports feeling much better this morning. Has no complaints. Review of Systems Constitutional: Reports: no symptoms. Objective Last 24 Hrs of Vital Signs/I&O Vital Signs Date Time Temp Pulse Resp B/P B/P Pulse O2 O2 Flow FiO2 Mean Ox Delivery Rate 04/09 0946 98.4 80 24 148/62 04/09 0946 98.4 80 24 148/62 04/09 0604 98.4 80 24 148/62 97 CPAP 04/08 2224 98.1 70 20 124/66 94 Room Air 04/08 1600 Room Air 04/08 1419 97.4 78 20 140/60 97 Room Air Intake & Output 04/09 1600 04/09 0800 04/09 0000 Intake Total 100 Output Total 200 Balance -200 100 Intake, Oral 100 Number 1 Bowel Movements Output, Urine 200 Physical Exam General Appearance: Alert, Oriented X3, Cooperative, Mild Distress Skin: No Rashes, No Breakdown Skin Temp/Moisture Exam: Warm/Dry Sepsis Skin Exam (color): Normal for Ethnicity HEENT: Atraumatic Cardiovascular: Normal S1, Normal S2, No Murmurs Lungs: Normal Air Movement Abdomen: Soft, No Tenderness Neurological: Normal Speech Extremities: No Edema Last 24 Hrs of Lab/Ryan Results Last 24 Hrs of Labs/Mics: Laboratory Tests 04/09/18 06: Anion Gap 10, Estimated GFR 53 L, BUN/Creatinine Ratio 16.9, CBC w Diff NO MAN DIFF REQ, RBC 4.26 L, MCV 95.7 H, MCH 31.3 H, MCHC 32.6 L, RDW 14.3, MPV 7.4 , Gran % 85.3 H, Lymphocytes % 11.1 L, Monocytes % 3.6, Eosinophils % 0, Basophils % 0, Absolute Granulocytes 11.3 H, Absolute Lymphocytes 1.5, Absolute Monocytes 0.5, Absolute Eosinophils 0, Absolute Basophils 0 Assessment/Plan Assessment: 77 year old male with a PMH significant for Parkinson's disease, diabetes, CAD status post CABG, obstructive sleep apnea on CPAP, stage IV CKD, neuropathy, CAD , gout, hypertension, colon resection, that comes to see us for complaints of recurrent falls, recent UTI, wounds. Assessment: 1. LEAH on CKD 2. Urinary Tract Infection 3. 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 Multiple Falls 5. History of Diabetes on Insulin Pump 6. History of CRISTINE on CPAP Plan: * His LEAH is improved since admission. Encourage oral PO intake. * He has been evaluated by Neurology for his falls. His CT head showed findings for ? NPH however, this does not correlate clinically. * Continue Medrol dose pack as recommended by ortho. * Abdominal xray - showed no acute abnormalities * lactic acid was normal. * Othostatic vital signs are negative. * Continue Keflex for now. Will continue it for another 5 days. * TSH and T4 - wnl. * Continue nocturnal CPAP * Insulin SS (adjusted per Endo recs) and Accucheks * Levemir 18 units BID * Stable for discharge but awaiting placement. * Diet: Diabetic * DVT Prophylaxis: SC Heparin x 3 * Code: Full Code Problem List: 1. Fall Pain Ratin Pain Location: none Pain Goal: Remain pain free Pain Plan: none Tomorrow's Labs & Rationales: CBC, BEP
--- NOTE | 2018-04-09 07:52 | PN- Diabetes ---
Assessment/Plan Diabetes Assessment: The patient states he feels better today. He was started on methylprednisolone middle of the day yesterday. Fingerstick blood sugars yesterday were 198 before breakfast 164 before lunch 188 at suppertime and 286 at bedtime. Today his fingerstick blood sugar is 212. Plan: Suggest continue the present insulin. Since the patient has been placed on steroids his blood sugars may become quite elevated. We should observe his blood sugars to make sure they do not go out of control while on this therapy. If the patient is discharged today he will resume the insulin pump when he gets home. He could run a temporary basal of 70% until this evening and then he could go back to his usual basal settings. He should be in touch with his doctor who manages the insulin pump on the outside. The patient should be cautioned that steroids can elevate his blood sugars and to check them frequently. If he is having trouble with high sugars he should call his doctor right away. Subjective Subjective: Feels improved Review of Systems Constitutional: Denies: chills, fever. Cardiovascular: Denies: chest pain. Respiratory: Denies: short of breath. Gastrointestinal: Denies: abdominal pain. Skin: Reports: no symptoms. Objective Last 24 Hrs of Vital Signs/I&O Vital Signs Date Time Temp Pulse Resp B/P B/P Pulse O2 O2 Flow FiO2 Mean Ox Delivery Rate 04/09 0604 98.4 80 24 148/62 97 CPAP 04/084 98.1 70 20 124/66 94 Room Air 04/08 1600 Room Air 04/08 1419 97.4 78 20 140/60 97 Room Air 04/08 1051 160/80 04/08 1051 98.2 68 170/80 04/08 0800 Room Air Intake & Output 04/09 0800 04/09 0000 04/08 1600 Intake Total 750 Output Total Balance 750 Intake, Oral 750 Number 2 Bowel Movements Patient 265 lb Weight Vital Signs Date Time Temp Pulse Resp B/P B/P Pulse O2 O2 Flow FiO2 Mean Ox Delivery Rate 04/09 0604 98.4 80 24 148/62 97 CPAP 04/084 98.1 70 20 124/66 94 Room Air 04/08 1600 Room Air 04/08 1419 97.4 78 20 140/60 97 Room Air 04/08 1051 160/80 04/08 1051 98.2 68 170/80 04/08 0800 Room Air Intake & Output 04/09 0800 04/09 0000 04/08 1600 Intake Total 750 Output Total Balance 750 Intake, Oral 750 Number 2 Bowel Movements Patient 265 lb Weight Physical Exam General Appearance: alert, awake, comfortable Neck: normal inspection Respiratory: normal breath sounds Cardiovascular: regular rate/rhythm Abdomen: normal bowel sounds Extremities: normal inspection Current Medications: Current Medications Sig/Chacha Start time Last Medication Dose Route Stop Time Status Admin Acetaminophen 650 MG Q6P PRN 04/05 1800 AC PO Aspirin Buffered 81 MG QAM 04/05 0900 AC 04/08 PO 1048 Atorvastatin Calcium 20 MG 1700 04/05 1700 AC 04/08 PO 1700 Bupropion HCl 300 MG DAILY 04/06 0900 AC 04/08 PO 1052 Calcium Carbonate 500 MG DAILY PRN 04/06 1830 AC 04/08 PO 1231 Carbidopa/Levodopa 2 TAB DAILY 04/05 1625 AC 04/08 PO 1049 Carvedilol 25 MG QAM 04/05 0900 AC 04/08 PO 1051 Cephalexin 250 MG Q8 04/05 1015 AC 04/09 PO 0603 Clopidogrel Bisulfate 75 MG QAM 04/05 0900 AC 04/08 PO 1051 Escitalopram Oxalate 10 MG DAILY 04/08 0919 DC PO Escitalopram Oxalate 10 MG QPM 04/05 2100 AC 04/08 PO 2049 Finasteride 5 MG QPM 04/05 2100 AC 04/08 PO 2049 Heparin Sodium 5,000 UNIT Q8 04/05 0600 AC 04/09 (Porcine) SC 06 Insulin Aspart 0 TIDAC/HS 04/06 170 AC 04/08 SC 205 Insulin Detemir 18 UNITS BID 04/06 2100 AC 04/08 SC 205 Melatonin 5 MG AT BEDTIME 04/06 2100 AC 04/08 PO 2049 Methylprednisolone 4 MG DAILY 04/13 0900 CAN PO 04/14 0859 Methylprednisolone 4 MG 0730 04/13 07 AC PO 04/13 0731 Methylprednisolone 8 MG DAILY 04/12 0900 CAN PO 04/13 0859 Methylprednisolone 4 MG 0730,04/12 0730 AC PO 04/12 2101 Methylprednisolone 12 MG DAILY 04/11 0900 CAN PO 04/12 0859 Methylprednisolone 4 MG 0730,1230,2100 04/11 07 AC PO 04/11 2101 Methylprednisolone 16 MG DAILY 04/10 0900 CAN PO 04/11 0859 Methylprednisolone 4 MG 0730,1230,1730,2100 04/10 0730 AC PO 04/10 2101 Methylprednisolone 8 MG AT BEDTIME 04/09 2100 AC PO 04/09 2101 Methylprednisolone 20 MG DAILY 04/09 0900 CAN PO 04/10 0859 Methylprednisolone 4 MG 0730,1230,1730 04/09 0730 AC 04/09 PO 04/09 1731 0603 Methylprednisolone 8 MG AT BEDTIME 04/08 2100 DC 04/08 PO 04/08 2101 205 Methylprednisolone 4 MG 1730 04/08 1730 DC 04/08 PO 04/08 173 1700 Methylprednisolone 12 MG 1230 04/08 1230 DC 04/08 PO 04/08 1231 1231 Methylprednisolone 24 MG DAILY 04/08 1030 CAN PO 04/09 0859 Methylprednisolone 24 MG DAILY 04/08 09 CAN PO 04/14 0925 Mirabegron 25 MG DAILY 04/06 0900 AC 04/08 PO 1049 Morphine Sulfate 2 MG Q6-PRN PRN 04/05 0945 AC IV Ondansetron HCl 4 MG Q8P PRN 04/08 0845 AC 04/08 IV 0852 Oxycodone/ 1 TAB Q6P PRN 04/06 1130 AC 04/08 Acetaminophen PO 1836 Patient Medication 1 ED ONE ONE 04/08 09 PR Teaching ED 04/08 09 Tamsulosin HCl 0.4 MG DAILY 04/05 09 AC 04/08 PO 1051 Trazodone HCl 25 MG QPM 04/05 2100 AC 04/08 PO 2049 Vital Signs Date Time Temp Pulse Resp B/P B/P Pulse O2 O2 Flow FiO2 Mean Ox Delivery Rate 04/09 0604 98.4 80 24 148/62 97 CPAP 04/08 2224 98.1 70 20 124/66 94 Room Air 04/08 1600 Room Air 04/08 1419 97.4 78 20 140/60 97 Room Air 04/08 1051 160/80 04/08 1051 98.2 68 170/80 04/08 0800 Room Air Intake & Output 04/09 0800 04/09 0000 04/08 1600 Intake Total 750 Output Total Balance 750 Intake, Oral 750 Number 2 Bowel Movements Patient 265 lb Weight Findings Pertinent Lab/Ryan Results: Laboratory Tests 04/09 04/08 04/08 0627 1200 0815 Chemistry Sodium (137 - 145 mmol/L) Pending 138 Potassium (3.5 - 5.1 mmol/L) Pending 4.6 Chloride (98 - 107 mmol/L) Pending 109 H Carbon Dioxide (22 - 30 mmol/L) Pending 21 L Anion Gap (5 - 16) Pending 7 BUN (9 - 20 mg/dL) Pending 19 Creatinine (0.7 - 1.2 mg/dL) Pending 1.2 Estimated GFR (>60 ml/min) 59 L BUN/Creatinine Ratio (7 - 25 %) Pending 15.8 Lactic Acid (0.7 - 2.1 mmol/L) 0.8 TSH (0.270 - 4.200 uIU/mL) 2.730 Thyroxine (T4) (4.5 - 10.9 ug/dL) 7.3 Hematology CBC w Diff Pending WBC Pending RBC Pending Hgb Pending Hct Pending MCV Pending MCH Pending MCHC Pending RDW Pending Plt Count Pending MPV Pending
[2018-04-09 08:08] LABS: ABSOLUTE BASOPHIL COUNT 0 /CUMM (0.0-0.2); ABSOLUTE EOSINOPHIL COUNT 0 /CUMM (0.0-0.7); ABSOLUTE GRANULOCYTE CT 11.3 /CUMM (1.4-6.5); ABSOLUTE LYMPH COUNT 1.5 /CUMM (1.2-3.4); ABSOLUTE MONOCYTE COUNT 0.5 /CUMM (0.10-0.60); BASOPHIL % 0 % (0.0-2.0); EOSINOPHIL % 0 % (0-5); HEMATOCRIT 40.8 % (42-52); MEAN CORPUSCULAR HGB 31.3 PG (27.0-31.0); MEAN CORPUSCULAR HGB CONC 32.6 G/DL (33.0-37.0); MEAN CORPUSCULAR VOLUME 95.7 FL (80.0-94.0); MEAN PLATELET VOLUME 7.4 FL (7.4-10.4); PLATELET COUNT 256 /CUMM (130-400); RBC DISTRIBUTION WIDTH 14.3 % (11.5-14.5); RED BLOOD CELL CT 4.26 /CUMM (4.70-6.10); WHITE BLOOD CELL COUNT 13.3 /CUMM (4.8-10.8)
[2018-04-09 09:12] LABS: GRANULOCYTE % 85.3 % (42.2-75.2)
[2018-04-09] MEDS ORDERED: KEFLEX250 M1 PO (11:05)
--- NOTE | 2018-04-09 11:54 | PN- Att Addend ---
Attending Addendum Attending Brief Note Patient seen and examined, today he's feeling better. Abdominal pain and discomfort is resolved. Patient does have slight bump in his white count but this could all be secondary to steroids. Vital Signs Date Time Temp Pulse Resp B/P B/P Pulse O2 O2 Flow FiO2 Mean Ox Delivery Rate 04/09 0946 98.4 80 24 148/62 04/09 0946 98.4 80 24 148/62 04/09 0604 98.4 80 24 148/62 97 CPAP 04/08 2224 98.1 70 20 124/66 94 Room Air 04/08 1600 Room Air 04/08 1419 97.4 78 20 140/60 97 Room Air on exam; aox3, nad. cv; s1, s2, rrr resp; clear. abd; soft, nt, bs+ ext; trace edema Laboratory Tests 04/09 04/08 06 1200 Chemistry Sodium (137 - 145 mmol/L) 139 Potassium (3.5 - 5.1 mmol/L) 4.8 Chloride (98 - 107 mmol/L) 106 Carbon Dioxide (22 - 30 mmol/L) 23 Anion Gap (5 - 16) 10 BUN (9 - 20 mg/dL) 22 H Creatinine (0.7 - 1.2 mg/dL) 1.3 H Estimated GFR (>60 ml/min) 53 L BUN/Creatinine Ratio (7 - 25 %) 16.9 Lactic Acid (0.7 - 2.1 mmol/L) 0.8 Hematology CBC w Diff NO MAN DIFF REQ WBC (4.8 - 10.8 /CUMM) 13.3 H RBC (4.70 - 6.10 /CUMM) 4.26 L Hgb (14.0 - 18.0 G/DL) 13.3 L Hct (42 - 52 %) 40.8 L MCV (80.0 - 94.0 FL) 95.7 H MCH (27.0 - 31.0 PG) 31.3 H MCHC (33.0 - 37.0 G/DL) 32.6 L RDW (11.5 - 14.5 %) 14.3 Plt Count (130 - 400 /CUMM) 256 MPV (7.4 - 10.4 FL) 7.4 Gran % (42.2 - 75.2 %) 85.3 H Lymphocytes % (20.5 - 51.1 %) 11.1 L Monocytes % (1.7 - 9.3 %) 3.6 Eosinophils % (0 - 5 %) 0 Basophils % (0.0 - 2.0 %) 0 Absolute Granulocytes (1.4 - 6.5 /CUMM) 11.3 H Absolute Lymphocytes (1.2 - 3.4 /CUMM) 1.5 Absolute Monocytes (0.10 - 0.60 /CUMM) 0.5 Absolute Eosinophils (0.0 - 0.7 /CUMM) 0 Absolute Basophils (0.0 - 0.2 /CUMM) 0 A/P; 77 y/o M with pmh sig for Parkinson's disease, diabetes, CAD status post CABG, obstructive sleep apnea on CPAP, stage IV CKD, neuropathy, CAD, gout, hypertension, colon resection, admitted with recurrent falls, acute on chronic kidney injury and a question of urinary tract infection. C. difficile was negative and diarrhea has resolved. CT spine shows significant Spinal stenosis at L1-L2, L2-L3 from underlying diffuse bulge and bilateral facet joint hypertrophy. CT of the head and cervical spine also showed the following. Slightly disproportionate dilation of lateral ventricles in relation to cortical sulci. Suspicion for NPH. There is no acute intracranial process seen. There is no visible acute fracture or dislocation is cervical spine. There are degenerative disc changes C5-C6 to C7-T1 disc level. Large bridging osteophytes are seen from C2-C3 through C6-C7 disc levels. We'll check orthostatic vital signs as recommended by neurology. Patient has been getting steroids as recommended by our orthopedic. Blood sugars is likely running high and insulin is adjusted per endocrinology. We will continue to biotics for total of 10 days. Continue the rest of the medications. Patient will benefit by going to rehabilitation as his ambulation is still not safe. Patient on heparin subcutaneous for DVT prophylaxis.
[2018-04-09] MEDS ORDERED: MEDROL4 M2 PO (13:58)
[2018-04-09 14:15] VITALS: BP 132/80
--- NOTE | 2018-04-09 14:47 | Discharge Summary ---
Visit Information Visit Dates Admission Date: 04/05/18 Discharge Date: 04/10/2018 Hospital Course Course Attending Physician: Megan Soni MD Primary Care Physician: Gwendolyn BAILEY,Yomi Staton Hospital Course: This is a 77 year old male with a PMH significant for Parkinson's disease, diabetes, CAD status post CABG, obstructive sleep apnea on CPAP, stage IV CKD, neuropathy, CAD, gout, hypertension, colon resection, that comes to see us for complaints of recurrent falls, recent UTI, wounds. In hospital work up diarrhea showed negative for c.diff and his symptoms resolved. He did have UA with small LE, rare bacteria, neg nitrite, but pt expressed symptoms so we treated him for UTI. Work up for falls resulted in a CT of the spine that showed significant Spinal stenosis at L1-L2, L2-L3 from underlying diffuse bulge and bilateral facet joint hypertrophy and CT of the head was suspicious for NPH. Neurology was consulted. They recommended checking Orthostatic vital signs whicxh was negative. They also mentioned CAT scan is relatively nonspecific in terms of making a diagnosis of normal pressure hydrocephalus which in itself should not be a cause of drop attacks. He also has an insulin pump at home and he was transitioned to a SQ regimen while in hospital. * Finish up Medrol dose-james for spinal stenosis * Continue Keflex 250 mg Q8 until 04/14/2018 to finish course of treatment for UTI * Pls continue his hospital insulin regimen at [facility] and transition back to insulin pump when he goes home Con't Insulin-Aspart per Sliding scale (attached to bottom of d/c summary) Con't Insulin Levermir 18 units BID * Continue Allopurinol, ASA, statin, Wellbutrin, Carbidopa-Levodopa, Clopidogrel , Lexapro, Finasteride, Furosemid, Imdur, Lisinopril, Myrbetriq, Niacin, Lyrica, Trazadone and Flomax per directions below. Allergies: Coded Allergies: ciprofloxacin (RASH 04/05/18) Pertinent Lab Results: PATIENT: KELLY QUILES PRESENT AGE: 77 PATIENT ACCOUNT NO: [id number] : 39 LOCATION: 2NA ORDERING PHYSICIAN: Marilia Ho MD SERVICE DATE: 04/06/18- EXAM TYPE: CAT - CT LUMB SPINE WO IV CONTRAST EXAMINATION: CT LUMBAR SPINE WITHOUT CONTRAST CLINICAL INFORMATION: Left leg weakness. COMPARISON: None TECHNIQUE: Helical non-contrast CT images were obtained through the lumbar spine and 1.25 and 2.5 mm axial reconstructions were reviewed along with sagittal and coronal MPRs. DLP: 2677 mGy-cm FINDINGS: On sagittal images there is maintained lumbar lordosis. Loss of L4-L5 disc height is noted. Rest the disc heights are normal. The vertebral heights and alignment is maintained. There is no visible fracture or dislocation. There are large ventral bridging osteophytes M51-R1-O0-L5 disc level largest at the L3-L4 disc level. The L1-L2 disc level there is minimal bulge without spinal canal stenosis. At L2-L3 disc level there is moderate bilateral facet joint hypertrophy and mild bulge resulting in mild canal stenosis. At L2-L3 disc level there is a broad-based diffuse bulge with moderate facet joint hypertrophy resulting in mild canal stenosis. The neural foramina are bilaterally patent. The neural foramina bilaterally patent. At L3-L4 disc level there is left bilateral laminectomy changes with mild bulge and mild spinal canal stenosis. There is bilateral facet joint hypertrophy greater on the left resulting in moderate left and mild right neural foraminal narrowing. At L4-L5 disc level there is bilateral laminectomy with a capacious thecal sac. Also visualized is L4-L5 disc fusion. No spinal canal stenosis. The neural foramina are mildly narrowed bilaterally. At L5-S1 disc level there is no signal disc bulge, herniation or spinal stenosis. Bilateral mild narrowing of neural foramina noted. No lytic or sclerotic process seen. The paravertebral soft tissues are normal. IMPRESSION: Spinal stenosis at L1-L2, L2-L3 from underlying diffuse bulge and bilateral facet joint hypertrophy. There is L3, L4 laminectomy changes with capacious thecal sac at L4-L5 disc level. There is mild canal stenosis at L3-L4 disc level from underlying disc fuse bulge. Bilateral narrowing of neural foramina as discussed above. No visible acute fracture or dislocation seen. DICTATED BY: Lam Zuñiga MD DATE/TIME DICTATED:04/06/181612 REGIONAL ACCOUNT DIRECTOR:MANPREET DATE/TIME TRANSCRIBED:04/06/181612 CONFIDENTIAL, DO NOT COPY WITHOUT APPROPRIATE AUTHORIZATION. <Electronically signed in Other Vendor System> SIGNED BY: Lam Zuñiga MD 04/06/18 9160 PATIENT: KELLY QUILES PRESENT AGE: 77 PATIENT ACCOUNT NO: [id number] : 39 LOCATION: 2NA ORDERING PHYSICIAN: Marilia Ho MD SERVICE DATE: 04/06/18- EXAM TYPE: CAT - CT THOR SPINE WO IV CONTRAST EXAMINATION: CT THORACIC SPINE WITHOUT CONTRAST CLINICAL INFORMATION: Left leg weakness. COMPARISON: None TECHNIQUE: Axial images through the thoracic spine without contrast. Sagittal and coronal reconstructions on the technologist workstation were performed. DLP: 1258 mGy-cm FINDINGS: There is curvature of mid thoracic spine to the right with apex at T5 and lower thoracic spine to the left with apex at T12-L1. No fracture, dislocation or bone lesion is seen. There is evidence of severe multilevel degenerative spondylosis and degenerative disc disease. This is most significant at the T9-T10 level. No disc herniation is appreciated. There is mild disc bulge and secondary spinal stenosis at T9-T10. There is left-sided lateral recess and neural foraminal narrowing from bony osteophyte at T7-T8. There is slight impingement of the spinal canal from facet osteophyte at T11-T12 on the left. No spinal cord lesion is appreciated. There are degenerative changes of the spinous processes. There is evidence of atherosclerotic disease and tortuosity of the thoracic aorta. Paraspinal soft tissues are otherwise unremarkable. IMPRESSION: Scoliosis. Severe multilevel degenerative spondylosis and degenerative disc disease of the mid and lower thoracic spine, most significant at T9-T10. Mild disc bulge and secondary spinal stenosis at T9-T10. Left-sided lateral recess and neural foraminal narrowing from bony osteophyte at T7-T8 and slight impingement of the left side of the spinal canal at T11-T12 from facet osteophyte. DICTATED BY: Deya Valadez MD DATE/TIME DICTATED:04/06/181532 REGIONAL ACCOUNT DIRECTOR:MANPREET DATE/TIME TRANSCRIBED:04/06/181532 CONFIDENTIAL, DO NOT COPY WITHOUT APPROPRIATE AUTHORIZATION. <Electronically signed in Other Vendor System> SIGNED BY: Deya Valadez MD [id number] PATIENT: KELLY QUILES PRESENT AGE: 77 PATIENT ACCOUNT NO: [id number] : 39 LOCATION: 2NA ORDERING PHYSICIAN: Marilia Ho MD SERVICE DATE: 04/06/18- EXAM TYPE: CAT - CT CERV SPINE WO IV CONTRAST; CT HEAD WO IV CONTRAST EXAMINATION: CT HEAD AND CT CERVICAL SPINE. CLINICAL INFORMATION: Weakness. COMPARISON: None TECHNIQUE: 5 mm thin axial and 2.5 mm thin coronal images of brain were obtained. Subsequently 2.5 mm thin axial and reformatted 2 mm thin coronal and sagittal images of cervical spine were obtained. DLP 95. FINDINGS: Brain: There is no acute intra-axial, extra-axial bleed, masses or midline shift. There is no acute infarction in evolution. Both lateral ventricles are enlarged and so are the cortical sulci. The nguyen to white matter distinction is maintained. Bone windows reveal no calvarial abnormality. The scalp soft tissues are normal. Bilateral paranasal sinuses and mastoid air cells are well-aerated. Cervical spine: There is mild straightening of cervical lordosis. The vertebral heights and alignment is is normal. There is loss of C5-C6, C6-C7 C7-T1 disc heights with moderate bridging osteophytes and syndesmophytes from C2-C3 through C6-C7 disc levels. There is mild bilateral C4-C5, C5-C6 facet joint hypertrophy. No visible acute fracture or dislocation seen. There is no underlying spinal canal stenosis. Mild bilateral narrowing of C5-C6 and left C6-C7 neural foramina from uncovertebral hypertrophic changes and facet joint hypertrophy are noted. The prevertebral and paravertebral soft tissues are normal. The lung apices are clear. Central trachea and airway is widely patent. IMPRESSION: Slightly disproportionate dilation of lateral ventricles in relation to cortical sulci. Suspicion for NPH. There is no acute intracranial process seen. There is no visible acute fracture or dislocation is cervical spine. There are degenerative disc changes C5-C6 to C7-T1 disc level. Large bridging osteophytes are seen from C2-C3 through C6-C7 disc levels DICTATED BY: Zara BAILEY,Lam DATE/TIME DICTATED:04/06/181527 REGIONAL ACCOUNT DIRECTOR:MANPREET DATE/TIME TRANSCRIBED:04/06/181527 CONFIDENTIAL, DO NOT COPY WITHOUT APPROPRIATE AUTHORIZATION. <Electronically signed in Other Vendor System> SIGNED BY: Zara BAILEY,Lam 04/06/18 1547 PATIENT: KELLY QUILES PRESENT AGE: 77 PATIENT ACCOUNT NO: [id number] : 39 LOCATION: [facility] ORDERING PHYSICIAN: James Hayward DO SERVICE DATE: 04/04/18 EXAM TYPE: CAT - CT PELVIS WO IV CONTRAST EXAMINATION: CT PELVIS WITHOUT CONTRAST CLINICAL INFORMATION: Pain after fall. COMPARISON: None TECHNIQUE: Helical scanning was performed with submillimeter collimation through the pelvis. Sagittal and coronal multiplanar 2-D reconstructions were obtained. DLP: 1080 mGy-cm FINDINGS: PELVIS: There is no pelvic free fluid. The urinary bladder is partially filled and unremarkable. Visualized unopacified loops of small and large bowel are unremarkable. OSSEOUS STRUCTURES: There is moderate to advanced degenerative change within the visualized lumbar spine. There is near complete disc height loss at L4/L5 with ankylosis of the posterior elements. There is anterior osteophyte formation bridging between L3 and L4. Both femoral heads are seated within well-formed acetabula. The pubic symphysis is intact. On the sagittal reconstructions, there is cortical acuity to the junction of the sacrum with the coccyx. This is likely public health representative of a chronic appearance. There is no adjacent soft tissue swelling. No acute fractures are suspected. IMPRESSION: No acute fracture identified. Subtle acuity to the cortex of the junction between the sacrum and coccyx is likely chronic. Moderate to advanced degenerative change within the visualized lumbar spine. No pelvic free fluid. DICTATED BY: Esvin Michele MD DATE/TIME DICTATED:04/05/181 REGIONAL ACCOUNT DIRECTOR:MANPREET DATE/TIME TRANSCRIBED:04/05/181 CONFIDENTIAL, DO NOT COPY WITHOUT APPROPRIATE AUTHORIZATION. <Electronically signed in Other Vendor System> SIGNED BY: Esvin Michele MD 04/05/18 0009 PATIENT: KELLY QUILES PRESENT AGE: 77 PATIENT ACCOUNT NO: [id number] : 39 LOCATION: A ORDERING PHYSICIAN: Janina Sandhu MD SERVICE DATE: 04/05/18- EXAM TYPE: US - US-DUPLEX VENOUS EXTREM UNI EXAMINATION: US TRIPLEX LOWER EXTREMITY, LEFT CLINICAL INFORMATION: Hematoma on left leg. Left leg pain, edema and swelling COMPARISON: 05/03/2017 TECHNIQUE: Color-flow triplex imaging with spectral analysis and compression Doppler were performed on the lower extremity. FINDINGS: Respiratory variation, normal compression and augmented flow are noted throughout the lower extremity. The visualized common femoral vein, superficial femoral vein, profunda femoral vein, popliteal vein and midcalf peroneal and posterior tibial venous segments show no evidence of deep venous thrombosis. There is a Muller cyst seen measuring 4.3 x 2.5 x 2.0 cm, previously 4.7 x 1.1 x 1.4 cm. Dedicated sonographic interrogation in the area of interest involving the left calf demonstrates edema but no focal abnormality. IMPRESSION: 1. No evidence of deep venous thrombosis involving the lower extremity. 2. Interval increase in the size of a left Muller's cyst. DICTATED BY: Lynne Sifuentes MD DATE/TIME DICTATED:04/05/181304 REGIONAL ACCOUNT DIRECTOR:MANPREET DATE/TIME TRANSCRIBED:04/05/181304 CONFIDENTIAL, DO NOT COPY WITHOUT APPROPRIATE AUTHORIZATION. <Electronically signed in Other Vendor System> SIGNED BY: Lynne Sifuentes MD 04/05/18 1515 Disposition Summary Disposition Principal Diagnosis: UTI Additional Diagnosis: FALL Discharge Disposition: SNF Discharge Instructions General Discharge Information Code Status: Full Code Patient's Diet: HEART HEALTHY Patient's Activity: TOLERATED. NOTE HE HAS HX OF FREQUENT FALLS AND WOULD BENFIT FROM [facility] Follow-Up Instructions/Appts: SEE ABOVE Medications at Discharge Discharge Medications: Continue taking these medications: Aspirin (Ecotrin*) 81 MG TABLET.DR 1 Tablet ORAL Every Morning Comments: Last Taken: 04/10/18 Time: 0820 AM Carvedilol (Coreg) 25 MG TABLET 1 Tablet ORAL Every Morning Comments: Last Taken: 04/10/18 Time: 0820 AM Furosemide (Furosemide) 40 MG TABLET 1 Tablet ORAL Every Morning Comments: NOT TAKEN IN HOSPITAL Bupropion HCl (Wellbutrin XL) 300 MG TAB.ER.24H 1 Tablet ORAL DAILY Qty = 30 Comments: Last Taken: 04/10/18 Time: 0820 AM Escitalopram Oxalate (Lexapro) 10 MG TABLET 1 Tablet ORAL DAILY Qty = 30 Comments: Last Taken: 04/09/18 Time: 2044 PM Finasteride (Finasteride) 5 MG TABLET 1 Tablet ORAL Every night Comments: Last Taken: 04/10/18 Time: 0820 AM Pregabalin (Lyrica) 50 MG CAPSULE 2 Capsule ORAL Every Morning Comments: NOT TAKEN IN HOSPITAL Pregabalin (Lyrica) 50 MG CAPSULE 3 Capsule ORAL Every night Comments: NOT TAKEN IN HOSPITAL Trazodone HCl (Trazodone HCl) 50 MG TABLET 0.5 Tablet ORAL Every night Comments: NOT TAKEN IN HOSPITAL Mirabegron (Myrbetriq) 25 MG TAB.ER.24H 1 Tablet ORAL DAILY Qty = 30 Comments: Last Taken: 06/10/18 Time: 0820 AM Multivit-Min/Iron/Folic/Lutein (Centrum Silver Women Tablet) 8 MG IRON-400 MCG- 300 MCG TABLET 1 Tablet ORAL DAILY Comments: NOT GIVEN Atorvastatin Calcium (Atorvastatin Calcium) 20 MG TABLET 1 Tablet ORAL Every Morning Qty = 30 Comments: Last Taken: 04/10/18 Time: 0820 AM Allopurinol (Allopurinol) 300 MG TABLET 1 Tablet ORAL Every Morning Comments: NOT TAKEN IN HOSPITAL Clopidogrel Bisulfate (Clopidogrel) 75 MG TABLET 1 Tablet ORAL Every Morning Comments: Last Taken: 04/10/17 Time: 0820 AM Isosorbide Mononitrate (Isosorbide Mononitrate ER) 60 MG TAB.ER.24H 2 Tablet ORAL Every Morning Qty = 180 Comments: NOT TAKEN IN HOSPITAL Lisinopril (Prinivil) 5 MG TABLET 1 Tablet ORAL Every Morning Comments: Last Taken: 04/10/18 Time: 0820 AM Niacin (Niaspan) 500 MG TAB.ER.24H 1 Tablet ORAL Every night Qty = 90 Comments: NOT TAKEN IN HOSPITAL Tamsulosin HCl (Flomax) 0.4 MG CAP.ER.24H 1 Capsule ORAL DAILY Comments: Last Taken: 04/10/18 Time: 0820 AM Hydroxyzine Hydrochloride (Atarax) 50 MG TAB 1 Tablet ORAL DAILY as needed for Itching Qty = 30 Comments: NOT GIVEN Carbidopa/Levodopa (Carbidopa-Levodopa 25-100 Tab) 25 MG-100 MG TABLET 2 Tablet ORAL DAILY Qty = 60 Comments: Last Taken: 04/10/18 Time: 0820 AM Start taking the following new medications: Cephalexin (Keflex) 250 MG CAPSULE 1 Capsule ORAL EVERY 8 HOURS Qty = 13 No Refills Comments: Last Taken: 04/10/18 Time: 0630 AM Methylprednisolone. (Medrol) 4 MG TAB.DS.PK 1 Dose Pack ORAL As Directed Qty = 6 No Refills Instructions: 3 tablets on 04/11 2 tablets on 04/12 1 tablet on 04/13 Comments: Last Taken: 04/10/18 Time: 0630 AM Insulin Detemir (Levemir) 100 UNIT/ML VIAL 18 Units Inject into fatty tissue TWICE DAILY Qty = 30 No Refills Comments: Last Taken: 04/10/18 Time: 0830 AM Insulin Aspart (Novolog) 100 UNIT/ML VIAL 0 Units Inject into fatty tissue BEFORE MEALS AND AT BEDTIME Qty = 30 No Refills Instructions: BEFORE MEALS Blood Insulin Sugar Units <80 0 81-100 6 101-150 6 151-200 8 201-250 10 251-301 12 301-350 14 351-400 16 >400 18 units and Call Doctor AT BEDTIME Blood Insulin Sugar Units <80 0 81-100 0 101-200 0 201-250 0 251-300 2 301-350 3 351-400 4 >400 Call Doctor Comments: Last Taken: 04/10/18 Time: 0800 AM Copies To: Gwendolyn BAILEY,Yomi Staton
[2018-04-09 22:26] VITALS: BP 140/80
[2018-04-10 06:26] VITALS: BP 168/89
--- NOTE | 2018-04-10 07:05 | PN- Housestaff ---
Figueroa BAILEY,[facility] 04/10/18 0705: Subjective Follow-up For: Falls UTI LEAH on CKD Spinal Stenosis Subjective: Patient seen and examined. Reports feeling great today. Has no complaints. Review of Systems Constitutional: Reports: no symptoms. Objective Last 24 Hrs of Vital Signs/I&O Vital Signs Date Time Temp Pulse Resp B/P B/P Pulse O2 O2 Flow FiO2 Mean Ox Delivery Rate 04/10 06 98.0 74 22 168/89 95 Room Air 04/09 2226 98.4 68 18 140/80 95 04/09 1415 98.5 74 18 132/80 96 Room Air 04/09 0946 98.4 80 24 148/62 04/09 0946 98.4 80 24 148/62 Intake & Output 04/10 1600 04/10 0800 04/10 0000 Intake Total 100 100 Output Total 200 Balance -100 100 Intake, Oral 100 100 Output, Urine 200 Physical Exam General Appearance: Alert, Oriented X3, Cooperative, No Acute Distress Skin: No Rashes, No Breakdown Skin Temp/Moisture Exam: Warm/Dry Sepsis Skin Exam (color): Normal for Ethnicity HEENT: Atraumatic Cardiovascular: Normal S1, Normal S2, No Murmurs Lungs: Clear to Auscultation, Normal Air Movement Abdomen: Soft, No Tenderness Neurological: Normal Speech Extremities: No Edema Last 24 Hrs of Lab/Ryan Results Last 24 Hrs of Labs/Mics: Laboratory Tests 04/10/18 0635: Sodium Pending, Potassium Pending, Chloride Pending, Carbon Dioxide Pending, Anion Gap Pending, BUN Pending, Creatinine Pending, BUN/Creatinine Ratio Pending , CBC w Diff Pending, WBC Pending, RBC Pending, Hgb Pending, Hct Pending, MCV Pending, MCH Pending, MCHC Pending, RDW Pending, Plt Count Pending, MPV Pending Assessment/Plan Assessment: 77 year old male with a PMH significant for Parkinson's disease, diabetes, CAD status post CABG, obstructive sleep apnea on CPAP, stage IV CKD, neuropathy, CAD , gout, hypertension, colon resection, that comes to see us for complaints of recurrent falls, recent UTI, wounds. Assessment: 1. LEAH on CKD 2. Urinary Tract Infection 3. 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 Multiple Falls 5. History of Diabetes on Insulin Pump 6. History of CRISTINE on CPAP Plan: * Stable for discharge today. * His LEAH is improved since admission. Encourage oral PO intake. * He has been evaluated by Neurology for his falls. His CT head showed findings for ? NPH however, this does not correlate clinically. * Continue Medrol dose pack as recommended by ortho. * Abdominal xray - showed no acute abnormalities * Othostatic vital signs are negative. * Continue Keflex for now. Will continue it for another 4 days. * TSH and T4 - wnl. * Continue nocturnal CPAP * Insulin SS (adjusted per Endo recs) and Accucheks * Levemir 18 units BID * Insulin SS and Levemir to be continued while in [facility]. He can resume his insulin pump when he goes home. * Diet: Diabetic * DVT Prophylaxis: SC Heparin x 3 * Code: Full Code Problem List: 1. UTI (urinary tract infection) Pain Ratin Pain Location: none Pain Goal: Remain pain free Pain Plan: none Tomorrow's Labs & Rationales: none Zachariah BAILEY,Megan 04/10/18 1142: Attending MD Review Statement Attending Statement Attending MD Statement: examined this patient, discuss w/resident/PA/LEAD MACHINIST, agreed w/resident/PA/LEAD MACHINIST, discussed with family, reviewed EMR data (avail), discussed with nursing, discussed with case mgmt, reviewed images, amended to note Attending Assessment/Plan: Patient seen and examined, overall doing well. Denies any abdominal discomfort anymore. Otherwise his pain is better controlled. Patient to be completing total of 10 day course of treatment for UTI. He had been followed by neurology and orthopedic. Patient is otherwise medically stable for discharge to rehabilitation today. He will follow up with primary care, his neurologist and orthopedic as an outpatient. Discussed with his and daughter at length.
--- NOTE | 2018-04-10 07:28 | PN- Diabetes ---
Assessment/Plan Diabetes Assessment: Patient feels okay. The patient is on tapering doses of methylprednisolone. Fingerstick blood sugars yesterday were 212 before breakfast, 214 before lunch, 161 before dinner, and 246 at bedtime. Fingerstick blood sugar before breakfast today is 206. The patient apparently needs to go to rehab because he cannot ambulate safely on his own. Plan: If the patient is discharged to rehab today I would continue the present insulin. When he goes home he can go back on his insulin pump. Subjective Subjective: Feels okay Review of Systems Constitutional: Denies: chills, fever. Cardiovascular: Denies: chest pain. Respiratory: Denies: short of breath. Gastrointestinal: Denies: abdominal pain. Objective Last 24 Hrs of Vital Signs/I&O Vital Signs Date Time Temp Pulse Resp B/P B/P Pulse O2 O2 Flow FiO2 Mean Ox Delivery Rate 04/10 626 98.0 74 22 168/ 95 Room Air 04/09 2226 98.4 68 18 140/80 95 04/09 1415 98.5 74 18 132/80 96 Room Air 04/09 0946 98.4 80 24 148/62 04/09 0946 98.4 80 24 148/62 Intake & Output 04/10 0804/10 0000 04/09 1600 Intake Total 100 800 Output Total 200 200 Balance -200 100 600 Intake, Oral 100 800 Number 1 Bowel Movements Output, Urine 200 200 Vital Signs Date Time Temp Pulse Resp B/P B/P Pulse O2 O2 Flow FiO2 Mean Ox Delivery Rate 04/10 626 98.0 74 22 168/89 95 Room Air 04/09 2226 98.4 68 18 140/80 95 04/09 1415 98.5 74 18 132/80 96 Room Air 04/09 0946 98.4 80 24 148/62 04/09 0946 98.4 80 24 148/62 Intake & Output 04/10 0804/10 0000 04/09 1600 Intake Total 100 800 Output Total 200 200 Balance -200 100 600 Intake, Oral 100 800 Number 1 Bowel Movements Output, Urine 200 200 Physical Exam General Appearance: alert, awake, comfortable Head: normal appearance Neck: normal inspection Respiratory: normal breath sounds Current Medications: Current Medications Sig/Chacha Start time Last Medication Dose Route Stop Time Status Admin Acetaminophen 650 MG Q6P PRN 04/05 1800 AC PO Aspirin Buffered 81 MG QAM 04/05 0900 AC 04/09 PO 0946 Atorvastatin Calcium 20 MG 1700 04/05 1700 AC 04/09 PO 1729 Bupropion HCl 300 MG DAILY 04/06 0900 AC 04/09 PO 0946 Calcium Carbonate 500 MG DAILY PRN 04/06 1830 AC 04/08 PO 1231 Carbidopa/Levodopa 2 TAB DAILY 04/05 1625 AC 04/09 PO 0946 Carvedilol 25 MG QAM 04/05 0900 AC 04/09 PO 0946 Cephalexin 250 MG Q8 04/05 1015 AC 04/10 PO 0622 Clopidogrel Bisulfate 75 MG QAM 04/05 0900 AC 04/09 PO 0946 Escitalopram Oxalate 10 MG QPM 04/05 2100 AC 04/09 PO 204 Finasteride 5 MG QPM 04/05 2100 AC 04/09 PO 204 Heparin Sodium 5,000 UNIT Q8 04/05 0600 AC 04/10 (Porcine) SC 06 Insulin Aspart 0 TIDAC/HS 04/06 1700 AC 04/09 SC 172 Insulin Detemir 18 UNITS BID 04/06 2100 AC 04/09 SC 205 Melatonin 5 MG AT BEDTIME 04/06 2100 AC 04/09 PO 2045 Methylprednisolone 4 MG 0730 04/13 0730 AC PO 04/13 07 Methylprednisolone 4 MG 0730,2100 04/12 0730 AC PO 04/12 2101 Methylprednisolone 4 MG 0730,1230,2100 04/11 0730 AC PO 04/11 2101 Methylprednisolone 4 MG 0730,1230,1730,2100 04/10 0730 AC 04/10 PO 04/10 Methylprednisolone 8 MG AT BEDTIME 04/09 2100 DC 04/09 PO 04/09 2101 204 Methylprednisolone 4 MG 0730,1230,1730 04/09 0730 DC 04/09 PO 04/09 1731 1731 Mirabegron 25 MG DAILY 04/06 0900 AC 04/09 PO 0946 Morphine Sulfate 2 MG Q6-PRN PRN 04/05 0945 AC IV Ondansetron HCl 4 MG Q8P PRN 04/08 0845 AC 04/08 IV 0852 Oxycodone/ 1 TAB Q6P PRN 04/06 1130 AC 04/09 Acetaminophen PO 2051 Patient Medication 1 ED ONE ONE 04/09 1530 DC 04/09 Teaching ED 04/09 1531 1729 Tamsulosin HCl 0.4 MG DAILY 04/05 0900 AC 04/09 PO 0946 Trazodone HCl 25 MG QPM 04/05 2100 AC 04/09 PO 2045 Findings Pertinent Lab/Ryan Results: Laboratory Tests 04/10 0635 Chemistry Sodium Pending Potassium Pending Chloride Pending Carbon Dioxide Pending Anion Gap Pending BUN Pending Creatinine Pending BUN/Creatinine Ratio Pending Hematology CBC w Diff Pending WBC Pending RBC Pending Hgb Pending Hct Pending MCV Pending MCH Pending MCHC Pending RDW Pending Plt Count Pending MPV Pending
[2018-04-10 08:03] LABS: ABSOLUTE BASOPHIL COUNT 0 /CUMM (0.0-0.2); ABSOLUTE EOSINOPHIL COUNT 0 /CUMM (0.0-0.7); ABSOLUTE GRANULOCYTE CT 12.6 /CUMM (1.4-6.5); ABSOLUTE LYMPH COUNT 1.5 /CUMM (1.2-3.4); ABSOLUTE MONOCYTE COUNT 0.4 /CUMM (0.10-0.60); BASOPHIL % 0.2 % (0.0-2.0); EOSINOPHIL % 0 % (0-5); HEMATOCRIT 39.3 % (42-52); MEAN CORPUSCULAR HGB 31.7 PG (27.0-31.0); MEAN CORPUSCULAR HGB CONC 33.2 G/DL (33.0-37.0); MEAN CORPUSCULAR VOLUME 95.4 FL (80.0-94.0); MEAN PLATELET VOLUME 7.5 FL (7.4-10.4); PLATELET COUNT 252 /CUMM (130-400); RBC DISTRIBUTION WIDTH 14.4 % (11.5-14.5); RED BLOOD CELL CT 4.12 /CUMM (4.70-6.10); WHITE BLOOD CELL COUNT 14.5 /CUMM (4.8-10.8)
[2018-04-10] MEDS ORDERED: MEDROL4 M2 PO ×2 (08:08→08:43)
[2018-04-10] MEDS ORDERED: KEFLEX250 M1 PO (08:08)
[2018-04-10] MEDS ORDERED: LEVEMIR100 UNIT/1 SC (08:14)
[2018-04-10] MEDS ORDERED: NOVOLOG100 UNIT/2 SC (08:14)
[2018-04-10 09:07] LABS: GRANULOCYTE % 86.7 % (42.2-75.2)
[2018-04-10 10:47] VITALS: BP 160/82
== END 2018-04-10 12:10 | DRG 690 ==
LOC: ERH 22:19 → ERHI 04-05 01:52 → 2NA 04-05 01:52 → ENRESERV 04-05 02:23 → 2NA 04-05 03:01 → ENPENDDIS 04-10 10:42 → ENTRNSPT 04-10 11:57 → EDTRNSPT 04-10 12:09 → EDTRNSPTSTS 04-10 12:09 → 2NA 04-10 12:10 → CMPTRNSPT 04-10 12:23
PROVIDERS: Emergency Medicine; Internal Medicine; Student in an Organized Health Care Education/Training Program
DX: N39.0 Urinary tract infection, site not specified (principal); N18.4 Chronic kidney disease, stage 4 (severe); N17.9 Acute kidney failure, unspecified; G20 Parkinson's disease; I25.10 Atherosclerotic heart disease of native coronary artery without angina pectoris; Z95.1 Presence of aortocoronary bypass graft; E11.40 Type 2 diabetes mellitus with diabetic neuropathy, unspecified; Z79.4 Long term (current) use of insulin; G47.33 Obstructive sleep apnea (adult) (pediatric); E11.22 Type 2 diabetes mellitus with diabetic chronic kidney disease; I12.9 Hypertensive chronic kidney disease with stage 1 through stage 4 chronic kidney disease, or unspecified chronic kidney disease; M10.9 Gout, unspecified; Z90.49 Acquired absence of other specified parts of digestive tract; Z91.81 History of falling; W18.30XA Fall on same level, unspecified, initial encounter; Y92.002 Bathroom of unspecified non-institutional (private) residence as the place of occurrence of the external cause; Z96.41 Presence of insulin pump (external) (internal); Z88.1 Allergy status to other antibiotic agents; H26.9 Unspecified cataract; H91.90 Unspecified hearing loss, unspecified ear; F32.9 Major depressive disorder, single episode, unspecified; Z89.422 Acquired absence of other left toe(s); Z89.421 Acquired absence of other right toe(s); E87.5 Hyperkalemia; E86.0 Dehydration; R53.1 Weakness; E11.65 Type 2 diabetes mellitus with hyperglycemia
CPT/HCPCS: 2NAP; 36415; 36592; 74018; 81001; 82436; 87040; 87086; 93005; 93010; 97110-GO; 97116-GO; 97161-GP; 97530-GO; J1644; J2405

== ENCOUNTER 2018-06-07 02:13 | Inpatient (IN) | payer OTHER, MEDICARE ==
[~2018-06-07] VITALS: Ht 167.6 cm; Wt 124.9 kg
[~2018-06-07 02:13] MED LIST changes: +CARBIDOPA-LEVO1 EAC7 PO; +KEFLEX250 M1 PO; +MEDROL4 M2 PO
--- NOTE | 2018-06-07 02:32 | ED GENERAL ADULT ---
History of Present Illness General Chief Complaint: Fall Stated Complaint: ASSISTED BY SPOOL SORTER FORM CAR.C/O S/P FALL/PHLEM Source: patient, family Exam Limitations: no limitations Allergies Coded Allergies: ciprofloxacin (RASH 04/05/18) Reconcile Medications Allopurinol 300 MG TABLET 1 TAB PO QAM GOUT (Reported) Aspirin (Ecotrin*) 81 MG TABLET.DR 1 TAB PO QAM HEART/BLOOD (Reported) Atorvastatin Calcium 20 MG TABLET 1 TAB PO QAM CHOLESTEROL (Reported) Bupropion HCl (Wellbutrin XL) 300 MG TAB.ER.24H 1 TAB PO DAILY Mental Health (Reported) Carbidopa/Levodopa (Carbidopa-Levodopa 25-100 Tab) 25 MG-100 MG TABLET 2 TAB PO DAILY Parkinson (Reported) Carvedilol (Coreg) 25 MG TABLET 1 TAB PO QAM BP (Reported) Clopidogrel Bisulfate (Clopidogrel) 75 MG TABLET 1 TAB PO QAM BLOOD THINNER ( Reported) Escitalopram Oxalate (Lexapro) 10 MG TABLET 1 TAB PO DAILY Mental Health ( Reported) Finasteride 5 MG TABLET 1 TAB PO QPM URINATION (Reported) Furosemide 40 MG TABLET 1 TAB PO QAM FLUID RETENTION (Reported) Hydroxyzine Hydrochloride (Atarax) 50 MG TAB 1 TAB PO DAILY PRN Itching ( Reported) Insulin Aspart (Novolog) 100 UNIT/ML VIAL 0 UNITS SC TIDAC/HS Diabetes BEFORE MEALS Blood Insulin Sugar Units <80 0 81-100 6 101-150 6 151-200 8 201-250 10 251-301 12 301-350 14 351-400 16 >400 18 units and Call Doctor AT BEDTIME Blood Insulin Sugar Units <80 0 81-100 0 101-200 0 201-250 0 251-300 2 301-350 3 351-400 4 >400 Call Doctor Insulin Detemir (Levemir) 100 UNIT/ML VIAL 18 UNITS SC BID Diabetes Isosorbide Mononitrate (Isosorbide Mononitrate ER) 60 MG TAB.ER.24H 2 TAB PO QAM HEART (Reported) Lisinopril (Prinivil) 5 MG TABLET 1 TAB PO QAM BP (Reported) Mirabegron (Myrbetriq) 25 MG TAB.ER.24H 1 TAB PO DAILY BLADDER (Reported) Multivit-Min/Iron/Folic/Lutein (Centrum Silver Women Tablet) 8 MG IRON-400 MCG- 300 MCG TABLET 1 TAB PO DAILY SUPPLEMENT (Reported) Niacin (Niaspan) 500 MG TAB.ER.24H 1 TAB PO QPM CHOLESTEROL (Reported) Pregabalin (Lyrica) 50 MG CAPSULE 2 CAP PO QAM NEUROPATHY (Reported) Pregabalin (Lyrica) 50 MG CAPSULE 3 CAP PO QPM NEUROPATHY (Reported) Tamsulosin HCl (Flomax) 0.4 MG CAP.ER.24H 1 CAP PO DAILY (Reported) Trazodone HCl 50 MG TABLET 0.5 TAB PO QPM SLEEP HELP (Reported) Triage Nurses Notes Reviewed? yes Onset: Abrupt Duration: minute(s): Timing: recent history Injury Environment: home Severity: mild, moderate Modifying Factors: Improves With: rest. Associated Symptoms: cough HPI: 77 yo gentleman h/o parkinson's disease, h/o colectomy due to diverticulitis ("he only has 13 inches of bowel), h/o uti, presents after a fall. He awoke to go to the bathroom and tripped. His shares that he has been vomiting and also had significant diarrhea. He also has been coughing, bringing up sputum, with post-tussive emesis. He also notes dysuria and polyuria and "feels warm." He did not hit his head or lose consciousness. He notes no injury. No chest pain, syncopal symptoms, dizziness, abdominal pain. (Rex BAILEY,César Wiley) Vital Signs & Intake/Output Vital Signs & Intake/Output Vital Signs Date Time Temp Pulse Resp B/P B/P Pulse O2 O2 Flow FiO2 Mean Ox Delivery Rate 06/07 0634 98.8 86 20 125/59 94 Room Air 06/07 0507 92 Room Air 06/07 0427 100.3 86 22 138/69 94 Room Air 06/07 0249 Room Air 06/07 0237 101.3 94 20 190/103 94 Room Air (Janeth Catnrell MD) Past History Medical History Any Pertinent Medical History? see below for history Neurological: NEUROPATHY EENT: allergies, cataracts, hearing loss Cardiovascular: CAD, hypertension, hyperlipidemia Respiratory: obstructive sleep apnea Gastrointestinal: diverticulitis, GERD Hepatic: NONE Renal: CHRONIC KIDNEY DISEASE Musculoskeletal: gout Psychiatric: depression Endocrine: diabetes Blood Disorders: NONE Cancer(s): NONE WEED CONTROLLER/Reproductive: NONE History of MRSA: Yes History of VRE: No History of CDIFF: No Surgical History Surgical History: CABG (lower extremity angioplasty), colon resection, left leg angioplasty partial fifth ray resection, R FOOT 4 TOES amputation (big toe left) R 3rd and 4th toe amputation 3 back surgeries L4 - L5 AND HERNIATED DISK Psychosocial History Who do you live with Patient/Self Services at Home None What is your primary language Italian Family History Family History, If Any: Relation not specified for: FH: diabetes mellitus Hx Contributory? No (César Goodman MD) Review of Systems Review of Systems Constitutional: Reports: no symptoms. EENTM: Reports: no symptoms. Respiratory: Reports: no symptoms. Cardiovascular: Reports: no symptoms. GI: Reports: no symptoms. Genitourinary: Reports: no symptoms. Musculoskeletal: Reports: no symptoms. Skin: Reports: no symptoms. Neurological/Psychological: Reports: no symptoms. Hematologic/Endocrine: Reports: no symptoms. Immunologic/Allergic: Reports: no symptoms. All Other Systems: Reviewed and Negative (César Goodman MD) Physical Exam Physical Exam General Appearance: well developed/nourished, mild distress Head: atraumatic, normal appearance Eyes: Bilateral: normal appearance. Ears, Nose, Throat: normal pharynx, dry mucosa Neck: normal inspection, supple, full range of motion Respiratory: chest non-tender, no respiratory distress, mild rhonchi Cardiovascular: regular rate/rhythm Gastrointestinal: normal bowel sounds, soft, non-tender, no organomegaly Back: normal inspection Extremities: normal inspection Neurologic/Psych: no motor/sensory deficits, awake, alert, oriented x 3 Skin: intact, normal color, warm/dry Core Measures ACS in differential dx? No CVA/TIA Diagnosis: No Sepsis Present: Yes Sepsis Focused Exam Completed? Yes (César Goodman MD) ED Sepsis Exam Date of Focused Sepsis Exam: 06/07/18 Time of Focused Sepsis Exam: 0505 Sepsis Cardiac Exam: Tachycardia Sepsis Resp Exam: Ronchi Sepsis Cap Refill Exam: <2 Sec Sepsis Peripheral Pulse Exam: Normal Sepsis Peripheral Pulse Location: Radial Sepsis Skin Color Exam: Normal for Ethnicity Skin Temp/Moisture Exam: Warm/Dry (César Goodman MD) Progress Differential Diagnoses I considered the following diagnoses in my evaluation of the patient: sepsis, pneumonia, uti, gastroenteritis, vs other. Diagnostic Imaging: Viewed by Me: Radiology Read, CT Scan. Discussed w/RAD: Radiology Read, CT Scan. CXR Impression: PATIENT: KELLY QUILES PRESENT AGE: 77 PATIENT ACCOUNT NO: [id number] : 39 LOCATION: [facility] ORDERING PHYSICIAN: César Goodman MD SERVICE DATE: 06/07/18 EXAM TYPE: RAD - XRY-PORTABLE CHEST XRAY EXAMINATION: CHEST 1 VIEW CLINICAL INFORMATION: Fall. Trauma. COMPARISON: April 08, 2018. TECHNIQUE: An AP view of the chest is provided. FINDINGS: The cardiac silhouette is stable. Intact midline sternal wires are present. The mediastinal and hilar contours are unremarkable. There are neither pleural effusions nor pneumothoraces. There are no consolidations. The osseous structures are unremarkable. IMPRESSION: No evidence for acute disease. DICTATED BY: Esvin Michele MD DATE/TIME DICTATED:06/07/18317 VP TRANSPORTATION:MANPREET DATE/TIME TRANSCRIBED:06/07/18317 CONFIDENTIAL, DO NOT COPY WITHOUT APPROPRIATE AUTHORIZATION. <Electronically signed in Other Vendor System> SIGNED BY: Esvin Michele MD 06/07/18337, PATIENT: KELLY QUILES PRESENT AGE: 77 PATIENT ACCOUNT NO: [id number] : 39 LOCATION: [facility] ORDERING PHYSICIAN: César Goodman MD SERVICE DATE: 06/07/18 EXAM TYPE: CAT - CT CERV SPINE WO IV CONTRAST; CT HEAD WO IV CONTRAST EXAMINATIONS: CT HEAD WITHOUT CONTRAST AND CT CERVICAL SPINE WITHOUT CONTRAST CLINICAL INFORMATION: Pain after fall. Trauma. COMPARISON: April 06, 2018. TECHNIQUE: Contiguous helical images of the brain were obtained without IV contrast. Contiguous helical images of the cervical spine were obtained without IV contrast. Multiplanar reconstructions were performed. DLP: 950 mGy-cm. FINDINGS: There are no pathologic extra-axial fluid collections. The lateral, third, fourth ventricles are prominent, though stable, age-appropriate and concordant with the appearance of the sulci. There is no evidence for acute intraparenchymal hemorrhage or infarct. There is neither mass nor mass effect. There is no shift of midline structures. The paranasal sinuses and mastoid air cells are clear. There are no osseous lesions. The cervical vertebra are in normal alignment. There is disc height loss at C5/ C6 and C6/C7. Disc heights and vertebral heights are otherwise well-preserved. There is anterior osteophyte formation. There are no fractures. There is no prevertebral soft tissue swelling. There is no cervical lymphadenopathy. The visualized lung apices are clear. IMPRESSION: No evidence for acute intracranial injury. Stable age-appropriate appearance of the brain. No evidence for acute injury to the cervical spine. Moderate degenerative change within the cervical spine. DICTATED BY: Esvin Michele MD DATE/TIME DICTATED:06/07/18438 VP TRANSPORTATION:MANPREET DATE/TIME TRANSCRIBED:06/07/18438 CONFIDENTIAL, DO NOT COPY WITHOUT APPROPRIATE AUTHORIZATION. <Electronically signed in Other Vendor System> SIGNED BY: Esvin Michele MD 06/07/18445, PATIENT: KELLY QUILES PRESENT AGE: 77 PATIENT ACCOUNT NO: [id number] : 39 LOCATION: [facility] ORDERING PHYSICIAN: César Goodman MD SERVICE DATE: 06/07/18 EXAM TYPE: CAT - CT ABD & PELVIS W/ O IV CONTRAS EXAMINATION: CT ABDOMEN AND PELVIS WITHOUT CONTRAST CLINICAL INFORMATION: Vomiting. COMPARISON: None. TECHNIQUE: Contiguous axial thin section helical images of the abdomen and pelvis were performed without oral or IV contrast. The data set was reformatted in the coronal and sagittal planes and reviewed on an independent workstation. DLP: 1360 mGy-cm. FINDINGS: The visualized lung bases are clear. The visualized portions of the heart are unremarkable. The liver is of normal size and attenuation without focal lesions nor intrahepatic biliary ductal dilation. There are a few small layering calculi within the gallbladder lumen. There is no wall thickening or discernible pericholecystic fluid. The spleen, pancreas, adrenal glands are unremarkable. Both kidneys are of normal size and attenuation without hydronephrosis or nephrolithiasis. There is mild diffuse bilateral renal cortical thinning. There is no abdominal free fluid. There is neither mesenteric nor retroperitoneal lymphadenopathy. There is a moderate amount of stool within the sigmoid colon and rectum. Unopacified loops of small and large bowel are identified. There is no pelvic free fluid. The urinary bladder is unremarkable. There is neither pelvic nor inguinal lymphadenopathy. Bone windows: Neither sclerotic nor lytic bone lesions are identified. There is moderate degenerative change within the visualized lower thoracic spine and lumbar spine. IMPRESSION: No evidence for acute abdominal or pelvic inflammatory or infectious processes. No evidence for obstruction. Moderate amount of stool within the colon. Cholelithiasis without evidence of cholecystitis. DICTATED BY: Esvin Michele MD DATE/TIME DICTATED:442 VP TRANSPORTATION:MANPREET DATE/TIME TRANSCRIBED:06/07/18442 CONFIDENTIAL, DO NOT COPY WITHOUT APPROPRIATE AUTHORIZATION. <Electronically signed in Other Vendor System> SIGNED BY: Esvin Michele MD 06/07/18452 Initial ED EKG: q's ii, iii, f, sinus, no acute change from prior. (Rex BAILEY,César Wiley) Plan of Care: Orders Procedure Date/time Status Consistent Carbohydrate 3 06/07 B Active Pathway - chart 06/07 0615 Active House Staff 06/07 0615 Active Patient Data 06/07 0615 Active Code Status 06/07 0615 Active Saline Lock 06/07 0522 Active Misc Message 06/07 0522 Active ED Holding Orders 06/07 0522 Active Admit to inpatient 06/07 0522 Active Vital Signs 06/07 0522 Active Code Status 06/07 0522 Complete Patient Data 06/07 0521 Active CULTURE,URINE 06/07 0335 Active BLOOD CULTURE 06/07 0335 Active URINALYSIS 06/07 0332 Complete Intake & Output 06/07 0248 Active TROPONIN LEVEL 06/07 0239 Complete LIPASE 06/07 0239 Complete LACTIC ACID 06/07 0239 Complete HEPATIC FUNCTION PANEL 06/07 0239 Complete CBC WITHOUT DIFFERENTIAL 06/07 0239 Complete BASIC METABOLIC PANEL 06/07 0239 Complete AMYLASE 06/07 0239 Complete EKG 06/07 0239 Active US-UNILATERAL VENOUS DOPPLER 06/07 UNK Active CONTIN. POSITIVE AIRWAY PRESS 06/07 UNK Active PT Evaluate & Treat 06/07 UNK Active Change service to 06/07 UNK Active VTE Mechanical Prophylaxis 06/07 UNK Active Vital Signs 06/07 UNK Active MISTAKE 06/07 UNK Active FingerStick- Glucose 06/07 UNK Active Activity/Ambulation 06/07 UNK Active Current Medications Sig/Chacha Start time Last Medication Dose Stop Time Status Admin Finasteride 5 MG QPM 06/07 2100 AC (Proscar) Pregabalin 150 MG QPM 06/07 2100 AC (Lyrica) Trazodone HCl 25 MG QPM 06/07 2100 AC (Desyrel) Heparin Sodium 5,000 UNIT Q8 06/07 1400 AC (Porcine) Allopurinol 300 MG QAM 06/07 09 AC (Zyloprim) Aspirin Buffered 81 MG QAM 06/07 09 AC (Ecotrin) Atorvastatin Calcium 20 MG QAM 06/07 09 AC (Lipitor) Bupropion HCl 300 MG DAILY 06/07 900 AC (Wellbutrin XL) Carbidopa/Levodopa 2 TAB DAILY 06/07 900 AC (Sinemet 25/100MG) Carvedilol 25 MG QAM 06/07 09 AC (Coreg) Clopidogrel Bisulfate 75 MG QAM 06/07 900 AC (Plavix) Escitalopram Oxalate 10 MG DAILY 06/07 900 AC (Lexapro) Furosemide 40 MG QAM 06/07 900 CAN (Lasix) Insulin Detemir 18 UNITS BID 06/07 900 AC (Levemir) Isosorbide 120 MG QAM 06/07 900 AC Mononitrate (Imdur) Nystatin 1 ALFA TID 06/07 900 AC (Mycostatin) Pregabalin 100 MG QAM 06/07 09 AC (Lyrica) Tamsulosin HCl 0.4 MG DAILY 06/07 900 AC (Flomax) Acetaminophen 650 MG Q6P PRN 06/07 0615 AC (Tylenol) Insulin Aspart 0 TIDAC 06/07 615 AC (NovoLOG) Oxycodone HCl 10 MG Q6P PRN 06/07 0615 AC (Roxicodone) Laboratory Tests 06/07/18 0539: Lactic Acid Cancelled 06/07/18 0351: Urine Color YEL, Urine Clarity CLEAR, Urine pH 6.0, Ur Specific [place] 1.020, Urine Protein NEG, Urine Ketones NEG, Urine Nitrite NEG, Urine Bilirubin NEG, Urine Urobilinogen 0.2, Ur Leukocyte Esterase NEG, Ur Microscopic EXAM NOT REQUIRED, Urine Hemoglobin NEG, Urine Glucose 100 H 06/07/18 0259: Anion Gap 6, Estimated GFR 45 L, BUN/Creatinine Ratio 19.3, Glucose 112 H, Lactic Acid 1.9, Calcium 9.1, Total Bilirubin 0.4, Direct Bilirubin 0.1, AST 29, ALT 34, Alkaline Phosphatase 58, Troponin I < 0.01, Total Protein 6.4, Albumin 3.8, Amylase 62, Lipase 62, CBC w Diff MAN DIFF ORDERED, RBC 4.90, MCV 93.0, MCH 31.2 H, MCHC 33.6, RDW 14.8 H, MPV 7.7, Gran % 89.9 H, Lymphocytes % 4.9 L, Monocytes % 3.9, Eosinophils % 0.5, Basophils % 0.8, Absolute Granulocytes 15.1 H, Segmented Neutrophils 87 H, Absolute Lymphocytes 0.8 L, Lymphocytes 7 L, Monocytes 5, Absolute Monocytes 0.7 H, Eosinophils 1, Absolute Eosinophils 0.1, Absolute Basophils 0.1, Platelet Estimate VERIFIED BY SMEAR, Normocytic RBCs VERIFIED, Normochromic RBCs VERIFIED Microbiology 06/07 0351 URINE ROUT: Urine Culture - RECD 06/07 341 BLOOD: Blood Culture - RECD 06/07 033 BLOOD: Blood Culture - RECD (Óscar BAILEY,Janeth) Departure Departure Disposition: STILL A PATIENT Condition: Stable Clinical Impression Primary Impression: Sepsis Secondary Impressions: Bronchitis, Diarrhea, Renal failure Referrals: Gwendolyn BAILEY,Yomi Staton (PCP/Family) Departure Forms: Customer Survey General Discharge Information Admission Note Spoke With: Isai Ovalle MD Documentation of Exam: Documentation of any treatments & extenuating circumstances including Concerns Regarding Discharge (functional status, medication knowledge or non-compliance, living conditions, etc.) that warrant an admission rather than observation: pt meets criteria for sepsis, with temp and elevated wbc count and pulse... 02 sat also 91-92% on room air, most likely due to bronchitis (cxr negative for infiltrate) given his significant coughing with phlegm and post-tussive emesis.... given his comorbid condition (only 12 inches of colon), renal failure , sepsis, parkinson's, pt merits iv fluids, abx, may need short term placement. (Rex BAILEY,César Wiley) Critical Care Note Critical Care Note Critical Care Time: non-applicable (Rex BAILEY,César Wiley)
[2018-06-07 03:09] LABS: ABSOLUTE BASOPHIL COUNT 0.1 /CUMM (0.0-0.2); ABSOLUTE EOSINOPHIL COUNT 0.1 /CUMM (0.0-0.7); ABSOLUTE GRANULOCYTE CT 15.1 /CUMM (1.4-6.5); ABSOLUTE LYMPH COUNT 0.8 /CUMM (1.2-3.4); ABSOLUTE MONOCYTE COUNT 0.7 /CUMM (0.10-0.60); BASOPHIL % 0.8 % (0.0-2.0); EOSINOPHIL % 0.5 % (0-5); GRANULOCYTE % 89.9 % (42.2-75.2); HEMATOCRIT 45.6 % (42-52); MEAN CORPUSCULAR HGB 31.2 PG (27.0-31.0); MEAN CORPUSCULAR HGB CONC 33.6 G/DL (33.0-37.0); MEAN PLATELET VOLUME 7.7 FL (7.4-10.4); PLATELET COUNT 170 /CUMM (130-400); RBC DISTRIBUTION WIDTH 14.8 % (11.5-14.5); WHITE BLOOD CELL COUNT 16.8 /CUMM (4.8-10.8)
--- NOTE | 2018-06-07 03:38 | RADIOLOGY REPORT ---
EXAMINATION: CHEST 1 VIEW CLINICAL INFORMATION: Fall. Trauma. COMPARISON: April 08, 2018. TECHNIQUE: An AP view of the chest is provided. FINDINGS: The cardiac silhouette is stable. Intact midline sternal wires are present. The mediastinal and hilar contours are unremarkable. There are neither pleural effusions nor pneumothoraces. There are no consolidations. The osseous structures are unremarkable. IMPRESSION: No evidence for acute disease.
--- NOTE | 2018-06-07 04:46 | CT SCAN REPORT ---
EXAMINATIONS: CT HEAD WITHOUT CONTRAST AND CT CERVICAL SPINE WITHOUT CONTRAST CLINICAL INFORMATION: Pain after fall. Trauma. COMPARISON: April 06, 2018. TECHNIQUE: Contiguous helical images of the brain were obtained without IV contrast. Contiguous helical images of the cervical spine were obtained without IV contrast. Multiplanar reconstructions were performed. DLP: 950 mGy-cm. FINDINGS: There are no pathologic extra-axial fluid collections. The lateral, third, fourth ventricles are prominent, though stable, age-appropriate and concordant with the appearance of the sulci. There is no evidence for acute intraparenchymal hemorrhage or infarct. There is neither mass nor mass effect. There is no shift of midline structures. The paranasal sinuses and mastoid air cells are clear. There are no osseous lesions. The cervical vertebra are in normal alignment. There is disc height loss at C5/C6 and C6/C7. Disc heights and vertebral heights are otherwise well-preserved. There is anterior osteophyte formation. There are no fractures. There is no prevertebral soft tissue swelling. There is no cervical lymphadenopathy. The visualized lung apices are clear. IMPRESSION: No evidence for acute intracranial injury. Stable age-appropriate appearance of the brain. No evidence for acute injury to the cervical spine. Moderate degenerative change within the cervical spine.
--- NOTE | 2018-06-07 04:53 | CT SCAN REPORT ---
EXAMINATION: CT ABDOMEN AND PELVIS WITHOUT CONTRAST CLINICAL INFORMATION: Vomiting. COMPARISON: None. TECHNIQUE: Contiguous axial thin section helical images of the abdomen and pelvis were performed without oral or IV contrast. The data set was reformatted in the coronal and sagittal planes and reviewed on an independent workstation. DLP: 1360 mGy-cm. FINDINGS: The visualized lung bases are clear. The visualized portions of the heart are unremarkable. The liver is of normal size and attenuation without focal lesions nor intrahepatic biliary ductal dilation. There are a few small layering calculi within the gallbladder lumen. There is no wall thickening or discernible pericholecystic fluid. The spleen, pancreas, adrenal glands are unremarkable. Both kidneys are of normal size and attenuation without hydronephrosis or nephrolithiasis. There is mild diffuse bilateral renal cortical thinning. There is no abdominal free fluid. There is neither mesenteric nor retroperitoneal lymphadenopathy. There is a moderate amount of stool within the sigmoid colon and rectum. Unopacified loops of small and large bowel are identified. There is no pelvic free fluid. The urinary bladder is unremarkable. There is neither pelvic nor inguinal lymphadenopathy. Bone windows: Neither sclerotic nor lytic bone lesions are identified. There is moderate degenerative change within the visualized lower thoracic spine and lumbar spine. IMPRESSION: No evidence for acute abdominal or pelvic inflammatory or infectious processes. No evidence for obstruction. Moderate amount of stool within the colon. Cholelithiasis without evidence of cholecystitis.
--- NOTE | 2018-06-07 05:45 | History & Physical ---
Janeth Cantrell 06/07/18 0544: General Information and HPI MD Statement: I have seen and personally examined KELLY QUILES and documented this H&P. The patient is a 77 year old M who presented with a patient stated chief complaint of []. Source of Information: patient Exam Limitations: no limitations History of Present Illness: 77 year old male with PMH CVA (2014) facial asymmetry, IDDM with pump, CHF, s/ pCABGx3 (1998), HTN, HLD, CKD stage 3, CRISTINE with CPAP presenting s/p fall in bathroom after dizziness. Patient states he woke up around 01:30 to go to the bathroom. He became dizzy and fell. He was unable to get himself up so he yelled for his who then called for their daughter. They were able to get the patient up, but he seemed confused to them so they brought him to the ED. He states he did not lose consciousness and did not hit his head. Of note he reports a one day history of dysuria, n/v, cough with 'brown sputum'. He denies any sick contacts. Allergies/Medications Allergies: Coded Allergies: ciprofloxacin (RASH 04/05/18) Home Med list Allopurinol 300 MG TABLET 1 TAB PO QAM GOUT (Reported) Aspirin (Ecotrin*) 81 MG TABLET.DR 1 TAB PO QAM HEART/BLOOD (Reported) Atorvastatin Calcium 20 MG TABLET 1 TAB PO QAM CHOLESTEROL (Reported) Bupropion HCl (Wellbutrin XL) 300 MG TAB.ER.24H 1 TAB PO DAILY Mental Health (Reported) Carbidopa/Levodopa (Carbidopa-Levodopa 25-100 Tab) 25 MG-100 MG TABLET 2 TAB PO DAILY Parkinson (Reported) Carvedilol (Coreg) 25 MG TABLET 1 TAB PO QAM BP (Reported) Clopidogrel Bisulfate (Clopidogrel) 75 MG TABLET 1 TAB PO QAM BLOOD THINNER ( Reported) Escitalopram Oxalate (Lexapro) 10 MG TABLET 1 TAB PO DAILY Mental Health ( Reported) Finasteride 5 MG TABLET 1 TAB PO QPM URINATION (Reported) Furosemide 40 MG TABLET 1 TAB PO QAM FLUID RETENTION (Reported) Hydroxyzine Hydrochloride (Atarax) 50 MG TAB 1 TAB PO DAILY PRN Itching ( Reported) Insulin Aspart (Novolog) 100 UNIT/ML VIAL 0 UNITS SC TIDAC/HS Diabetes BEFORE MEALS Blood Insulin Sugar Units <80 0 81-100 6 101-150 6 151-200 8 201-250 10 251-301 12 301-350 14 351-400 16 >400 18 units and Call Doctor AT BEDTIME Blood Insulin Sugar Units <80 0 81-100 0 101-200 0 201-250 0 251-300 2 301-350 3 351-400 4 >400 Call Doctor Insulin Detemir (Levemir) 100 UNIT/ML VIAL 18 UNITS SC BID Diabetes Isosorbide Mononitrate (Isosorbide Mononitrate ER) 60 MG TAB.ER.24H 2 TAB PO QAM HEART (Reported) Lisinopril (Prinivil) 5 MG TABLET 1 TAB PO QAM BP (Reported) Mirabegron (Myrbetriq) 25 MG TAB.ER.24H 1 TAB PO DAILY BLADDER (Reported) Multivit-Min/Iron/Folic/Lutein (Centrum Silver Women Tablet) 8 MG IRON-400 MCG- 300 MCG TABLET 1 TAB PO DAILY SUPPLEMENT (Reported) Niacin (Niaspan) 500 MG TAB.ER.24H 1 TAB PO QPM CHOLESTEROL (Reported) Pregabalin (Lyrica) 50 MG CAPSULE 2 CAP PO QAM NEUROPATHY (Reported) Pregabalin (Lyrica) 50 MG CAPSULE 3 CAP PO QPM NEUROPATHY (Reported) Tamsulosin HCl (Flomax) 0.4 MG CAP.ER.24H 1 CAP PO DAILY (Reported) Trazodone HCl 50 MG TABLET 0.5 TAB PO QPM SLEEP HELP (Reported) Past History Travel History Traveled to [place] past 21 day No Medical History Neurological: NEUROPATHY EENT: allergies, cataracts, hearing loss Cardiovascular: CAD, hypertension, hyperlipidemia Respiratory: obstructive sleep apnea Gastrointestinal: diverticulitis, GERD Hepatic: NONE Renal: CHRONIC KIDNEY DISEASE Musculoskeletal: gout Psychiatric: depression Endocrine: diabetes Blood Disorders: NONE Cancer(s): NONE MAINTENANCE OF WAY FOREMAN/Reproductive: NONE History of MRSA: Yes History of VRE: No History of CDIFF: No Surgical History Surgical History: CABG (lower extremity angioplasty), colon resection, left leg angioplasty partial fifth ray resection, R FOOT 4 TOES amputation (big toe left) R 3rd and 4th toe amputation 3 back surgeries L4 - L5 AND HERNIATED DISK Past Family/Social History Family History Relations & Conditions if any Relation not specified for: FH: diabetes mellitus Psychosocial History Where do you live? Home Who Do You Live With? spouse, child Services at Home: None Primary Language: Thai Smoking Status: Never Smoked ETOH Use: denies use Illicit Drug Use: denies illicit drug use Living Will? yes Functional Ability ADLs Independent: dressing, eating, toileting, bathing. Ambulation: walker IADLs Independent: shopping, housework, finances, food prep, telephone, transportation , medication admin. Review of Systems Review of Systems Constitutional: Reports: no symptoms. EENTM: Reports: no symptoms. Cardiovascular: Reports: no symptoms. Respiratory: Reports: cough, sputum production. Denies: short of breath. GI: Reports: no symptoms. Genitourinary: Reports: dysuria. Musculoskeletal: Reports: no symptoms. Skin: Reports: no symptoms. Neurological/Psychological: Reports: no symptoms. Exam & Diagnostic Data Last 24 Hrs of Vital Signs/I&O Vital Signs Date Time Temp Pulse Resp B/P B/P Pulse O2 O2 Flow FiO2 Mean Ox Delivery Rate 06/07 0634 98.8 86 20 125/59 94 Room Air 06/07 0507 92 Room Air 06/07 0427 100.3 86 22 138/69 94 Room Air 06/07 0249 Room Air 06/07 0237 101.3 94 20 190/103 94 Room Air Intake & Output 06/07 0800 06/07 0000 06/06 1600 Intake Total 0 Output Total 200 Balance -200 Intake, Oral 0 Output, Urine 200 Patient 285 lb Weight Weight Reported by Patient Measurement Method Physical Exam General Appearance Alert, Oriented X3, Cooperative, No Acute Distress, obese male Skin see genital exam Skin Temp/Moisture Exam: Warm/Dry HEENT Atraumatic, PERRLA Neck Supple Cardiovascular Regular Rate, Normal S1, Normal S2, No Murmurs Lungs Clear to Auscultation Abdomen Normal Bowel Sounds, obese; healed midline ex lap scar diffusely tender to palpation Extremities LLE with erythema; dried blood; edema compared to RLE; pitting edema BLE Assessment/Plan Assessment: 77 year old male with PMH CVA (2014) facial asymmetry, IDDM with pump, CHF, s/ pCABGx3 (1998), HTN, HLD, CKD stage 3, CRISTINE with CPAP presenting s/p fall in bathroom after dizziness. Patient states he woke up around 01:30 to go to the bathroom. He became dizzy and fell. He was unable to get himself up so he yelled for his who then called for their daughter. They were able to get the patient up, but he seemed confused to them so they brought him to the ED. He states he did not lose consciousness and did not hit his head. Of note he reports a one day history of dysuria, n/v, cough with 'brown sputum'. He denies any sick contacts. Patient to be admitted to the general medicine service for further care of the following: Problem List: 1. LLE cellulitis 2. Sepsis 3. s/p fall 4. Fungal infection groin Admission Data: VS T101.3 P94 RR20 BP190/103 Sat 94%RA Labs: WBC 16.8 H/H 15.3/45.6 Plt 170 Na 139 K4.6 BUN/Cr 29/1.5 CXR/CT head/ CT C-spine/ CT abd/pelv: no acute findings UA negative LA 1.9 #LLE Cellulitis-leg has dried blood; break in skin likely introduced bacteria under the skin -Cefazolin 1g Q8 -Elevation above the level of the heart #Sepsis-SIRS criteria temp 101.3; leukocytosis 16.8-likely from cellulitis of LLE -IV fluids 3L NS in ED #Fall-likely 2/2 infection/weakness/dehydration vs cardiac history but EKG shows no changes -PT eval -suspect he will improve back to baseline as infection resolves -orthostatic vital signs #Fungal infection of groin/pannus -Nystatin powder DVT prophylaxis: heparin/ambulation as tolerated Code status: full code As Ranked By This Provider Problem List: 1. Cellulitis 2. Sepsis Core Measures/Misc (07/01) Acute Coronary Syndrome ACS Diagnosis: No Congestive Heart Failure Congestive Heart Failure Diagnosis No Cerebrovascular Accident CVA/TIA Diagnosis: No VTE (View Protocol) VTE Risk Factors Acute Medical Illness No Mechanical VTE Prophylaxis d/t N/A MechProphylax Ordered No VTE Pharm Prophylaxis d/t NA PharmProphylax ordered Sepsis (View protocol) Sepsis Present: No If YES complete Sepsis Event Note If YES complete Sepsis Event Note Guy Mason 06/07/18 0716: Core Measures/Misc (07/01) Sepsis (View protocol) If YES complete Sepsis Event Note If YES complete Sepsis Event Note Resident Review Statement Resident Statement: examined this patient, discussed with internal controls specialist, agreed with internal controls specialist, discussed with family, reviewed EMR data (avail), discussed with nursing , discussed with case mgmt, reviewed images, amended to note Other Findings: This is a 77-year-old male with past medical history significant for CRISTINE on CPAP , gout, coronary artery disease, on dual antiplatelets, hypertension, hyperlipidemia, diastolic heart failure, depression, Parkinson's disease, BPH, recurrent UTI, diabetes mellitus, diabetic neuropathy, insomnia, history of diverticulitis status post colectomy, CABG, multiple toe amputations, presented to the emergency room after fall at 1:30 AM. Patient states he woke up around 1:30 AM to go to bathroom, he felt dizzy and lightheaded and he tripped and fell. He denied hitting head to the floor. Denies loss of consciousness. He was unable to get up, his and daughter help him and brought him to the hospital. According to the patient he was confused after fall so his family was concerned and brought him here. He denied any chest pain, palpitations in the emergency room. However he has T- max 101.3. Also reports cough and yellow colored sputum production. Reports nausea and an episode of vomiting yesterday. Also reports burning sensation when he pees. Denies any sick contact or travel history. Denies any abdominal pain, change in bowel habits. Denies smoking, alcohol abuse, illicit drug abuse. VS T101.3 P94 RR20 BP190/103 Sat 94%RA Labs: WBC 16.8 H/H 15.3/45.6 Plt 170 Na 139 K4.6 BUN/Cr 29/1.5 CXR/CT head/ CT C-spine/ CT abd/pelv: no acute findings UA negative LA 1.9 1. Sepsis secondary to left lower extremity cellulitis Patient has T-max 101.3 associated with leukocytosis 16.8. On exam he was found to have left lower extremity swelling and redness, tenderness to touch and warmth. Sepsis secondary to left lower extremity cellulitis * Admitted to [facility] * Monitor vitals every shift * Monitor for fever, trend leukocyte count * Continue IV cefazolin 1 g every 8 hours * Left lower extremity venous Doppler to rule out DVT * Follow-up blood cultures * Patient received 3 L of fluid in the emergency room for sepsis * Follow-up lactic acid was normal 2. Status post fall Patient states he woke up around 1:30 AM to go to bathroom, he felt dizzy and lightheaded and he tripped and fell. He denied hitting head to the floor. Denies loss of consciousness. patient he was confused after fall so his family was concerned and brought him here. * Orthostatic vitals * PT OT * Monitor mental status 3. Dysuria Patient reports dysuria for 1 day. Denied any frequency, lower abdominal pain, urgency. He has fever and leukocytosis. * Urine analysis was completely normal. * Will hold off antibiotics for now * Will follow up cultures and sensitivities and adjust antibiotics accordingly 4. Fungal rash of groin Continue nystatin powder Gout continue allopurinol 300 daily Coronary artery disease continue aspirin 81, Lipitor 20, Plavix 75, Imdur 120 daily Hypertension continue Coreg 25, lisinopril 5 daily CKD stage II CHF hold Lasix given septic picture Depression continue bupropion, Lexapro Parkinson's continue Sinemet 2 tabs daily BPH continue finasteride and tamsulosin Diabetes mellitus continue Accu-Cheks, Levemir 18 twice daily, NovoLog sliding scale Diabetic neuropathy continue Lyrica daily Insomnia continue trazodone 25 daily DVT prophylaxis subcu heparin Full code consistent carbohydrate diet 3 Pain pathway Esvin Ybarra MD 06/07/18 1237: Core Measures/Misc (07/01) Sepsis (View protocol) If YES complete Sepsis Event Note If YES complete Sepsis Event Note Attending Review Statement Attending Statement Attending MD Statement: examined this patient, discuss w/resident/PA/CITRIX ARCHITECT, agreed w/resident/PA/CITRIX ARCHITECT, reviewed EMR data (avail), discussed with nursing, discussed with case mgmt, reviewed images, amended to note Attending Assessment/Plan: The patient is a 77 yo male with h/o CVA (2014), DM- on insulin pump, Parkinson' s Disease, depression, CAD (s/p CABG-1998), HTN, HL, CKD3, CRISTINE (on CPAP) who initially presented in the [facility] ED last pm after a fall in his bathroom. The patient described feeling lightheaded and fell. Denied any loss of consciousness , dyspnea, palpitations, chest pain. He was unable to get up and felt weak. He did endorse some discomfort on urinating and mild non-productive cough. In the ED he spiked a temp to 101 and was noted to have cellulitis on his left leg. He did note a superficial sore on his right 2nd toe. Physical Exam: VS: T 101.3, P 94, R 20, BP 190/103-125/59, PO 94% RA HEENT: eyes- PERRLA, EOMI seble- dry mucosa Neck: no JVD, bruits, adenopathy Chest: clear Cor: RRR nl S1, S2 w/o murm Abd: BS+, soft, NT, - CVAT Ext: tr edema LLE, pulses 1+, toes warm; superficial ulcer 2nd toe; RLE- s/p amputations of 2nd-5th toes Derm: + erythema/warmth/stasis changes left pre-tibial region c/w cellulitis; dermatitis in groin. Labs/Tests- as above Impression/Plan: #Left Leg Cellulitis- in pre-tibial region, appears to be in area of stasis changes. No purulence noted. The patient has leukocytosis and fever, however does not meet sepsis criteria (normal BP, pulse, lactate, etc.). Venous duplex negative for clot. Plan: Admit to medical service. BC x 2. IV antibiotics- Cefazolin 1 g q8h. Follow clinical course. #S/P Fall- no injury or syncope at home. Plan: PT/OT evaluation. #Volume Depletion- with mild increase in BUN/Cr- most likely due to fever and diminished po intake. Plan: Agree with gentle IV hydration (as done). #Left Toe Ulcer- superficial ulcer left 2nd toe. Has h/o amputations on right foot (Dr. Samaniego). Plan: Podiatry evaluation Dr. Samaniego. #Diabetes- on pump at home. Plan: Pump discontinued as per inpatient protocol. Endocrinology to evaluate change to injected insulin. #Diabetic Neuropathy- on Lyrica. Plan: Continue Lyrica. #HTN/CAD- no cardiac symptoms. Plan: Continue Lisinopril, Isosorbide, Plavix, Furosemide, Carvedilol, ASA. #Parkinson's- on Carbidopa-Levodopa and stable. Plan: Continue Carbidopa-Levodopa. As above, PT/OT consult regarding ambulation. #BPH- on Finasteride/Tamsulosin. Plan: Continue meds. #H/O Gout- on Allopurinol. No symptoms. Plan: Continue Allopurinol. #Depression- stable on current meds. Plan: Continue Escitalopram and Bupropion.
--- NOTE | 2018-06-07 09:34 | ULTRASOUND REPORT ---
EXAMINATION: US TRIPLEX LOWER EXTREMITY, LEFT CLINICAL INFORMATION: Left leg redness and swelling. Assess for DVT. COMPARISON: Lower extremity ultrasound 04/05/2018. TECHNIQUE: Color-flow triplex imaging with spectral analysis and compression Doppler were performed on the left lower extremity. FINDINGS: Respiratory variation, normal compression and augmented flow are noted throughout the lower extremity. The visualized common femoral vein, superficial femoral vein, profunda femoral vein, popliteal vein and midcalf peroneal and posterior tibial venous segments show no evidence of deep venous thrombosis. The study redemonstrates a fluid collection in the popliteal fossa, which measures 2.9 x 1.0 x 1.8 cm, which is smaller compared to the prior study. IMPRESSION: 1. Normal triplex scan without evidence of deep venous thrombosis involving the left lower extremity. 2. There has been interval decrease in the size of the left Muller's cyst.
[2018-06-07 11:04] VITALS: BP 158/70
--- NOTE | 2018-06-07 12:31 | RADIOLOGY REPORT ---
EXAMINATION: XR FOOT, LEFT CLINICAL INFORMATION: Left toe and leg cellulitis. Assess for osteomyelitis of the left toe. COMPARISON: None. TECHNIQUE: AP, lateral, and oblique views of the left foot were obtained. FINDINGS: There is anatomic alignment of the osseous structures. There are sequelae of resection of the mid and distal aspects of the left fifth metatarsal. The proximal amputation line appears well-defined. There is no irregularity of the proximal phalanx of the fifth toe. No fractures are demonstrated. There is irregularity of soft tissues along the lateral aspect of the mid foot in the region of the resection of the fifth metatarsal. There are no radiodense foreign bodies. Bone mineralization demonstrates periarticular osteopenia. There are prominent plantar and Achilles calcaneal spurs. There is irregularity along the dorsal navicular, consistent with degenerative changes. IMPRESSION: 1. There are sequelae of resection of the mid and distal metatarsal. There is irregularity of the soft tissues in this region laterally. There is no evidence of osteomyelitis.
[2018-06-07 14:21] VITALS: BP 122/60
--- NOTE | 2018-06-07 16:19 | Admission Certification ---
Admission Certification Certification Statement - As attending physician, I certify that at the time of - admission, based on clinical presentation, severity of - symptoms, need for further diagnostic testing and - therapeutic interventions, and risk of adverse outcomes - without in-hospital treatment, in my clinical assessment, - this patient requires an acute hospital stay for a minimum - of two nights or longer. I have also considered psychsocial - factors such as support system, advanced age, financial - issues, cognitive issues, and failed out-patient treatments, - past re-admission history, safety of patient, and lack of - compliance as applicable. Specific rationale supporting this admission is: The patient presents with cellulitis of the left leg s/p fall, fever, leukocytosis c/w SIRS. Needs admission for IV antibiotics (Cefazolin), close monitoring of VS, venous US LE, PT consult. Also has left toe ulcer needs podiatry evaluation.
[2018-06-07 22:08] VITALS: BP 106/60
[2018-06-08 06:37] VITALS: BP 120/58; BP 120/8
--- NOTE | 2018-06-08 07:22 | PN- Housestaff ---
Adonis Callahan 06/08/18 0711: Subjective Follow-up For: 1. LLE cellulitis 2. Sepsis 3. s/p fall 4. Fungal infection groin Complaints: no complaints Subjective: He is doing well. Did not have any new concerns. He was sleeping when I walked into his room this morning. Stated that he did not have any pain in his lower extremities. No chest pain, palpitations, shortness of breath. Review of Systems Constitutional: Reports: see HPI. Objective Last 24 Hrs of Vital Signs/I&O Vital Signs Date Time Temp Pulse Resp B/P B/P Pulse O2 O2 Flow FiO2 Mean Ox Delivery Rate 06/08 0637 97.7 60 18 120/58 94 06/07 2208 97.8 74 18 106/60 94 Room Air 06/07 1421 98.2 80 18 122/60 93 Room Air 06/07 1332 80 150/78 06/07 1124 70 158/70 06/07 1123 78 158/70 06/07 1123 70 158/70 06/07 1104 99.3 78 18 158/70 92 Room Air 06/07 0900 92 Room Air 06/07 0816 99.1 85 21 142/62 94 Room Air Room Air Intake & Output 06/08 0800 06/08 0000 06/07 1600 Intake Total 300 300 360 Output Total 850 400 Balance 300 -550 -40 Intake, Oral 300 300 360 Number 2 2 Bowel Movements Output, Urine 850 400 Patient 260 lb 260 lb 265 lb Weight Weight Bed scale Bed scale Measurement Method Physical Exam General Appearance: Alert Other Physical Findings: General Exam: AAOx3, No acute distress, Skin: No rashes, no breakdown;HEENT: PERRLA, EOMI;Neck: Supple, No JVD; No cervical lymphadenopathy;CVS: Reg Rate, Normal S1,S2, No MGR;Resp: Normal air entry, no ronchi/rales;Abdomen: Soft, No tenderness, Normal Bowel Sounds;Neuro: Normal Speech, Strength 5/5 b/l x 4 extremities, Sensation intact, CN III-XII NL, Reflexes 2+;Extremities: No cyanosis, 1+ pedal edema, small ulcer second toe on left leg; amputation of multiple toes; erythema and tenderness on the tibial part of the left leg, no serous or purulent discharge. Current Medications: Current Medications Sig/Chacha Start time Last Medication Dose Route Stop Time Status Admin Acetaminophen 650 MG Q6P PRN 06/07 0615 AC PO Allopurinol 300 MG QAM 06/07 0900 AC 06/07 PO 1122 Aspirin Buffered 81 MG QAM 06/07 0900 AC 06/07 PO 1123 Atorvastatin Calcium 20 MG QAM 06/07 0900 AC 06/07 PO 1123 Bupropion HCl 300 MG DAILY 06/07 0900 AC 06/07 PO 1122 Carbidopa/Levodopa 2 TAB DAILY 06/07 0900 AC 06/07 PO 1122 Carvedilol 25 MG QAM 06/07 0900 AC 06/07 PO 1124 Cefazolin Sodium 1,000 MG Q8H 06/07 1200 AC 06/08 IV 0501 Cefazolin Sodium 1,000 MG IQ8 06/07 0745 TN 06/07 IV 1124 Clopidogrel Bisulfate 75 MG QAM 06/07 0900 AC 06/07 PO 1125 Escitalopram Oxalate 10 MG DAILY 06/07 0900 AC 06/07 PO 1123 Finasteride 5 MG QPM 06/07 2100 AC 06/07 PO 2026 Heparin Sodium 5,000 UNIT Q8 06/07 1400 AC 06/08 (Porcine) SC 0502 Insulin Aspart 0 TIDAC 06/07 0615 AC 06/07 SC 1711 Insulin Detemir 18 UNITS BID 06/07 0900 AC 06/07 SC 2025 Isosorbide 120 MG QAM 06/07 0900 AC 06/07 Mononitrate PO 1123 Lisinopril 5 MG QAM 06/07 0900 AC 06/07 PO 1332 Nystatin 1 ALFA TID 06/07 0900 AC 06/07 TOP 2026 Oxycodone HCl 10 MG Q6P PRN 06/07 0615 AC PO Patient Medication 1 ED ONE ONE 06/07 1800 DC Teaching ED 06/07 1801 Pregabalin 150 MG QPM 06/07 2100 AC 06/07 PO 2025 Pregabalin 100 MG QAM 06/07 0900 AC 06/07 PO 1125 Tamsulosin HCl 0.4 MG DAILY 06/07 0900 AC 06/07 PO 1123 Trazodone HCl 25 MG QPM 06/07 2100 AC 06/07 PO 2026 Last 24 Hrs of Lab/Ryan Results Last 24 Hrs of Labs/Mics: Laboratory Tests 06/07/18 1030: ESR Westergren 11 H Assessment/Plan Assessment: Mr Guerra is a 77-year-old male with past medical history significant for CRISTINE on CPAP, gout, coronary artery disease, on dual antiplatelets, hypertension, hyperlipidemia, diastolic heart failure, depression, Parkinson's disease, BPH, recurrent UTI, diabetes mellitus, diabetic neuropathy, insomnia, history of diverticulitis status post colectomy, CABG, multiple toe amputations, presented to the emergency room after fall likely due to multiple reasons such as infection- cellulitis. It does appear that the pt has had cellulitis of LLE which seems like it is improving; which needs to be monitored. Possible organisms are strep, and consider staph in differential but unlikely. LEAH could be due to dehydration, which needs to be monitored. Pertinent lab findings: WBC 6.8( stable) Creatinine 1.5-->1.3 Imaging in the last 24 hrs: US doppler LUE: 1. Normal triplex scan without evidence of deep venous thrombosis involving the left lower extremity. 2. There has been interval decrease in the size of the left Muller's cyst. Problem list: -Left lower extremity cellulitis -Sepsis (resolved) -Mechanical fall -Fungal dermatitis in groin -History of diabetes -LEAH Plan: Continue to monitor on general medicine floor -Monitor vitals closely. -Continue cefazolin IV 1 g every 8 hours, pending culture results. -Fall precautions -Check orthostat vitals. -PT eval pending -Continue insulin sliding scale, and levemir 16 units bid. BS range acceptable. Bedtime BS 280s, check again today, and assess if he might need bedtime coverage. -Follow urine cultures. -Continue nystatin topical for fungal rash -Check BEP, and consider starting his home dose of furosemide. -Please avoid placement of ALPs cuff on the left lower extremity over the area of cellulitis. Make sure that the RLE has ALPS cuff placed. DVT PPx- sc heparin Problem List: 1. Cellulitis of left lower extremity Pain Ratin Pain Location: LLE Pain Goal: Pain 4 or less Pain Plan: tylenol prn Tomorrow's Labs & Rationales: cbc bep He has cellulitis, and also on lasix. Esvin Rodriguez MD 06/08/18 3397: Attending MD Review Statement Attending Statement Attending MD Statement: examined this patient, discuss w/resident/PA/LEAF CONDITIONER, agreed w/resident/PA/LEAF CONDITIONER, reviewed EMR data (avail), discussed with nursing, discussed with case mgmt, amended to note Attending Assessment/Plan: The patient was seen and discussed with house staff and nursing. Clinically improved. Will continue IV Cefazolin and follow symptoms.
[2018-06-08 08:51] LABS: ABSOLUTE BASOPHIL COUNT 0 /CUMM (0.0-0.2); ABSOLUTE EOSINOPHIL COUNT 0.3 /CUMM (0.0-0.7); ABSOLUTE GRANULOCYTE CT 5.9 /CUMM (1.4-6.5); ABSOLUTE LYMPH COUNT 1.4 /CUMM (1.2-3.4); ABSOLUTE MONOCYTE COUNT 0.9 /CUMM (0.10-0.60); BASOPHIL % 0.4 % (0.0-2.0); EOSINOPHIL % 3.1 % (0-5); GRANULOCYTE % 69.4 % (42.2-75.2); MEAN CORPUSCULAR HGB 31.1 PG (27.0-31.0); MEAN CORPUSCULAR VOLUME 94.5 FL (80.0-94.0); MEAN PLATELET VOLUME 8.1 FL (7.4-10.4); PLATELET COUNT 147 /CUMM (130-400); RBC DISTRIBUTION WIDTH 15.9 % (11.5-14.5); RED BLOOD CELL CT 4.04 /CUMM (4.70-6.10); WHITE BLOOD CELL COUNT 8.5 /CUMM (4.8-10.8)
[2018-06-08 09:27] LABS: HEMATOCRIT 38.2 % (42-52)
[2018-06-08 15:37] VITALS: BP 120/60
[2018-06-08 22:42] VITALS: BP 140/76
[2018-06-09 06:26] VITALS: BP 140/74
--- NOTE | 2018-06-09 07:55 | PN- Housestaff ---
See Addendum Subjective Follow-up For: LLE cellulitis Sepsis s/p fall Fungal infection groin Subjective: Patient's morning, he was sitting in his chair while having breakfast. Was alert and oriented 3, in no acute distress. He mentioned that he had a brief episode of lightheadedness before going to sleep while lying back in his bed last night. He mentions that the left mcclure cellulitis has been there for 2 months, and he has been taking 3 different antibiotics, with no improvement. He reports no fever no sweating. Review of Systems Constitutional: Reports: see HPI. Objective Last 24 Hrs of Vital Signs/I&O Vital Signs Date Time Temp Pulse Resp B/P B/P Pulse O2 O2 Flow FiO2 Mean Ox Delivery Rate 06/09 0923 68 138/88 06/09 0922 68 138/88 06/09 0922 68 138/06/09 0921 68 138/06/09 0626 97.9 56 20 140/74 94 06/08 2242 97.7 64 18 140/76 94 Room Air 06/08 1600 Room Air 06/08 1537 97.8 79 20 120/60 95 Intake & Output 06/09 1600 06/09 0800 06/09 0000 Intake Total 300 300 Output Total 200 900 Balance 100 -600 Intake, Oral 300 300 Number 1 Bowel Movements Output, Urine 200 900 Patient 271 lb Weight Weight Bed scale Measurement Method Physical Exam General Appearance: Alert, Oriented X3, Cooperative, No Acute Distress Skin: No Rashes, Cellulitis on LLE Skin Temp/Moisture Exam: Warm/Dry Sepsis Skin Exam (color): Normal for Ethnicity HEENT: Atraumatic Cardiovascular: Regular Rate, Normal S1, Normal S2 Lungs: Clear to Auscultation, Normal Air Movement Abdomen: Normal Bowel Sounds, Soft, No Tenderness Extremities: No Clubbing, No Cyanosis, No Edema, Normal Pulses, LLE cellulitis Assessment/Plan Assessment: Mr Guerra is a 77-year-old male with past medical history significant for CRISTINE on CPAP, gout, coronary artery disease, on dual antiplatelets, hypertension, hyperlipidemia, diastolic heart failure, depression, Parkinson's disease, BPH, recurrent UTI, diabetes mellitus, diabetic neuropathy, insomnia, history of diverticulitis status post colectomy, CABG, multiple toe amputations, presented to the emergency room after fall likely due to multiple reasons such as infection- cellulitis. It does appear that the pt has had cellulitis of LLE which seems like it is improving; which needs to be monitored. Possible organisms are strep, and consider staph in differential but unlikely. LEAH could be due to dehydration, which needs to be monitored. Left lower extremity cellulitis: Plan: Continue cefazolin IV 1 g every 8 hours, pending culture results. Please avoid placement of ALPs cuff on the left lower extremity over the area of cellulitis. Make sure that the RLE has ALPS cuff placed. WBC 6.8--> pending Sepsis: This condition was resolved Plan: Continue cefazolin IV 1 g every 8 hours, pending culture results. Monitor vitals closely. Check orthostat vitals. Follow urine cultures. Mechanical fall: Plan: Fall precautions, PT eval pending, Check orthostat vitals. Fungal dermatitis in groin: Plan: Continue nystatin topical for fungal rash History of diabetes: Plan: Continue insulin sliding scale, and levemir 16 units bid. BS range acceptable. Bedtime BS 280s, check again today, and assess if he might need bedtime coverage. Morbid obesity: The patient has a BMI of 43.8 Plan: We will talk to the patient about losing weight, and its benefits to control diabetes. DVT PPx- sc heparin Problem List: 1. Cellulitis of left lower extremity 2. Diabetes 3. LEAH (acute kidney injury) 4. Sepsis 5. Fall 6. Fungal dermatitis Pain Ratin Pain Location: Left lower extremity, no pain currently Pain Goal: Pain 4 or less Pain Plan: Pain pathway, as needed Tomorrow's Labs & Rationales: As indicated.
[2018-06-09 09:10] LABS: ABSOLUTE BASOPHIL COUNT 0 /CUMM (0.0-0.2); ABSOLUTE EOSINOPHIL COUNT 0.4 /CUMM (0.0-0.7); ABSOLUTE GRANULOCYTE CT 6.2 /CUMM (1.4-6.5); ABSOLUTE LYMPH COUNT 1.7 /CUMM (1.2-3.4); ABSOLUTE MONOCYTE COUNT 0.7 /CUMM (0.10-0.60); BASOPHIL % 0.2 % (0.0-2.0); HEMATOCRIT 40.8 % (42-52); MEAN CORPUSCULAR HGB CONC 33.1 G/DL (33.0-37.0); MEAN CORPUSCULAR VOLUME 93.8 FL (80.0-94.0); MEAN PLATELET VOLUME 7.8 FL (7.4-10.4); PLATELET COUNT 159 /CUMM (130-400); RBC DISTRIBUTION WIDTH 15.6 % (11.5-14.5); RED BLOOD CELL CT 4.35 /CUMM (4.70-6.10)
[2018-06-09 15:56] VITALS: BP 120/70
[2018-06-09 22:36] VITALS: BP 150/90
--- NOTE | 2018-06-10 06:35 | PN- Housestaff ---
See Addendum Subjective Follow-up For: LLE cellulitis Sepsis s/p fall Fungal infection groin Subjective: I saw the patient is morning, he was sitting in his chair while having breakfast , alert and oriented 3, in no acute distress. No major complaints overnight reported by the nurse of the patient, no fever, no sweating, no chills. Review of Systems Constitutional: Reports: see HPI. Objective Last 24 Hrs of Vital Signs/I&O Vital Signs Date Time Temp Pulse Resp B/P B/P Pulse O2 O2 Flow FiO2 Mean Ox Delivery Rate 06/10 1456 98.1 73 18 110/65 97 Room Air 06/10 0941 72 140/80 06/10 0941 72 140/80 06/10 0941 72 140/80 06/10 0723 36.4 60 20 160/80 96 06/09 2236 98.3 52 20 150/90 95 06/09 2207 93 Room Air Intake & Output 06/10 1600 06/10 0800 06/10 0000 Intake Total 180 360 Output Total 300 1 Balance -120 359 Intake, IV 60 Intake, Oral 120 360 Number 2 Bowel Movements Output, Stool 1 Output, Urine 300 Patient 276 lb Weight Physical Exam General Appearance: Alert, Oriented X3, Cooperative, No Acute Distress Skin: No Rashes Skin Temp/Moisture Exam: Warm/Dry Sepsis Skin Exam (color): Normal for Ethnicity HEENT: Atraumatic Cardiovascular: Regular Rate, Normal S1, Normal S2 Lungs: Clear to Auscultation, Normal Air Movement Extremities: LLE cellulitis improving compared to yesterday Assessment/Plan Assessment: Mr Guerra is a 77-year-old male with past medical history significant for CRISTINE on CPAP, gout, coronary artery disease, on dual antiplatelets, hypertension, hyperlipidemia, diastolic heart failure, depression, Parkinson's disease, BPH, recurrent UTI, diabetes mellitus, diabetic neuropathy, insomnia, history of diverticulitis status post colectomy, CABG, multiple toe amputations, presented to the emergency room after fall likely due to multiple reasons such as infection- cellulitis. It does appear that the pt has had cellulitis of LLE which seems like it is improving; which needs to be monitored. Possible organisms are strep, and consider staph in differential but unlikely. LEAH could be due to dehydration, which needs to be monitored. Left lower extremity cellulitis: Plan: Continue cefazolin IV 1 g every 8 hours, pending culture results. Please avoid placement of ALPs cuff on the left lower extremity over the area of cellulitis. Make sure that the RLE has ALPS cuff placed. MRI of the lower extremity below knee will be obtained to look for any source of recurrent infections, osteomyelitis, collection in the left lower extremity. WBC 16.8--> 9.0 Sepsis: This condition was resolved Plan: Continue cefazolin IV 1 g every 8 hours, pending culture results. Monitor vitals closely. Check orthostat vitals. Follow urine cultures. We will continue antibiotic, ID consult appreciated. Mechanical fall: Plan: Fall precautions, PT eval pending, Check orthostat vitals. Fungal dermatitis in groin: Plan: Continue nystatin topical for fungal rash History of diabetes: Plan: Continue insulin sliding scale, and levemir 16 units bid. BS range acceptable. Bedtime BS 280s, check again today, and assess if he might need bedtime coverage. Morbid obesity: The patient has a BMI of 43.8 Plan: We will talk to the patient about losing weight, and its benefits to control diabetes. DVT PPx- sc heparin Problem List: 1. Cellulitis of left lower extremity 2. Diabetes 3. LEAH (acute kidney injury) 4. Sepsis 5. Fall 6. Fungal dermatitis Pain Ratin Pain Location: Left lower extremity Pain Goal: Remain pain free Pain Plan: As indicated Tomorrow's Labs & Rationales: As indicated
[2018-06-10 07:23] VITALS: BP 160/80
--- NOTE | 2018-06-10 10:46 | Patient Discharge Instructions ---
Discharge Instructions General Discharge Information You were seen/treated for: Left leg cellulitis Special Instructions: Please complete the course of antibiotics at home Please visit your PCP Please call your PCP if you notice any worsening of the cellulitis, fever, chills, or sweating Diet Continue normal diet: Yes Recommended Diet: Diabetic Activity Full Activity/No Limits: No Activity Self Limited: Yes Acute Coronary Syndrome Inclusion Criteria At DC or during hospital stay patient has or had the following: ACS DIAGNOSIS No Discharge Core Measures Meds if any: Prescribed or Continued at Discharge Meds if any: NOT Prescribed or Continued at Discharge Congestive Heart Failure Inclusion Criteria At DC or during hospital stay patient has or had the following: CHF DIAGNOSIS No Discharge Core Measures Meds if any: Prescribed or Continued at Discharge Meds if any: NOT Prescribed or Continued at Discharge Cerebrovascular accident Inclusion Criteria At DC or during hospital stay patient has or had the following: CVA/TIA Diagnosis No Discharge Core Measures Meds if any: Prescribed or Continued at Discharge Meds if any: NOT Prescribed or Continued at Discharge Venous thromboembolism Inclusion Criteria VTE Diagnosis No VTE Type NONE VTE Confirmed by (Test) NONE Discharge Core Measures - Per Current guidelines, there needs to be overlap - treatment for the first 5 days of Warfarin therapy. - If discharged on Warfarin prior to 5 days of - overlap therapy, the patient will need to be - assessed for post discharge needs including - *Post discharge parental anticoagulation - *Warfarin and/or parental anticoagulation education - *Follow up date to check INR post discharge At least 5 days overlap therapy as Inpatient No Meds if any: Prescribed or Continued at Discharge Note: Overlap Therapy is Warfarin and Anticoagulant Meds if any: NOT Prescribed or Continued at Discharge
--- NOTE | 2018-06-10 10:47 | Discharge Summary ---
Visit Information Visit Dates Admission Date: 06/07/18 Hospital Course Course Attending Physician: Esvin Rodriguez MD Primary Care Physician: Gwendolyn BAILEY,Yomi Staton Allergies: Coded Allergies: ciprofloxacin (RASH 04/05/18) Discharge Instructions Medications at Discharge Discharge Medications: Stop taking the following medications: Cephalexin (Keflex) 250 MG CAPSULE ORAL EVERY 8 HOURS Qty = 13 Methylprednisolone. (Medrol) 4 MG TAB.DS.PK ORAL As Directed Qty = 6 Continue taking these medications: Aspirin (Ecotrin*) 81 MG TABLET.DR 1 Tablet ORAL Every Morning Comments: Last Taken: 04/10/18 Time: 0820 AM Carvedilol (Coreg) 25 MG TABLET 1 Tablet ORAL Every Morning Comments: Last Taken: 04/10/18 Time: 0820 AM Furosemide (Furosemide) 40 MG TABLET 1 Tablet ORAL Every Morning Comments: NOT TAKEN IN HOSPITAL Bupropion HCl (Wellbutrin XL) 300 MG TAB.ER.24H 1 Tablet ORAL DAILY Qty = 30 Comments: Last Taken: 04/10/18 Time: 0820 AM Escitalopram Oxalate (Lexapro) 10 MG TABLET 1 Tablet ORAL DAILY Qty = 30 Comments: Last Taken: 04/09/18 Time: 2044 PM Finasteride (Finasteride) 5 MG TABLET 1 Tablet ORAL Every night Comments: Last Taken: 04/10/18 Time: 0820 AM Pregabalin (Lyrica) 50 MG CAPSULE 2 Capsule ORAL Every Morning Comments: NOT TAKEN IN HOSPITAL Pregabalin (Lyrica) 50 MG CAPSULE 3 Capsule ORAL Every night Comments: NOT TAKEN IN HOSPITAL Trazodone HCl (Trazodone HCl) 50 MG TABLET 0.5 Tablet ORAL Every night Comments: NOT TAKEN IN HOSPITAL Mirabegron (Myrbetriq) 25 MG TAB.ER.24H 1 Tablet ORAL DAILY Qty = 30 Comments: Last Taken: 06/10/18 Time: 0820 AM Multivit-Min/Iron/Folic/Lutein (Centrum Silver Women Tablet) 8 MG IRON-400 MCG- 300 MCG TABLET 1 Tablet ORAL DAILY Comments: NOT GIVEN Atorvastatin Calcium (Atorvastatin Calcium) 20 MG TABLET 1 Tablet ORAL Every Morning Qty = 30 Comments: Last Taken: 04/10/18 Time: 0820 AM Allopurinol (Allopurinol) 300 MG TABLET 1 Tablet ORAL Every Morning Comments: NOT TAKEN IN HOSPITAL Clopidogrel Bisulfate (Clopidogrel) 75 MG TABLET 1 Tablet ORAL Every Morning Comments: Last Taken: 04/10/17 Time: 0820 AM Isosorbide Mononitrate (Isosorbide Mononitrate ER) 60 MG TAB.ER.24H 2 Tablet ORAL Every Morning Qty = 180 Comments: NOT TAKEN IN HOSPITAL Lisinopril (Prinivil) 5 MG TABLET 1 Tablet ORAL Every Morning Comments: Last Taken: 04/10/18 Time: 0820 AM Niacin (Niaspan) 500 MG TAB.ER.24H 1 Tablet ORAL Every night Qty = 90 Comments: NOT TAKEN IN HOSPITAL Tamsulosin HCl (Flomax) 0.4 MG CAP.ER.24H 1 Capsule ORAL DAILY Comments: Last Taken: 04/10/18 Time: 0820 AM Hydroxyzine Hydrochloride (Atarax) 50 MG TAB 1 Tablet ORAL DAILY as needed for Itching Qty = 30 Comments: NOT GIVEN Carbidopa/Levodopa (Carbidopa-Levodopa 25-100 Tab) 25 MG-100 MG TABLET 2 Tablet ORAL DAILY Qty = 60 Comments: Last Taken: 04/10/18 Time: 0820 AM Insulin Detemir (Levemir) 100 UNIT/ML VIAL 18 Units SC TWICE DAILY Qty = 30 Comments: Last Taken: 04/10/18 Time: 0830 AM Insulin Aspart (Novolog) 100 UNIT/ML VIAL 0 Units SC BEFORE MEALS AND AT BEDTIME Qty = 30 Instructions: BEFORE MEALS Blood Insulin Sugar Units <80 0 81-100 6 101-150 6 151-200 8 201-250 10 251-301 12 301-350 14 351-400 16 >400 18 units and Call Doctor AT BEDTIME Blood Insulin Sugar Units <80 0 81-100 0 101-200 0 201-250 0 251-300 2 301-350 3 351-400 4 >400 Call Doctor Comments: Last Taken: 04/10/18 Time: 0800 AM
--- NOTE | 2018-06-10 13:17 | Cons- Infect Disease ---
General Information and HPI Consulting Request Date of Consult: 06/10/18 Requested By: Esvin Rodriguez MD Reason for Consult: Recurrent cellulitis of the left leg Source of Information: patient, old records History of Present Illness: This is a 77-year-old man with a history of coronary artery disease, status post CABG, hypertension, CHF, status post CVA, chronic kidney disease, obstructive sleep apnea, on CPAP, diabetes, gout, osteoarthritis, recurrent falls and peripheral vascular disease, status post right second through fifth toe and partial left fifth toe amputations, status post unsuccessful attempt at a left leg angioplasty resulting in a cardiac arrest at [facility] 15 months prior to admission, with a chronic ulcer on the dorsal aspect of the left second toe and recurrent cellulitis of the left leg, treated with multiple courses of antibiotics over the past 3 months by 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 On admission he was febrile to 101.3, with a blood pressure of 190/103. Laboratory data revealed a white blood cell of 17, 000, BUN/creatinine 29 and 1.5, with normal liver enzymes. Urinalysis negative. Chest x-ray was negative. Doppler of the left leg revealed a left sided Muller' s cyst, decreased in size from the previous study. CT of the abdomen and pelvis was negative for any acute process. CT of the head and cervical spine were negative for any acute process. X-ray of the left foot was negative for osteomyelitis. He was given 4 L of fluid in the ER and begun on Ceftriaxone and Azithromycin. This was changed to Cefazolin, which he remains on. He rapidly defervesced and his white blood cell count normalized. At present he does not offer any complaints but is concerned about his recurrent infections. Allergies/Medications Allergies: Coded Allergies: ciprofloxacin (RASH 04/05/18) Home Med List: Allopurinol 300 MG TABLET 1 TAB PO QAM GOUT (Reported) Aspirin (Ecotrin*) 81 MG TABLET.DR 1 TAB PO QAM HEART/BLOOD (Reported) Atorvastatin Calcium 20 MG TABLET 1 TAB PO QAM CHOLESTEROL (Reported) Bupropion HCl (Wellbutrin XL) 300 MG TAB.ER.24H 1 TAB PO DAILY Mental Health (Reported) Carbidopa/Levodopa (Carbidopa-Levodopa 25-100 Tab) 25 MG-100 MG TABLET 2 TAB PO DAILY Parkinson (Reported) Carvedilol (Coreg) 25 MG TABLET 1 TAB PO QAM BP (Reported) Clopidogrel Bisulfate (Clopidogrel) 75 MG TABLET 1 TAB PO QAM BLOOD THINNER ( Reported) Escitalopram Oxalate (Lexapro) 10 MG TABLET 1 TAB PO DAILY Mental Health ( Reported) Finasteride 5 MG TABLET 1 TAB PO QPM URINATION (Reported) Furosemide 40 MG TABLET 1 TAB PO QAM FLUID RETENTION (Reported) Hydroxyzine Hydrochloride (Atarax) 50 MG TAB 1 TAB PO DAILY PRN Itching ( Reported) Insulin Aspart (Novolog) 100 UNIT/ML VIAL 0 UNITS SC TIDAC/HS Diabetes BEFORE MEALS Blood Insulin Sugar Units <80 0 81-100 6 101-150 6 151-200 8 201-250 10 251-301 12 301-350 14 351-400 16 >400 18 units and Call Doctor AT BEDTIME Blood Insulin Sugar Units <80 0 81-100 0 101-200 0 201-250 0 251-300 2 301-350 3 351-400 4 >400 Call Doctor Insulin Detemir (Levemir) 100 UNIT/ML VIAL 18 UNITS SC BID Diabetes Isosorbide Mononitrate (Isosorbide Mononitrate ER) 60 MG TAB.ER.24H 2 TAB PO QAM HEART (Reported) Lisinopril (Prinivil) 5 MG TABLET 1 TAB PO QAM BP (Reported) Mirabegron (Myrbetriq) 25 MG TAB.ER.24H 1 TAB PO DAILY BLADDER (Reported) Multivit-Min/Iron/Folic/Lutein (Centrum Silver Women Tablet) 8 MG IRON-400 MCG- 300 MCG TABLET 1 TAB PO DAILY SUPPLEMENT (Reported) Niacin (Niaspan) 500 MG TAB.ER.24H 1 TAB PO QPM CHOLESTEROL (Reported) Pregabalin (Lyrica) 50 MG CAPSULE 2 CAP PO QAM NEUROPATHY (Reported) Pregabalin (Lyrica) 50 MG CAPSULE 3 CAP PO QPM NEUROPATHY (Reported) Tamsulosin HCl (Flomax) 0.4 MG CAP.ER.24H 1 CAP PO DAILY (Reported) Trazodone HCl 50 MG TABLET 0.5 TAB PO QPM SLEEP HELP (Reported) Past History Travel History Traveled to [place] past 21 day No Medical History Blood Transfusion Hx: No Neurological: CVA, Parkinson's disease, NEUROPATHY EENT: allergies, cataracts, hearing loss Cardiovascular: CAD, hypertension, hyperlipidemia, PVD, STEMI, syncope Respiratory: obstructive sleep apnea Gastrointestinal: diverticulitis, GERD Hepatic: NONE Renal: CHRONIC KIDNEY DISEASE Musculoskeletal: gout, osteoarthritis Psychiatric: depression Endocrine: diabetes Blood Disorders: NONE Cancer(s): NONE [employer] RESOURCES ASSISTANT/Reproductive: NONE History of MRSA: No History of VRE: No History of CDIFF: No Isolation History: Standard Surgical History Surgical History: CABG (lower extremity angioplasty), colon resection, laminectomy (L4/L5), partial left fifth ray resection, R FOOT 4 TOES amputation (big toe left) Family History Relations & Conditions If Any: Relation not specified for: FH: diabetes mellitus Psychosocial History Where Do You Live? Home Who Do You Live With? spouse, child Services at Home: None Primary Language: [place] Smoking Status: Never Smoked ETOH Use: denies use Illicit Drug Use: denies illicit drug use Living Will? yes Functional Ability ADLs Independent: dressing, eating, toileting, bathing. Ambulation: walker IADLs Independent: shopping, housework, finances, food prep, telephone, transportation , medication admin. Review of Systems Review of Systems All Other Systems: Reviewed and Negative Exam & Diagnostic Data Last 24 Hrs of Vital Signs/I&O Vital Signs Date Time Temp Pulse Resp B/P B/P Pulse O2 O2 Flow FiO2 Mean Ox Delivery Rate 06/10 0941 72 140/80 06/10 0941 72 140/80 06/10 0941 72 140/80 06/10 0723 36.4 60 20 160/80 96 06/09 2236 98.3 52 20 150/90 95 06/09 2207 93 Room Air 06/09 1556 97.7 55 18 120/70 95 Intake & Output 06/10 1600 06/10 0800 06/10 0000 Intake Total 180 360 Output Total 300 1 Balance -120 359 Intake, IV 60 Intake, Oral 120 360 Number 2 Bowel Movements Output, Stool 1 Output, Urine 300 Patient 276 lb Weight Physical Exam Other Physical Findings: He is awake and alert in no acute distress. He is afebrile. Skin reveals no rash. HEENT exam is negative. Neck is supple with no adenopathy. Lungs are clear. Heart regular rhythm with no murmur. Abdomen is obese, soft, nontender with positive bowel sounds. Back no CVA tenderness. Extremities cool lower extremities, left greater than right, with left leg mild erythema over the anterior tibial aspect, with an area of induration and tenderness anteriomedially; a small ulcer on the dorsal aspect of the left second toe with no surrounding inflammation; pulses 1+ and equal. Neuro is without focality. Last 24 Hours of Lab Results: Laboratory Tests 06/10 0730 Chemistry Sodium (137 - 145 mmol/L) 139 Potassium (3.5 - 5.1 mmol/L) 4.1 Chloride (98 - 107 mmol/L) 109 H Carbon Dioxide (22 - 30 mmol/L) 25 Anion Gap (5 - 16) 5 BUN (9 - 20 mg/dL) 24 H Creatinine (0.7 - 1.2 mg/dL) 1.3 H Estimated GFR (>60 ml/min) 53 L BUN/Creatinine Ratio (7 - 25 %) 18.5 Last 24 Hours of Ryan Results: Blood cultures 2 June 07 negative Urine culture June 07 negative Stool C. difficile June 08 negative Diagnostic Data Recent Imaging Findings: Chest x-ray was negative. Doppler of the left leg revealed a left sided Muller's cyst, decreased in size from the previous study. CT of the abdomen and pelvis was negative for any acute process. CT of the head and cervical spine were negative for any acute process. X-ray of the left foot was negative for osteomyelitis. Assessment/Plan Assessment/Plan Impression: This is a 77-year-old man with a history of diabetes, peripheral vascular disease, status post right second through fifth toe and partial left fifth toe amputations, with a chronic ulcer on the dorsal aspect of the left second toe and recurrent cellulitis of the left leg, treated with multiple courses of antibiotics over the past 3 months, admitted on June 07 after a fall at home with a one day history of nausea, vomiting and diarrhea, found to be febrile with a leukocytosis, treated for cellulitis of the left leg, with his temperatures and white blood cell count now normal. Given his underlying diabetes and peripheral vascular disease he is clearly at increased risk for cellulitis of the lower extremities. There is an area of inflammation on the anteriomedial aspect of his left leg below the knee and, given his concern regarding a recurrent cellulitis, it may be reasonable to image this area to rule out any collection or underlying osteomyelitis. He would likely benefit from vascular surgery reevaluation though, with his history of a cardiac arrest during an attempted angiogram, he is clearly at increased risk for any surgical procedure. His cellulitis appears to have responded to Cefazolin, with his temperatures normal and white blood cell count (which may have been elevated in part due to dehydration) now normal, and he can be continued on this pending further evaluation. Suggestion: 1. MRI of the left lower extremity (below the knee) 2. Vascular surgery evaluation 3. Continue Cefazolin pending above Consult Acknowledgment - Thank you for your consult request.
[2018-06-10 14:56] VITALS: BP 110/65
--- NOTE | 2018-06-10 20:29 | Cons- Podiatry ---
General Information and HPI Consulting Request Date of Consult: 06/10/18 Requested By: Esvin Rodriguez MD History of Present Illness: Eric is a 69-year-old male admitted for urosepsis and left lower extremity cellulitis. The patient is well known to me for the management of ulceration underlying osteomyelitis, requiring multiple surgical debridements and IV antibiotics. The patient was noted on physical exam to have an ulceration in the pretibial area of his left leg and the dorsal third toe of the left foot. Being followed for these wounds with his drafter civil (cad) in [place]. Allergies/Medications Allergies: Coded Allergies: ciprofloxacin (RASH 04/05/18) Home Med List: Allopurinol 300 MG TABLET 1 TAB PO QAM GOUT (Reported) Aspirin (Ecotrin*) 81 MG TABLET.DR 1 TAB PO QAM HEART/BLOOD (Reported) Atorvastatin Calcium 20 MG TABLET 1 TAB PO QAM CHOLESTEROL (Reported) Bupropion HCl (Wellbutrin XL) 300 MG TAB.ER.24H 1 TAB PO DAILY Mental Health (Reported) Carbidopa/Levodopa (Carbidopa-Levodopa 25-100 Tab) 25 MG-100 MG TABLET 2 TAB PO DAILY Parkinson (Reported) Carvedilol (Coreg) 25 MG TABLET 1 TAB PO QAM BP (Reported) Clopidogrel Bisulfate (Clopidogrel) 75 MG TABLET 1 TAB PO QAM BLOOD THINNER ( Reported) Escitalopram Oxalate (Lexapro) 10 MG TABLET 1 TAB PO DAILY Mental Health ( Reported) Finasteride 5 MG TABLET 1 TAB PO QPM URINATION (Reported) Furosemide 40 MG TABLET 1 TAB PO QAM FLUID RETENTION (Reported) Hydroxyzine Hydrochloride (Atarax) 50 MG TAB 1 TAB PO DAILY PRN Itching ( Reported) Insulin Aspart (Novolog) 100 UNIT/ML VIAL 0 UNITS SC TIDAC/HS Diabetes BEFORE MEALS Blood Insulin Sugar Units <80 0 81-100 6 101-150 6 151-200 8 201-250 10 251-301 12 301-350 14 351-400 16 >400 18 units and Call Doctor AT BEDTIME Blood Insulin Sugar Units <80 0 81-100 0 101-200 0 201-250 0 251-300 2 301-350 3 351-400 4 >400 Call Doctor Insulin Detemir (Levemir) 100 UNIT/ML VIAL 18 UNITS SC BID Diabetes Isosorbide Mononitrate (Isosorbide Mononitrate ER) 60 MG TAB.ER.24H 2 TAB PO QAM HEART (Reported) Lisinopril (Prinivil) 5 MG TABLET 1 TAB PO QAM BP (Reported) Mirabegron (Myrbetriq) 25 MG TAB.ER.24H 1 TAB PO DAILY BLADDER (Reported) Multivit-Min/Iron/Folic/Lutein (Centrum Silver Women Tablet) 8 MG IRON-400 MCG- 300 MCG TABLET 1 TAB PO DAILY SUPPLEMENT (Reported) Niacin (Niaspan) 500 MG TAB.ER.24H 1 TAB PO QPM CHOLESTEROL (Reported) Pregabalin (Lyrica) 50 MG CAPSULE 2 CAP PO QAM NEUROPATHY (Reported) Pregabalin (Lyrica) 50 MG CAPSULE 3 CAP PO QPM NEUROPATHY (Reported) Tamsulosin HCl (Flomax) 0.4 MG CAP.ER.24H 1 CAP PO DAILY (Reported) Trazodone HCl 50 MG TABLET 0.5 TAB PO QPM SLEEP HELP (Reported) Past History Medical History Blood Transfusion Hx: No Neurological: CVA, Parkinson's disease, NEUROPATHY EENT: allergies, cataracts, hearing loss Cardiovascular: CAD, hypertension, hyperlipidemia, PVD, STEMI, syncope Respiratory: obstructive sleep apnea Gastrointestinal: diverticulitis, GERD Hepatic: NONE Renal: CHRONIC KIDNEY DISEASE Musculoskeletal: gout, osteoarthritis Psychiatric: depression Endocrine: diabetes Blood Disorders: NONE Cancer(s): NONE MEASUREMENT COORDINATOR/Reproductive: NONE Surgical History Pertinent Surgical History: CABG (lower extremity angioplasty), colon resection, laminectomy (L4/L5), partial left fifth ray resection, R FOOT 4 TOES amputation (big toe left) Family History Relations & Conditions If Any: Relation not specified for: FH: diabetes mellitus Psychosocial History Where Do You Live? Home Who Do You Live With? spouse, child Services at Home: None Primary Language: Bulgarian Smoking Status: Never Smoked ETOH Use: denies use Illicit Drug Use: denies illicit drug use Living Will? yes Functional Ability ADLs Independent: dressing, eating, toileting, bathing. Ambulation: walker IADLs Independent: shopping, housework, finances, food prep, telephone, transportation , medication admin. Review of Systems Review of Systems: Unremarkable except for that noted in history present illness Exam & Diagnostic Data Vital Signs and I&O Vital Signs Date Time Temp Pulse Resp B/P B/P Pulse O2 O2 Flow FiO2 Mean Ox Delivery Rate 06/11 0840 62 108/60 06/11 0839 62 108/60 06/11 0839 62 108/60 06/11 0839 62 108/60 06/11 0800 Room Air 06/11 0625 97.5 62 18 108/60 94 06/11 0000 CPAP 06/10 2253 97 Room Air 06/10 2215 98.4 75 18 148/80 96 Room Air 06/10 1456 98.1 73 18 110/65 97 Room Air Intake & Output 06/11 1600 06/11 0800 06/11 0000 06/10 1600 06/10 0800 06/10 0000 Intake Total 680 1500 180 360 Output Total 300 1 Balance 680 1500 -120 359 Intake, IV 500 800 60 Intake, Oral 180 700 120 360 Number 1 2 Bowel Movements Output, Stool 1 Output, Urine 300 Patient 276 lb Weight Physical Exam: Stage I ulceration identified the anterior left leg measuring half centimeter by half centimeter. Wound bed is granular no fluctuance or crepitus identified. A second grade 1 lesion lesion is noted at the dorsal aspect of the left third digit. No acute signs of infection identified. No probing or minimal serous drainage noted. Assessment/Plan Assessment/Plan Left lower extremity cellulitis. Xeroform and dry sterile dressing daily to the ulcer to left leg and third digit. Continue IV antibiotics per ID recommendations. Consult Acknowledgment - Thank you for your consult request. Attending MD Review Statement Attending Statement Attending MD Statement: examined this patient
[2018-06-10 22:15] VITALS: BP 148/80
[2018-06-11 06:25] VITALS: BP 108/60
--- NOTE | 2018-06-11 06:30 | PN- Housestaff ---
Kike Arguelles 06/11/18 0630: Subjective Follow-up For: LLE cellulitis S/p fall Subjective: Pt seen and examined this am. He remains afebrile. He was sitting comfortably in bed on examination, talkative, NAD, breathing comfortably on RA. Diarrhea and dysuria are not an issue anymore. He is AAOx3 and involved in his care. He offers no acute complains. Review of Systems Constitutional: Reports: see HPI. Objective Last 24 Hrs of Vital Signs/I&O Vital Signs Date Time Temp Pulse Resp B/P B/P Pulse O2 O2 Flow FiO2 Mean Ox Delivery Rate 06/11 1417 97.6 66 18 158/60 94 Room Air 06/11 0840 62 108/60 06/11 0839 62 108/60 06/11 0839 62 108/60 06/11 0839 62 108/60 06/11 0800 Room Air 06/11 0625 97.5 62 18 108/60 94 06/11 0000 CPAP 06/10 2253 97 Room Air 06/10 2215 98.4 75 18 148/80 96 Room Air Intake & Output 06/11 1600 06/11 0800 06/11 0000 Intake Total 510 258 7473 Output Total 400 Balance 80 680 1500 Intake, IV 0 500 800 Intake, Oral 480 180 700 Number 1 1 Bowel Movements Output, Urine 400 Physical Exam General Appearance: Alert, Oriented X3, Cooperative, No Acute Distress Skin: Erythema and swelling noted on LLE HEENT: Atraumatic Neck: Supple Cardiovascular: Regular Rate, Normal S1, Normal S2 Lungs: Clear to Auscultation, Normal Air Movement Abdomen: Normal Bowel Sounds, Soft, No Tenderness Extremities: Erythema, tenderness and swelling noted on LE. Current Medications: Current Medications Sig/Chacha Start time Last Medication Dose Route Stop Time Status Admin Acetaminophen 650 MG Q6P PRN 06/07 0615 AC PO Allopurinol 300 MG QAM 06/07 900 AC 06/11 PO 0840 Aspirin Buffered 81 MG QAM 06/07 900 AC 06/11 PO 0839 Atorvastatin Calcium 20 MG QAM 06/07 900 AC 06/11 PO 0840 Bupropion HCl 300 MG DAILY 06/07 900 AC 06/11 PO 0839 Carbidopa/Levodopa 2 TAB DAILY 06/07 900 AC 06/11 PO 0840 Carvedilol 25 MG QAM 06/07 900 AC 06/11 PO 0839 Cefazolin Sodium 1,000 MG Q8H 06/07 1200 DC 06/11 IV 1219 Cephalexin 500 MG Q8 06/11 2200 AC PO Clopidogrel Bisulfate 75 MG QAM 06/07 0900 AC 06/11 PO 0840 Escitalopram Oxalate 10 MG DAILY 06/07 0900 AC 06/11 PO 0840 Finasteride 5 MG QPM 06/07 2100 AC 06/10 PO 2017 Glycerin/Mineral Oil 1 ALFA TID PRN 06/11 1015 AC TOP Heparin Sodium 5,000 UNIT Q8 06/07 1400 AC 06/11 (Porcine) SC 1353 Insulin Aspart 0 TIDAC 06/07 0615 AC 06/11 SC 1726 Insulin Detemir 18 UNITS BID 06/07 0900 AC 06/11 SC 0846 Isosorbide 120 MG QAM 06/07 0900 AC 06/11 Mononitrate PO 0839 Lisinopril 5 MG QAM 06/07 0900 AC 06/11 PO 0840 Nystatin 1 ALFA TID 06/07 0900 AL 06/11 TOP 0841 Oxycodone HCl 10 MG Q6P PRN 06/07 0615 AC 06/08 PO 2156 Pregabalin 0 .STK-MED ONE 06/11 0844 DC PO Pregabalin 0 .STK-MED ONE 06/11 0839 DC PO Pregabalin 150 MG QPM 06/07 2100 AC 06/10 PO 2017 Pregabalin 100 MG QAM 06/07 0900 AC 06/11 PO 0841 Sodium Chloride 1,000 ML Q10H 06/10 1400 DC 06/10 IV 06/10 2359 1421 Tamsulosin HCl 0.4 MG DAILY 06/07 0900 AC 06/11 PO 0839 Trazodone HCl 25 MG QPM 06/07 2100 AC 06/10 PO 2017 Last 24 Hrs of Lab/Ryan Results Last 24 Hrs of Labs/Mics: Laboratory Tests 06/11/18 1050: Anion Gap 8, Estimated GFR 49 L, BUN/Creatinine Ratio 16.4 Assessment/Plan Assessment: Mr. Guerra is a 77 y/o M with PMH significant for CRISTINE on CPAP, gout, CAD on dual antiplt therapy, HTN/HLD, diastolic heart failure, depression, Parkinson's disease, BPH, recurrent UTI, DM, diabetic neuropathy, insomnia, history of diverticulitis s/p colectomy, CABG, multiple toe amputations, who presented to the emergency room after fall, AMS and fever. He was admitted to the [facility] floor for further management of: #LLE cellulitis #S/p mechanical fall #Groin fungal dermatitis #Sepsis, resolved #H/o diabetes #Morbid obesity #LLE cellulitis Pt has been afebrile. WBC has come down from 16.8->9.0 latest am lab. He was on cefazolin 1g q8, now transitioned to Cephalexin 500 mg PO to complete treatment. Avoid ALPS on LLE but do place on right side. MRI of left lower extremity did not show active osteomyelitis or collection but did note soft tissue swelling. Vascular surgery will be consulted, Arterial US doppler as well. No growth on BC 2/ and Ucx. -Changed cefazolin to cephalexin 500 mg PO #S/p mechanical fall PT eval on 06/08 mentions he is at his baseline level. No further PT needed. -On fall precautions #Groin fungal dermatitis Continue nystatin topical for fungal rash. #H/o diabetes Continue insulin sliding scale, and levemir 16 units bid. BS range acceptable. Latest BS 261. -Continue bedside glucose monitoring FULL CODE DVT PPX - sc hep Consistent Carb 3 Problem List: 1. Cellulitis of left lower extremity 2. Diabetes 3. LEAH (acute kidney injury) Pain Ratin Pain Location: LLE Pain Goal: Remain pain free Pain Plan: as indicated Tomorrow's Labs & Rationales: bep/cr Esvin Rodriguez MD 06/11/182052: Attending MD Review Statement Attending Statement Attending MD Statement: examined this patient, discuss w/resident/PA/INDEPENDENT PRODUCER, agreed w/resident/PA/INDEPENDENT PRODUCER, reviewed EMR data (avail), discussed with nursing, discussed with case mgmt, amended to note Attending Assessment/Plan: The patient was seen and discussed with house staff. Agree with plan of care as outlined. MRI of LLE w/o underlying osteomyelitis or focal infection/abscess. Awaiting vascular input. ID follow-up appreciated. Continuing IV Cefazolin.
--- NOTE | 2018-06-11 08:21 | MRI REPORT ---
EXAMINATION: MRI FOOT WITHOUT/WITH CONTRAST, LEFT CLINICAL INFORMATION: Left toe ulcer. COMPARISON: Radiographs of left foot, 06/07/2018. TECHNIQUE: A routine multiplanar, multisequence MR imaging examination of the left foot was performed on a high-field 1.5 Ania magnet without and with intravenous administration of 10 mL Gadavist contrast material. FINDINGS: Mild degenerative changes with osteophyte formation at talonavicular, navicular-cuneiform and tarsometatarsal joints. The bones of the forefoot have well preserved fatty marrow signal intensity. The distal 5th metatarsal is resected through the region of the mid diaphysis. The residual proximal 5th metatarsal has smooth contour with no osseous erosion or periostitis. There are marginal osteophytes at the mildly degenerated great toe metatarsophalangeal joint. No evidence of synovitis at the MTP or interphalangeal joints. Diffuse atrophy and fatty replacement of muscles of the examined forefoot. Also, diffuse soft tissue edema, most pronounced along the dorsal aspect of the foot, without abscess. The flexor and extensor tendons of the forefoot are intact. No evidence of tendon tear or tenosynovitis. IMPRESSION: - No evidence of osteomyelitis or soft tissue abscess within the examined left foot. - Nonspecific soft tissue edema of the foot; this could reflect presence of cellulitis, if in the right clinical context. - Diffuse atrophy and fatty replacement of muscles in the forefoot could be secondary to chronic disuse and/or chronic denervation change. - Mild osteoarthritis of multiple joints, including the great toe metatarsophalangeal joint.
--- NOTE | 2018-06-11 08:36 | MRI REPORT ---
EXAMINATION: MRI TIBIA-FIBULA WITHOUT/WITH CONTRAST, LEFT CLINICAL INFORMATION: 77-year-old male with cellulitis. Evaluate for soft tissue infection/abscess. COMPARISON: None TECHNIQUE: Multiplanar, multisequence MR imaging examination of the left lower extremity was performed on a high-field 1.5 Ania magnet without and with intravenous administration of 10 mL of Gadavist contrast material. FINDINGS: Diffuse edema within subcutaneous tissues of both lower extremities (left worse than right). No soft tissue abscess. The images acquired after intravenous contrast show no evidence of pathologic enhancement along fascial planes or within muscles (i.e., no evidence of fasciitis or myositis). Diffuse, mild atrophy and partial fatty replacement of muscles of the examined extremity. Multiple foci of susceptibility artifact in the medial aspect of the left lower extremity -- likely from remote saphenous vein harvesting. The tibia and fibula exhibit intact cortices and normal bone marrow signal intensity. No osseous erosion or periostitis. IMPRESSION: Diffuse edema in subcutaneous tissues of the left lower extremity. However, no evidence of soft tissue abscess or osteomyelitis.
[2018-06-11 14:17] VITALS: BP 158/60
--- NOTE | 2018-06-11 14:46 | PN- Infect Dx ---
Subjective Subjective: Afebrile. He notes a burning pain in his left leg. Objective Last 24 Hrs of Vital Signs/I&O Vital Signs Date Time Temp Pulse Resp B/P B/P Pulse O2 O2 Flow FiO2 Mean Ox Delivery Rate 06/11 1417 66 18 158/60 94 Room Air 06/11 0840 62 108/60 06/11 0839 62 108/60 06/11 0839 62 108/60 06/11 0839 62 108/60 06/11 0800 Room Air 06/11 0625 97.5 62 18 108/60 94 06/11 0000 CPAP 06/10 2253 97 Room Air 06/10 2215 98.4 75 18 148/80 96 Room Air 06/10 1456 98.1 73 18 110/65 97 Room Air Intake & Output 06/11 1600 06/11 0800 06/11 0000 Intake Total 680 1500 Output Total Balance 680 1500 Intake, IV 500 800 Intake, Oral 180 700 Number 1 1 Bowel Movements Physical Exam Other Physical Findings: He appears comfortable in no acute distress Extremities minimal erythema over the anterior tibial aspect of his left leg, slightly cool to touch Results Last 24 Hours of Lab Results: Laboratory Tests 06/11 1050 Chemistry Sodium (137 - 145 mmol/L) 137 Potassium (3.5 - 5.1 mmol/L) 4.8 Chloride (98 - 107 mmol/L) 108 H Carbon Dioxide (22 - 30 mmol/L) 22 Anion Gap (5 - 16) 8 BUN (9 - 20 mg/dL) 23 H Creatinine (0.7 - 1.2 mg/dL) 1.4 H Estimated GFR (>60 ml/min) 49 L BUN/Creatinine Ratio (7 - 25 %) 16.4 Last 24 Hours of Ryan Results: Blood cultures 2 June 07 negative Recent Imaging Studies: MRI of the left lower extremity June 10 reveals diffuse edema in the subcutaneous tissues with no evidence of any abscess or osteomyelitis MRI of the left foot June 10 negative for osteomyelitis or soft tissue abscess Assessment/Plan ID Impression: Stable, with his temperatures and white blood cell count remaining normal, on Cefazolin, Day 5 of treatment for a left leg cellulitis. His recent MRI is negative for any underlying osteomyelitis or discrete collection and suspect that his recurrent infections are related to his underlying diabetes and peripheral vascular disease. Antibiotic prophylaxis, for example with Amoxicillin or Keflex, could be considered though this would need to be lifelong and, therefore, fraught with all the risks of prolonged antibiotics, including adverse reactions and resistance. Suggestion: 1. Vascular surgery evaluation 2. Discontinue Cefazolin and begin Keflex 500 mg p.o. every 8 hours
--- NOTE | 2018-06-11 19:22 | ULTRASOUND REPORT ---
EXAMINATION: US DUPLEX LOWER EXTREMITY ARTERY/GRAFT LIMITED, LEFT lower extremity CLINICAL INFORMATION: Vascular skin changes. Numb/tingling feet. Pain. COMPARISON: Left lower extremity DVT study 06/07/2018 TECHNIQUE: Grayscale, color and spectral Doppler imaging was obtained through the deep arterial system of the left lower extremity. FINDINGS: Scattered atherosclerotic disease. The left common femoral artery and proximal/mid superficial femoral artery demonstrate normal triphasic waveforms and unremarkable velocities. The distal left femoral artery demonstrates biphasic waveforms suggesting mild disease. Segmental increased velocity of 143 cm/s within the left popliteal artery suggests focal stenosis. Monophasic waveforms are present within the left peroneal and posterior tibial artery consistent with disease. The dorsal pedis artery was not clearly visualized. IMPRESSION: 1. Patent deep arterial system of the right lower extremity. Of note, the dorsal pedis artery was not clearly visualized. 2. Scattered atherosclerotic disease of the left lower extremity, mild in the thigh and moderate in the calf. Suspected focal region of stenosis within the left popliteal artery. Findings can be further evaluated with dedicated CTA runoff if clinically indicated.
[2018-06-11 22:03] VITALS: BP 150/82
--- NOTE | 2018-06-12 06:43 | PN- Housestaff ---
Kike Arguelles 06/12/18 0643: Subjective Follow-up For: LLE cellulitis Subjective: Pt seen and examined this am. He was awake, comfortably lying on the bed. He complained of shooting pain that occured during the night on the left lower extremity. He states the pain was not there when he was about to sleep. He continues to be afebrile, sat 96% on RA. AAOx3. Review of Systems Constitutional: Reports: see HPI. Objective Last 24 Hrs of Vital Signs/I&O Vital Signs Date Time Temp Pulse Resp B/P B/P Pulse O2 O2 Flow FiO2 Mean Ox Delivery Rate 06/12 0715 97.9 63 20 144/80 96 Room Air 06/12 0000 95 CPAP Room Air 06/11 2203 98.6 67 20 150/82 95 Room Air 06/11 1417 97.6 66 18 158/60 94 Room Air 06/11 0840 62 108/60 06/11 0839 62 108/60 06/11 0839 62 108/60 06/11 0839 62 108/60 Intake & Output 06/12 1600 06/12 0800 06/12 0000 Intake Total Output Total Balance Number 3 Bowel Movements Physical Exam General Appearance: Alert, Oriented X3, Cooperative, No Acute Distress HEENT: Atraumatic Neck: Supple Cardiovascular: Regular Rate, Normal S1, Normal S2, No Murmurs Lungs: Clear to Auscultation, Normal Air Movement Abdomen: Normal Bowel Sounds, Soft, No Tenderness Extremities: LLE swelling noted on the anteromedial mcclure. Erythematous and tender to touch. Current Medications: Current Medications Sig/Chacha Start time Last Medication Dose Route Stop Time Status Admin Acetaminophen 650 MG Q6P PRN 06/07 0615 AC PO Allopurinol 300 MG QAM 06/07 09 AC 06/11 PO 0840 Aspirin Buffered 81 MG QAM 06/07 900 AC 06/11 PO 0839 Atorvastatin Calcium 20 MG QAM 06/07 900 AC 06/11 PO 0840 Bupropion HCl 300 MG DAILY 06/07 900 AC 06/11 PO 0839 Carbidopa/Levodopa 2 TAB DAILY 06/07 900 AC 06/11 PO 0840 Carvedilol 25 MG QAM 06/07 900 AC 06/11 PO 0839 Cefazolin Sodium 1,000 MG Q8H 06/07 1200 DC 06/11 IV 1219 Cephalexin 500 MG Q8 06/11 2200 AC 06/12 PO 0636 Clopidogrel Bisulfate 75 MG QAM 06/07 0900 AC 06/11 PO 0840 Escitalopram Oxalate 10 MG DAILY 06/07 0900 AC 06/11 PO 0840 Finasteride 5 MG QPM 06/07 2100 AC 06/11 PO 2201 Glycerin/Mineral Oil 1 ALFA TID PRN 06/11 1015 AC TOP Heparin Sodium 5,000 UNIT Q8 06/07 1400 AC 06/12 (Porcine) SC 0636 Insulin Aspart 0 TIDAC/HS 06/11 2230 AC 06/11 SC 2233 Insulin Aspart 0 TIDAC 06/07 0615 DC 06/11 SC 1726 Insulin Detemir 18 UNITS BID 06/07 0900 AC 06/11 SC 2214 Isosorbide 120 MG QAM 06/07 0900 AC 06/11 Mononitrate PO 0839 Lisinopril 5 MG QAM 06/07 0900 AC 06/11 PO 0840 Nystatin 1 ALFA TID 06/07 0900 DC 06/11 TOP 0841 Oxycodone HCl 10 MG Q6P PRN 06/07 0615 06/08 PO 2156 Patient Medication 1 ED ONE ONE 06/11 1900 DC Teaching ED 06/11 1901 Pregabalin 0 .STK-MED ONE 06/11 0844 DC PO Pregabalin 0 .STK-MED ONE 06/11 0839 DC PO Pregabalin 150 MG QPM 06/07 2100 AC 06/11 PO 2213 Pregabalin 100 MG QAM 06/07 0900 AC 06/11 PO 0841 Tamsulosin HCl 0.4 MG DAILY 06/07 0900 AC 06/11 PO 0839 Trazodone HCl 25 MG QPM 06/07 2100 AC 06/11 PO 2201 Assessment/Plan Assessment: Mr. Guerra is a 77 y/o M with PMH significant for CRISTINE on CPAP, gout, CAD on dual antiplt therapy, HTN/HLD, diastolic heart failure, depression, Parkinson's disease, BPH, recurrent UTI, DM, diabetic neuropathy, insomnia, history of diverticulitis s/p colectomy, CABG, multiple toe amputations, who presented to the emergency room after fall, AMS and fever. He was admitted to the gen med floor for further management of: #LLE cellulitis #S/p mechanical fall #Groin fungal dermatitis #Sepsis, resolved #H/o diabetes #Morbid obesity #LLE cellulitis Pt has been afebrile. WBC has come down from 16.8->9.0 latest am lab. He was on cefazolin 1g q8, now transitioned to Cephalexin 500 mg PO to complete treatment. Avoid ALPS on LLE but do place on right side. MRI of left lower extremity did not show active osteomyelitis or collection but did note soft tissue swelling. Vascular surgery to see the patient today. Arterial doppler US of the extremities showed patent deep arterial system on the right, but scattered atherosclerotic disease of the LLE, with suspected focal stenosis within the left popliteal artery. -ve Growth on BC 2/2 and Ucx so far. -Changed cefazolin to cephalexin 500 mg PO (day 6 of treatment) -negative growth so far on Ucx and BC (day #5) -Vascular surgery to see pt today #S/p mechanical fall PT eval on 06/08 mentions he is at his baseline level. No further PT needed. -On fall precautions #Groin fungal dermatitis -Continue nystatin topical for fungal rash. #H/o diabetes Continue insulin sliding scale, and levemir 16 units bid. BS range acceptable. Latest BS 174. -Continue bedside glucose monitoring FULL CODE DVT PPX - sc hep Consistent Carb 3 Problem List: 1. Cellulitis of left lower extremity Pain Ratin (when examined) Pain Location: LLE Pain Goal: Remain pain free Pain Plan: as per pathway Tomorrow's Labs & Rationales: Esvin Thakkar MD 06/12/18 1443: Attending MD Review Statement Attending Statement Attending MD Statement: examined this patient, discuss w/resident/PA/HEALTHCARE TRANSLATOR, agreed w/resident/PA/HEALTHCARE TRANSLATOR, reviewed EMR data (avail), discussed with nursing, discussed with case mgmt, reviewed images, amended to note Attending Assessment/Plan: The patient was seen and discussed with house staff, nursing, and case management. Popliteal stenosis noted on arterial US and subsequent CTA showing several areas of stenosis. Vascular input appreciated and they will review CTA. No urgent intervention needed per vascular.
[2018-06-12 07:15] VITALS: BP 144/80
[2018-06-12 09:13] VITALS: BP 140/70
--- NOTE | 2018-06-12 13:28 | Cons- Vascular Surgery ---
General Information and HPI Consulting Request Date of Consult: 06/12/18 Requested By: Esvin Rodriguez MD Reason for Consult: left leg cellulitis Source of Information: patient Exam Limitations: no limitations History of Present Illness: 77 y/o m w/ hx of obesity cad s/p cabg multiple stents, CKD, DM, bilateral toe amputation, previous left leg angiogram who presents with recurrent cellulitis of left leg. Pt has had mutiple episodes of cellulitis in left leg. Currently episode began from pre tibial ulcerations. Pt has chronic swelling in both legs and wears compression stockings at home. had left gsv harvested for cabg. last echo 2016 showed normal EF. Had angiogram left leg [address] christensen-- showed single vessel runoff in the left leg via peroneal artery. pt seen and examined. cellulitis has appeared to resolved. small ulcer left dorsal 3rd toe. wbc has normalized. feet are warm and perfused. Allergies/Medications Allergies: Coded Allergies: ciprofloxacin (RASH 04/05/18) Home Med List: Allopurinol 300 MG TABLET 1 TAB PO QAM GOUT (Reported) Aspirin (Ecotrin*) 81 MG TABLET.DR 1 TAB PO QAM HEART/BLOOD (Reported) Atorvastatin Calcium 20 MG TABLET 1 TAB PO QAM CHOLESTEROL (Reported) Bupropion HCl (Wellbutrin XL) 300 MG TAB.ER.24H 1 TAB PO DAILY Mental Health (Reported) Carbidopa/Levodopa (Carbidopa-Levodopa 25-100 Tab) 25 MG-100 MG TABLET 2 TAB PO DAILY Parkinson (Reported) Carvedilol (Coreg) 25 MG TABLET 1 TAB PO QAM BP (Reported) Clopidogrel Bisulfate (Clopidogrel) 75 MG TABLET 1 TAB PO QAM BLOOD THINNER ( Reported) Escitalopram Oxalate (Lexapro) 10 MG TABLET 1 TAB PO DAILY Mental Health ( Reported) Finasteride 5 MG TABLET 1 TAB PO QPM URINATION (Reported) Furosemide 40 MG TABLET 1 TAB PO QAM FLUID RETENTION (Reported) Hydroxyzine Hydrochloride (Atarax) 50 MG TAB 1 TAB PO DAILY PRN Itching ( Reported) Insulin Aspart (Novolog) 100 UNIT/ML VIAL 0 UNITS SC TIDAC/HS Diabetes BEFORE MEALS Blood Insulin Sugar Units <80 0 81-100 6 101-150 6 151-200 8 201-250 10 251-301 12 301-350 14 351-400 16 >400 18 units and Call Doctor AT BEDTIME Blood Insulin Sugar Units <80 0 81-100 0 101-200 0 201-250 0 251-300 2 301-350 3 351-400 4 >400 Call Doctor Insulin Detemir (Levemir) 100 UNIT/ML VIAL 18 UNITS SC BID Diabetes Isosorbide Mononitrate (Isosorbide Mononitrate ER) 60 MG TAB.ER.24H 2 TAB PO QAM HEART (Reported) Lisinopril (Prinivil) 5 MG TABLET 1 TAB PO QAM BP (Reported) Mirabegron (Myrbetriq) 25 MG TAB.ER.24H 1 TAB PO DAILY BLADDER (Reported) Multivit-Min/Iron/Folic/Lutein (Centrum Silver Women Tablet) 8 MG IRON-400 MCG- 300 MCG TABLET 1 TAB PO DAILY SUPPLEMENT (Reported) Niacin (Niaspan) 500 MG TAB.ER.24H 1 TAB PO QPM CHOLESTEROL (Reported) Pregabalin (Lyrica) 50 MG CAPSULE 2 CAP PO QAM NEUROPATHY (Reported) Pregabalin (Lyrica) 50 MG CAPSULE 3 CAP PO QPM NEUROPATHY (Reported) Tamsulosin HCl (Flomax) 0.4 MG CAP.ER.24H 1 CAP PO DAILY (Reported) Trazodone HCl 50 MG TABLET 0.5 TAB PO QPM SLEEP HELP (Reported) Past History Medical History Blood Transfusion Hx: No Neurological: CVA, Parkinson's disease, NEUROPATHY EENT: allergies, cataracts, hearing loss Cardiovascular: CAD, hypertension, hyperlipidemia, PVD, STEMI, syncope Respiratory: obstructive sleep apnea Gastrointestinal: diverticulitis, GERD Hepatic: NONE Renal: CHRONIC KIDNEY DISEASE Musculoskeletal: gout, osteoarthritis Psychiatric: depression Endocrine: diabetes Blood Disorders: NONE Cancer(s): NONE ROLLER STITCHER/Reproductive: NONE Surgical History Pertinent Surgical History: CABG (lower extremity angioplasty), colon resection, laminectomy (L4/L5), partial left fifth ray resection, R FOOT 4 TOES amputation (big toe left) Family History Relations & Conditions If Any: Relation not specified for: FH: diabetes mellitus Psychosocial History Where Do You Live? Home Who Do You Live With? spouse, child Services at Home: None Primary Language: Tajik Smoking Status: Never Smoked ETOH Use: denies use Illicit Drug Use: denies illicit drug use Living Will? yes Functional Ability ADLs Independent: dressing, eating, toileting, bathing. Ambulation: walker IADLs Independent: shopping, housework, finances, food prep, telephone, transportation , medication admin. Review of Systems Review of Systems: as above Exam & Diagnostic Data Vital Signs and I&O Vital Signs Date Time Temp Pulse Resp B/P B/P Pulse O2 O2 Flow FiO2 Mean Ox Delivery Rate 06/12 0913 72 140/70 06/12 0800 Room Air 06/12 0715 97.9 63 20 144/80 96 Room Air 06/12 0000 95 CPAP Room Air 06/11 2203 98.6 67 20 150/82 95 Room Air 06/11 1417 97.6 66 18 158/60 94 Room Air Intake & Output 06/12 1600 06/12 0800 06/12 0000 06/11 1600 06/11 0800 06/11 0000 Intake Total 100 287 627 2063 Output Total 0 400 Balance 100 80 680 1500 Intake, IV 0 0 500 800 Intake, Oral 100 480 180 700 Number 0 3 1 1 Bowel Movements Output, Urine 0 400 Patient 275 lb Weight Physical Exam: nad obese, soft,nt,nd bilateral feet wwp. pitting edema up to knees. left pre tibial area some venous ulceration. small 3rd toe ulcer. Assessment/Plan Assessment/Plan 77 y/o m w/ mmp presents with recurrent left leg cellulitis -- i have reviewed the patients arterial duplex. possible disease in left popliteal artery. previously had angiogram that showed single vessel runoff via peroneal artery. --pt has chronic swelling. needs continued compression/elevation. will need follow up in office to evaluate for superfical reflux. -- in terms of 3rd toe ulcer. this is relatively superficial at this time. I would obtain CTA if no contraindicaitno from renal perspective. no urgent indication for angiogram. Consult Acknowledgment - Thank you for your consult request.
--- NOTE | 2018-06-12 14:32 | PN- Infect Dx ---
Subjective Subjective: Afebrile. He complains of a burning pain in his left foot overnight. Objective Last 24 Hrs of Vital Signs/I&O Vital Signs Date Time Temp Pulse Resp B/P B/P Pulse O2 O2 Flow FiO2 Mean Ox Delivery Rate 06/12 0913 72 140/70 06/12 0800 Room Air 06/12 0715 97.9 63 20 144/80 96 Room Air 06/12 0000 95 CPAP Room Air 06/11 2203 98.6 67 20 150/82 95 Room Air Intake & Output 06/12 1600 06/12 0800 06/12 0000 Intake Total 100 Output Total 0 Balance 100 Intake, IV 0 Intake, Oral 100 Number 0 3 Bowel Movements Output, Urine 0 Patient 275 lb Weight Physical Exam Other Physical Findings: He appears comfortable in no acute distress Extremities minimal erythema over the anterior tibial aspect of his left leg, with persistent edema of the left lower extremity; ulcer on the dorsal aspect of his left third toe without inflammation Results Last 24 Hours of Lab Results: Laboratory Tests 06/12 0740 Chemistry Sodium (137 - 145 mmol/L) 137 Potassium (3.5 - 5.1 mmol/L) 4.4 Chloride (98 - 107 mmol/L) 110 H Carbon Dioxide (22 - 30 mmol/L) 22 Anion Gap (5 - 16) 5 BUN (9 - 20 mg/dL) 22 H Creatinine (0.7 - 1.2 mg/dL) 1.1 Estimated GFR (>60 ml/min) > 60 BUN/Creatinine Ratio (7 - 25 %) 20.0 Last 24 Hours of Ryan Results: Blood cultures June 07 negative Recent Imaging Studies: Arterial Dopplers of the lower extremities June 11 reveals scattered atherosclerotic disease of the left lower extremity, mild in the thigh and moderate in the calf, with suspected focal regions of stenosis within the left popliteal artery Assessment/Plan ID Impression: Stable, with his temperatures and white blood cell count remaining normal, now on Keflex, Day 6 of treatment for a left leg cellulitis. His MRI is negative for any underlying osteomyelitis or discrete collection and suspect that his recurrent infections are related to his underlying diabetes and peripheral vascular disease. He has been evaluated by Podiatry and Vascular surgery, with their recommendations noted. Antibiotic prophylaxis, for example with Amoxicillin or Keflex, could be considered in an attempt to prevent recurrent episodes of cellulitis, though this would need to be lifelong and, therefore, fraught with all the risks of prolonged antibiotics. Suggestion: 1. Further management with regard to his peripheral vascular disease per Vascular surgery 2. Continue Keflex for 4 more days; then discontinue and follow off antibiotics
[2018-06-12 15:49] VITALS: BP 138/70
--- NOTE | 2018-06-12 19:34 | CT SCAN REPORT ---
EXAMINATION: CT ANGIOGRAM LOWER EXTREMITY, LEFT CLINICAL INFORMATION: Recurrent cellulitis with stenosis of the left popliteal artery. COMPARISON: None TECHNIQUE: Scans were performed both with and without IV contrast. Volume acquisition was performed from the pelvis through the left lower extremity. Images were evaluated on an independent dedicated 3-D workstation and 3-D images were reconstructed with concurrent radiologist supervision and subsequently interpreted. 120 mL Optiray 350 intravenous contrast was used for the contrast-enhanced portion of the exam. DLP: 897.44 mGy-cm FINDINGS: VASCULAR FINDINGS: Atherosclerotic changes are present in the distal aorta but there is no aortic stenosis or aneurysm seen. The iliac bifurcation is patent. Calcified atherosclerotic plaquing is present in both common iliac arteries without stenosis. Both iliac bifurcations are patent. The internal iliac artery on the left is patent. The left external iliac artery is widely patent. The left common femoral artery demonstrates typical posterior plaquing without significant stenosis. The femoral bifurcation is patent. The profunda femoris is widely patent without stenosis. There is mild disease in the SFA with one moderate area of narrowing seen at the level of the adductor canal distally best appreciated on axial images (CT series 2 image 671/1789). There is a tight area of stenosis seen in the proximal popliteal [id number] also best appreciated on axial imaging (CT series 2 image 751/1789). Another area of tight stenosis is seen in the popliteal at the level of the knee joint (CT series 2 image 897/1789). At the level of the trifurcation, there appears to be an extremely short segment occlusion with virtually no contrast seen in the distal popliteal. There is immediate reconstitution of the tibioperoneal trunk. The posterior tibial artery occludes shortly after its origin. The peroneal is the only visualized runoff vessel to the foot without significant area of stenosis. The posterior tibial artery and the anterior tibial artery are essentially nonvisualized. NONVASCULAR FINDINGS: Some diverticular changes are seen in the visualized portions of the colon. The visualized bladder is unremarkable. The prostate is unremarkable. There is thickening of the skin in the thigh laterally extending down into the calf consistent with the given history of cellulitis. No discrete abscess is seen. No bony destructive lesions are seen to suggest osteomyelitis. IMPRESSION: Left-sided aortoiliac inflow is not compromised. The SFA is diseased with an area of stenosis at the adductor canal and at least 3 areas of significant stenosis in the popliteal artery with a distal short segment occlusion and reconstitution of single vessel runoff via the peroneal. Skin changes consistent with cellulitis.
[2018-06-12 22:42] VITALS: BP 152/88
[2018-06-13 06:56] VITALS: BP 136/70
--- NOTE | 2018-06-13 07:13 | PN- Housestaff ---
Kike Arguelles 06/13/18 0712: Subjective Follow-up For: LLE cellulitis S/p fall Subjective: Pt was seen and examined this am. He was pleasant as usual. He was breathing comfortably on room air. Had a good night's sleep with no pain in his LLE. He remains afebrile, transitioned to cephalexin PO. He was wearing compression stockings. He continues to use his CPAP at night. Review of Systems Constitutional: Reports: see HPI. Objective Last 24 Hrs of Vital Signs/I&O Vital Signs Date Time Temp Pulse Resp B/P B/P Pulse O2 O2 Flow FiO2 Mean Ox Delivery Rate 06/13 0656 98.3 65 20 136/70 96 CPAP 06/12 2242 98.2 81 20 152/88 94 Room Air 06/12 2200 96 CPAP 06/12 1549 97.5 75 18 138/70 96 Room Air 06/12 0913 72 140/70 Intake & Output 06/13 1600 06/13 0800 06/13 0000 Intake Total 100 800 Output Total Balance 100 800 Intake, Oral 100 800 Physical Exam General Appearance: Alert, Oriented X3, Cooperative, No Acute Distress Assessment/Plan Assessment: Mr. Guerra is a 77 y/o M with PMH significant for CRISTINE on CPAP, gout, CAD on dual antiplt therapy, HTN/HLD, diastolic heart failure, depression, Parkinson's disease, BPH, recurrent UTI, DM, diabetic neuropathy, insomnia, history of diverticulitis s/p colectomy, CABG, multiple toe amputations, who presented to the emergency room after fall, AMS and fever. He was admitted to the gen med floor for further management of: #LLE cellulitis #S/p mechanical fall #Groin fungal dermatitis #Sepsis, resolved #H/o diabetes #Morbid obesity #LLE cellulitis Pt has been afebrile. WBC has come down from 16.8->9.0 latest am lab. He was on cefazolin 1g q8, now transitioned to Cephalexin 500 mg PO to complete treatment. Avoid ALPS on LLE but do place on right side. MRI of left lower extremity did not show active osteomyelitis or collection but did note soft tissue swelling. Arterial doppler US of the extremities showed patent deep arterial system on the RIGHT, but scattered atherosclerotic disease of the LEFT LE, with suspected focal stenosis within the left popliteal artery. CTA LE showed stenosis of SFA and popliteal artery. -ve Growth on BC 2/2 and Ucx so far. Vascular surgery is to follow as outpatient with Dr. Cardona with plan to do angiogram. -Changed cefazolin to cephalexin 500 mg PO (day 7 of treatment) -negative growth so far on Ucx and BC -CTA LLE, U/S LLE show stenotic disease in left popliteal artery. -To follow vascular surgery as outpatient #S/p mechanical fall PT eval on 06/08 mentions he is at his baseline level. No further PT needed. -On fall precautions #Groin fungal dermatitis -Continue nystatin topical for fungal rash. #H/o diabetes Continue insulin sliding scale, and levemir 16 units bid. BS range acceptable. -Continue bedside glucose monitoring FULL CODE DVT PPX - sc hep Consistent Carb 3 Problem List: 1. Cellulitis of left lower extremity 2. PVD (peripheral vascular disease) Pain Ratin Pain Location: LLE Pain Goal: Pain 4 or less Pain Plan: As indicated Tomorrow's Labs & Rationales: n/a Esvin Rodriguez MD 06/13/18 1727: Attending MD Review Statement Attending Statement Attending MD Statement: examined this patient, discuss w/resident/PA/[employer] FACILITY OPERATOR, agreed w/resident/PA/[employer] FACILITY OPERATOR, reviewed EMR data (avail), discussed with nursing, discussed with case mgmt, reviewed images, amended to note Attending Assessment/Plan: The patient was seen and discussed with house staff. Agree with plan of care. Will discharge to home today and complete course of po antibiotics as per ID. OP follow-up with vascular surgery.
[2018-06-13 08:28] VITALS: BP 136/70
--- NOTE | 2018-06-13 10:28 | PN- Vascular Surgery ---
Surgical Brief Attending Note Brief Attending Note: I have reviewed the patients left leg CTA. There appears to be stenosis/ occlusion of the popliteal artery and tibial peroneal trunk with runoff via a peroneal artery. The patient has a combination of venous stasis and PAD. I will schedule him for a left leg angiogram via antegrade approach in my office. He does not need to stay in the hospital from my perspective. Will try to schedule in the next week or two. I spoke to the patient and he is aggreeable to the plan. please call me with questions.
[2018-06-13] MEDS ORDERED: CEPHALEXIN500 M3 PO (11:09)
== END 2018-06-13 14:05 | DRG 603 ==
LOC: ERH 02:13 → ERHI 05:22 → 2NA 05:22 → ENRESERV 06:07 → CANRESERV 06:07 → ENRESERV 07:06 → ERHI 07:32 → ENTRNSPT 08:28 → EDTRNSPT 08:40 → EDTRNSPTSTS 08:40 → 2NA 08:54 → CMPTRNSPT 09:23 → ENPENDDIS 06-13 11:20 → ENTRNSPT 06-13 13:52 → EDTRNSPTSTS 06-13 13:59 → EDTRNSPT 06-13 13:59 → 2NA 06-13 14:05 → CMPTRNSPT 06-13 14:10
PROVIDERS: Internal Medicine; Internal Medicine Endocrinology, Diabetes & Metabolism; Pediatrics
DX: L03.115 Cellulitis of right lower limb (principal); I13.0 Hypertensive heart and chronic kidney disease with heart failure and stage 1 through stage 4 chronic kidney disease, or unspecified chronic kidney disease; Z68.41 Body mass index [BMI] 40.0-44.9, adult; I50.32 Chronic diastolic (congestive) heart failure; E11.22 Type 2 diabetes mellitus with diabetic chronic kidney disease; N18.3 Chronic kidney disease, stage 3 (moderate); E66.01 Morbid (severe) obesity due to excess calories; G47.33 Obstructive sleep apnea (adult) (pediatric); Z88.1 Allergy status to other antibiotic agents; Z79.01 Long term (current) use of anticoagulants; Z79.4 Long term (current) use of insulin; H26.9 Unspecified cataract; H91.90 Unspecified hearing loss, unspecified ear; K21.9 Gastro-esophageal reflux disease without esophagitis; I25.10 Atherosclerotic heart disease of native coronary artery without angina pectoris; E78.5 Hyperlipidemia, unspecified; F32.9 Major depressive disorder, single episode, unspecified; Z98.61 Coronary angioplasty status; Z90.49 Acquired absence of other specified parts of digestive tract; Z89.421 Acquired absence of other right toe(s); Z89.422 Acquired absence of other left toe(s); Z98.1 Arthrodesis status; B35.6 Tinea cruris; G20 Parkinson's disease; N40.0 Benign prostatic hyperplasia without lower urinary tract symptoms; E11.51 Type 2 diabetes mellitus with diabetic peripheral angiopathy without gangrene; E11.621 Type 2 diabetes mellitus with foot ulcer; L97.529 Non-pressure chronic ulcer of other part of left foot with unspecified severity; W18.30XA Fall on same level, unspecified, initial encounter; I87.8 Other specified disorders of veins
CPT/HCPCS: 2NAP; 75656; 75659; 36415; 36592; 71045; 73630-LT; 74176; 81003; 82436; 87040; 87086; 93005; 93010; 97112-GO; 97116-GO; 97161-GP; A9579; J0456; J0690; J0696; J1644; J2405